=== PATIENT | male | born 1965 | race African-American/Black ===

== ENCOUNTER 2016-11-30 10:22 | Emergency (ER) | payer OTHER ==
[~2016-11-30] VITALS: Ht 185.4 cm; Wt 127.0 kg
[~2016-11-30 10:22] MED LIST: ALLO300T PO; BYSTOLIC10 MG PO; GLIM2TAB2 PO; HYDR12.53 PO; METF500T4 PO; SPIR100T2 PO; TELM80TA PO
[2016-11-30 10:51] VITALS: BP 181/107
--- NOTE | 2016-11-30 11:01 | PHYS DOC ---
Past Medical History Past Medical History: Diabetes-Type II, Hypertension Past Surgical History: Cholecystectomy Alcohol Use: None Drug Use: None Adult General Chief Complaint Chief Complaint: SORE THROAT HPI HPI Patient is a 51 year old male resents to the emergency department stating 3 day history of congestion. He states that he has had pressure feeling over the right eye into the nasal area. He states that he's been having a low-grade fever. He states he took ibuprofen although it causes him to have an upset stomach. He denies any productive cough. He does state that he has a sore throat. He denies any further symptoms at this time. Patient is afebrile here in the emergency department with a temperature of 100.6. Review of Systems Review of Systems Constitutional: fever Eyes: Denies change in visual acuity, redness, or eye pain [] HENT: nasal congestion and sore throat [] Respiratory: Denies cough or shortness of breath [] Cardiovascular: No additional information not addressed in HPI [] GI: Denies abdominal pain, nausea, vomiting, bloody stools or diarrhea [] : Denies dysuria or hematuria [] Musculoskeletal: Denies back pain or joint pain [] Integument: Denies rash or skin lesions [] Neurologic: Denies headache, focal weakness or sensory changes [] Endocrine: Denies polyuria or polydipsia [] Current Medications Current Medications Current Medications Medications (Trade) Dose Ordered [facility] Start Time Stop Time Status Last Admin Dose Admin Acetaminophen (Tylenol) 650 mg 1X ONCE 11/30/16 11:15 11/30/16 11:16 DC 11/30/16 11:22 650 MG Allergies Allergies Allergies Coded Allergies Type Severity Reaction Last Updated Verified No Known Drug Allergies 07/03/13 No Physical Exam Physical Exam Constitutional: Well developed, well nourished, no acute distress, non-toxic appearance. [] HENT: Normocephalic, atraumatic, bilateral external ears normal, oropharynx moist, no oral exudates, nose normal. Bilateral tympanic membranes appear to be normal. Throat with redness no erythematous no exudate noted. Patient with frontal sinus tenderness over the right eye. No maxillary tenderness noted bilaterally. Eyes: PERRLA, EOMI, conjunctiva normal, no discharge. [] Neck: Normal range of motion, no tenderness, supple, no stridor. [] Cardiovascular:Heart rate regular rhythm, no murmur [] Lungs & Thorax: Bilateral breath sounds clear to auscultation [] Abdomen: Bowel sounds normal, soft, no tenderness, no masses, no pulsatile masses. [] Skin: Warm, dry, no erythema, no rash. [] Back: No tenderness, no CVA tenderness. [] Extremities: No tenderness, no cyanosis, no clubbing, ROM intact, no edema. [] Neurologic: Alert and oriented X 3, normal motor function, normal sensory function, no focal deficits noted. [] Psychologic: Affect normal, judgement normal, mood normal. [] Current Patient Data Vital Signs Vital Signs Date Time Temp Pulse Resp B/P (MAP) Pulse Ox O2 Delivery O2 Flow Rate FiO2 11/30/16 10:51 100.6 100 20 98 Room Air 100.6 EKG EKG [] Radiology/Procedures Radiology/Procedures [] Course & Med Decision Making Course & Med Decision Making Pertinent Labs and Imaging studies reviewed. (See chart for details) Rapid strep was negative. Patient will be placed on doxycycline 1 tablet twice a day for the next 10 days. Commended Tylenol for his fever chills or generalized body aches and discomfort. Also recommended Coricidin HBP so recommended Mucinex DM [id number]. Patient will be discharged home with recommendations for plenty of fluids. He'll be provided with a work note for the next 1-2 days. Signs symptoms to return back to the department has been provided. Patient agrees with discharge instructions treatment regimens and follow-up recommendations. His blood pressure was elevated here in the emergency department. Patient states he has not taken his medication as of yet this morning. Spoke with patient in regards to taking his medication once he gets home. Patient agrees with treatment plan. [] Dragon Disclaimer Dragon Disclaimer This electronic medical record was generated, in whole or in part, using a voice recognition dictation system. Departure Departure Impression: Primary Impression: URI (upper respiratory infection) Disposition: 01 HOME, SELF-CARE Condition: STABLE Referrals: NON,STAFF (PCP) Patient Instructions: Upper Respiratory Infection, Adult, [id number] Additional Instructions: Activity as tolerated Medication as prescribed Tylenol for fever, chills or generalized body aches and discomfort Coricidin HBP as directed by nurseryperson [id number]. Mucinex DM instructed by nurseryperson [id number]. Drink plenty of fluids such as water Gatorade or propel. Follow-up to primary care physician in the next week. Return back to emergency department sign symptoms of become worse. Scripts Doxycycline Hyclate (DOXYCYCLINE HYCLATE) 100 Mg Capsule 1 CAP PO BID, #20 CAP Prov: ROSALINA SULLIVAN APRN 11/30/16 ROSALINA SULLIVAN APRN Nov 30, 2016 11:01
[2016-11-30] MEDS ORDERED: ACETAMINOPHEN 325 MG TABLET. PO ONE (11:15)
[2016-11-30] MEDS ORDERED: DOXY100C2 PO (11:22)
[2016-11-30 11:34] LABS: NEGATIVE OBC STREP NEG; POSITIVE OBC STREP POS
== END 2016-11-30 11:25 | disposition home or self-care (01) ==
LOC: ER 10:22
DX: J06.9 Acute upper respiratory infection, unspecified (principal); E11.9 Type 2 diabetes mellitus without complications; I10 Essential (primary) hypertension; Z90.49 Acquired absence of other specified parts of digestive tract
CPT/HCPCS: 87070; 87880; 99283

== ENCOUNTER 2016-12-04 12:29 | Inpatient (IN) | payer OTHER ==
[~2016-12-04] VITALS: Ht 185.4 cm; Wt 129.7 kg
[~2016-12-04 12:29] MED LIST changes: +DOXY100C2 PO
[2016-12-04] MEDS ORDERED: IV NORMAL SALINE 1000ML BAG 1,000 ML IV SCH (13:51)
[2016-12-04] MEDS ORDERED: cloNIDine HCL 0.1 MG TABLET PO ONE (14:00)
[2016-12-04] MEDS ORDERED: ONDANSETRON PF 4 MG/2 ML VIAL. IV ONE (14:00)
[2016-12-04] MEDS ORDERED: FAMOTIDINE 20 MG/2 ML VIAL IVP ONE (14:00)
[2016-12-04] MEDS ORDERED: fentaNYL PF VIAL 100 MCG/2 ML VIAL IV ONE (14:00)
[2016-12-04] MEDS ORDERED: CONTRAST GIVEN MC PRN (14:15)
[2016-12-04] MEDS ORDERED: IOHEXOL 300 MG/ML 75 ML VIAL IV ONE (14:15)
[2016-12-04 14:16] LABS: BILIRUBIN,URINE NEGATIVE (NEG); GLUCOSE,URINE 100 mg/dL (NEG); NITRITE,URINE NEGATIVE (NEG); PROTEIN,URINE >=300 mg/dL (NEG-TRACE); UROBILINOGEN,URINE 0.2 mg/dL (0.2 mg/dL)
--- NOTE | 2016-12-04 14:17 | RAD ---
Portable chest, 12/04/2016: History: Cough Comparison is made to a study from 02/23/2008. The heart is at the upper limits of normal in size. There is tortuosity of the thoracic aorta. The pulmonary vascularity is normal. No pulmonary infiltrates are seen. There is no evidence of pleural fluid. IMPRESSION: 1. Borderline cardiomegaly. 2. Mild aortic ectasia. 3. No acute abnormality is detected.
[2016-12-04 14:22] LABS: BARBITURATES NEG (NEG); BENZODIAZEPINES NEG (NEG); CANNABINOIDS NEG (NEG); COCAINE NEG (NEG); METHADONE NEG (NEG); OPIATES NEG (NEG); PHENCYCLIDINE NEG (NEG)
[2016-12-04 14:25] LABS: BASO # 0.1 x10^3/uL (0.0-0.2); BASO % 1 % (0-3); EOS % 3 % (0-3); HEMATOCRIT 27.6 % (39.0-53.0); HEMOGLOBIN 9.1 g/dL (13.0-17.5); LYMPH # 1.5 x10^3/uL (1.0-4.8); LYMPH % 19 % (24-48); MEAN CORPUSCULAR HEMOGLOBIN 31 pg (25-35); MEAN CORPUSCULAR HGB CONC 33 g/dL (31-37); MEAN CORPUSCULAR VOLUME 93 fL (79-100); MONO % 7 % (0-9); NEUT % 70 % (31-73); PLATELET COUNT 226 x10^3/uL (140-400); RED BLOOD COUNT 2.95 x10^6/uL (4.30-5.70); RED CELL DISTRIBUTION WIDTH 12.9 % (11.5-14.5)
[2016-12-04 14:35] LABS: BACTERIA,URINE 0 /HPF (0-FEW); SQUAMOUS EPITHELIAL CELL,UR OCC /LPF; WBC,URINE OCC /HPF (0-4)
[2016-12-04 14:35] LABS: INR 1.1 (0.8-1.1); PROTHROMBIN TIME PATIENT 13.3 SEC (11.7-14.0)
[2016-12-04 14:38] LABS: CALCIUM 9.1 mg/dL (8.5-10.1); CREATININE 9.8 mg/dL (0.7-1.3); GFR 6.8; POTASSIUM 4.7 mmol/L (3.5-5.1)
[2016-12-04 14:44] LABS: ALBUMIN/GLOBULIN RATIO 0.7 (1.0-1.7); MAGNESIUM 1.6 mg/dL (1.8-2.4); TOTAL BILIRUBIN 0.7 mg/dL (0.2-1.0); TOTAL PROTEIN 7.2 g/dL (6.4-8.2)
[2016-12-04] MEDS ORDERED: IV NORMAL SALINE 1000ML BAG 1,000 ML IV ONE ×2 (14:45→17:15)
--- NOTE | 2016-12-04 14:45 | EKG ---
[facility] [address] [place] [address] Test Date: 2016-12-04 Test Time: 14:16:13 Pat Name: MARYJANE GUZMAN Department: Room: Gender: M [employer]: : 1965 Requested By: CHRISTIAN SANTOS Order Number: [id number] Reading MD: Otis England Measurements Intervals Napoleon Rate: 68 P: 33 ID: [id number] QRS: -26 QRSD: 100 T: 62 QT: 422 QTc: 449 Interpretive Statements SINUS RHYTHM LEFTWARD AXIS R-S TRANSITION ZONE IN V LEADS DISPLACED TO THE LEFT LEFT VENTRICULAR HYPERTROPHY T ABNORMALITY IN HIGH LATERAL LEADS RI6.01 Unconfirmed report No previous ECG available for comparison Electronically Signed On 12-08-2016 10:36:13 CDT by Otis England
[2016-12-04 14:52] LABS: CKMB MASS 2.5 ng/mL (0.0-3.6)
--- NOTE | 2016-12-04 15:00 | PHYS DOC ---
Past Medical History Past Medical History: Diabetes-Type II, Hypertension, Other Additional Past Medical Histor: RENAL INSUFFIENCY Past Surgical History: Cholecystectomy Alcohol Use: None Drug Use: None Adult General Chief Complaint Chief Complaint: ABDOMINAL PAIN HPI HPI Patient is a 51 year old male with history of renal insufficiency, hypertension and diabetes type 2 who presents today with midepigastric abdominal pain nausea that began 3 days ago. Patient states he was seen in the ED 3 days ago for an upper respiratory infection and was started on doxycycline. Patient denies any fever. Denies any diarrhea. Patient states for the last couple days it is just not been feeling "right". PCP Dr. Fernandez Review of Systems Review of Systems Constitutional: Denies fever or chills [] Eyes: Denies change in visual acuity, redness, or eye pain [] HENT: Denies nasal congestion or sore throat [] Respiratory: Denies cough or shortness of breath [] Cardiovascular: No additional information not addressed in HPI [] GI: midepigastric abdominal pain nausea : Denies dysuria or hematuria [] Musculoskeletal: Denies back pain or joint pain [] Integument: Denies rash or skin lesions [] Neurologic: Denies headache, focal weakness or sensory changes [] Endocrine: Denies polyuria or polydipsia [] Current Medications Current Medications Current Medications Medications (Trade) Dose Ordered Sig/Evie Start Time Stop Time Status Last Admin Dose Admin Clonidine HCl (Catapres) 0.2 mg 1X ONCE 12/04/16 14:00 12/04/16 14:01 DC 12/04/16 14:26 0.2 MG Famotidine (Pepcid) 20 mg 1X ONCE 12/04/16 14:00 12/04/16 14:01 DC 12/04/16 14:27 20 MG Fentanyl Citrate (Fentanyl 2ml Vial) 50 mcg 1X ONCE 12/04/16 14:00 12/04/16 14:01 DC 12/04/16 14:28 50 MCG Info (Do NOT chart on this entry -- for MONITORING) 1 each PRN DAILY PRN 12/04/16 14:15 12/06/16 14:14 Iohexol (Omnipaque 300 Mg/ml) 75 ml 1X ONCE 12/04/16 14:15 12/04/16 14:16 DC 12/04/16 14:15 75 ML Labetalol HCl (Normodyne) 10 mg 1X ONCE 12/04/16 15:15 12/04/16 15:16 DC Ondansetron HCl (Zofran) 4 mg 1X ONCE 12/04/16 14:00 12/04/16 14:01 DC 12/04/16 14:27 4 MG Sodium Chloride 1,000 ml @ 125 mls/hr 1X ONCE 12/04/16 14:45 12/04/16 22:44 DC 12/04/16 14:45 125 MLS/HR Allergies Allergies Allergies Coded Allergies Type Severity Reaction Last Updated Verified No Known Drug Allergies 07/03/13 No Physical Exam Physical Exam Constitutional: Well developed, well nourished, no acute distress, non-toxic appearance. [] HENT: Normocephalic, atraumatic, bilateral external ears normal, oropharynx moist, no oral exudates, nose normal. [] Eyes: PERRLA, EOMI, conjunctiva normal, no discharge. [] Neck: Normal range of motion, no tenderness, supple, no stridor. [] Cardiovascular:Heart rate regular rhythm, no murmur [] Lungs & Thorax: Bilateral breath sounds clear to auscultation [] Abdomen: Bowel sounds normal, soft, no tenderness, no masses, no pulsatile masses. [] Skin: Warm, dry, no erythema, no rash. [] Back: No tenderness, no CVA tenderness. [] Extremities: No tenderness, no cyanosis, no clubbing, ROM intact, no edema. [] Neurologic: Alert and oriented X 3, normal motor function, normal sensory function, no focal deficits noted. [] Psychologic: Affect normal, judgement normal, mood normal. [] Current Patient Data Vital Signs Vital Signs Date Time Temp Pulse Resp B/P (MAP) Pulse Ox O2 Delivery O2 Flow Rate FiO2 12/04/16 16:28 70 15 182/106 (131) 98 Room Air 12/04/16 13:41 97.9 97.9 Lab Values Laboratory Tests Test 12/04/16 13:25 12/04/16 14:20 Urine Color Yellow Urine Clarity Clear Urine pH 6.0 Urine Specific [place] 1.020 Urine Protein >=300 mg/dL (NEG-TRACE) Urine Glucose (UA) 100 mg/dL (NEG) Urine Ketones (Stick) Negative mg/dL (NEG) Urine Blood Moderate (NEG) Urine Nitrite Negative (NEG) Urine Bilirubin Negative (NEG) Urine Urobilinogen Dipstick 0.2 mg/dL (0.2 mg/dL) Urine Leukocyte Esterase Negative (NEG) Urine RBC 3-5 /HPF (0-2) Urine WBC Occ /HPF (0-4) Urine Squamous Epithelial Cells Occ /LPF Urine Bacteria 0 /HPF (0-FEW) Urine Opiates Screen Neg (NEG) Urine Methadone Screen Neg (NEG) Urine Barbiturates Neg (NEG) Urine Phencyclidine Screen Neg (NEG) Urine Amphetamine/Methamphetamine Neg (NEG) Urine Benzodiazepines Screen Neg (NEG) Urine Cocaine Screen Neg (NEG) Urine Cannabinoids Screen Neg (NEG) Urine Ethyl Alcohol Neg (NEG) White Blood Count 8.0 x10^3/uL (4.0-11.0) Red Blood Count 2.95 x10^6/uL (4.30-5.70) L Hemoglobin 9.1 g/dL (13.0-17.5) L Hematocrit 27.6 % (39.0-53.0) L Mean Corpuscular Volume 93 fL (79-100) Mean Corpuscular Hemoglobin 31 pg (25-35) Mean Corpuscular Hemoglobin Concent 33 g/dL (31-37) Red Cell Distribution Width 12.9 % (11.5-14.5) Platelet Count 226 x10^3/uL (140-400) Neutrophils (%) (Auto) 70 % (31-73) Lymphocytes (%) (Auto) 19 % (24-48) L Monocytes (%) (Auto) 7 % (0-9) Eosinophils (%) (Auto) 3 % (0-3) Basophils (%) (Auto) 1 % (0-3) Neutrophils # (Auto) 5.6 x10^3uL (1.8-7.7) Lymphocytes # (Auto) 1.5 x10^3/uL (1.0-4.8) Monocytes # (Auto) 0.5 x10^3/uL (0.0-1.1) Eosinophils # (Auto) 0.3 x10^3/uL (0.0-0.7) Basophils # (Auto) 0.1 x10^3/uL (0.0-0.2) Prothrombin Time 13.3 SEC (11.7-14.0) Prothrombin Time INR 1.1 (0.8-1.1) Sodium Level 140 mmol/L (136-145) Potassium Level 4.7 mmol/L (3.5-5.1) Chloride Level 106 mmol/L (98-107) Carbon Dioxide Level 23 mmol/L (21-32) Anion Gap 11 (6-14) Blood Urea Nitrogen 82 mg/dL (8-26) H Creatinine 9.8 mg/dL (0.7-1.3) H Estimated GFR (Cockcroft-Gault) 6.8 BUN/Creatinine Ratio 8 (6-20) Glucose Level 120 mg/dL (70-99) H Calcium Level 9.1 mg/dL (8.5-10.1) Magnesium Level 1.6 mg/dL (1.8-2.4) L Total Bilirubin 0.7 mg/dL (0.2-1.0) Aspartate Amino Transferase (AST) 16 U/L (15-37) Alanine Aminotransferase (ALT) 23 U/L (16-63) Alkaline Phosphatase 61 U/L (46-116) Creatine Kinase 415 U/L (39-308) H Creatine Kinase MB (Mass) 2.5 ng/mL (0.0-3.6) Creatine Kinase MB Relative Index 0.6 % (0-4) Troponin I Quantitative 0.053 ng/mL (0.000-0.055) UA-Xpr-M-Type Natriuretic Peptide 4388 pg/mL (0-124) H Total Protein 7.2 g/dL (6.4-8.2) Albumin 3.0 g/dL (3.4-5.0) L Albumin/Globulin Ratio 0.7 (1.0-1.7) L Lipase 309 U/L (73-393) Laboratory Tests 12/04/16 14:20 Laboratory Tests 12/04/16 14:20 EKG EKG [] Radiology/Procedures Radiology/Procedures [] Course & Med Decision Making Course & Med Decision Making Pertinent Labs and Imaging studies reviewed. (See chart for details) Patient is in the ED with nausea and midepigastric abdominal pain that began 3 days ago. Patient denies any vomiting. Patient states he was started on doxycycline and he thought that is the source of his symptoms. He states he has not been feeling "right" for the last 3 days. CBC with hemoglobin of 9.1 with hematocrit of 27.6, CMP with creatinine of 9.8 and BUN of 82, BNP 4388. Urine protein>= 300. Patient states he has been told before he has renal insufficiency. He states acouple months ago he had his lab work done and his creatinine was around 2.8. Patient's blood pressure on arrival to the ED was 245/128. He states he took his blood pressure medicines 3 hours ago. Patient denies any headache or chest pain. His heart rate of 77. He was given clonidine. Blood pressure is 167/100 with a heart rate of 69. Patient was given 1 L of IV fluid and started of normal saline at 125. Consulted with Dr. Grande. He requested a renal ultrasound as well as a bladder scan. Bladder scan shows patient has [address] Grande requested NS at 100cc/hr Consulted with Dr. Garcia who accepted patient for admission. Dragon Disclaimer Dragon Disclaimer This electronic medical record was generated, in whole or in part, using a voice recognition dictation system. Departure Departure Impression: Primary Impression: Acute renal failure Additional Impressions: Accelerated hypertension Nausea Disposition: 09 ADMITTED INPATIENT Admitting Physician: Janessa Garcia Condition: STABLE Referrals: RAJ SLATER MD (PCP) Problem Qualifiers Primary Impression: Acute renal failure Acute renal failure type: unspecified Qualified Codes: N17.9 - Acute kidney failure, unspecified [employer]AMELAERACHRISTIAN [employer] Dec 04, 2016 15:00
[2016-12-04] MEDS ORDERED: LABETALOL 20 MG/4 ML DISP.SYRIN. IVP ONE (15:15)
--- NOTE | 2016-12-04 16:49 | RAD ---
Renal ultrasound 12/04/2016 Clinical history: Acute renal failure. Technique: A real-time ultrasound examination of both kidneys and the urinary bladder was performed. Multiple images were obtained. Findings: Both kidneys are within normal limits in size and echogenicity. The right kidney measures 10.7 cm in length. The left kidney measures 10.7 cm in length. No focal abnormality of either kidney is seen. No renal calculus is noted. There is no evidence of hydronephrosis. The urinary bladder is distended with urine. No abnormality is seen. Impression: Negative study.
[2016-12-04] MEDS ORDERED: cloNIDine HCL 0.1 MG TABLET PO PRN (17:15)
[2016-12-04] MEDS ORDERED: ONDANSETRON PF 4 MG/2 ML VIAL. IV PRN (17:15)
[2016-12-04] MEDS ORDERED: MORPHINE SULFATE 4 MG/ML DISP.SYRIN. IV PRN (17:15)
--- NOTE | 2016-12-04 18:40 | ACF ---
Admission Forms Criteria RENAL FAILURE, ACUTE Clinical Indications for Admission to Inpatient Care ( Place 'X' for any and all applicable criteria): Admission is indicated for ALL (if I & II) or III of the following [A](2)(3)(4)( 5)(6)(7): [X ]I. Acute renal failure as indicated by ANY ONE of the following: [ ]a) A 3-fold rise in serum creatinine from baseline [X ]b) Serum creatinine greater than 4 mg/dL (354 micromoles/L) with an acute rise greater than 0.5 mg/dL (44.2 micromoles/L) [ ]c) Reduction of more than 75% in estimated glomerular filtration rate from baseline [ ]d) Estimated glomerular filtration rate less than 35 mL/min/1.73m2 (0.59mL/sec/1.73m2)in a child up to 18 years of age [ ]e) Anuria indicated by ALL of the following: [ ]i) Adequate volume status [ ]ii) Cessation of urine output indicated by ANY ONE of the following: [ ]1) Urine output less than 0.3 mL/kg/hr for 24 hours [ ]2) Anuria (urine output less than 0.1 mL/kg/ hr) for 12 hours [X ] II. Renal failure cannot be managed in an outpatient setting or observational care setting as indicating by ANY ONE of the following: [ ]a) Altered mental status that is severe or persistent [ ]b) Volume overload or Respiratory distress (eg, clinically significant pulmonary edema) that is severe or persistent [ ]c) Cardiac arrhythmias of immediate concern [ ]d) Hemodynamic instability [ ]e) Clinically significant electrolyte abnormality that requires inpatient care (eg, hyperkalemia with severe ECG findings)[B] [ ]f) Clinically significant metabolic abnormality (eg, acidosis) that is severe or persistent [ ]g) Acute treatment of renal failure (eg, renal replacement therapy) not feasible or appropriate in observational care setting [ ]h) Clinical situation too unstable or uncertain (eg, inadequate urine output, ongoing decline in renal function, etiology unclear) [ ]i) Necessary support and caregiver ability to comply with outpatient treatment cannot be arranged in observation care timeframe (eg, within 24 hours) [X ]j) Other significant finding or clinical condition judged not to be within scope of observation care [ ]III.General contraindications and/or Inappropriate clinical situations for Observational Care in patients with Acute Renal Failure, when ANY ONE of the following is required: [ ]a) Prediction of prolongation of LOS based on ANY ONE of the following may be considered as a contraindication for observational care 2, 3, 4, 5, 6, 7, 8 , 9, 10, 11 [ ]i) Age > 65 yrs. [ ]ii) Patient arriving by ambulance [ ]iii) Patient with high acuity [ ]iv) Patient requiring vital sign monitoring [ ]v) Patient on IV medication [ ]b) Systolic blood pressures 180mmHg 3,12 [ ]c) Patient with altered mental status including delirium and other alteration of consciousness, (3) [ ]d) Patient whose discharge disposition will be to a care home home or rehabilitation home should not be managed in Emergency Department Observation Unit. CMS rule requires 3 days hospital stay before such placement.3,13 [ ]e) Patient with failure to thrive due to broad array of etiologies 3, 16,17 [ ]f) Inability to ambulate 3,14 Extended stay beyond goal length of stay may be needed for(13) [ ]a) Continuing uremic complications [ ]b) Care for comorbidities [ ]c) acute renal failure [ ]d) Need for dialysis The original [email or web address] content created by [email or web address] has been revised. The portions of the content which have been revised are identified through the use of italic text or in bold, and [facility] [employer] has neither reviewed nor approved the modified material. All other unmodified content is copyright [employer] [facility]. Please see references footnoted in the original [employer] [facility] edition 2016 Admission Criteria Met?: Yes SIMA JOHNSON Dec 04, 2016 18:40
[2016-12-04 19:00] VITALS: BP 174/103
[2016-12-04 20:00] VITALS: BP 174/103
[2016-12-04] MEDS: IV NORMAL SALINE 1000ML BAG 1,000 ML IV SCH (21:30)
[2016-12-04] MEDS ORDERED: DEXTROSE 50% 25 GM / 50ML DISP.SYRIN. IV PRN (21:45)
[2016-12-04] MEDS ORDERED: amLODIPine BESYLATE 5 MG TABLET PO ONE (21:45)
--- NOTE | 2016-12-04 21:46 | PDOC1 ---
History and Physical Date of Admission Date of Admission DATE: 12/04/16 TIME: 21:39 Identification/Chief Complaint Chief Complaint nausea, weakness, abd pain Problems: Source Source: Chart review, Patient History of Present Illness History of Present Illness MR. Valenzuela, ([employer] here on nights) is a 51 year old male admit for acute renal failure 3 days ago given Doxy for URI symptoms of sinusitis and cough. then nausea, abd pain - pain to mid epigastrum, did not vomit. Labs drawn in ER were alarming for renal failure, IV fluid and BP meds given pt feels better now, nausea is improved, no pain. Past Medical History Past Medical History history of renal insufficiency, hypertension and diabetes type 2 Cardiovascular: HTN Heme/Onc: Anemia NOS Musculoskeletal: Other Renal/: Chronic renal insuff Past Surgical History Past Surgical History: Pacemaker Family History Family History: Hypertension Social History Smoke: No ALCOHOL: none Drugs: None Current Problem List Problem List Problems Medical Problems: (1) Accelerated hypertension Status: Acute (2) Nausea Status: Acute Problems: Current Medications Current Medications Current Medications Sodium Chloride 1,000 ml @ 1,000 mls/hr Q1H IV Last administered on 12/04/16 14:27; Start 12/04/16 at 13:51; Stop 12/04/16 at 14:50; Status DC Ondansetron HCl (Zofran) 4 mg 1X ONCE IV Last administered on 12/04/16 14:27 ; Start 12/04/16 at 14:00; Stop 12/04/16 at 14:01; Status DC Famotidine (Pepcid) 20 mg 1X ONCE IVP Last administered on 12/04/16 14:27; Start 12/04/16 at 14:00; Stop 12/04/16 at 14:01; Status DC Fentanyl Citrate (Fentanyl 2ml Vial) 50 mcg 1X ONCE IV Last administered on 14:28; Start 12/04/16 at 14:00; Stop 12/04/16 at 14:01; Status DC Clonidine HCl (Catapres) 0.2 mg 1X ONCE PO Last administered on 12/04/16 14: 26; Start 12/04/16 at 14:00; Stop 12/04/16 at 14:01; Status DC Iohexol (Omnipaque 300 Mg/ml) 75 ml 1X ONCE IV ; Start 12/04/16 at 14:15; Stop 12/04/16 at 14:16; Status DC Info (Do NOT chart on this entry -- for MONITORING) 1 each PRN DAILY PRN MC SEE COMMENTS; Start 12/04/16 at 14:15; Stop 12/06/16 at 14:14 Sodium Chloride 1,000 ml @ 125 mls/hr 1X ONCE IV Last administered on t 14:45; Start 12/04/16 at 14:45; Stop 12/04/16 at 22:44 Labetalol HCl (Normodyne) 10 mg 1X ONCE IVP ; Start 12/04/16 at 15:15; Stop at 15:16; Status DC Ondansetron HCl (Zofran) 4 mg PRN Q8HRS PRN IV NAUSEA/VOMITING; Start 12/04/16 at 17:15; Stop 12/05/16 at 17:14 Morphine Sulfate 4 mg PRN Q2HR PRN IV PAIN; Start 12/04/16 at 17:15; Stop 12/05 at 17:14 Sodium Chloride 1,000 ml @ 100 mls/hr 1X ONCE IV ; Start 12/04/16 at 17:15; Stop 12/05/16 at 03:14 Clonidine HCl (Catapres) 0.1 mg Q6HRS PRN PO HYPERTENSION, SEE COMMENTS; Start 12/04/16 at 17:15 Sodium Chloride 1,000 ml @ 100 mls/hr Q10H IV ; Start 12/04/16 at 21:45; Status UNV Active Scripts Active Doxycycline Hyclate 100 Mg Capsule 1 Cap PO BID Reported Micardis (Telmisartan) 80 Mg Tablet 80 Mg PO DAILY Bystolic (Nebivolol) 10 Mg Tablet 10 Mg PO DAILY Spironolactone 100 Mg Tablet 100 Mg PO DAILY Hydrochlorothiazide Capsule (Hydrochlorothiazide) 12.5 Mg Capsule 12.5 Mg PO DAILY Glimepiride 2 Mg Tablet 2 Mg PO BIDBFRMEAL Metformin Hcl 500 Mg Tablet 500 Mg PO BIDBFRMEAL Allopurinol 300 Mg Tablet 300 Mg PO PRN DAILY Allergies Allergies: Coded Allergies: No Known Drug Allergies (Unverified , 07/03/13) ROS General: YES: Fatigue, Malaise, Appetite, No: Chills, Night Sweats, Other PSYCHOLOGICAL ROS: YES: Sleep disturbances, No: Anxiety, Behavioral Disorder, Concentration difficultie, Decreased libido , Depression, Disorientation, Hallucinations, Hostility, Irritablity, Memory difficulties, Mood Swings, Obsessive thoughts Eyes: No Blurry vision, No Decreased vision, No Double vision, No Dry eyes, No Excessive tearing, No Eye Pain, No Itchy Eyes, No Loss of vision, No Photophobia , No Scotomata, No Uses contacts, No Uses glasses, No Other HEENT: YES: Sinus pain (better from 3 days ago), No: Heacaches, Visual Changes, Hearing change, Nasal congestion, Nasal discharge, Oral lesions, Sore Throat, Epistaxis, Sneezing, Snoring, Tinnitus, Vertigo, Vocal changes, Other Respiratory: YES: Cough, Other, No: Hemoptysis, Orthopnea, Pleuritic Pain, Shortness of breath, SOB with excertion, Sputum Changes, Stridor, Tachypnea, Wheezing Cardiovascular: No Chest Pain, No Palpitations, No Orthopnea, No Paroxysmal Noc. Dyspnea, No Edema, No Lt Headedness, No Other Gastrointestinal: Yes Nausea, Yes Abdominal Pain, No Diarrhea, No Constipation, No Melena, No Hematochezia, No Other Genitourinary: No Dysuria, No Frequency, No Incontinence, No Hematuria, No Retention, No Discharge, No Urgency, No Pain, No Flank Pain, No Other, No , No , No , No , No , No , No Musculoskeletal: No Gait Disturbance, No Joint Pain, No Joint Stiffness, No Joint Swelling, No Muscle Pain, No Muscular Weakness, No Pain In:, No Swelling In:, No Other Neurological: No Behavorial Changes, No Bowel/Bladder ControlChng, No Confusion , No Dizziness, No Gait Disturbance, No Headaches, No Impaired Coord/balance, No Memory Loss, No Numbness/Tingling, No Seizures, No Speech Problems, No Tremors, No Visual Changes, No Weakness, No Other Skin: No Dry Skin, No Eczema, No Hair Changes, No Lumps, No Mole Changes, No Mottling, No Nail Changes, No Pruritus, No Rash, No Skin Lesion Changes, No Other, No Acne Physical Exam General: Alert, Oriented X3, Cooperative, No acute distress HEENT: Atraumatic, PERRLA, EOMI, Mucous membr. moist/pink Lungs: Normal air movement Heart: no gallops, no murmurs Rectal Exam: deferred Extremities: No clubbing, No cyanosis, No edema, Normal pulses Skin: No rashes, No breakdown, No significant lesion Neuro: Normal speech, Normal tone, Sensation intact, Cranial nerves 3-12 NL Psych/Mental Status: Mood NL Vitals Vitals Vital Signs Date Time Temp Pulse Resp B/P (MAP) Pulse Ox O2 Delivery O2 Flow Rate FiO2 12/04/16 19:00 98.3 114 20 174/103 (126) 100 Room Air 98.3 Labs Labs Laboratory Tests Test 12/04/16 13:25 12/04/16 14:20 12/04/16 17:25 12/04/16 21:04 Urine Color Yellow Urine Clarity Clear Urine pH 6.0 Urine Specific [place] 1.020 Urine Protein >=300 mg/dL (NEG-TRACE) Urine Glucose (UA) 100 mg/dL (NEG) Urine Ketones (Stick) Negative mg/dL (NEG) Urine Blood Moderate (NEG) Urine Nitrite Negative (NEG) Urine Bilirubin Negative (NEG) Urine Urobilinogen Dipstick 0.2 mg/dL (0.2 mg/dL) Urine Leukocyte Esterase Negative (NEG) Urine RBC 3-5 /HPF (0-2) Urine WBC Occ /HPF (0-4) Urine Squamous Epithelial Cells Occ /LPF Urine Bacteria 0 /HPF (0-FEW) Urine Opiates Screen Neg (NEG) Urine Methadone Screen Neg (NEG) Urine Barbiturates Neg (NEG) Urine Phencyclidine Screen Neg (NEG) Urine Amphetamine/Methamphetamine Neg (NEG) Urine Benzodiazepines Screen Neg (NEG) Urine Cocaine Screen Neg (NEG) Urine Cannabinoids Screen Neg (NEG) Urine Ethyl Alcohol Neg (NEG) White Blood Count 8.0 x10^3/uL (4.0-11.0) Red Blood Count 2.95 x10^6/uL (4.30-5.70) Hemoglobin 9.1 g/dL (13.0-17.5) Hematocrit 27.6 % (39.0-53.0) Mean Corpuscular Volume 93 fL (79-100) Mean Corpuscular Hemoglobin 31 pg (25-35) Mean Corpuscular Hemoglobin Concent 33 g/dL (31-37) Red Cell Distribution Width 12.9 % (11.5-14.5) Platelet Count 226 x10^3/uL (140-400) Neutrophils (%) (Auto) 70 % (31-73) Lymphocytes (%) (Auto) 19 % (24-48) Monocytes (%) (Auto) 7 % (0-9) Eosinophils (%) (Auto) 3 % (0-3) Basophils (%) (Auto) 1 % (0-3) Neutrophils # (Auto) 5.6 x10^3uL (1.8-7.7) Lymphocytes # (Auto) 1.5 x10^3/uL (1.0-4.8) Monocytes # (Auto) 0.5 x10^3/uL (0.0-1.1) Eosinophils # (Auto) 0.3 x10^3/uL (0.0-0.7) Basophils # (Auto) 0.1 x10^3/uL (0.0-0.2) Prothrombin Time 13.3 SEC (11.7-14.0) Prothromb Time International Ratio 1.1 (0.8-1.1) Sodium Level 140 mmol/L (136-145) Potassium Level 4.7 mmol/L (3.5-5.1) Chloride Level 106 mmol/L (98-107) Carbon Dioxide Level 23 mmol/L (21-32) Anion Gap 11 (6-14) Blood Urea Nitrogen 82 mg/dL (8-26) Creatinine 9.8 mg/dL (0.7-1.3) Estimated GFR (Cockcroft-Gault) 6.8 BUN/Creatinine Ratio 8 (6-20) Glucose Level 120 mg/dL (70-99) Calcium Level 9.1 mg/dL (8.5-10.1) Magnesium Level 1.6 mg/dL (1.8-2.4) Total Bilirubin 0.7 mg/dL (0.2-1.0) Aspartate Amino Transf (AST/SGOT) 16 U/L (15-37) Alanine Aminotransferase (ALT/SGPT) 23 U/L (16-63) Alkaline Phosphatase 61 U/L (46-116) Creatine Kinase 415 U/L (39-308) Creatine Kinase MB (Mass) 2.5 ng/mL (0.0-3.6) Creatine Kinase MB Relative Index 0.6 % (0-4) Troponin I Quantitative 0.053 ng/mL (0.000-0.055) SM-Vhm-I-Type Natriuretic Peptide 4388 pg/mL (0-124) Total Protein 7.2 g/dL (6.4-8.2) Albumin 3.0 g/dL (3.4-5.0) Albumin/Globulin Ratio 0.7 (1.0-1.7) Lipase 309 U/L (73-393) Glucose (Fingerstick) 116 mg/dL (70-99) 112 mg/dL (70-99) Laboratory Tests Test 12/04/16 13:25 12/04/16 14:20 12/04/16 17:25 12/04/16 21:04 Urine Color Yellow Urine Clarity Clear Urine pH 6.0 Urine Specific [place] 1.020 Urine Protein >=300 mg/dL (NEG-TRACE) Urine Glucose (UA) 100 mg/dL (NEG) Urine Ketones (Stick) Negative mg/dL (NEG) Urine Blood Moderate (NEG) Urine Nitrite Negative (NEG) Urine Bilirubin Negative (NEG) Urine Urobilinogen Dipstick 0.2 mg/dL (0.2 mg/dL) Urine Leukocyte Esterase Negative (NEG) Urine RBC 3-5 /HPF (0-2) Urine WBC Occ /HPF (0-4) Urine Squamous Epithelial Cells Occ /LPF Urine Bacteria 0 /HPF (0-FEW) Urine Opiates Screen Neg (NEG) Urine Methadone Screen Neg (NEG) Urine Barbiturates Neg (NEG) Urine Phencyclidine Screen Neg (NEG) Urine Amphetamine/Methamphetamine Neg (NEG) Urine Benzodiazepines Screen Neg (NEG) Urine Cocaine Screen Neg (NEG) Urine Cannabinoids Screen Neg (NEG) Urine Ethyl Alcohol Neg (NEG) White Blood Count 8.0 x10^3/uL (4.0-11.0) Red Blood Count 2.95 x10^6/uL (4.30-5.70) Hemoglobin 9.1 g/dL (13.0-17.5) Hematocrit 27.6 % (39.0-53.0) Mean Corpuscular Volume 93 fL (79-100) Mean Corpuscular Hemoglobin 31 pg (25-35) Mean Corpuscular Hemoglobin Concent 33 g/dL (31-37) Red Cell Distribution Width 12.9 % (11.5-14.5) Platelet Count 226 x10^3/uL (140-400) Neutrophils (%) (Auto) 70 % (31-73) Lymphocytes (%) (Auto) 19 % (24-48) Monocytes (%) (Auto) 7 % (0-9) Eosinophils (%) (Auto) 3 % (0-3) Basophils (%) (Auto) 1 % (0-3) Neutrophils # (Auto) 5.6 x10^3uL (1.8-7.7) Lymphocytes # (Auto) 1.5 x10^3/uL (1.0-4.8) Monocytes # (Auto) 0.5 x10^3/uL (0.0-1.1) Eosinophils # (Auto) 0.3 x10^3/uL (0.0-0.7) Basophils # (Auto) 0.1 x10^3/uL (0.0-0.2) Prothrombin Time 13.3 SEC (11.7-14.0) Prothromb Time International Ratio 1.1 (0.8-1.1) Sodium Level 140 mmol/L (136-145) Potassium Level 4.7 mmol/L (3.5-5.1) Chloride Level 106 mmol/L (98-107) Carbon Dioxide Level 23 mmol/L (21-32) Anion Gap 11 (6-14) Blood Urea Nitrogen 82 mg/dL (8-26) Creatinine 9.8 mg/dL (0.7-1.3) Estimated GFR (Cockcroft-Gault) 6.8 BUN/Creatinine Ratio 8 (6-20) Glucose Level 120 mg/dL (70-99) Calcium Level 9.1 mg/dL (8.5-10.1) Magnesium Level 1.6 mg/dL (1.8-2.4) Total Bilirubin 0.7 mg/dL (0.2-1.0) Aspartate Amino Transf (AST/SGOT) 16 U/L (15-37) Alanine Aminotransferase (ALT/SGPT) 23 U/L (16-63) Alkaline Phosphatase 61 U/L (46-116) Creatine Kinase 415 U/L (39-308) Creatine Kinase MB (Mass) 2.5 ng/mL (0.0-3.6) Creatine Kinase MB Relative Index 0.6 % (0-4) Troponin I Quantitative 0.053 ng/mL (0.000-0.055) DU-Hlf-V-Type Natriuretic Peptide 4388 pg/mL (0-124) Total Protein 7.2 g/dL (6.4-8.2) Albumin 3.0 g/dL (3.4-5.0) Albumin/Globulin Ratio 0.7 (1.0-1.7) Lipase 309 U/L (73-393) Glucose (Fingerstick) 116 mg/dL (70-99) 112 mg/dL (70-99) VTE Prophylaxis Ordered VTE Prophylaxis Devices: Yes VTE Pharmacological Prophylaxi: No Assessment/Plan Assessment/Plan ACute on chronic renal failure, vasomotor on CKD 3, w/ doxy, possible ATN acute metabolic acidosis, hold metformin, Dm2, do sliding scale, DM diet obesity, BMI 37' htn, with renal disease, mild malnutrition due to acute disease, check urine protein DELMIS CARVALHO MD Dec 04, 2016 21:46
[2016-12-04 23:00] VITALS: BP 157/103
[2016-12-05] VITALS (7 sets, daily range): BP systolic 117–175; BP diastolic 83–107
[2016-12-05 05:19] LABS: BASO % 1 % (0-3); EOS % 3 % (0-3); HEMATOCRIT 23.9 % (39.0-53.0); HEMOGLOBIN 7.8 g/dL (13.0-17.5); LYMPH # 1.6 x10^3/uL (1.0-4.8); LYMPH % 25 % (24-48); MEAN CORPUSCULAR HEMOGLOBIN 31 pg (25-35); MEAN CORPUSCULAR HGB CONC 33 g/dL (31-37); MEAN CORPUSCULAR VOLUME 94 fL (79-100); MONO % 7 % (0-9); NEUT % 64 % (31-73); PLATELET COUNT 190 x10^3/uL (140-400); RED BLOOD COUNT 2.53 x10^6/uL (4.30-5.70); RED CELL DISTRIBUTION WIDTH 13.1 % (11.5-14.5); WHITE BLOOD COUNT 6.4 x10^3/uL (4.0-11.0)
[2016-12-05 06:19] LABS: ALBUMIN 2.6 g/dL (3.4-5.0); ALBUMIN/GLOBULIN RATIO 0.9 (1.0-1.7); CALCIUM 7.7 mg/dL (8.5-10.1); CREATININE 9.6 mg/dL (0.7-1.3); POTASSIUM 5.3 mmol/L (3.5-5.1); TOTAL BILIRUBIN 0.4 mg/dL (0.2-1.0); TOTAL PROTEIN 5.5 g/dL (6.4-8.2)
[2016-12-05] MEDS: IV NORMAL SALINE 1000ML BAG 1,000 ML IV SCH ×2 (07:45→17:45)
[2016-12-05] MEDS: INSULIN ASPART 300 UNITS/3 ML INSULN.PEN SQ SCH ×3 (08:00→17:00)
[2016-12-05] MEDS ORDERED: METOPROLOL TART IMMED RELEASE 50 MG TABLET. PO SCH (09:00)
--- NOTE | 2016-12-05 09:08 | ACF ---
Admission Forms Criteria RENAL FAILURE, ACUTE Clinical Indications for Admission to Inpatient Care ( Place 'X' for any and all applicable criteria): Admission is indicated for ALL (if I & II) or III of the following [A](2)(3)(4)( 5)(6)(7): [X]I. Acute renal failure as indicated by ANY ONE of the following: [X]a) A 3-fold rise in serum creatinine from baseline [ ]b) Serum creatinine greater than 4 mg/dL (354 micromoles/L) with an acute rise greater than 0.5 mg/dL (44.2 micromoles/L) [ ]c) Reduction of more than 75% in estimated glomerular filtration rate from baseline [ ]d) Estimated glomerular filtration rate less than 35 mL/min/1.73m2 (0.59mL/sec/1.73m2)in a child up to 18 years of age [ ]e) Anuria indicated by ALL of the following: [ ]i) Adequate volume status [ ]ii) Cessation of urine output indicated by ANY ONE of the following: [ ]1) Urine output less than 0.3 mL/kg/hr for 24 hours [ ]2) Anuria (urine output less than 0.1 mL/kg/ hr) for 12 hours [X] II. Renal failure cannot be managed in an outpatient setting or observational care setting as indicating by ANY ONE of the following: [ ]a) Altered mental status that is severe or persistent [ ]b) Volume overload or Respiratory distress (eg, clinically significant pulmonary edema) that is severe or persistent [ ]c) Cardiac arrhythmias of immediate concern [ ]d) Hemodynamic instability [ ]e) Clinically significant electrolyte abnormality that requires inpatient care (eg, hyperkalemia with severe ECG findings)[B] [ ]f) Clinically significant metabolic abnormality (eg, acidosis) that is severe or persistent [ ]g) Acute treatment of renal failure (eg, renal replacement therapy) not feasible or appropriate in observational care setting [ ]h) Clinical situation too unstable or uncertain (eg, inadequate urine output, ongoing decline in renal function, etiology unclear) [X]i) Necessary support and caregiver ability to comply with outpatient treatment cannot be arranged in observation care timeframe (eg, within 24 hours) [ ]j) Other significant finding or clinical condition judged not to be within scope of observation care [ ]III.General contraindications and/or Inappropriate clinical situations for Observational Care in patients with Acute Renal Failure, when ANY ONE of the following is required: [ ]a) Prediction of prolongation of LOS based on ANY ONE of the following may be considered as a contraindication for observational care 2, 3, 4, 5, 6, 7, 8 , 9, 10, 11 [ ]i) Age > 65 yrs. [ ]ii) Patient arriving by ambulance [ ]iii) Patient with high acuity [ ]iv) Patient requiring vital sign monitoring [ ]v) Patient on IV medication [ ]b) Systolic blood pressures 180mmHg 3,12 [ ]c) Patient with altered mental status including delirium and other alteration of consciousness, (3) [ ]d) Patient whose discharge disposition will be to a residential home or rehabilitation home should not be managed in Emergency Department Observation Unit. CMS rule requires 3 days hospital stay before such placement.3,13 [ ]e) Patient with failure to thrive due to broad array of etiologies 3, 16,17 [ ]f) Inability to ambulate 3,14 Extended stay beyond goal length of stay may be needed for(13) [ ]a) Continuing uremic complications [ ]b) Care for comorbidities [ ]c) acute renal failure [ ]d) Need for dialysis The original [facility] content created by [facility] has been revised. The portions of the content which have been revised are identified through the use of italic text or in bold, and [facility] has neither reviewed nor approved the modified material. All other unmodified content is copyright [facility] [employer] [facility]. Please see references footnoted in the original [facility] edition 2016 Admission Criteria Met?: Yes TREMAYNE FISHER Dec 05, 2016 09:08 SIMA JOHNSON Dec 06, 2016 11:18
[2016-12-05] MEDS: amLODIPine BESYLATE 5 MG TABLET PO SCH (09:26)
[2016-12-05] MEDS ORDERED: ONDANSETRON PF 4 MG/2 ML VIAL. IV PRN (10:00)
[2016-12-05] MEDS ORDERED: DOCUSATE SODIUM 100 MG CAPSULE. PO PRN (10:00)
--- NOTE | 2016-12-05 12:17 | PDOC2 ---
CONSULT Date of Consult Date of Consult DATE: 12/05/16 TIME: 12:10 Reason for Consult Reason for Consult: RENAL FAILURE Referring Physician Referring Physician: MAIA Identification/Chief Complaint Chief Complaint NAUSEA Source Source: Chart review, Patient History of Present Illness Reason for Visit: THIS IS A 51 YR OLD ADMITTED WITH NAUSEA AND THEN NOTED TO HAVE PROFOUND RENAL FAILURE. HIS CR IS OVER 9.0 AND HE IS ANEMIA. HE HAS NOT SEEN A BURIAL VAULT SETTER IN OVER 2 YEARS WHEN HE HAD STAGE 4 CKD. SYMPTOMS BEGAN SLOWLY OVER THE LAST MONTH OR SO. HE HAS AN UREMIC BREATH. HX POS FOR DM II AND HTN Past Medical History Cardiovascular: HTN Heme/Onc: Anemia NOS Musculoskeletal: Other Renal/: Chronic renal insuff Past Surgical History Past Surgical History: Pacemaker Family History Family History: Hypertension Social History No ALCOHOL: none Drugs: None Lives: Alone Current Problem List Problem List Problems Medical Problems: (1) Accelerated hypertension Status: Acute (2) Nausea Status: Acute Current Medications Current Medications Current Medications Sodium Chloride 1,000 ml @ 1,000 mls/hr Q1H IV Last administered on 12/04/16 14:27; Start 12/04/16 at 13:51; Stop 12/04/16 at 14:50; Status DC Ondansetron HCl (Zofran) 4 mg 1X ONCE IV Last administered on 12/04/16 14:27 ; Start 12/04/16 at 14:00; Stop 12/04/16 at 14:01; Status DC Famotidine (Pepcid) 20 mg 1X ONCE IVP Last administered on 12/04/16 14:27; Start 12/04/16 at 14:00; Stop 12/04/16 at 14:01; Status DC Fentanyl Citrate (Fentanyl 2ml Vial) 50 mcg 1X ONCE IV Last administered on 14:28; Start 12/04/16 at 14:00; Stop 12/04/16 at 14:01; Status DC Clonidine HCl (Catapres) 0.2 mg 1X ONCE PO Last administered on 12/04/16 14: 26; Start 12/04/16 at 14:00; Stop 12/04/16 at 14:01; Status DC Iohexol (Omnipaque 300 Mg/ml) 75 ml 1X ONCE IV Last administered on 12/04/16 14:15; Start 12/04/16 at 14:15; Stop 12/04/16 at 14:16; Status DC Info (Do NOT chart on this entry -- for MONITORING) 1 each PRN DAILY PRN MC SEE COMMENTS; Start 12/04/16 at 14:15; Stop 12/06/16 at 14:14 Sodium Chloride 1,000 ml @ 125 mls/hr 1X ONCE IV Last administered on 14:45; Start 12/04/16 at 14:45; Stop 12/04/16 at 22:44; Status DC Labetalol HCl (Normodyne) 10 mg 1X ONCE IVP ; Start 12/04/16 at 15:15; Stop at 15:16; Status DC Ondansetron HCl (Zofran) 4 mg PRN Q8HRS PRN IV NAUSEA/VOMITING; Start 12/04/16 at 17:15; Stop 12/05/16 at 17:14 Morphine Sulfate 4 mg PRN Q2HR PRN IV PAIN Last administered on 12/04/16 21:54 ; Start 12/04/16 at 17:15; Stop 12/05/16 at 17:14 Sodium Chloride 1,000 ml @ 100 mls/hr 1X ONCE IV ; Start 12/04/16 at 17:15; Stop 12/05/16 at 03:14; Status DC Clonidine HCl (Catapres) 0.1 mg Q6HRS PRN PO HYPERTENSION, SEE COMMENTS; Start 12/04/16 at 17:15; Stop 12/05/16 at 09:48; Status DC Sodium Chloride 1,000 ml @ 100 mls/hr Q10H IV Last administered on 12/05/16 07:45; Start 12/04/16 at 21:45 Metoprolol Tartrate (Lopressor) 50 mg DAILY PO Last administered on 12/05/16 09:25; Start 12/05/16 at 09:00 Amlodipine Besylate (Norvasc) 5 mg DAILY PO Last administered on 12/05/16 09: 26; Start 12/05/16 at 09:00 Amlodipine Besylate (Norvasc) 5 mg 1X ONCE PO Last administered on 12/04/16 21:49; Start 12/04/16 at 21:45; Stop 12/04/16 at 21:46; Status DC Insulin Aspart (NovoLOG) 0-9 UNITS TIDWMEALS SQ ; Start 12/05/16 at 08:00 Dextrose (Dextrose 50%-Water Syringe) 12.5 gm PRN Q15MIN PRN IV SEE COMMENTS; Start 12/04/16 at 21:45 Acetaminophen (Tylenol) 650 mg PRN Q6HRS PRN PO FEVER; Start 12/05/16 at 10:00 Ondansetron HCl (Zofran) 4 mg PRN Q6HRS PRN IV NAUSEA/VOMITING; Start 12/05/16 at 10:00 Morphine Sulfate 2 mg PRN Q2HR PRN IV PAIN; Start 12/05/16 at 10:00 Tramadol HCl (Ultram) 50 mg PRN Q6HRS PRN PO PAIN; Start 12/05/16 at 10:00 Hydralazine HCl (Apresoline) 10 mg PRN Q4HRS PRN IVP ELEVATED BP, SEE COMMENTS ; Start 12/05/16 at 10:00 Docusate Sodium (Colace) 100 mg PRN DAILY PRN PO CONSTIPATION; Start 12/05/16 at 10:00 Active Scripts Active Doxycycline Hyclate 100 Mg Capsule 1 Cap PO BID Reported Micardis (Telmisartan) 80 Mg Tablet 80 Mg PO DAILY Bystolic (Nebivolol) 10 Mg Tablet 10 Mg PO DAILY Spironolactone 100 Mg Tablet 100 Mg PO DAILY Hydrochlorothiazide Capsule (Hydrochlorothiazide) 12.5 Mg Capsule 12.5 Mg PO DAILY Glimepiride 2 Mg Tablet 2 Mg PO BIDBFRMEAL Metformin Hcl 500 Mg Tablet 500 Mg PO BIDBFRMEAL Allopurinol 300 Mg Tablet 300 Mg PO PRN DAILY Allergies Allergies: Coded Allergies: No Known Drug Allergies (Unverified , 07/03/13) ROS General: YES: Fatigue, Appetite PSYCHOLOGICAL ROS: YES: Anxiety, Depression Eyes: Yes Decreased vision HEENT: YES: Heacaches Respiratory: YES: Cough Cardiovascular: yes Edema Gastrointestinal: Yes Nausea, Yes Abdominal Pain Genitourinary: YES Other (NOCTURIA) Musculoskeletal: Yes Muscular Weakness Neurological: Yes Weakness Skin: Yes Dry Skin Physical Exam General: Alert, Oriented X3, Cooperative, No acute distress HEENT: Atraumatic, PERRLA, EOMI, Mucous membr. moist/pink Lungs: Clear to auscultation, Normal air movement Heart: Regular rate, Normal S1, Normal S2 Abdomen: Normal bowel sounds, Soft, No tenderness Extremities: No clubbing Skin: No breakdown Neuro: Normal speech, Cranial nerves 3-12 NL Psych/Mental Status: Mental status NL, Mood NL MUSCULOSKELETAL: No joint tenderness, No deformity Vitals VITALS Vital Signs Date Time Temp Pulse Resp B/P (MAP) Pulse Ox O2 Delivery O2 Flow Rate FiO2 12/05/16 11:00 72 22 167/107 (127) 95 Room Air 12/05/16 07:00 98.3 98.3 Labs Labs Laboratory Tests Test 12/04/16 13:25 12/04/16 14:20 12/04/16 17:25 12/04/16 21:04 Urine Color Yellow Urine Clarity Clear Urine pH 6.0 Urine Specific [place] 1.020 Urine Protein >=300 mg/dL (NEG-TRACE) Urine Glucose (UA) 100 mg/dL (NEG) Urine Ketones (Stick) Negative mg/dL (NEG) Urine Blood Moderate (NEG) Urine Nitrite Negative (NEG) Urine Bilirubin Negative (NEG) Urine Urobilinogen Dipstick 0.2 mg/dL (0.2 mg/dL) Urine Leukocyte Esterase Negative (NEG) Urine RBC 3-5 /HPF (0-2) Urine WBC Occ /HPF (0-4) Urine Squamous Epithelial Cells Occ /LPF Urine Bacteria 0 /HPF (0-FEW) Urine Opiates Screen Neg (NEG) Urine Methadone Screen Neg (NEG) Urine Barbiturates Neg (NEG) Urine Phencyclidine Screen Neg (NEG) Urine Amphetamine/Methamphetamine Neg (NEG) Urine Benzodiazepines Screen Neg (NEG) Urine Cocaine Screen Neg (NEG) Urine Cannabinoids Screen Neg (NEG) Urine Ethyl Alcohol Neg (NEG) White Blood Count 8.0 x10^3/uL (4.0-11.0) Red Blood Count 2.95 x10^6/uL (4.30-5.70) Hemoglobin 9.1 g/dL (13.0-17.5) Hematocrit 27.6 % (39.0-53.0) Mean Corpuscular Volume 93 fL (79-100) Mean Corpuscular Hemoglobin 31 pg (25-35) Mean Corpuscular Hemoglobin Concent 33 g/dL (31-37) Red Cell Distribution Width 12.9 % (11.5-14.5) Platelet Count 226 x10^3/uL (140-400) Neutrophils (%) (Auto) 70 % (31-73) Lymphocytes (%) (Auto) 19 % (24-48) Monocytes (%) (Auto) 7 % (0-9) Eosinophils (%) (Auto) 3 % (0-3) Basophils (%) (Auto) 1 % (0-3) Neutrophils # (Auto) 5.6 x10^3uL (1.8-7.7) Lymphocytes # (Auto) 1.5 x10^3/uL (1.0-4.8) Monocytes # (Auto) 0.5 x10^3/uL (0.0-1.1) Eosinophils # (Auto) 0.3 x10^3/uL (0.0-0.7) Basophils # (Auto) 0.1 x10^3/uL (0.0-0.2) Prothrombin Time 13.3 SEC (11.7-14.0) Prothromb Time International Ratio 1.1 (0.8-1.1) Sodium Level 140 mmol/L (136-145) Potassium Level 4.7 mmol/L (3.5-5.1) Chloride Level 106 mmol/L (98-107) Carbon Dioxide Level 23 mmol/L (21-32) Anion Gap 11 (6-14) Blood Urea Nitrogen 82 mg/dL (8-26) Creatinine 9.8 mg/dL (0.7-1.3) Estimated GFR (Cockcroft-Gault) 6.8 BUN/Creatinine Ratio 8 (6-20) Glucose Level 120 mg/dL (70-99) Calcium Level 9.1 mg/dL (8.5-10.1) Magnesium Level 1.6 mg/dL (1.8-2.4) Total Bilirubin 0.7 mg/dL (0.2-1.0) Aspartate Amino Transf (AST/SGOT) 16 U/L (15-37) Alanine Aminotransferase (ALT/SGPT) 23 U/L (16-63) Alkaline Phosphatase 61 U/L (46-116) Creatine Kinase 415 U/L (39-308) Creatine Kinase MB (Mass) 2.5 ng/mL (0.0-3.6) Creatine Kinase MB Relative Index 0.6 % (0-4) Troponin I Quantitative 0.053 ng/mL (0.000-0.055) KD-Dow-C-Type Natriuretic Peptide 4388 pg/mL (0-124) Total Protein 7.2 g/dL (6.4-8.2) Albumin 3.0 g/dL (3.4-5.0) Albumin/Globulin Ratio 0.7 (1.0-1.7) Lipase 309 U/L (73-393) Glucose (Fingerstick) 116 mg/dL (70-99) 112 mg/dL (70-99) Test 12/05/16 04:45 12/05/16 07:45 12/05/16 11:05 White Blood Count 6.4 x10^3/uL (4.0-11.0) Red Blood Count 2.53 x10^6/uL (4.30-5.70) Hemoglobin 7.8 g/dL (13.0-17.5) Hematocrit 23.9 % (39.0-53.0) Mean Corpuscular Volume 94 fL (79-100) Mean Corpuscular Hemoglobin 31 pg (25-35) Mean Corpuscular Hemoglobin Concent 33 g/dL (31-37) Red Cell Distribution Width 13.1 % (11.5-14.5) Platelet Count 190 x10^3/uL (140-400) Neutrophils (%) (Auto) 64 % (31-73) Lymphocytes (%) (Auto) 25 % (24-48) Monocytes (%) (Auto) 7 % (0-9) Eosinophils (%) (Auto) 3 % (0-3) Basophils (%) (Auto) 1 % (0-3) Neutrophils # (Auto) 4.1 x10^3uL (1.8-7.7) Lymphocytes # (Auto) 1.6 x10^3/uL (1.0-4.8) Monocytes # (Auto) 0.5 x10^3/uL (0.0-1.1) Eosinophils # (Auto) 0.2 x10^3/uL (0.0-0.7) Basophils # (Auto) 0.0 x10^3/uL (0.0-0.2) Sodium Level 141 mmol/L (136-145) Potassium Level 5.3 mmol/L (3.5-5.1) Chloride Level 108 mmol/L (98-107) Carbon Dioxide Level 23 mmol/L (21-32) Anion Gap 10 (6-14) Blood Urea Nitrogen 75 mg/dL (8-26) Creatinine 9.6 mg/dL (0.7-1.3) Estimated GFR (Cockcroft-Gault) 7.0 BUN/Creatinine Ratio 8 (6-20) Glucose Level 113 mg/dL (70-99) Calcium Level 7.7 mg/dL (8.5-10.1) Total Bilirubin 0.4 mg/dL (0.2-1.0) Aspartate Amino Transf (AST/SGOT) 13 U/L (15-37) Alanine Aminotransferase (ALT/SGPT) 18 U/L (16-63) Alkaline Phosphatase 50 U/L (46-116) Total Protein 5.5 g/dL (6.4-8.2) Albumin 2.6 g/dL (3.4-5.0) Albumin/Globulin Ratio 0.9 (1.0-1.7) Glucose (Fingerstick) 87 mg/dL (70-99) 131 mg/dL (70-99) Laboratory Tests Test 12/04/16 13:25 12/04/16 14:20 12/04/16 17:25 12/04/16 21:04 Urine Color Yellow Urine Clarity Clear Urine pH 6.0 Urine Specific [place] 1.020 Urine Protein >=300 mg/dL (NEG-TRACE) Urine Glucose (UA) 100 mg/dL (NEG) Urine Ketones (Stick) Negative mg/dL (NEG) Urine Blood Moderate (NEG) Urine Nitrite Negative (NEG) Urine Bilirubin Negative (NEG) Urine Urobilinogen Dipstick 0.2 mg/dL (0.2 mg/dL) Urine Leukocyte Esterase Negative (NEG) Urine RBC 3-5 /HPF (0-2) Urine WBC Occ /HPF (0-4) Urine Squamous Epithelial Cells Occ /LPF Urine Bacteria 0 /HPF (0-FEW) Urine Opiates Screen Neg (NEG) Urine Methadone Screen Neg (NEG) Urine Barbiturates Neg (NEG) Urine Phencyclidine Screen Neg (NEG) Urine Amphetamine/Methamphetamine Neg (NEG) Urine Benzodiazepines Screen Neg (NEG) Urine Cocaine Screen Neg (NEG) Urine Cannabinoids Screen Neg (NEG) Urine Ethyl Alcohol Neg (NEG) White Blood Count 8.0 x10^3/uL (4.0-11.0) Red Blood Count 2.95 x10^6/uL (4.30-5.70) Hemoglobin 9.1 g/dL (13.0-17.5) Hematocrit 27.6 % (39.0-53.0) Mean Corpuscular Volume 93 fL (79-100) Mean Corpuscular Hemoglobin 31 pg (25-35) Mean Corpuscular Hemoglobin Concent 33 g/dL (31-37) Red Cell Distribution Width 12.9 % (11.5-14.5) Platelet Count 226 x10^3/uL (140-400) Neutrophils (%) (Auto) 70 % (31-73) Lymphocytes (%) (Auto) 19 % (24-48) Monocytes (%) (Auto) 7 % (0-9) Eosinophils (%) (Auto) 3 % (0-3) Basophils (%) (Auto) 1 % (0-3) Neutrophils # (Auto) 5.6 x10^3uL (1.8-7.7) Lymphocytes # (Auto) 1.5 x10^3/uL (1.0-4.8) Monocytes # (Auto) 0.5 x10^3/uL (0.0-1.1) Eosinophils # (Auto) 0.3 x10^3/uL (0.0-0.7) Basophils # (Auto) 0.1 x10^3/uL (0.0-0.2) Prothrombin Time 13.3 SEC (11.7-14.0) Prothromb Time International Ratio 1.1 (0.8-1.1) Sodium Level 140 mmol/L (136-145) Potassium Level 4.7 mmol/L (3.5-5.1) Chloride Level 106 mmol/L (98-107) Carbon Dioxide Level 23 mmol/L (21-32) Anion Gap 11 (6-14) Blood Urea Nitrogen 82 mg/dL (8-26) Creatinine 9.8 mg/dL (0.7-1.3) Estimated GFR (Cockcroft-Gault) 6.8 BUN/Creatinine Ratio 8 (6-20) Glucose Level 120 mg/dL (70-99) Calcium Level 9.1 mg/dL (8.5-10.1) Magnesium Level 1.6 mg/dL (1.8-2.4) Total Bilirubin 0.7 mg/dL (0.2-1.0) Aspartate Amino Transf (AST/SGOT) 16 U/L (15-37) Alanine Aminotransferase (ALT/SGPT) 23 U/L (16-63) Alkaline Phosphatase 61 U/L (46-116) Creatine Kinase 415 U/L (39-308) Creatine Kinase MB (Mass) 2.5 ng/mL (0.0-3.6) Creatine Kinase MB Relative Index 0.6 % (0-4) Troponin I Quantitative 0.053 ng/mL (0.000-0.055) HM-Qzj-T-Type Natriuretic Peptide 4388 pg/mL (0-124) Total Protein 7.2 g/dL (6.4-8.2) Albumin 3.0 g/dL (3.4-5.0) Albumin/Globulin Ratio 0.7 (1.0-1.7) Lipase 309 U/L (73-393) Glucose (Fingerstick) 116 mg/dL (70-99) 112 mg/dL (70-99) Test 12/05/16 04:45 12/05/16 07:45 12/05/16 11:05 White Blood Count 6.4 x10^3/uL (4.0-11.0) Red Blood Count 2.53 x10^6/uL (4.30-5.70) Hemoglobin 7.8 g/dL (13.0-17.5) Hematocrit 23.9 % (39.0-53.0) Mean Corpuscular Volume 94 fL (79-100) Mean Corpuscular Hemoglobin 31 pg (25-35) Mean Corpuscular Hemoglobin Concent 33 g/dL (31-37) Red Cell Distribution Width 13.1 % (11.5-14.5) Platelet Count 190 x10^3/uL (140-400) Neutrophils (%) (Auto) 64 % (31-73) Lymphocytes (%) (Auto) 25 % (24-48) Monocytes (%) (Auto) 7 % (0-9) Eosinophils (%) (Auto) 3 % (0-3) Basophils (%) (Auto) 1 % (0-3) Neutrophils # (Auto) 4.1 x10^3uL (1.8-7.7) Lymphocytes # (Auto) 1.6 x10^3/uL (1.0-4.8) Monocytes # (Auto) 0.5 x10^3/uL (0.0-1.1) Eosinophils # (Auto) 0.2 x10^3/uL (0.0-0.7) Basophils # (Auto) 0.0 x10^3/uL (0.0-0.2) Sodium Level 141 mmol/L (136-145) Potassium Level 5.3 mmol/L (3.5-5.1) Chloride Level 108 mmol/L (98-107) Carbon Dioxide Level 23 mmol/L (21-32) Anion Gap 10 (6-14) Blood Urea Nitrogen 75 mg/dL (8-26) Creatinine 9.6 mg/dL (0.7-1.3) Estimated GFR (Cockcroft-Gault) 7.0 BUN/Creatinine Ratio 8 (6-20) Glucose Level 113 mg/dL (70-99) Calcium Level 7.7 mg/dL (8.5-10.1) Total Bilirubin 0.4 mg/dL (0.2-1.0) Aspartate Amino Transf (AST/SGOT) 13 U/L (15-37) Alanine Aminotransferase (ALT/SGPT) 18 U/L (16-63) Alkaline Phosphatase 50 U/L (46-116) Total Protein 5.5 g/dL (6.4-8.2) Albumin 2.6 g/dL (3.4-5.0) Albumin/Globulin Ratio 0.9 (1.0-1.7) Glucose (Fingerstick) 87 mg/dL (70-99) 131 mg/dL (70-99) Assessment/Plan Assessment/Plan IMP NEW ESRD UREMIA HTN DM II ANEMIA PLAN IVF'S WILL NEED TO INITIATE HD WILL HAVE CM SET UP OP HD AT [facility] WILL CHECK PO4-MAY NEED BINDERS CHECK PTH START [facility] WILL HAVE IR PLACE A TUNNELED HD CATHETER INITIATE HD CHECK HEP PANEL LI LAWS MD Dec 05, 2016 12:17
--- NOTE | 2016-12-05 13:09 | PDOC ---
PROGRESS NOTES Chief Complaint Chief Complaint ACute on chronic renal failure, likely ATN from CKD 3, 2/2 doxy? acute metabolic acidosis Dm2, obesity, BMI 37' htn, with renal disease, mild malnutrition due to acute disease normacytic anemia, 2/2 CKD likely plan: fu with renal temp HD SW for HD outpt set up hold most home meds ssi ivf on amlodipine and metoprolol for HTN for now dvt ppx History of Present Illness History of Present Illness pt feels ok, however, CR 9.8 renal US neg Vitals Vitals Vital Signs Date Time Temp Pulse Resp B/P (MAP) Pulse Ox O2 Delivery O2 Flow Rate FiO2 12/05/16 11:00 72 22 167/107 (127) 95 Room Air 12/05/16 07:00 98.3 98.3 Physical Exam General: Alert, Oriented X3, Cooperative, No acute distress Heart: Regular rate, Normal S1, Normal S2 Lungs: Clear Abdomen: Normal bowel sounds, Soft, No tenderness Extremities: No clubbing Skin: No breakdown Labs LABS Laboratory Tests Test 12/04/16 13:25 12/04/16 14:20 12/04/16 17:25 12/04/16 21:04 Urine Color Yellow Urine Clarity Clear Urine pH 6.0 Urine Specific [place] 1.020 Urine Protein >=300 mg/dL (NEG-TRACE) Urine Glucose (UA) 100 mg/dL (NEG) Urine Ketones (Stick) Negative mg/dL (NEG) Urine Blood Moderate (NEG) Urine Nitrite Negative (NEG) Urine Bilirubin Negative (NEG) Urine Urobilinogen Dipstick 0.2 mg/dL (0.2 mg/dL) Urine Leukocyte Esterase Negative (NEG) Urine RBC 3-5 /HPF (0-2) Urine WBC Occ /HPF (0-4) Urine Squamous Epithelial Cells Occ /LPF Urine Bacteria 0 /HPF (0-FEW) Urine Opiates Screen Neg (NEG) Urine Methadone Screen Neg (NEG) Urine Barbiturates Neg (NEG) Urine Phencyclidine Screen Neg (NEG) Urine Amphetamine/Methamphetamine Neg (NEG) Urine Benzodiazepines Screen Neg (NEG) Urine Cocaine Screen Neg (NEG) Urine Cannabinoids Screen Neg (NEG) Urine Ethyl Alcohol Neg (NEG) White Blood Count 8.0 x10^3/uL (4.0-11.0) Red Blood Count 2.95 x10^6/uL (4.30-5.70) Hemoglobin 9.1 g/dL (13.0-17.5) Hematocrit 27.6 % (39.0-53.0) Mean Corpuscular Volume 93 fL (79-100) Mean Corpuscular Hemoglobin 31 pg (25-35) Mean Corpuscular Hemoglobin Concent 33 g/dL (31-37) Red Cell Distribution Width 12.9 % (11.5-14.5) Platelet Count 226 x10^3/uL (140-400) Neutrophils (%) (Auto) 70 % (31-73) Lymphocytes (%) (Auto) 19 % (24-48) Monocytes (%) (Auto) 7 % (0-9) Eosinophils (%) (Auto) 3 % (0-3) Basophils (%) (Auto) 1 % (0-3) Neutrophils # (Auto) 5.6 x10^3uL (1.8-7.7) Lymphocytes # (Auto) 1.5 x10^3/uL (1.0-4.8) Monocytes # (Auto) 0.5 x10^3/uL (0.0-1.1) Eosinophils # (Auto) 0.3 x10^3/uL (0.0-0.7) Basophils # (Auto) 0.1 x10^3/uL (0.0-0.2) Prothrombin Time 13.3 SEC (11.7-14.0) Prothromb Time International Ratio 1.1 (0.8-1.1) Sodium Level 140 mmol/L (136-145) Potassium Level 4.7 mmol/L (3.5-5.1) Chloride Level 106 mmol/L (98-107) Carbon Dioxide Level 23 mmol/L (21-32) Anion Gap 11 (6-14) Blood Urea Nitrogen 82 mg/dL (8-26) Creatinine 9.8 mg/dL (0.7-1.3) Estimated GFR (Cockcroft-Gault) 6.8 BUN/Creatinine Ratio 8 (6-20) Glucose Level 120 mg/dL (70-99) Calcium Level 9.1 mg/dL (8.5-10.1) Magnesium Level 1.6 mg/dL (1.8-2.4) Total Bilirubin 0.7 mg/dL (0.2-1.0) Aspartate Amino Transf (AST/SGOT) 16 U/L (15-37) Alanine Aminotransferase (ALT/SGPT) 23 U/L (16-63) Alkaline Phosphatase 61 U/L (46-116) Creatine Kinase 415 U/L (39-308) Creatine Kinase MB (Mass) 2.5 ng/mL (0.0-3.6) Creatine Kinase MB Relative Index 0.6 % (0-4) Troponin I Quantitative 0.053 ng/mL (0.000-0.055) ZM-Cjt-V-Type Natriuretic Peptide 4388 pg/mL (0-124) Total Protein 7.2 g/dL (6.4-8.2) Albumin 3.0 g/dL (3.4-5.0) Albumin/Globulin Ratio 0.7 (1.0-1.7) Lipase 309 U/L (73-393) Glucose (Fingerstick) 116 mg/dL (70-99) 112 mg/dL (70-99) Test 12/05/16 04:45 12/05/16 07:45 12/05/16 11:05 White Blood Count 6.4 x10^3/uL (4.0-11.0) Red Blood Count 2.53 x10^6/uL (4.30-5.70) Hemoglobin 7.8 g/dL (13.0-17.5) Hematocrit 23.9 % (39.0-53.0) Mean Corpuscular Volume 94 fL (79-100) Mean Corpuscular Hemoglobin 31 pg (25-35) Mean Corpuscular Hemoglobin Concent 33 g/dL (31-37) Red Cell Distribution Width 13.1 % (11.5-14.5) Platelet Count 190 x10^3/uL (140-400) Neutrophils (%) (Auto) 64 % (31-73) Lymphocytes (%) (Auto) 25 % (24-48) Monocytes (%) (Auto) 7 % (0-9) Eosinophils (%) (Auto) 3 % (0-3) Basophils (%) (Auto) 1 % (0-3) Neutrophils # (Auto) 4.1 x10^3uL (1.8-7.7) Lymphocytes # (Auto) 1.6 x10^3/uL (1.0-4.8) Monocytes # (Auto) 0.5 x10^3/uL (0.0-1.1) Eosinophils # (Auto) 0.2 x10^3/uL (0.0-0.7) Basophils # (Auto) 0.0 x10^3/uL (0.0-0.2) Sodium Level 141 mmol/L (136-145) Potassium Level 5.3 mmol/L (3.5-5.1) Chloride Level 108 mmol/L (98-107) Carbon Dioxide Level 23 mmol/L (21-32) Anion Gap 10 (6-14) Blood Urea Nitrogen 75 mg/dL (8-26) Creatinine 9.6 mg/dL (0.7-1.3) Estimated GFR (Cockcroft-Gault) 7.0 BUN/Creatinine Ratio 8 (6-20) Glucose Level 113 mg/dL (70-99) Calcium Level 7.7 mg/dL (8.5-10.1) Total Bilirubin 0.4 mg/dL (0.2-1.0) Aspartate Amino Transf (AST/SGOT) 13 U/L (15-37) Alanine Aminotransferase (ALT/SGPT) 18 U/L (16-63) Alkaline Phosphatase 50 U/L (46-116) Total Protein 5.5 g/dL (6.4-8.2) Albumin 2.6 g/dL (3.4-5.0) Albumin/Globulin Ratio 0.9 (1.0-1.7) Glucose (Fingerstick) 87 mg/dL (70-99) 131 mg/dL (70-99) Review of Systems Review of Systems no fever, chills, sob or chest pain Assessment and Plan Assessmemt and Plan Problems Medical Problems: (1) Accelerated hypertension Status: Acute (2) Nausea Status: Acute Problems: Comment Review of Relevant I have reviewed the following items maame (where applicable) has been applied. Labs Laboratory Tests Test 12/04/16 13:25 12/04/16 14:20 12/04/16 17:25 12/04/16 21:04 Urine Color Yellow Urine Clarity Clear Urine pH 6.0 Urine Specific [place] 1.020 Urine Protein >=300 mg/dL (NEG-TRACE) Urine Glucose (UA) 100 mg/dL (NEG) Urine Ketones (Stick) Negative mg/dL (NEG) Urine Blood Moderate (NEG) Urine Nitrite Negative (NEG) Urine Bilirubin Negative (NEG) Urine Urobilinogen Dipstick 0.2 mg/dL (0.2 mg/dL) Urine Leukocyte Esterase Negative (NEG) Urine RBC 3-5 /HPF (0-2) Urine WBC Occ /HPF (0-4) Urine Squamous Epithelial Cells Occ /LPF Urine Bacteria 0 /HPF (0-FEW) Urine Opiates Screen Neg (NEG) Urine Methadone Screen Neg (NEG) Urine Barbiturates Neg (NEG) Urine Phencyclidine Screen Neg (NEG) Urine Amphetamine/Methamphetamine Neg (NEG) Urine Benzodiazepines Screen Neg (NEG) Urine Cocaine Screen Neg (NEG) Urine Cannabinoids Screen Neg (NEG) Urine Ethyl Alcohol Neg (NEG) White Blood Count 8.0 x10^3/uL (4.0-11.0) Red Blood Count 2.95 x10^6/uL (4.30-5.70) Hemoglobin 9.1 g/dL (13.0-17.5) Hematocrit 27.6 % (39.0-53.0) Mean Corpuscular Volume 93 fL (79-100) Mean Corpuscular Hemoglobin 31 pg (25-35) Mean Corpuscular Hemoglobin Concent 33 g/dL (31-37) Red Cell Distribution Width 12.9 % (11.5-14.5) Platelet Count 226 x10^3/uL (140-400) Neutrophils (%) (Auto) 70 % (31-73) Lymphocytes (%) (Auto) 19 % (24-48) Monocytes (%) (Auto) 7 % (0-9) Eosinophils (%) (Auto) 3 % (0-3) Basophils (%) (Auto) 1 % (0-3) Neutrophils # (Auto) 5.6 x10^3uL (1.8-7.7) Lymphocytes # (Auto) 1.5 x10^3/uL (1.0-4.8) Monocytes # (Auto) 0.5 x10^3/uL (0.0-1.1) Eosinophils # (Auto) 0.3 x10^3/uL (0.0-0.7) Basophils # (Auto) 0.1 x10^3/uL (0.0-0.2) Prothrombin Time 13.3 SEC (11.7-14.0) Prothromb Time International Ratio 1.1 (0.8-1.1) Sodium Level 140 mmol/L (136-145) Potassium Level 4.7 mmol/L (3.5-5.1) Chloride Level 106 mmol/L (98-107) Carbon Dioxide Level 23 mmol/L (21-32) Anion Gap 11 (6-14) Blood Urea Nitrogen 82 mg/dL (8-26) Creatinine 9.8 mg/dL (0.7-1.3) Estimated GFR (Cockcroft-Gault) 6.8 BUN/Creatinine Ratio 8 (6-20) Glucose Level 120 mg/dL (70-99) Calcium Level 9.1 mg/dL (8.5-10.1) Magnesium Level 1.6 mg/dL (1.8-2.4) Total Bilirubin 0.7 mg/dL (0.2-1.0) Aspartate Amino Transf (AST/SGOT) 16 U/L (15-37) Alanine Aminotransferase (ALT/SGPT) 23 U/L (16-63) Alkaline Phosphatase 61 U/L (46-116) Creatine Kinase 415 U/L (39-308) Creatine Kinase MB (Mass) 2.5 ng/mL (0.0-3.6) Creatine Kinase MB Relative Index 0.6 % (0-4) Troponin I Quantitative 0.053 ng/mL (0.000-0.055) AP-Haz-L-Type Natriuretic Peptide 4388 pg/mL (0-124) Total Protein 7.2 g/dL (6.4-8.2) Albumin 3.0 g/dL (3.4-5.0) Albumin/Globulin Ratio 0.7 (1.0-1.7) Lipase 309 U/L (73-393) Glucose (Fingerstick) 116 mg/dL (70-99) 112 mg/dL (70-99) Test 12/05/16 04:45 12/05/16 07:45 12/05/16 11:05 White Blood Count 6.4 x10^3/uL (4.0-11.0) Red Blood Count 2.53 x10^6/uL (4.30-5.70) Hemoglobin 7.8 g/dL (13.0-17.5) Hematocrit 23.9 % (39.0-53.0) Mean Corpuscular Volume 94 fL (79-100) Mean Corpuscular Hemoglobin 31 pg (25-35) Mean Corpuscular Hemoglobin Concent 33 g/dL (31-37) Red Cell Distribution Width 13.1 % (11.5-14.5) Platelet Count 190 x10^3/uL (140-400) Neutrophils (%) (Auto) 64 % (31-73) Lymphocytes (%) (Auto) 25 % (24-48) Monocytes (%) (Auto) 7 % (0-9) Eosinophils (%) (Auto) 3 % (0-3) Basophils (%) (Auto) 1 % (0-3) Neutrophils # (Auto) 4.1 x10^3uL (1.8-7.7) Lymphocytes # (Auto) 1.6 x10^3/uL (1.0-4.8) Monocytes # (Auto) 0.5 x10^3/uL (0.0-1.1) Eosinophils # (Auto) 0.2 x10^3/uL (0.0-0.7) Basophils # (Auto) 0.0 x10^3/uL (0.0-0.2) Sodium Level 141 mmol/L (136-145) Potassium Level 5.3 mmol/L (3.5-5.1) Chloride Level 108 mmol/L (98-107) Carbon Dioxide Level 23 mmol/L (21-32) Anion Gap 10 (6-14) Blood Urea Nitrogen 75 mg/dL (8-26) Creatinine 9.6 mg/dL (0.7-1.3) Estimated GFR (Cockcroft-Gault) 7.0 BUN/Creatinine Ratio 8 (6-20) Glucose Level 113 mg/dL (70-99) Calcium Level 7.7 mg/dL (8.5-10.1) Total Bilirubin 0.4 mg/dL (0.2-1.0) Aspartate Amino Transf (AST/SGOT) 13 U/L (15-37) Alanine Aminotransferase (ALT/SGPT) 18 U/L (16-63) Alkaline Phosphatase 50 U/L (46-116) Total Protein 5.5 g/dL (6.4-8.2) Albumin 2.6 g/dL (3.4-5.0) Albumin/Globulin Ratio 0.9 (1.0-1.7) Glucose (Fingerstick) 87 mg/dL (70-99) 131 mg/dL (70-99) Laboratory Tests Test 12/04/16 13:25 12/04/16 14:20 12/04/16 17:25 12/04/16 21:04 Urine Color Yellow Urine Clarity Clear Urine pH 6.0 Urine Specific [place] 1.020 Urine Protein >=300 mg/dL (NEG-TRACE) Urine Glucose (UA) 100 mg/dL (NEG) Urine Ketones (Stick) Negative mg/dL (NEG) Urine Blood Moderate (NEG) Urine Nitrite Negative (NEG) Urine Bilirubin Negative (NEG) Urine Urobilinogen Dipstick 0.2 mg/dL (0.2 mg/dL) Urine Leukocyte Esterase Negative (NEG) Urine RBC 3-5 /HPF (0-2) Urine WBC Occ /HPF (0-4) Urine Squamous Epithelial Cells Occ /LPF Urine Bacteria 0 /HPF (0-FEW) Urine Opiates Screen Neg (NEG) Urine Methadone Screen Neg (NEG) Urine Barbiturates Neg (NEG) Urine Phencyclidine Screen Neg (NEG) Urine Amphetamine/Methamphetamine Neg (NEG) Urine Benzodiazepines Screen Neg (NEG) Urine Cocaine Screen Neg (NEG) Urine Cannabinoids Screen Neg (NEG) Urine Ethyl Alcohol Neg (NEG) White Blood Count 8.0 x10^3/uL (4.0-11.0) Red Blood Count 2.95 x10^6/uL (4.30-5.70) Hemoglobin 9.1 g/dL (13.0-17.5) Hematocrit 27.6 % (39.0-53.0) Mean Corpuscular Volume 93 fL (79-100) Mean Corpuscular Hemoglobin 31 pg (25-35) Mean Corpuscular Hemoglobin Concent 33 g/dL (31-37) Red Cell Distribution Width 12.9 % (11.5-14.5) Platelet Count 226 x10^3/uL (140-400) Neutrophils (%) (Auto) 70 % (31-73) Lymphocytes (%) (Auto) 19 % (24-48) Monocytes (%) (Auto) 7 % (0-9) Eosinophils (%) (Auto) 3 % (0-3) Basophils (%) (Auto) 1 % (0-3) Neutrophils # (Auto) 5.6 x10^3uL (1.8-7.7) Lymphocytes # (Auto) 1.5 x10^3/uL (1.0-4.8) Monocytes # (Auto) 0.5 x10^3/uL (0.0-1.1) Eosinophils # (Auto) 0.3 x10^3/uL (0.0-0.7) Basophils # (Auto) 0.1 x10^3/uL (0.0-0.2) Prothrombin Time 13.3 SEC (11.7-14.0) Prothromb Time International Ratio 1.1 (0.8-1.1) Sodium Level 140 mmol/L (136-145) Potassium Level 4.7 mmol/L (3.5-5.1) Chloride Level 106 mmol/L (98-107) Carbon Dioxide Level 23 mmol/L (21-32) Anion Gap 11 (6-14) Blood Urea Nitrogen 82 mg/dL (8-26) Creatinine 9.8 mg/dL (0.7-1.3) Estimated GFR (Cockcroft-Gault) 6.8 BUN/Creatinine Ratio 8 (6-20) Glucose Level 120 mg/dL (70-99) Calcium Level 9.1 mg/dL (8.5-10.1) Magnesium Level 1.6 mg/dL (1.8-2.4) Total Bilirubin 0.7 mg/dL (0.2-1.0) Aspartate Amino Transf (AST/SGOT) 16 U/L (15-37) Alanine Aminotransferase (ALT/SGPT) 23 U/L (16-63) Alkaline Phosphatase 61 U/L (46-116) Creatine Kinase 415 U/L (39-308) Creatine Kinase MB (Mass) 2.5 ng/mL (0.0-3.6) Creatine Kinase MB Relative Index 0.6 % (0-4) Troponin I Quantitative 0.053 ng/mL (0.000-0.055) DO-Dkb-X-Type Natriuretic Peptide 4388 pg/mL (0-124) Total Protein 7.2 g/dL (6.4-8.2) Albumin 3.0 g/dL (3.4-5.0) Albumin/Globulin Ratio 0.7 (1.0-1.7) Lipase 309 U/L (73-393) Glucose (Fingerstick) 116 mg/dL (70-99) 112 mg/dL (70-99) Test 12/05/16 04:45 12/05/16 07:45 12/05/16 11:05 White Blood Count 6.4 x10^3/uL (4.0-11.0) Red Blood Count 2.53 x10^6/uL (4.30-5.70) Hemoglobin 7.8 g/dL (13.0-17.5) Hematocrit 23.9 % (39.0-53.0) Mean Corpuscular Volume 94 fL (79-100) Mean Corpuscular Hemoglobin 31 pg (25-35) Mean Corpuscular Hemoglobin Concent 33 g/dL (31-37) Red Cell Distribution Width 13.1 % (11.5-14.5) Platelet Count 190 x10^3/uL (140-400) Neutrophils (%) (Auto) 64 % (31-73) Lymphocytes (%) (Auto) 25 % (24-48) Monocytes (%) (Auto) 7 % (0-9) Eosinophils (%) (Auto) 3 % (0-3) Basophils (%) (Auto) 1 % (0-3) Neutrophils # (Auto) 4.1 x10^3uL (1.8-7.7) Lymphocytes # (Auto) 1.6 x10^3/uL (1.0-4.8) Monocytes # (Auto) 0.5 x10^3/uL (0.0-1.1) Eosinophils # (Auto) 0.2 x10^3/uL (0.0-0.7) Basophils # (Auto) 0.0 x10^3/uL (0.0-0.2) Sodium Level 141 mmol/L (136-145) Potassium Level 5.3 mmol/L (3.5-5.1) Chloride Level 108 mmol/L (98-107) Carbon Dioxide Level 23 mmol/L (21-32) Anion Gap 10 (6-14) Blood Urea Nitrogen 75 mg/dL (8-26) Creatinine 9.6 mg/dL (0.7-1.3) Estimated GFR (Cockcroft-Gault) 7.0 BUN/Creatinine Ratio 8 (6-20) Glucose Level 113 mg/dL (70-99) Calcium Level 7.7 mg/dL (8.5-10.1) Total Bilirubin 0.4 mg/dL (0.2-1.0) Aspartate Amino Transf (AST/SGOT) 13 U/L (15-37) Alanine Aminotransferase (ALT/SGPT) 18 U/L (16-63) Alkaline Phosphatase 50 U/L (46-116) Total Protein 5.5 g/dL (6.4-8.2) Albumin 2.6 g/dL (3.4-5.0) Albumin/Globulin Ratio 0.9 (1.0-1.7) Glucose (Fingerstick) 87 mg/dL (70-99) 131 mg/dL (70-99) Medications Current Medications Sodium Chloride 1,000 ml @ 1,000 mls/hr Q1H IV Last administered on 12/04/16 14:27; Start 12/04/16 at 13:51; Stop 12/04/16 at 14:50; Status DC Ondansetron HCl (Zofran) 4 mg 1X ONCE IV Last administered on 12/04/16 14:27 ; Start 12/04/16 at 14:00; Stop 12/04/16 at 14:01; Status DC Famotidine (Pepcid) 20 mg 1X ONCE IVP Last administered on 12/04/16 14:27; Start 12/04/16 at 14:00; Stop 12/04/16 at 14:01; Status DC Fentanyl Citrate (Fentanyl 2ml Vial) 50 mcg 1X ONCE IV Last administered on 14:28; Start 12/04/16 at 14:00; Stop 12/04/16 at 14:01; Status DC Clonidine HCl (Catapres) 0.2 mg 1X ONCE PO Last administered on 12/04/16 14: 26; Start 12/04/16 at 14:00; Stop 12/04/16 at 14:01; Status DC Iohexol (Omnipaque 300 Mg/ml) 75 ml 1X ONCE IV Last administered on 12/04/16 14:15; Start 12/04/16 at 14:15; Stop 12/04/16 at 14:16; Status DC Info (Do NOT chart on this entry -- for MONITORING) 1 each PRN DAILY PRN MC SEE COMMENTS; Start 12/04/16 at 14:15; Stop 12/06/16 at 14:14 Sodium Chloride 1,000 ml @ 125 mls/hr 1X ONCE IV Last administered on 14:45; Start 12/04/16 at 14:45; Stop 12/04/16 at 22:44; Status DC Labetalol HCl (Normodyne) 10 mg 1X ONCE IVP ; Start 12/04/16 at 15:15; Stop at 15:16; Status DC Ondansetron HCl (Zofran) 4 mg PRN Q8HRS PRN IV NAUSEA/VOMITING; Start 12/04/16 at 17:15; Stop 12/05/16 at 17:14 Morphine Sulfate 4 mg PRN Q2HR PRN IV PAIN Last administered on 12/04/16 21:54 ; Start 12/04/16 at 17:15; Stop 12/05/16 at 17:14 Sodium Chloride 1,000 ml @ 100 mls/hr 1X ONCE IV ; Start 12/04/16 at 17:15; Stop 12/05/16 at 03:14; Status DC Clonidine HCl (Catapres) 0.1 mg Q6HRS PRN PO HYPERTENSION, SEE COMMENTS; Start 12/04/16 at 17:15; Stop 12/05/16 at 09:48; Status DC Sodium Chloride 1,000 ml @ 100 mls/hr Q10H IV Last administered on 12/05/16 07:45; Start 12/04/16 at 21:45 Metoprolol Tartrate (Lopressor) 50 mg DAILY PO Last administered on 12/05/16 09:25; Start 12/05/16 at 09:00 Amlodipine Besylate (Norvasc) 5 mg DAILY PO Last administered on 12/05/16 09: 26; Start 12/05/16 at 09:00 Amlodipine Besylate (Norvasc) 5 mg 1X ONCE PO Last administered on 12/04/16 21:49; Start 12/04/16 at 21:45; Stop 12/04/16 at 21:46; Status DC Insulin Aspart (NovoLOG) 0-9 UNITS TIDWMEALS SQ ; Start 12/05/16 at 08:00 Dextrose (Dextrose 50%-Water Syringe) 12.5 gm PRN Q15MIN PRN IV SEE COMMENTS; Start 12/04/16 at 21:45 Acetaminophen (Tylenol) 650 mg PRN Q6HRS PRN PO FEVER; Start 12/05/16 at 10:00 Ondansetron HCl (Zofran) 4 mg PRN Q6HRS PRN IV NAUSEA/VOMITING; Start 12/05/16 at 10:00 Morphine Sulfate 2 mg PRN Q2HR PRN IV PAIN; Start 12/05/16 at 10:00 Tramadol HCl (Ultram) 50 mg PRN Q6HRS PRN PO PAIN; Start 12/05/16 at 10:00 Hydralazine HCl (Apresoline) 10 mg PRN Q4HRS PRN IVP ELEVATED BP, SEE COMMENTS ; Start 12/05/16 at 10:00 Docusate Sodium (Colace) 100 mg PRN DAILY PRN PO CONSTIPATION; Start 12/05/16 at 10:00 Darbepoetin Jb (Aranesp) 60 mcg WEEKLYHS SQ ; Start 12/05/16 at 21:00 Active Scripts Active Doxycycline Hyclate 100 Mg Capsule 1 Cap PO BID Reported Micardis (Telmisartan) 80 Mg Tablet 80 Mg PO DAILY Bystolic (Nebivolol) 10 Mg Tablet 10 Mg PO DAILY Spironolactone 100 Mg Tablet 100 Mg PO DAILY Hydrochlorothiazide Capsule (Hydrochlorothiazide) 12.5 Mg Capsule 12.5 Mg PO DAILY Glimepiride 2 Mg Tablet 2 Mg PO BIDBFRMEAL Metformin Hcl 500 Mg Tablet 500 Mg PO BIDBFRMEAL Allopurinol 300 Mg Tablet 300 Mg PO PRN DAILY Vitals/I & O Vital Sign - Last 24 Hours 12/04/16 12/04/16 12/04/16 12/04/16 13:28 13:41 13:58 14:26 Temp 97.9 97.9 Pulse 77 78 70 Resp 18 18 B/P (MAP) 245/128 (167) 248/128 (168) 200/121 (147) 209/112 Pulse Ox 87 98 O2 Delivery Room Air Room Air 12/04/16 12/04/16 12/04/16 12/04/16 14:28 14:58 15:15 15:28 Pulse 69 71 75 72 Resp 19 20 17 B/P (MAP) 221/120 (153) 197/103 (134) 168/100 184/95 (124) Pulse Ox 97 95 97 O2 Delivery Room Air Room Air Room Air 12/04/16 12/04/16 12/04/16 12/04/16 15:58 16:28 16:58 19:00 Temp 98.3 98.3 Pulse 77 70 70 114 Resp 16 15 16 20 B/P (MAP) 168/96 (120) 182/106 (131) 183/107 (132) 174/103 (126) Pulse Ox 97 98 96 100 O2 Delivery Room Air Room Air Room Air Room Air 12/04/16 12/04/16 12/04/16 12/04/16 20:00 21:49 21:54 22:30 Temp 98.3 98.3 Pulse 114 114 Resp 20 18 B/P (MAP) 174/103 (126) 174/103 Pulse Ox 100 100 97 O2 Delivery Room Air 12/04/16 12/05/16 12/05/16 12/05/16 23:00 03:00 07:00 09:25 Temp 98.3 98.4 98.3 98.3 98.4 98.3 Pulse 73 72 78 78 Resp 20 20 22 B/P (MAP) 157/103 (121) 149/96 (113) 144/83 (103) 144/83 Pulse Ox 98 97 97 O2 Delivery Room Air Room Air Room Air 12/05/16 12/05/16 09:26 11:00 Pulse 78 72 Resp 22 B/P (MAP) 144/83 167/107 (127) Pulse Ox 95 O2 Delivery Room Air Intake and Output 12/04/16 12/04/16 12/05/16 15:00 23:00 07:00 Intake Total 1000 ml Balance 1000 ml HERMANN VILLALOBOS MD Dec 05, 2016 13:09
[2016-12-05] MEDS: HEPARIN PF for SUB-Q USE 5,000 UNIT/0.5 ML VIAL. SQ SCH ×2 (14:00→21:55)
[2016-12-05] MEDS ORDERED: LIDOCAINE 1%/EPI 1:100,000 20 ML VIAL. ONE (17:05)
[2016-12-05] MEDS ORDERED: HEPARIN for IV BOLUS 10,000 UNIT/10 ML VIAL. ONE (17:05)
[2016-12-05] MEDS ORDERED: fentaNYL PF VIAL 100 MCG/2 ML VIAL ONE (17:10)
[2016-12-05] MEDS ORDERED: MIDAZOLAM HCL/PF 2 MG/2 ML VIAL. ONE (17:11)
[2016-12-05] MEDS ORDERED: MIDAZOLAM HCL/PF 2 MG/2 ML VIAL. IV ONE (17:45)
[2016-12-05] MEDS ORDERED: LIDOCAINE 1%/EPI 1:100,000 20 ML VIAL. INJ ONE (17:45)
[2016-12-05] MEDS ORDERED: fentaNYL PF VIAL 100 MCG/2 ML VIAL IV ONE (17:45)
--- NOTE | 2016-12-05 17:58 | PDOC ---
MODERATE SEDATION ASSESSMENT RISKS/ALTERNATIVES Risks/Alternatives Risks and alternatives of this type of sedation and procedure discussed with: RISK/ALTERNATIVES: Patient H & P ON CHART H & P H & P on chart and reviewed for co-morbid conditions and appropriate labs. H&P ON CHART: Yes STATUS PREG STATUS ASSESSED: N/A MEDS/ALLERGIES REVIEWED Meds/Allergies Reviewed Medications and Allergies including time and route of recently administered narcotics and sedatives. MEDS/ALLERGIES REVIEWED: Yes ASA RATING ASA RATING: II AIRWAY ASSESSMENT Airway Assessment Airway patency, oral function limitations, presence of caps, crowns, dentures, partials, and ability to extend neck assessed. AIRWAY ASSESSMENT: Yes MALLAMPATI SCORE MALLAMPATI SCORE: I PRE-SEDATION ASSESSMENT PRE-SEDATION ASSESSMENT: Yes LU CADET MD Dec 05, 2016 17:58
--- NOTE | 2016-12-05 18:01 | PDOC ---
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 Now with new ESRD. Needs HD. Tunneled HDC insertion requested by Renal. Post-Procedure Diagnosis Post-Procedure Diagnosis Same Procedure Performed Procedure Performed Sono/fluoro guided tunneled HDC insertion Type of Anesthesia Type of Anesthesia Local + Mod sedation Estimated Blood Loss EBL: Minimal Drain/Tubes Drains/Tubes Right IJ 15.5F 28cm DurMax tunneled HDC Condition of Patient Condition of Patient Stable. No apparent complication. Disposition Disposition From IR directly to HD. OK to use tunneled HDC. Full report to follow. LU CADET MD Dec 05, 2016 18:01
[2016-12-05] MEDS ORDERED: IV NORMAL SALINE 1000ML BAG 1,000 ML IV PRN (20:12)
[2016-12-05] MEDS ORDERED: LABETALOL 20 MG/4 ML DISP.SYRIN. IVP PRN (20:15)
[2016-12-05] MEDS ORDERED: 0.9 % SODIUM CHLORIDE 10 ML DISP.SYRIN. IV PRN ×2 (20:15)
[2016-12-05] MEDS ORDERED: DIALYSIS PATIENT. MC PRN (20:15)
[2016-12-05] MEDS ORDERED: DARBEPOETIN ALFA 60 MCG/0.3 ML DISP.SYRIN. SQ SCH (21:00)
[2016-12-05] MEDS: METOPROLOL TART IMMED RELEASE 50 MG TABLET. PO SCH (21:39)
[2016-12-05] MEDS: ACETAMINOPHEN 325 MG TABLET. PO PRN (21:39)
[2016-12-06] MEDS: MORPHINE SULFATE 2 MG/ML DISP.SYRIN. IV PRN (01:06)
[2016-12-06 03:38] VITALS: BP 173/111
[2016-12-06 05:41] LABS: BASO % 1 % (0-3); EOS % 4 % (0-3); HEMATOCRIT 26.4 % (39.0-53.0); HEMOGLOBIN 9.2 g/dL (13.0-17.5); LYMPH # 1.7 x10^3/uL (1.0-4.8); LYMPH % 23 % (24-48); MEAN CORPUSCULAR HEMOGLOBIN 32 pg (25-35); MEAN CORPUSCULAR HGB CONC 35 g/dL (31-37); MEAN CORPUSCULAR VOLUME 91 fL (79-100); MONO % 8 % (0-9); NEUT % 65 % (31-73); PLATELET COUNT 216 x10^3/uL (140-400); RED CELL DISTRIBUTION WIDTH 12.6 % (11.5-14.5); WHITE BLOOD COUNT 7.5 x10^3/uL (4.0-11.0)
[2016-12-06 06:00] LABS: CREATININE 6.4 mg/dL (0.7-1.3); GFR 11.1; POTASSIUM 4.2 mmol/L (3.5-5.1)
[2016-12-06 06:04] LABS: % SAT IRON 28 % (15-34); IRON,SERUM 44 ug/dL (65-175)
[2016-12-06 06:12] LABS: ALBUMIN 2.8 g/dL (3.4-5.0); DIRECT BILIRUBIN 0.1 mg/dL (0.0-0.2); PHOSPHORUS 4.5 mg/dL (2.6-4.7); TOTAL BILIRUBIN 0.4 mg/dL (0.2-1.0); TOTAL PROTEIN 6.1 g/dL (6.4-8.2)
[2016-12-06 07:00] VITALS: BP 184/110
[2016-12-06] MEDS: IV NORMAL SALINE 1000ML BAG 1,000 ML IV SCH ×3 (07:46→19:24)
[2016-12-06] MEDS: amLODIPine BESYLATE 5 MG TABLET PO SCH (07:47)
[2016-12-06] MEDS: METOPROLOL TART IMMED RELEASE 50 MG TABLET. PO SCH ×2 (07:47→21:24)
[2016-12-06] MEDS: HEPARIN PF for SUB-Q USE 5,000 UNIT/0.5 ML VIAL. SQ SCH ×3 (07:54→21:27)
[2016-12-06] MEDS: INSULIN ASPART 300 UNITS/3 ML INSULN.PEN SQ SCH ×3 (08:00→17:43)
--- NOTE | 2016-12-06 10:13 | PDOC ---
PROGRESS NOTES Chief Complaint Chief Complaint ACute on chronic renal failure, or ESRD likely, HD started metabolic acidosis Dm2, obesity, BMI 37' htn, with renal disease, mild malnutrition normocytic anemia, of CKD History of Present Illness History of Present Illness HTN still up, double norvasc to 10 cont current ambulate HD again today labs are better renal US neg Vitals Vitals Vital Signs Date Time Temp Pulse Resp B/P (MAP) Pulse Ox O2 Delivery O2 Flow Rate FiO2 12/06/16 07:47 65 173/111 12/06/16 07:00 98.4 18 98 Room Air 98.4 Physical Exam General: Alert, Oriented X3, Cooperative, No acute distress Heart: Regular rate, Normal S1, Normal S2 Lungs: Clear Abdomen: Normal bowel sounds, Soft, No tenderness Extremities: No clubbing Skin: No breakdown Labs LABS Laboratory Tests Test 12/05/16 11:05 12/05/16 16:19 12/05/16 20:59 12/06/16 04:50 Glucose (Fingerstick) 131 mg/dL (70-99) 92 mg/dL (70-99) 84 mg/dL (70-99) White Blood Count 7.5 x10^3/uL (4.0-11.0) Red Blood Count 2.90 x10^6/uL (4.30-5.70) Hemoglobin 9.2 g/dL (13.0-17.5) Hematocrit 26.4 % (39.0-53.0) Mean Corpuscular Volume 91 fL (79-100) Mean Corpuscular Hemoglobin 32 pg (25-35) Mean Corpuscular Hemoglobin Concent 35 g/dL (31-37) Red Cell Distribution Width 12.6 % (11.5-14.5) Platelet Count 216 x10^3/uL (140-400) Neutrophils (%) (Auto) 65 % (31-73) Lymphocytes (%) (Auto) 23 % (24-48) Monocytes (%) (Auto) 8 % (0-9) Eosinophils (%) (Auto) 4 % (0-3) Basophils (%) (Auto) 1 % (0-3) Neutrophils # (Auto) 4.9 x10^3uL (1.8-7.7) Lymphocytes # (Auto) 1.7 x10^3/uL (1.0-4.8) Monocytes # (Auto) 0.6 x10^3/uL (0.0-1.1) Eosinophils # (Auto) 0.3 x10^3/uL (0.0-0.7) Basophils # (Auto) 0.0 x10^3/uL (0.0-0.2) Sodium Level 143 mmol/L (136-145) Potassium Level 4.2 mmol/L (3.5-5.1) Chloride Level 106 mmol/L (98-107) Carbon Dioxide Level 28 mmol/L (21-32) Anion Gap 9 (6-14) Blood Urea Nitrogen 44 mg/dL (8-26) Creatinine 6.4 mg/dL (0.7-1.3) Estimated GFR (Cockcroft-Gault) 11.1 Glucose Level 102 mg/dL (70-99) Calcium Level 8.0 mg/dL (8.5-10.1) Phosphorus Level 4.5 mg/dL (2.6-4.7) Iron Level 44 ug/dL (65-175) Total Iron Binding Capacity 160 ug/dL (250-450) Iron Saturation 28 % (15-34) Ferritin 813 ng/mL (26-388) Total Bilirubin 0.4 mg/dL (0.2-1.0) Direct Bilirubin 0.1 mg/dL (0.0-0.2) Aspartate Amino Transf (AST/SGOT) 18 U/L (15-37) Alanine Aminotransferase (ALT/SGPT) 20 U/L (16-63) Alkaline Phosphatase 64 U/L (46-116) Total Protein 6.1 g/dL (6.4-8.2) Albumin 2.8 g/dL (3.4-5.0) Test 12/06/16 08:00 Glucose (Fingerstick) 106 mg/dL (70-99) Review of Systems Review of Systems no n.v/d feels improved after dialysis Assessment and Plan Assessmemt and Plan Problems Medical Problems: (1) Accelerated hypertension Status: Acute (2) Nausea Status: Acute Problems: Comment Review of Relevant I have reviewed the following items maame (where applicable) has been applied. Labs Laboratory Tests Test 12/04/16 13:25 12/04/16 14:20 12/04/16 17:25 6/15/17 21:04 Urine Color Yellow Urine Clarity Clear Urine pH 6.0 Urine Specific [place] 1.020 Urine Protein >=300 mg/dL (NEG-TRACE) Urine Glucose (UA) 100 mg/dL (NEG) Urine Ketones (Stick) Negative mg/dL (NEG) Urine Blood Moderate (NEG) Urine Nitrite Negative (NEG) Urine Bilirubin Negative (NEG) Urine Urobilinogen Dipstick 0.2 mg/dL (0.2 mg/dL) Urine Leukocyte Esterase Negative (NEG) Urine RBC 3-5 /HPF (0-2) Urine WBC Occ /HPF (0-4) Urine Squamous Epithelial Cells Occ /LPF Urine Bacteria 0 /HPF (0-FEW) Urine Opiates Screen Neg (NEG) Urine Methadone Screen Neg (NEG) Urine Barbiturates Neg (NEG) Urine Phencyclidine Screen Neg (NEG) Urine Amphetamine/Methamphetamine Neg (NEG) Urine Benzodiazepines Screen Neg (NEG) Urine Cocaine Screen Neg (NEG) Urine Cannabinoids Screen Neg (NEG) Urine Ethyl Alcohol Neg (NEG) White Blood Count 8.0 x10^3/uL (4.0-11.0) Red Blood Count 2.95 x10^6/uL (4.30-5.70) Hemoglobin 9.1 g/dL (13.0-17.5) Hematocrit 27.6 % (39.0-53.0) Mean Corpuscular Volume 93 fL (79-100) Mean Corpuscular Hemoglobin 31 pg (25-35) Mean Corpuscular Hemoglobin Concent 33 g/dL (31-37) Red Cell Distribution Width 12.9 % (11.5-14.5) Platelet Count 226 x10^3/uL (140-400) Neutrophils (%) (Auto) 70 % (31-73) Lymphocytes (%) (Auto) 19 % (24-48) Monocytes (%) (Auto) 7 % (0-9) Eosinophils (%) (Auto) 3 % (0-3) Basophils (%) (Auto) 1 % (0-3) Neutrophils # (Auto) 5.6 x10^3uL (1.8-7.7) Lymphocytes # (Auto) 1.5 x10^3/uL (1.0-4.8) Monocytes # (Auto) 0.5 x10^3/uL (0.0-1.1) Eosinophils # (Auto) 0.3 x10^3/uL (0.0-0.7) Basophils # (Auto) 0.1 x10^3/uL (0.0-0.2) Prothrombin Time 13.3 SEC (11.7-14.0) Prothromb Time International Ratio 1.1 (0.8-1.1) Sodium Level 140 mmol/L (136-145) Potassium Level 4.7 mmol/L (3.5-5.1) Chloride Level 106 mmol/L (98-107) Carbon Dioxide Level 23 mmol/L (21-32) Anion Gap 11 (6-14) Blood Urea Nitrogen 82 mg/dL (8-26) Creatinine 9.8 mg/dL (0.7-1.3) Estimated GFR (Cockcroft-Gault) 6.8 BUN/Creatinine Ratio 8 (6-20) Glucose Level 120 mg/dL (70-99) Calcium Level 9.1 mg/dL (8.5-10.1) Magnesium Level 1.6 mg/dL (1.8-2.4) Total Bilirubin 0.7 mg/dL (0.2-1.0) Aspartate Amino Transf (AST/SGOT) 16 U/L (15-37) Alanine Aminotransferase (ALT/SGPT) 23 U/L (16-63) Alkaline Phosphatase 61 U/L (46-116) Creatine Kinase 415 U/L (39-308) Creatine Kinase MB (Mass) 2.5 ng/mL (0.0-3.6) Creatine Kinase MB Relative Index 0.6 % (0-4) Troponin I Quantitative 0.053 ng/mL (0.000-0.055) BH-Mii-P-Type Natriuretic Peptide 4388 pg/mL (0-124) Total Protein 7.2 g/dL (6.4-8.2) Albumin 3.0 g/dL (3.4-5.0) Albumin/Globulin Ratio 0.7 (1.0-1.7) Lipase 309 U/L (73-393) Glucose (Fingerstick) 116 mg/dL (70-99) 112 mg/dL (70-99) Test 12/05/16 04:45 12/05/16 07:45 12/05/16 11:05 12/05/16 16:19 White Blood Count 6.4 x10^3/uL (4.0-11.0) Red Blood Count 2.53 x10^6/uL (4.30-5.70) Hemoglobin 7.8 g/dL (13.0-17.5) Hematocrit 23.9 % (39.0-53.0) Mean Corpuscular Volume 94 fL (79-100) Mean Corpuscular Hemoglobin 31 pg (25-35) Mean Corpuscular Hemoglobin Concent 33 g/dL (31-37) Red Cell Distribution Width 13.1 % (11.5-14.5) Platelet Count 190 x10^3/uL (140-400) Neutrophils (%) (Auto) 64 % (31-73) Lymphocytes (%) (Auto) 25 % (24-48) Monocytes (%) (Auto) 7 % (0-9) Eosinophils (%) (Auto) 3 % (0-3) Basophils (%) (Auto) 1 % (0-3) Neutrophils # (Auto) 4.1 x10^3uL (1.8-7.7) Lymphocytes # (Auto) 1.6 x10^3/uL (1.0-4.8) Monocytes # (Auto) 0.5 x10^3/uL (0.0-1.1) Eosinophils # (Auto) 0.2 x10^3/uL (0.0-0.7) Basophils # (Auto) 0.0 x10^3/uL (0.0-0.2) Sodium Level 141 mmol/L (136-145) Potassium Level 5.3 mmol/L (3.5-5.1) Chloride Level 108 mmol/L (98-107) Carbon Dioxide Level 23 mmol/L (21-32) Anion Gap 10 (6-14) Blood Urea Nitrogen 75 mg/dL (8-26) Creatinine 9.6 mg/dL (0.7-1.3) Estimated GFR (Cockcroft-Gault) 7.0 BUN/Creatinine Ratio 8 (6-20) Glucose Level 113 mg/dL (70-99) Calcium Level 7.7 mg/dL (8.5-10.1) Total Bilirubin 0.4 mg/dL (0.2-1.0) Aspartate Amino Transf (AST/SGOT) 13 U/L (15-37) Alanine Aminotransferase (ALT/SGPT) 18 U/L (16-63) Alkaline Phosphatase 50 U/L (46-116) Total Protein 5.5 g/dL (6.4-8.2) Albumin 2.6 g/dL (3.4-5.0) Albumin/Globulin Ratio 0.9 (1.0-1.7) Glucose (Fingerstick) 87 mg/dL (70-99) 131 mg/dL (70-99) 92 mg/dL (70-99) Test 12/05/16 20:59 12/06/16 04:50 12/06/16 08:00 Glucose (Fingerstick) 84 mg/dL (70-99) 106 mg/dL (70-99) White Blood Count 7.5 x10^3/uL (4.0-11.0) Red Blood Count 2.90 x10^6/uL (4.30-5.70) Hemoglobin 9.2 g/dL (13.0-17.5) Hematocrit 26.4 % (39.0-53.0) Mean Corpuscular Volume 91 fL (79-100) Mean Corpuscular Hemoglobin 32 pg (25-35) Mean Corpuscular Hemoglobin Concent 35 g/dL (31-37) Red Cell Distribution Width 12.6 % (11.5-14.5) Platelet Count 216 x10^3/uL (140-400) Neutrophils (%) (Auto) 65 % (31-73) Lymphocytes (%) (Auto) 23 % (24-48) Monocytes (%) (Auto) 8 % (0-9) Eosinophils (%) (Auto) 4 % (0-3) Basophils (%) (Auto) 1 % (0-3) Neutrophils # (Auto) 4.9 x10^3uL (1.8-7.7) Lymphocytes # (Auto) 1.7 x10^3/uL (1.0-4.8) Monocytes # (Auto) 0.6 x10^3/uL (0.0-1.1) Eosinophils # (Auto) 0.3 x10^3/uL (0.0-0.7) Basophils # (Auto) 0.0 x10^3/uL (0.0-0.2) Sodium Level 143 mmol/L (136-145) Potassium Level 4.2 mmol/L (3.5-5.1) Chloride Level 106 mmol/L (98-107) Carbon Dioxide Level 28 mmol/L (21-32) Anion Gap 9 (6-14) Blood Urea Nitrogen 44 mg/dL (8-26) Creatinine 6.4 mg/dL (0.7-1.3) Estimated GFR (Cockcroft-Gault) 11.1 Glucose Level 102 mg/dL (70-99) Calcium Level 8.0 mg/dL (8.5-10.1) Phosphorus Level 4.5 mg/dL (2.6-4.7) Iron Level 44 ug/dL (65-175) Total Iron Binding Capacity 160 ug/dL (250-450) Iron Saturation 28 % (15-34) Ferritin 813 ng/mL (26-388) Total Bilirubin 0.4 mg/dL (0.2-1.0) Direct Bilirubin 0.1 mg/dL (0.0-0.2) Aspartate Amino Transf (AST/SGOT) 18 U/L (15-37) Alanine Aminotransferase (ALT/SGPT) 20 U/L (16-63) Alkaline Phosphatase 64 U/L (46-116) Total Protein 6.1 g/dL (6.4-8.2) Albumin 2.8 g/dL (3.4-5.0) Laboratory Tests Test 12/05/16 11:05 12/05/16 16:19 12/05/16 20:59 12/06/16 04:50 Glucose (Fingerstick) 131 mg/dL (70-99) 92 mg/dL (70-99) 84 mg/dL (70-99) White Blood Count 7.5 x10^3/uL (4.0-11.0) Red Blood Count 2.90 x10^6/uL (4.30-5.70) Hemoglobin 9.2 g/dL (13.0-17.5) Hematocrit 26.4 % (39.0-53.0) Mean Corpuscular Volume 91 fL (79-100) Mean Corpuscular Hemoglobin 32 pg (25-35) Mean Corpuscular Hemoglobin Concent 35 g/dL (31-37) Red Cell Distribution Width 12.6 % (11.5-14.5) Platelet Count 216 x10^3/uL (140-400) Neutrophils (%) (Auto) 65 % (31-73) Lymphocytes (%) (Auto) 23 % (24-48) Monocytes (%) (Auto) 8 % (0-9) Eosinophils (%) (Auto) 4 % (0-3) Basophils (%) (Auto) 1 % (0-3) Neutrophils # (Auto) 4.9 x10^3uL (1.8-7.7) Lymphocytes # (Auto) 1.7 x10^3/uL (1.0-4.8) Monocytes # (Auto) 0.6 x10^3/uL (0.0-1.1) Eosinophils # (Auto) 0.3 x10^3/uL (0.0-0.7) Basophils # (Auto) 0.0 x10^3/uL (0.0-0.2) Sodium Level 143 mmol/L (136-145) Potassium Level 4.2 mmol/L (3.5-5.1) Chloride Level 106 mmol/L (98-107) Carbon Dioxide Level 28 mmol/L (21-32) Anion Gap 9 (6-14) Blood Urea Nitrogen 44 mg/dL (8-26) Creatinine 6.4 mg/dL (0.7-1.3) Estimated GFR (Cockcroft-Gault) 11.1 Glucose Level 102 mg/dL (70-99) Calcium Level 8.0 mg/dL (8.5-10.1) Phosphorus Level 4.5 mg/dL (2.6-4.7) Iron Level 44 ug/dL (65-175) Total Iron Binding Capacity 160 ug/dL (250-450) Iron Saturation 28 % (15-34) Ferritin 813 ng/mL (26-388) Total Bilirubin 0.4 mg/dL (0.2-1.0) Direct Bilirubin 0.1 mg/dL (0.0-0.2) Aspartate Amino Transf (AST/SGOT) 18 U/L (15-37) Alanine Aminotransferase (ALT/SGPT) 20 U/L (16-63) Alkaline Phosphatase 64 U/L (46-116) Total Protein 6.1 g/dL (6.4-8.2) Albumin 2.8 g/dL (3.4-5.0) Test 12/06/16 08:00 Glucose (Fingerstick) 106 mg/dL (70-99) Medications Current Medications Sodium Chloride 1,000 ml @ 1,000 mls/hr Q1H IV Last administered on 12/04/16 14:27; Start 12/04/16 at 13:51; Stop 12/04/16 at 14:50; Status DC Ondansetron HCl (Zofran) 4 mg 1X ONCE IV Last administered on 12/04/16 14:27 ; Start 12/04/16 at 14:00; Stop 12/04/16 at 14:01; Status DC Famotidine (Pepcid) 20 mg 1X ONCE IVP Last administered on 12/04/16 14:27; Start 12/04/16 at 14:00; Stop 12/04/16 at 14:01; Status DC Fentanyl Citrate (Fentanyl 2ml Vial) 50 mcg 1X ONCE IV Last administered on 14:28; Start 12/04/16 at 14:00; Stop 12/04/16 at 14:01; Status DC Clonidine HCl (Catapres) 0.2 mg 1X ONCE PO Last administered on 12/04/16 14: 26; Start 12/04/16 at 14:00; Stop 12/04/16 at 14:01; Status DC Iohexol (Omnipaque 300 Mg/ml) 75 ml 1X ONCE IV Last administered on 12/04/16 14:15; Start 12/04/16 at 14:15; Stop 12/04/16 at 14:16; Status DC Info (Do NOT chart on this entry -- for MONITORING) 1 each PRN DAILY PRN MC SEE COMMENTS; Start 12/04/16 at 14:15; Stop 12/06/16 at 14:14 Sodium Chloride 1,000 ml @ 125 mls/hr 1X ONCE IV Last administered on 14:45; Start 12/04/16 at 14:45; Stop 12/04/16 at 22:44; Status DC Labetalol HCl (Normodyne) 10 mg 1X ONCE IVP ; Start 12/04/16 at 15:15; Stop at 15:16; Status DC Ondansetron HCl (Zofran) 4 mg PRN Q8HRS PRN IV NAUSEA/VOMITING; Start 12/04/16 at 17:15; Stop 12/05/16 at 13:52; Status DC Morphine Sulfate 4 mg PRN Q2HR PRN IV PAIN Last administered on 12/04/16 21:54 ; Start 12/04/16 at 17:15; Stop 12/05/16 at 17:14; Status DC Sodium Chloride 1,000 ml @ 100 mls/hr 1X ONCE IV Last administered on 21:48; Start 12/04/16 at 17:15; Stop 12/05/16 at 03:14; Status DC Clonidine HCl (Catapres) 0.1 mg Q6HRS PRN PO HYPERTENSION, SEE COMMENTS; Start 12/04/16 at 17:15; Stop 12/05/16 at 09:48; Status DC Sodium Chloride 1,000 ml @ 100 mls/hr Q10H IV Last administered on 12/06/16 07:46; Start 12/04/16 at 21:45 Metoprolol Tartrate (Lopressor) 50 mg DAILY PO Last administered on 12/05/16 09:25; Start 12/05/16 at 09:00; Stop 12/05/16 at 13:08; Status DC Amlodipine Besylate (Norvasc) 5 mg DAILY PO Last administered on 12/06/16 07: 47; Start 12/05/16 at 09:00 Amlodipine Besylate (Norvasc) 5 mg 1X ONCE PO Last administered on 12/04/16 21:49; Start 12/04/16 at 21:45; Stop 12/04/16 at 21:46; Status DC Insulin Aspart (NovoLOG) 0-9 UNITS TIDWMEALS SQ ; Start 12/05/16 at 08:00 Dextrose (Dextrose 50%-Water Syringe) 12.5 gm PRN Q15MIN PRN IV SEE COMMENTS; Start 12/04/16 at 21:45 Acetaminophen (Tylenol) 650 mg PRN Q6HRS PRN PO FEVER Last administered on 12/05 21:39; Start 12/05/16 at 10:00 Ondansetron HCl (Zofran) 4 mg PRN Q6HRS PRN IV NAUSEA/VOMITING; Start 12/05/16 at 10:00 Morphine Sulfate 2 mg PRN Q2HR PRN IV PAIN Last administered on 12/06/16 01:06 ; Start 12/05/16 at 10:00 Tramadol HCl (Ultram) 50 mg PRN Q6HRS PRN PO PAIN; Start 12/05/16 at 10:00 Hydralazine HCl (Apresoline) 10 mg PRN Q4HRS PRN IVP ELEVATED BP, SEE COMMENTS ; Start 12/05/16 at 10:00 Docusate Sodium (Colace) 100 mg PRN DAILY PRN PO CONSTIPATION; Start 12/05/16 at 10:00 Darbepoetin Jb (Aranesp) 60 mcg WEEKLYHS SQ Last administered on 12/05/16 21 :42; Start 12/05/16 at 21:00 Metoprolol Tartrate (Lopressor) 50 mg BID PO Last administered on 12/06/16 07: 47; Start 12/05/16 at 21:00 Heparin Sodium (Porcine) (Heparin Sq) 5,000 unit Q8HRS SQ Last administered on 12/06/16 07:54; Start 12/05/16 at 14:00 Heparin Sodium (Porcine) (Heparin Sodium) 10,000 unit STK-MED ONCE .ROUTE ; Start 12/05/16 at 17:05; Stop 12/05/16 at 17:06; Status DC Lidocaine/ Epinephrine (Xylocaine 1%-Epi 1:100,000) 20 ml STK-MED ONCE .ROUTE ; Start 12/05/16 at 17:05; Stop 12/05/16 at 17:06; Status DC Heparin Sodium/ Sodium Chloride 500 ml @ As Directed STK-MED ONCE .ROUTE ; Start 12/05/16 at 17:05; Stop 12/05/16 at 17:06; Status DC Fentanyl Citrate (Fentanyl 2ml Vial) 100 mcg STK-MED ONCE .ROUTE ; Start at 17:10; Stop 12/05/16 at 17:11; Status DC Midazolam HCl (Versed) 2 mg STK-MED ONCE .ROUTE ; Start 12/05/16 at 17:11; Stop 12/05/16 at 17:12; Status DC Cefazolin Sodium 50 ml @ As Directed STK-MED ONCE IV ; Start 12/05/16 at 17:11; Stop 12/05/16 at 17:12; Status DC Heparin Sodium/ Sodium Chloride 1,000 unit 1X ONCE IART Last administered on 17:45; Start 12/05/16 at 17:45; Stop 12/05/16 at 17:46; Status DC Midazolam HCl (Versed) 2 mg 1X ONCE IV Last administered on 12/05/16 17:45; Start 12/05/16 at 17:45; Stop 12/05/16 at 17:46; Status DC Fentanyl Citrate (Fentanyl 2ml Vial) 100 mcg 1X ONCE IV Last administered on 17:46; Start 12/05/16 at 17:45; Stop 12/05/16 at 17:46; Status DC Lidocaine/ Epinephrine (Xylocaine 1%-Epi 1:100,000) 20 ml 1X ONCE INJ Last administered on 12/05/16 17:45; Start 12/05/16 at 17:45; Stop 12/05/16 at 17:46 ; Status DC Heparin Sodium (Porcine) (Heparin Sodium) 4,300 unit 1X ONCE INT CAT Last administered on 12/05/16 17:46; Start 12/05/16 at 17:45; Stop 12/05/16 at 17:46 ; Status DC Cefazolin Sodium 50 ml @ 100 mls/hr 1X ONCE IV Last administered on 17:25; Start 12/05/16 at 17:25; Stop 12/05/16 at 17:54; Status DC Sodium Chloride 1,000 ml @ 1,000 mls/hr Q1H PRN IV hypotension; Start 12/05/16 at 20:12; Stop 12/06/16 at 02:11; Status DC Sodium Chloride (Normal Saline Flush) 10 ml 1X PRN PRN IV AP catheter pack; Start 12/05/16 at 20:15; Stop 12/06/16 at 20:14 Sodium Chloride (Normal Saline Flush) 10 ml 1X PRN PRN IV ORDER WORKER catheter pack; Start 12/05/16 at 20:15; Stop 12/06/16 at 20:14 Labetalol HCl (Normodyne) 10 mg PRN Q1HR PRN IVP SBP > 180; Start 12/05/16 at 20:15; Stop 12/06/16 at 20:14 Info (PHARMACY MONITORING -- do not chart) 1 each PRN DAILY PRN MC SEE COMMENTS ; Start 12/05/16 at 20:15 Active Scripts Active Doxycycline Hyclate 100 Mg Capsule 1 Cap PO BID Reported Micardis (Telmisartan) 80 Mg Tablet 80 Mg PO DAILY Bystolic (Nebivolol) 10 Mg Tablet 10 Mg PO DAILY Spironolactone 100 Mg Tablet 100 Mg PO DAILY Hydrochlorothiazide Capsule (Hydrochlorothiazide) 12.5 Mg Capsule 12.5 Mg PO DAILY Glimepiride 2 Mg Tablet 2 Mg PO BIDBFRMEAL Metformin Hcl 500 Mg Tablet 500 Mg PO BIDBFRMEAL Allopurinol 300 Mg Tablet 300 Mg PO PRN DAILY Vitals/I & O Vital Sign - Last 24 Hours 12/05/16 12/05/16 12/05/16 12/05/16 11:00 15:00 17:41 17:46 Temp 98.0 98.0 Pulse 72 72 73 Resp 22 24 16 16 B/P (MAP) 167/107 (127) 117/103 (108) Pulse Ox 95 98 99 99 O2 Delivery Room Air Room Air Room Air Room Air 12/05/16 12/05/16 12/05/16 12/06/16 21:38 21:39 23:34 01:06 Temp 98.4 98.4 98.4 98.4 Pulse 71 71 80 Resp 20 18 20 B/P (MAP) 174/107 (129) 174/107 130/92 (105) Pulse Ox 99 100 O2 Delivery Room Air Room Air Room Air 12/06/16 12/06/16 12/06/16 12/06/16 03:38 07:00 07:47 07:47 Temp 98.2 98.4 98.2 98.4 Pulse 65 74 65 65 Resp 18 18 B/P (MAP) 173/111 (131) 184/110 (134) 173/111 173/111 Pulse Ox 99 98 O2 Delivery Room Air Room Air Intake and Output 12/05/16 12/05/16 12/06/16 15:00 23:00 07:00 Intake Total 240 ml 0 ml 100 ml Output Total 650 ml Balance 240 ml 0 ml -550 ml DELMIS CARVALHO MD Dec 06, 2016 10:13
[2016-12-06] MEDS ORDERED: amLODIPine BESYLATE 5 MG TABLET PO ONE (10:15)
--- NOTE | 2016-12-06 10:41 | RAD ---
Ultrasound and fluoro guided placement of right IJ tunneled hemodialysis catheter Indication: 51-year-old male with diabetes, hypertension, and anemia. History of chronic kidney disease. Now end-stage renal disease. Hemodialysis required. Tunneled dialysis catheter insertion has been requested by renal. Fluoro time: 0.5 minutes Kerma-Area Product: 3 Gycm2 Moderate sedation: 19 minutes moderate sedation was provided utilizing a total of 2 mg Versed and 100 mcg fentanyl, IV. The patient was appropriately monitored by a qualified independent observer throughout the time of moderate sedation. Antibiotic: A single dose of Ancef was administered within 1 hour of the procedure start time. Sterility: All elements of maximal sterile barrier technique, hand hygiene, skin preparation, and, if ultrasound was used, sterile ultrasound technique were followed. Consent: The procedure was explained in its entirety to the patient and/or the patient's designated data entry representative by a member of the treatment team. This included a discussion of risks and benefits and commonly accepted alternatives to the procedure, as well as expected consequences of no treatment at all. Discussion of risks included, but was not limited to, those that are most frequent and those that are rare, but possibly severe or life-threatening, as well as the possibility of unforeseen complications. Procedure: Informed consent was obtained from the patient. She was placed supine on the angiography table. Preliminary ultrasound examination of right neck revealed wide patency of right internal jugular vein, which was documented with a hard copy ultrasound image. Right neck and upper chest were then prepped and draped in the usual sterile fashion, utilizing all elements of maximal sterile barrier technique, as described above. Moderate sedation was provided with IV Versed and Fentanyl. 1 gram Ancef was given IV, prophylactically. Using aseptic technique and local anesthesia, a small skin incision was made lateral to right internal jugular vein, just above clavicle. Using aseptic technique, local anesthesia, and direct sterile ultrasound guidance, a micropuncture needle was successfully introduced into right internal jugular vein. The micropuncture needle was then exchanged over a microguidewire for a micropuncture sheath, through which an Amplatz wire was advanced into IVC, under fluoroscopic control. A second small skin incision was then made along upper anterior aspect of right chest. A subcutaneous tunnel was then fashioned between the right chest and supraclavicular incisions. A 15.5 F 28 cm Dura Max dialysis catheter was pulled through the subcutaneous tunnel from inferior to superior, utilizing the tunneling device provided. The right IJ venostomy tract was then sequentially dilated and the 15.5 Mongolian dialysis catheter was easily advanced centrally through a 16 Mongolian peel-away sheath, and was positioned with its tip at the level of upper right atrium utilizing fluoroscopic guidance. This catheter was demonstrated to flush and aspirate normally, was packed, and was secured at the right chest exit site utilizing 2-0 Prolene and sterile dressing. The small supraclavicular incision was closed with 4-0 Vicryl, Steri-Strips, and sterile dressing. Patient tolerated the procedure well without apparent complication. Satisfactory position of the dialysis catheter was confirmed with a single fluoroscopic spot image. Impression: Successful, uneventful ultrasound and fluoro guided placement of right IJ 15.5 F 28 cm Dura Max tunneled hemodialysis catheter, as described.
--- NOTE | 2016-12-06 10:45 | PDOC ---
Renal-Progress Notes Subjective Notes Notes NONE History of Present Illness Hx of present illness FEELS WELL Vitals Vitals Vital Signs Date Time Temp Pulse Resp B/P (MAP) Pulse Ox O2 Delivery O2 Flow Rate FiO2 12/06/16 10:36 65 173/111 12/06/16 07:40 Room Air 12/06/16 07:00 98.4 18 98 98.4 Weight Weight [ ] I.O. Intake and Output Intake and Output 12/06/16 07:00 Intake Total 340 ml Output Total 650 ml Balance -310 ml Intake Oral 340 ml Output Urine Total 650 ml # Voids 1 Labs Labs Laboratory Tests Test 12/05/16 11:05 12/05/16 16:19 12/05/16 20:59 12/06/16 04:50 Glucose (Fingerstick) 131 mg/dL (70-99) 92 mg/dL (70-99) 84 mg/dL (70-99) White Blood Count 7.5 x10^3/uL (4.0-11.0) Red Blood Count 2.90 x10^6/uL (4.30-5.70) Hemoglobin 9.2 g/dL (13.0-17.5) Hematocrit 26.4 % (39.0-53.0) Mean Corpuscular Volume 91 fL (79-100) Mean Corpuscular Hemoglobin 32 pg (25-35) Mean Corpuscular Hemoglobin Concent 35 g/dL (31-37) Red Cell Distribution Width 12.6 % (11.5-14.5) Platelet Count 216 x10^3/uL (140-400) Neutrophils (%) (Auto) 65 % (31-73) Lymphocytes (%) (Auto) 23 % (24-48) Monocytes (%) (Auto) 8 % (0-9) Eosinophils (%) (Auto) 4 % (0-3) Basophils (%) (Auto) 1 % (0-3) Neutrophils # (Auto) 4.9 x10^3uL (1.8-7.7) Lymphocytes # (Auto) 1.7 x10^3/uL (1.0-4.8) Monocytes # (Auto) 0.6 x10^3/uL (0.0-1.1) Eosinophils # (Auto) 0.3 x10^3/uL (0.0-0.7) Basophils # (Auto) 0.0 x10^3/uL (0.0-0.2) Sodium Level 143 mmol/L (136-145) Potassium Level 4.2 mmol/L (3.5-5.1) Chloride Level 106 mmol/L (98-107) Carbon Dioxide Level 28 mmol/L (21-32) Anion Gap 9 (6-14) Blood Urea Nitrogen 44 mg/dL (8-26) Creatinine 6.4 mg/dL (0.7-1.3) Estimated GFR (Cockcroft-Gault) 11.1 Glucose Level 102 mg/dL (70-99) Calcium Level 8.0 mg/dL (8.5-10.1) Phosphorus Level 4.5 mg/dL (2.6-4.7) Iron Level 44 ug/dL (65-175) Total Iron Binding Capacity 160 ug/dL (250-450) Iron Saturation 28 % (15-34) Ferritin 813 ng/mL (26-388) Total Bilirubin 0.4 mg/dL (0.2-1.0) Direct Bilirubin 0.1 mg/dL (0.0-0.2) Aspartate Amino Transf (AST/SGOT) 18 U/L (15-37) Alanine Aminotransferase (ALT/SGPT) 20 U/L (16-63) Alkaline Phosphatase 64 U/L (46-116) Total Protein 6.1 g/dL (6.4-8.2) Albumin 2.8 g/dL (3.4-5.0) Test 12/06/16 08:00 Glucose (Fingerstick) 106 mg/dL (70-99) Review of Systems Constitutional: yes: malaise, weakness, alert, oriented Ears/Nose/Throat: Yes: no symptom reported Eyes: Yes: no symptom reported Pulmonary: Yes no symptom reported Cardiovascular: Yes no symptom reported Gastrointestional: Yes: nausea Genitourinary: Yes: no symptom reported Skin: Yes no symptom reported Psychiatric/Neurological: Yes: no symptom reported Physical Exam General Appearance: no apparent distress Skin: warm Respiratory: bilateral CTA Heart: S1S2, RRR Extremities: pulses present Neurology: alert Musculoskeletal: Other Assessment Assessment IMP UREMIA ANEMIA DM II HTN NEW ESRD PLAN SECOND HD TX TODAY UF MINIMAL OF ABOUT .5 KG QT STILL AT 3 HRS WILL NEED INCREASE DIALYSIS TIME NEXT WEEK OP HD TO BE SET UP - HAVE ALREADY D/W CM CONT LI PLAZA MD Dec 06, 2016 10:45
[2016-12-06 11:00] VITALS: BP 165/102
[2016-12-06] MEDS ORDERED: IV NORMAL SALINE 1000ML BAG 1,000 ML IV PRN (15:51)
[2016-12-06] MEDS ORDERED: 0.9 % SODIUM CHLORIDE 10 ML DISP.SYRIN. IV PRN ×2 (16:00)
[2016-12-06] MEDS ORDERED: DIALYSIS PATIENT. MC PRN (16:00)
[2016-12-06 16:11] LABS: PTH INTACT 460 pg/mL (15-65)
[2016-12-06 19:59] VITALS: BP 142/79
[2016-12-06] MEDS: ACETAMINOPHEN 325 MG TABLET. PO PRN (21:23)
[2016-12-06 23:36] VITALS: BP 174/99
[2016-12-07] VITALS (7 sets, daily range): BP systolic 121–206; BP diastolic 85–126
[2016-12-07] MEDS: traMADol 50 MG TABLET PO PRN ×2 (00:06→05:58)
[2016-12-07] MEDS: IV NORMAL SALINE 1000ML BAG 1,000 ML IV SCH ×2 (04:00→16:21)
[2016-12-07] MEDS: MORPHINE SULFATE 2 MG/ML DISP.SYRIN. IV PRN ×3 (04:02→08:46)
[2016-12-07 05:46] LABS: CALCIUM 7.8 mg/dL (8.5-10.1); CREATININE 5.1 mg/dL (0.7-1.3); GFR 14.5; MAGNESIUM 1.5 mg/dL (1.8-2.4); POTASSIUM 4.2 mmol/L (3.5-5.1)
[2016-12-07] MEDS: ACETAMINOPHEN 325 MG TABLET. PO PRN ×2 (05:58→20:53)
[2016-12-07] MEDS: HEPARIN PF for SUB-Q USE 5,000 UNIT/0.5 ML VIAL. SQ SCH ×3 (06:00→20:58)
[2016-12-07 06:47] LABS: BASO # 0.1 x10^3/uL (0.0-0.2); BASO % 1 % (0-3); EOS % 4 % (0-3); HEMATOCRIT 23.1 % (39.0-53.0); HEMOGLOBIN 7.9 g/dL (13.0-17.5); LYMPH # 1.5 x10^3/uL (1.0-4.8); LYMPH % 22 % (24-48); MEAN CORPUSCULAR HEMOGLOBIN 31 pg (25-35); MEAN CORPUSCULAR HGB CONC 34 g/dL (31-37); MEAN CORPUSCULAR VOLUME 91 fL (79-100); MONO % 10 % (0-9); NEUT % 64 % (31-73); PLATELET COUNT 210 x10^3/uL (140-400); RED BLOOD COUNT 2.54 x10^6/uL (4.30-5.70); RED CELL DISTRIBUTION WIDTH 12.6 % (11.5-14.5); WHITE BLOOD COUNT 7.1 x10^3/uL (4.0-11.0)
[2016-12-07] MEDS: INSULIN ASPART 300 UNITS/3 ML INSULN.PEN SQ SCH ×3 (07:47→16:28)
[2016-12-07] MEDS: METOPROLOL TART IMMED RELEASE 50 MG TABLET. PO SCH ×2 (08:12→20:53)
[2016-12-07] MEDS: amLODIPine BESYLATE 10 MG TABLET PO SCH (08:12)
[2016-12-07] MEDS ORDERED: MAGNESIUM SULFATE 2GM 50 ML IV ONE ×2 (09:00→12:00)
[2016-12-07] MEDS: COLCHICINE 0.6 MG TABLET PO SCH ×2 (09:32→20:53)
[2016-12-07] MEDS: oxyCODONE/APAP 10/325 1 TAB TABLET PO PRN ×3 (11:22→20:53)
--- NOTE | 2016-12-07 11:26 | PDOC ---
ORTHO PROGRESS NOTES Vitals Vital Signs Date Time Temp Pulse Resp B/P (MAP) Pulse Ox O2 Delivery O2 Flow Rate FiO2 12/07/16 09:16 18 96 Room Air 12/07/16 08:12 76 167/102 12/07/16 07:00 98.1 98.1 Labs Laboratory Tests Test 12/05/16 16:19 12/05/16 20:59 12/06/16 04:50 12/06/16 08:00 Glucose (Fingerstick) 92 mg/dL (70-99) 84 mg/dL (70-99) 106 mg/dL (70-99) White Blood Count 7.5 x10^3/uL (4.0-11.0) Red Blood Count 2.90 x10^6/uL (4.30-5.70) Hemoglobin 9.2 g/dL (13.0-17.5) Hematocrit 26.4 % (39.0-53.0) Mean Corpuscular Volume 91 fL (79-100) Mean Corpuscular Hemoglobin 32 pg (25-35) Mean Corpuscular Hemoglobin Concent 35 g/dL (31-37) Red Cell Distribution Width 12.6 % (11.5-14.5) Platelet Count 216 x10^3/uL (140-400) Neutrophils (%) (Auto) 65 % (31-73) Lymphocytes (%) (Auto) 23 % (24-48) Monocytes (%) (Auto) 8 % (0-9) Eosinophils (%) (Auto) 4 % (0-3) Basophils (%) (Auto) 1 % (0-3) Neutrophils # (Auto) 4.9 x10^3uL (1.8-7.7) Lymphocytes # (Auto) 1.7 x10^3/uL (1.0-4.8) Monocytes # (Auto) 0.6 x10^3/uL (0.0-1.1) Eosinophils # (Auto) 0.3 x10^3/uL (0.0-0.7) Basophils # (Auto) 0.0 x10^3/uL (0.0-0.2) Sodium Level 143 mmol/L (136-145) Potassium Level 4.2 mmol/L (3.5-5.1) Chloride Level 106 mmol/L (98-107) Carbon Dioxide Level 28 mmol/L (21-32) Anion Gap 9 (6-14) Blood Urea Nitrogen 44 mg/dL (8-26) Creatinine 6.4 mg/dL (0.7-1.3) Estimated GFR (Non- 10 (>59) Estimated GFR (Cockcroft-Gault) 11.1 Glucose Level 102 mg/dL (70-99) Calcium Level 8.0 mg/dL (8.5-10.1) Phosphorus Level 4.5 mg/dL (2.6-4.7) Iron Level 44 ug/dL (65-175) Total Iron Binding Capacity 160 ug/dL (250-450) Iron Saturation 28 % (15-34) Ferritin 813 ng/mL (26-388) Total Bilirubin 0.4 mg/dL (0.2-1.0) Direct Bilirubin 0.1 mg/dL (0.0-0.2) Aspartate Amino Transf (AST/SGOT) 18 U/L (15-37) Alanine Aminotransferase (ALT/SGPT) 20 U/L (16-63) Alkaline Phosphatase 64 U/L (46-116) Total Protein 6.1 g/dL (6.4-8.2) Albumin 2.8 g/dL (3.4-5.0) EGFR 11 (>59) PTH (Intact) Specimen Description Comment (.) Parathyroid Hormone (Intact) 460 pg/mL (15-65) Calcium (PTH Intact) 8.1 mg/dL (8.7-10.2) Creatinine (PTH Intact) 6.12 mg/dL (0.76-1.27) Phosphorus (PTH Intact) 4.3 mg/dL (2.5-4.5) Test 12/06/16 11:35 12/06/16 17:39 12/06/16 20:49 12/07/16 05:00 Glucose (Fingerstick) 134 mg/dL (70-99) 88 mg/dL (70-99) 121 mg/dL (70-99) Sodium Level 142 mmol/L (136-145) Potassium Level 4.2 mmol/L (3.5-5.1) Chloride Level 106 mmol/L (98-107) Carbon Dioxide Level 31 mmol/L (21-32) Anion Gap 5 (6-14) Blood Urea Nitrogen 31 mg/dL (8-26) Creatinine 5.1 mg/dL (0.7-1.3) Estimated GFR (Cockcroft-Gault) 14.5 Glucose Level 113 mg/dL (70-99) Calcium Level 7.8 mg/dL (8.5-10.1) Magnesium Level 1.5 mg/dL (1.8-2.4) Test 12/07/16 05:11 12/07/16 07:33 12/07/16 10:56 White Blood Count 7.1 x10^3/uL (4.0-11.0) Red Blood Count 2.54 x10^6/uL (4.30-5.70) Hemoglobin 7.9 g/dL (13.0-17.5) Hematocrit 23.1 % (39.0-53.0) Mean Corpuscular Volume 91 fL (79-100) Mean Corpuscular Hemoglobin 31 pg (25-35) Mean Corpuscular Hemoglobin Concent 34 g/dL (31-37) Red Cell Distribution Width 12.6 % (11.5-14.5) Platelet Count 210 x10^3/uL (140-400) Neutrophils (%) (Auto) 64 % (31-73) Lymphocytes (%) (Auto) 22 % (24-48) Monocytes (%) (Auto) 10 % (0-9) Eosinophils (%) (Auto) 4 % (0-3) Basophils (%) (Auto) 1 % (0-3) Neutrophils # (Auto) 4.5 x10^3uL (1.8-7.7) Lymphocytes # (Auto) 1.5 x10^3/uL (1.0-4.8) Monocytes # (Auto) 0.7 x10^3/uL (0.0-1.1) Eosinophils # (Auto) 0.3 x10^3/uL (0.0-0.7) Basophils # (Auto) 0.1 x10^3/uL (0.0-0.2) Glucose (Fingerstick) 102 mg/dL (70-99) 153 mg/dL (70-99) Laboratory Tests Test 12/06/16 11:35 12/06/16 17:39 12/06/16 20:49 12/07/16 05:00 Glucose (Fingerstick) 134 mg/dL (70-99) 88 mg/dL (70-99) 121 mg/dL (70-99) Sodium Level 142 mmol/L (136-145) Potassium Level 4.2 mmol/L (3.5-5.1) Chloride Level 106 mmol/L (98-107) Carbon Dioxide Level 31 mmol/L (21-32) Anion Gap 5 (6-14) Blood Urea Nitrogen 31 mg/dL (8-26) Creatinine 5.1 mg/dL (0.7-1.3) Estimated GFR (Cockcroft-Gault) 14.5 Glucose Level 113 mg/dL (70-99) Calcium Level 7.8 mg/dL (8.5-10.1) Magnesium Level 1.5 mg/dL (1.8-2.4) Test 12/07/16 05:11 12/07/16 07:33 12/07/16 10:56 White Blood Count 7.1 x10^3/uL (4.0-11.0) Red Blood Count 2.54 x10^6/uL (4.30-5.70) Hemoglobin 7.9 g/dL (13.0-17.5) Hematocrit 23.1 % (39.0-53.0) Mean Corpuscular Volume 91 fL (79-100) Mean Corpuscular Hemoglobin 31 pg (25-35) Mean Corpuscular Hemoglobin Concent 34 g/dL (31-37) Red Cell Distribution Width 12.6 % (11.5-14.5) Platelet Count 210 x10^3/uL (140-400) Neutrophils (%) (Auto) 64 % (31-73) Lymphocytes (%) (Auto) 22 % (24-48) Monocytes (%) (Auto) 10 % (0-9) Eosinophils (%) (Auto) 4 % (0-3) Basophils (%) (Auto) 1 % (0-3) Neutrophils # (Auto) 4.5 x10^3uL (1.8-7.7) Lymphocytes # (Auto) 1.5 x10^3/uL (1.0-4.8) Monocytes # (Auto) 0.7 x10^3/uL (0.0-1.1) Eosinophils # (Auto) 0.3 x10^3/uL (0.0-0.7) Basophils # (Auto) 0.1 x10^3/uL (0.0-0.2) Glucose (Fingerstick) 102 mg/dL (70-99) 153 mg/dL (70-99) Assessment and Plan see full note likely L wrist gout will order meds and proceed with aspiration and injection when available NABILA VELOZ II, MD Dec 07, 2016 11:26
[2016-12-07] MEDS ORDERED: LIDOCAINE 2% 20 ML VIAL. IJ ONE (11:45)
[2016-12-07] MEDS ORDERED: methylPREDNISolone ACETATE 40 MG/ML VIAL. INT ART ONE (11:45)
--- NOTE | 2016-12-07 11:49 | PDOC ---
Renal-Progress Notes Subjective Notes Notes SOME KNEE AND WRIST PAIN History of Present Illness Hx of present illness STABLE Vitals Vitals Vital Signs Date Time Temp Pulse Resp B/P (MAP) Pulse Ox O2 Delivery O2 Flow Rate FiO2 12/07/16 11:22 18 96 Room Air 12/07/16 08:12 76 167/102 12/07/16 07:00 98.1 98.1 Weight Weight [ ] I.O. Intake and Output Intake and Output 12/07/16 07:00 Intake Total 2000 ml Balance 2000 ml Intake Oral 800 ml Other 1200 ml # Voids 3 Labs Labs Laboratory Tests Test 12/06/16 17:39 12/06/16 20:49 12/07/16 05:00 12/07/16 05:11 Glucose (Fingerstick) 88 mg/dL (70-99) 121 mg/dL (70-99) Sodium Level 142 mmol/L (136-145) Potassium Level 4.2 mmol/L (3.5-5.1) Chloride Level 106 mmol/L (98-107) Carbon Dioxide Level 31 mmol/L (21-32) Anion Gap 5 (6-14) Blood Urea Nitrogen 31 mg/dL (8-26) Creatinine 5.1 mg/dL (0.7-1.3) Estimated GFR (Cockcroft-Gault) 14.5 Glucose Level 113 mg/dL (70-99) Calcium Level 7.8 mg/dL (8.5-10.1) Magnesium Level 1.5 mg/dL (1.8-2.4) White Blood Count 7.1 x10^3/uL (4.0-11.0) Red Blood Count 2.54 x10^6/uL (4.30-5.70) Hemoglobin 7.9 g/dL (13.0-17.5) Hematocrit 23.1 % (39.0-53.0) Mean Corpuscular Volume 91 fL (79-100) Mean Corpuscular Hemoglobin 31 pg (25-35) Mean Corpuscular Hemoglobin Concent 34 g/dL (31-37) Red Cell Distribution Width 12.6 % (11.5-14.5) Platelet Count 210 x10^3/uL (140-400) Neutrophils (%) (Auto) 64 % (31-73) Lymphocytes (%) (Auto) 22 % (24-48) Monocytes (%) (Auto) 10 % (0-9) Eosinophils (%) (Auto) 4 % (0-3) Basophils (%) (Auto) 1 % (0-3) Neutrophils # (Auto) 4.5 x10^3uL (1.8-7.7) Lymphocytes # (Auto) 1.5 x10^3/uL (1.0-4.8) Monocytes # (Auto) 0.7 x10^3/uL (0.0-1.1) Eosinophils # (Auto) 0.3 x10^3/uL (0.0-0.7) Basophils # (Auto) 0.1 x10^3/uL (0.0-0.2) Test 12/07/16 07:33 12/07/16 10:56 Glucose (Fingerstick) 102 mg/dL (70-99) 153 mg/dL (70-99) Review of Systems Constitutional: yes: malaise, weakness, alert, oriented Ears/Nose/Throat: Yes: no symptom reported Eyes: Yes: no symptom reported Pulmonary: Yes no symptom reported Cardiovascular: Yes no symptom reported Gastrointestional: Yes: nausea Genitourinary: Yes: no symptom reported Skin: Yes no symptom reported Psychiatric/Neurological: Yes: no symptom reported Physical Exam General Appearance: no apparent distress Skin: warm Respiratory: bilateral CTA Heart: S1S2, RRR Extremities: pulses present Neurology: alert Musculoskeletal: Other Assessment Assessment IMP UREMIA ANEMIA DM II HTN NEW ESRD POSSIBLE GOUT LOW MAG PLAN HD TOMORROW WILL NEED INCREASE DIALYSIS TIME NEXT WEEK OP HD TO BE SET UP - HAVE ALREADY D/W CM CONT ARANESP REPLACE MAG CHECK URIC ACID LI LAWS MD Dec 07, 2016 11:49
[2016-12-07] MEDS ORDERED: MORPHINE ER 15 MG TABLET.ER PO ONE (12:15)
--- NOTE | 2016-12-07 14:51 | RAD ---
EXAM: Left wrist 3 views. HISTORY: Left wrist pain, gout. COMPARISON: None. FINDINGS: There is soft tissue swelling dorsally. There is no soft tissue calcification. No erosions are seen. No fractures are identified. Joint spaces and alignment are maintained. IMPRESSION: 1. Soft tissue swelling.
--- NOTE | 2016-12-07 14:52 | PDOC ---
PROGRESS NOTES Chief Complaint Chief Complaint ACute on chronic renal failure, new ESRD likely, HD started, metabolic acidosis Dm2, obesity, BMI 37' htn, with renal disease, mild malnutrition normocytic anemia, of CKD History of Present Illness History of Present Illness HTN still up, doubled norvasc to 10 yesterday HD again tomorrow acute pain in left wrist, he thinks gout attack, and was applying ICE, I ask him to discontinue, Ortho consult done today, plan joint injection ambulate as yohana Vitals Vitals Vital Signs Date Time Temp Pulse Resp B/P (MAP) Pulse Ox O2 Delivery O2 Flow Rate FiO2 12/07/16 12:22 18 96 Room Air 12/07/16 11:00 97.0 77 133/85 (101) 97.0 Physical Exam General: Alert, Oriented X3, Cooperative, No acute distress Heart: Regular rate, Normal S1, Normal S2 Lungs: Clear Abdomen: Normal bowel sounds, Soft, No tenderness Extremities: No clubbing Skin: No breakdown Labs LABS Laboratory Tests Test 12/06/16 17:39 12/06/16 20:49 12/07/16 05:00 12/07/16 05:11 Glucose (Fingerstick) 88 mg/dL (70-99) 121 mg/dL (70-99) Sodium Level 142 mmol/L (136-145) Potassium Level 4.2 mmol/L (3.5-5.1) Chloride Level 106 mmol/L (98-107) Carbon Dioxide Level 31 mmol/L (21-32) Anion Gap 5 (6-14) Blood Urea Nitrogen 31 mg/dL (8-26) Creatinine 5.1 mg/dL (0.7-1.3) Estimated GFR (Cockcroft-Gault) 14.5 Glucose Level 113 mg/dL (70-99) Calcium Level 7.8 mg/dL (8.5-10.1) Magnesium Level 1.5 mg/dL (1.8-2.4) White Blood Count 7.1 x10^3/uL (4.0-11.0) Red Blood Count 2.54 x10^6/uL (4.30-5.70) Hemoglobin 7.9 g/dL (13.0-17.5) Hematocrit 23.1 % (39.0-53.0) Mean Corpuscular Volume 91 fL (79-100) Mean Corpuscular Hemoglobin 31 pg (25-35) Mean Corpuscular Hemoglobin Concent 34 g/dL (31-37) Red Cell Distribution Width 12.6 % (11.5-14.5) Platelet Count 210 x10^3/uL (140-400) Neutrophils (%) (Auto) 64 % (31-73) Lymphocytes (%) (Auto) 22 % (24-48) Monocytes (%) (Auto) 10 % (0-9) Eosinophils (%) (Auto) 4 % (0-3) Basophils (%) (Auto) 1 % (0-3) Neutrophils # (Auto) 4.5 x10^3uL (1.8-7.7) Lymphocytes # (Auto) 1.5 x10^3/uL (1.0-4.8) Monocytes # (Auto) 0.7 x10^3/uL (0.0-1.1) Eosinophils # (Auto) 0.3 x10^3/uL (0.0-0.7) Basophils # (Auto) 0.1 x10^3/uL (0.0-0.2) Test 12/07/16 07:33 12/07/16 10:56 Glucose (Fingerstick) 102 mg/dL (70-99) 153 mg/dL (70-99) Review of Systems Review of Systems left wrist pain no n.v/d normal stool, slept ok Assessment and Plan Assessmemt and Plan Problems Medical Problems: (1) Accelerated hypertension Status: Acute (2) Nausea Status: Acute Problems: Comment Review of Relevant I have reviewed the following items maame (where applicable) has been applied. Labs Laboratory Tests Test 12/05/16 16:19 12/05/16 20:59 12/06/16 04:50 12/06/16 08:00 Glucose (Fingerstick) 92 mg/dL (70-99) 84 mg/dL (70-99) 106 mg/dL (70-99) White Blood Count 7.5 x10^3/uL (4.0-11.0) Red Blood Count 2.90 x10^6/uL (4.30-5.70) Hemoglobin 9.2 g/dL (13.0-17.5) Hematocrit 26.4 % (39.0-53.0) Mean Corpuscular Volume 91 fL (79-100) Mean Corpuscular Hemoglobin 32 pg (25-35) Mean Corpuscular Hemoglobin Concent 35 g/dL (31-37) Red Cell Distribution Width 12.6 % (11.5-14.5) Platelet Count 216 x10^3/uL (140-400) Neutrophils (%) (Auto) 65 % (31-73) Lymphocytes (%) (Auto) 23 % (24-48) Monocytes (%) (Auto) 8 % (0-9) Eosinophils (%) (Auto) 4 % (0-3) Basophils (%) (Auto) 1 % (0-3) Neutrophils # (Auto) 4.9 x10^3uL (1.8-7.7) Lymphocytes # (Auto) 1.7 x10^3/uL (1.0-4.8) Monocytes # (Auto) 0.6 x10^3/uL (0.0-1.1) Eosinophils # (Auto) 0.3 x10^3/uL (0.0-0.7) Basophils # (Auto) 0.0 x10^3/uL (0.0-0.2) Sodium Level 143 mmol/L (136-145) Potassium Level 4.2 mmol/L (3.5-5.1) Chloride Level 106 mmol/L (98-107) Carbon Dioxide Level 28 mmol/L (21-32) Anion Gap 9 (6-14) Blood Urea Nitrogen 44 mg/dL (8-26) Creatinine 6.4 mg/dL (0.7-1.3) Estimated GFR (Non- 10 (>59) Estimated GFR (Cockcroft-Gault) 11.1 Glucose Level 102 mg/dL (70-99) Calcium Level 8.0 mg/dL (8.5-10.1) Phosphorus Level 4.5 mg/dL (2.6-4.7) Iron Level 44 ug/dL (65-175) Total Iron Binding Capacity 160 ug/dL (250-450) Iron Saturation 28 % (15-34) Ferritin 813 ng/mL (26-388) Total Bilirubin 0.4 mg/dL (0.2-1.0) Direct Bilirubin 0.1 mg/dL (0.0-0.2) Aspartate Amino Transf (AST/SGOT) 18 U/L (15-37) Alanine Aminotransferase (ALT/SGPT) 20 U/L (16-63) Alkaline Phosphatase 64 U/L (46-116) Total Protein 6.1 g/dL (6.4-8.2) Albumin 2.8 g/dL (3.4-5.0) EGFR 11 (>59) PTH (Intact) Specimen Description Comment (.) Parathyroid Hormone (Intact) 460 pg/mL (15-65) Calcium (PTH Intact) 8.1 mg/dL (8.7-10.2) Creatinine (PTH Intact) 6.12 mg/dL (0.76-1.27) Phosphorus (PTH Intact) 4.3 mg/dL (2.5-4.5) Hepatitis B Core Total Antibody Negative (Negative) Test 12/06/16 11:35 12/06/16 17:39 12/06/16 20:49 12/07/16 05:00 Glucose (Fingerstick) 134 mg/dL (70-99) 88 mg/dL (70-99) 121 mg/dL (70-99) Sodium Level 142 mmol/L (136-145) Potassium Level 4.2 mmol/L (3.5-5.1) Chloride Level 106 mmol/L (98-107) Carbon Dioxide Level 31 mmol/L (21-32) Anion Gap 5 (6-14) Blood Urea Nitrogen 31 mg/dL (8-26) Creatinine 5.1 mg/dL (0.7-1.3) Estimated GFR (Cockcroft-Gault) 14.5 Glucose Level 113 mg/dL (70-99) Calcium Level 7.8 mg/dL (8.5-10.1) Magnesium Level 1.5 mg/dL (1.8-2.4) Test 12/07/16 05:11 12/07/16 07:33 12/07/16 10:56 White Blood Count 7.1 x10^3/uL (4.0-11.0) Red Blood Count 2.54 x10^6/uL (4.30-5.70) Hemoglobin 7.9 g/dL (13.0-17.5) Hematocrit 23.1 % (39.0-53.0) Mean Corpuscular Volume 91 fL (79-100) Mean Corpuscular Hemoglobin 31 pg (25-35) Mean Corpuscular Hemoglobin Concent 34 g/dL (31-37) Red Cell Distribution Width 12.6 % (11.5-14.5) Platelet Count 210 x10^3/uL (140-400) Neutrophils (%) (Auto) 64 % (31-73) Lymphocytes (%) (Auto) 22 % (24-48) Monocytes (%) (Auto) 10 % (0-9) Eosinophils (%) (Auto) 4 % (0-3) Basophils (%) (Auto) 1 % (0-3) Neutrophils # (Auto) 4.5 x10^3uL (1.8-7.7) Lymphocytes # (Auto) 1.5 x10^3/uL (1.0-4.8) Monocytes # (Auto) 0.7 x10^3/uL (0.0-1.1) Eosinophils # (Auto) 0.3 x10^3/uL (0.0-0.7) Basophils # (Auto) 0.1 x10^3/uL (0.0-0.2) Glucose (Fingerstick) 102 mg/dL (70-99) 153 mg/dL (70-99) Laboratory Tests Test 12/06/16 17:39 12/06/16 20:49 12/07/16 05:00 12/07/16 05:11 Glucose (Fingerstick) 88 mg/dL (70-99) 121 mg/dL (70-99) Sodium Level 142 mmol/L (136-145) Potassium Level 4.2 mmol/L (3.5-5.1) Chloride Level 106 mmol/L (98-107) Carbon Dioxide Level 31 mmol/L (21-32) Anion Gap 5 (6-14) Blood Urea Nitrogen 31 mg/dL (8-26) Creatinine 5.1 mg/dL (0.7-1.3) Estimated GFR (Cockcroft-Gault) 14.5 Glucose Level 113 mg/dL (70-99) Calcium Level 7.8 mg/dL (8.5-10.1) Magnesium Level 1.5 mg/dL (1.8-2.4) White Blood Count 7.1 x10^3/uL (4.0-11.0) Red Blood Count 2.54 x10^6/uL (4.30-5.70) Hemoglobin 7.9 g/dL (13.0-17.5) Hematocrit 23.1 % (39.0-53.0) Mean Corpuscular Volume 91 fL (79-100) Mean Corpuscular Hemoglobin 31 pg (25-35) Mean Corpuscular Hemoglobin Concent 34 g/dL (31-37) Red Cell Distribution Width 12.6 % (11.5-14.5) Platelet Count 210 x10^3/uL (140-400) Neutrophils (%) (Auto) 64 % (31-73) Lymphocytes (%) (Auto) 22 % (24-48) Monocytes (%) (Auto) 10 % (0-9) Eosinophils (%) (Auto) 4 % (0-3) Basophils (%) (Auto) 1 % (0-3) Neutrophils # (Auto) 4.5 x10^3uL (1.8-7.7) Lymphocytes # (Auto) 1.5 x10^3/uL (1.0-4.8) Monocytes # (Auto) 0.7 x10^3/uL (0.0-1.1) Eosinophils # (Auto) 0.3 x10^3/uL (0.0-0.7) Basophils # (Auto) 0.1 x10^3/uL (0.0-0.2) Test 12/07/16 07:33 12/07/16 10:56 Glucose (Fingerstick) 102 mg/dL (70-99) 153 mg/dL (70-99) Medications Current Medications Sodium Chloride 1,000 ml @ 1,000 mls/hr Q1H IV Last administered on 12/04/16 14:27; Start 12/04/16 at 13:51; Stop 12/04/16 at 14:50; Status DC Ondansetron HCl (Zofran) 4 mg 1X ONCE IV Last administered on 12/04/16 14:27 ; Start 12/04/16 at 14:00; Stop 12/04/16 at 14:01; Status DC Famotidine (Pepcid) 20 mg 1X ONCE IVP Last administered on 12/04/16 14:27; Start 12/04/16 at 14:00; Stop 12/04/16 at 14:01; Status DC Fentanyl Citrate (Fentanyl 2ml Vial) 50 mcg 1X ONCE IV Last administered on 14:28; Start 12/04/16 at 14:00; Stop 12/04/16 at 14:01; Status DC Clonidine HCl (Catapres) 0.2 mg 1X ONCE PO Last administered on 12/04/16 14: 26; Start 12/04/16 at 14:00; Stop 12/04/16 at 14:01; Status DC Iohexol (Omnipaque 300 Mg/ml) 75 ml 1X ONCE IV Last administered on 12/04/16 14:15; Start 12/04/16 at 14:15; Stop 12/04/16 at 14:16; Status DC Info (Do NOT chart on this entry -- for MONITORING) 1 each PRN DAILY PRN MC SEE COMMENTS; Start 12/04/16 at 14:15; Stop 12/06/16 at 14:14; Status DC Sodium Chloride 1,000 ml @ 125 mls/hr 1X ONCE IV Last administered on 14:45; Start 12/04/16 at 14:45; Stop 12/04/16 at 22:44; Status DC Labetalol HCl (Normodyne) 10 mg 1X ONCE IVP ; Start 12/04/16 at 15:15; Stop at 15:16; Status DC Ondansetron HCl (Zofran) 4 mg PRN Q8HRS PRN IV NAUSEA/VOMITING; Start 12/04/16 at 17:15; Stop 12/05/16 at 13:52; Status DC Morphine Sulfate 4 mg PRN Q2HR PRN IV PAIN Last administered on 12/04/16 21:54 ; Start 12/04/16 at 17:15; Stop 12/05/16 at 17:14; Status DC Sodium Chloride 1,000 ml @ 100 mls/hr 1X ONCE IV Last administered on 21:48; Start 12/04/16 at 17:15; Stop 12/05/16 at 03:14; Status DC Clonidine HCl (Catapres) 0.1 mg Q6HRS PRN PO HYPERTENSION, SEE COMMENTS; Start 12/04/16 at 17:15; Stop 12/05/16 at 09:48; Status DC Sodium Chloride 1,000 ml @ 100 mls/hr Q10H IV Last administered on 12/07/16 04:00; Start 12/04/16 at 21:45 Metoprolol Tartrate (Lopressor) 50 mg DAILY PO Last administered on 12/05/16 09:25; Start 12/05/16 at 09:00; Stop 12/05/16 at 13:08; Status DC Amlodipine Besylate (Norvasc) 5 mg DAILY PO Last administered on 12/06/16 07: 47; Start 12/05/16 at 09:00; Stop 12/06/16 at 10:05; Status DC Amlodipine Besylate (Norvasc) 5 mg 1X ONCE PO Last administered on 12/04/16 21:49; Start 12/04/16 at 21:45; Stop 12/04/16 at 21:46; Status DC Insulin Aspart (NovoLOG) 0-9 UNITS TIDWMEALS SQ Last administered on 12/07/16 11:24; Start 12/05/16 at 08:00 Dextrose (Dextrose 50%-Water Syringe) 12.5 gm PRN Q15MIN PRN IV SEE COMMENTS; Start 12/04/16 at 21:45 Acetaminophen (Tylenol) 650 mg PRN Q6HRS PRN PO FEVER Last administered on 12/07 05:58; Start 12/05/16 at 10:00 Ondansetron HCl (Zofran) 4 mg PRN Q6HRS PRN IV NAUSEA/VOMITING Last administered on 12/06/16 17:47; Start 12/05/16 at 10:00 Morphine Sulfate 2 mg PRN Q2HR PRN IV PAIN Last administered on 12/07/16 08:46 ; Start 12/05/16 at 10:00 Tramadol HCl (Ultram) 50 mg PRN Q6HRS PRN PO PAIN Last administered on 05:58; Start 12/05/16 at 10:00; Stop 12/07/16 at 12:07; Status DC Hydralazine HCl (Apresoline) 10 mg PRN Q4HRS PRN IVP ELEVATED BP, SEE COMMENTS ; Start 12/05/16 at 10:00 Docusate Sodium (Colace) 100 mg PRN DAILY PRN PO CONSTIPATION; Start 12/05/16 at 10:00 Darbepoetin Jb (Aranesp) 60 mcg WEEKLYHS SQ Last administered on 12/05/16 21 :42; Start 12/05/16 at 21:00 Metoprolol Tartrate (Lopressor) 50 mg BID PO Last administered on 12/06/16 07: 47; Start 12/05/16 at 21:00; Stop 12/06/16 at 18:11; Status DC Heparin Sodium (Porcine) (Heparin Sq) 5,000 unit Q8HRS SQ Last administered on 12/07/16 13:40; Start 12/05/16 at 14:00 Heparin Sodium (Porcine) (Heparin Sodium) 10,000 unit STK-MED ONCE .ROUTE ; Start 12/05/16 at 17:05; Stop 12/05/16 at 17:06; Status DC Lidocaine/ Epinephrine (Xylocaine 1%-Epi 1:100,000) 20 ml STK-MED ONCE .ROUTE ; Start 12/05/16 at 17:05; Stop 12/05/16 at 17:06; Status DC Heparin Sodium/ Sodium Chloride 500 ml @ As Directed STK-MED ONCE .ROUTE ; Start 12/05/16 at 17:05; Stop 12/05/16 at 17:06; Status DC Fentanyl Citrate (Fentanyl 2ml Vial) 100 mcg STK-MED ONCE .ROUTE ; Start at 17:10; Stop 12/05/16 at 17:11; Status DC Midazolam HCl (Versed) 2 mg STK-MED ONCE .ROUTE ; Start 12/05/16 at 17:11; Stop 12/05/16 at 17:12; Status DC Cefazolin Sodium 50 ml @ As Directed STK-MED ONCE IV ; Start 12/05/16 at 17:11; Stop 12/05/16 at 17:12; Status DC Heparin Sodium/ Sodium Chloride 1,000 unit 1X ONCE IART Last administered on 17:45; Start 12/05/16 at 17:45; Stop 12/05/16 at 17:46; Status DC Midazolam HCl (Versed) 2 mg 1X ONCE IV Last administered on 12/05/16 17:45; Start 12/05/16 at 17:45; Stop 12/05/16 at 17:46; Status DC Fentanyl Citrate (Fentanyl 2ml Vial) 100 mcg 1X ONCE IV Last administered on 17:46; Start 12/05/16 at 17:45; Stop 12/05/16 at 17:46; Status DC Lidocaine/ Epinephrine (Xylocaine 1%-Epi 1:100,000) 20 ml 1X ONCE INJ Last administered on 12/05/16 17:45; Start 12/05/16 at 17:45; Stop 12/05/16 at 17:46 ; Status DC Heparin Sodium (Porcine) (Heparin Sodium) 4,300 unit 1X ONCE INT CAT Last administered on 12/05/16 17:46; Start 12/05/16 at 17:45; Stop 12/05/16 at 17:46 ; Status DC Cefazolin Sodium 50 ml @ 100 mls/hr 1X ONCE IV Last administered on 17:25; Start 12/05/16 at 17:25; Stop 12/05/16 at 17:54; Status DC Sodium Chloride 1,000 ml @ 1,000 mls/hr Q1H PRN IV hypotension; Start 12/05/16 at 20:12; Stop 12/06/16 at 02:11; Status DC Sodium Chloride (Normal Saline Flush) 10 ml 1X PRN PRN IV AP catheter pack; Start 12/05/16 at 20:15; Stop 12/06/16 at 18:16; Status DC Sodium Chloride (Normal Saline Flush) 10 ml 1X PRN PRN IV DEF[employer] catheter pack; Start 12/05/16 at 20:15; Stop 12/06/16 at 18:16; Status DC Labetalol HCl (Normodyne) 10 mg PRN Q1HR PRN IVP SBP > 180; Start 12/05/16 at 20:15; Stop 12/06/16 at 20:14; Status DC Info (PHARMACY MONITORING -- do not chart) 1 each PRN DAILY PRN MC SEE COMMENTS ; Start 12/05/16 at 20:15 Amlodipine Besylate (Norvasc) 5 mg 1X ONCE PO Last administered on 12/06/16 10:36; Start 12/06/16 at 10:15; Stop 12/06/16 at 10:16; Status DC Amlodipine Besylate (Norvasc) 10 mg DAILY PO Last administered on 12/07/16 08: 12; Start 12/07/16 at 09:00 Sodium Chloride (Normal Saline Flush) 10 ml 1X PRN PRN IV AP catheter pack; Start 12/06/16 at 16:00; Stop 12/06/16 at 23:00; Status DC Sodium Chloride (Normal Saline Flush) 10 ml 1X PRN PRN IV DEF[employer] catheter pack; Start 12/06/16 at 16:00; Stop 12/06/16 at 23:00; Status DC Sodium Chloride 1,000 ml @ 400 mls/hr Q2H30M PRN IV PATENCY; Start 12/06/16 at 15:51; Stop 12/06/16 at 23:00; Status DC Info (PHARMACY MONITORING -- do not chart) 1 each PRN DAILY PRN MC SEE COMMENTS ; Start 12/06/16 at 16:00; Status Cancel Metoprolol Tartrate (Lopressor) 100 mg BID PO Last administered on 12/07/16 08 :12; Start 12/06/16 at 21:00 Magnesium Sulfate/ Dextrose 50 ml @ 25 mls/hr 1X ONCE IV Last administered on 12/07/16 09:33; Start 12/07/16 at 09:00; Stop 12/07/16 at 10:59; Status DC Colchicine (Colcrys) 0.6 mg BID PO Last administered on 12/07/16 09:32; Start 12/07/16 at 09:00 Oxycodone/ Acetaminophen (Percocet 10/325) 1 tab PRN Q4HRS PRN PO MODERATE PAIN Last administered on 12/07/16 11:22; Start 12/07/16 at 11:15 Methylprednisolone Acetate (DEPO-Medrol 40MG VIAL) 40 mg 1X ONCE INT ART ; Start 12/07/16 at 11:45; Stop 12/07/16 at 11:46; Status DC Lidocaine HCl 20 ml 1X ONCE IJ ; Start 12/07/16 at 11:45; Stop 12/07/16 at 11: 46; Status DC Magnesium Sulfate/ Dextrose 50 ml @ 25 mls/hr 1X ONCE IV ; Start 12/07/16 at 12 :00; Stop 12/07/16 at 13:59; Status DC Morphine Sulfate (Ms Contin) 15 mg 1X ONCE PO ; Start 12/07/16 at 12:15; Stop 12/07/16 at 12:16; Status DC Active Scripts Active Doxycycline Hyclate 100 Mg Capsule 1 Cap PO BID Reported Micardis (Telmisartan) 80 Mg Tablet 80 Mg PO DAILY Bystolic (Nebivolol) 10 Mg Tablet 10 Mg PO DAILY Spironolactone 100 Mg Tablet 100 Mg PO DAILY Hydrochlorothiazide Capsule (Hydrochlorothiazide) 12.5 Mg Capsule 12.5 Mg PO DAILY Glimepiride 2 Mg Tablet 2 Mg PO BIDBFRMEAL Metformin Hcl 500 Mg Tablet 500 Mg PO BIDBFRMEAL Allopurinol 300 Mg Tablet 300 Mg PO PRN DAILY Vitals/I & O Vital Sign - Last 24 Hours 12/06/16 12/06/16 12/06/16 12/06/16 19:59 20:00 21:24 23:36 Temp 98.8 99.3 98.8 99.3 Pulse 97 97 86 Resp 18 18 B/P (MAP) 142/79 (100) 142/79 174/99 (124) Pulse Ox 98 96 O2 Delivery Room Air Room Air Room Air 12/07/16 12/07/16 12/07/16 12/07/16 00:06 03:59 04:02 05:58 Temp 97.9 97.9 Pulse 76 Resp 18 18 20 B/P (MAP) 167/102 (123) O2 Delivery Room Air Room Air Room Air 12/07/16 12/07/16 12/07/16 12/07/16 05:59 07:00 07:18 07:40 Temp 98.1 98.1 Pulse 69 Resp 20 24 18 B/P (MAP) 181/111 (134) Pulse Ox 97 O2 Delivery Room Air Room Air Room Air Room Air 12/07/16 12/07/16 12/07/16 12/07/16 08:12 08:12 08:46 09:16 Pulse 76 76 Resp 18 18 B/P (MAP) 167/102 167/102 Pulse Ox 96 96 O2 Delivery Room Air Room Air 12/07/16 12/07/16 12/07/16 11:00 11:22 12:22 Temp 97.0 97.0 Pulse 77 Resp 20 18 18 B/P (MAP) 133/85 (101) Pulse Ox 96 96 96 O2 Delivery Room Air Room Air Intake and Output 12/06/16 12/06/16 12/07/16 15:00 23:00 07:00 Intake Total 800 ml 1200 ml Balance 800 ml 1200 ml DELMIS CARVALHO MD 18, 2017 14:52
[2016-12-07] MEDS: hydrALAZINE 20 MG/ML VIAL. IVP PRN ×2 (15:41→23:15)
--- NOTE | 2016-12-07 16:02 | PDOC ---
ORTHO PROGRESS NOTES Subjective No new complaints Vitals Vital Signs Date Time Temp Pulse Resp B/P (MAP) Pulse Ox O2 Delivery O2 Flow Rate FiO2 12/07/16 15:41 77 194/121 12/07/16 15:40 18 96 Room Air 12/07/16 11:00 97.0 97.0 Labs Laboratory Tests Test 12/05/16 16:19 12/05/16 20:59 12/06/16 04:50 12/06/16 08:00 Glucose (Fingerstick) 92 mg/dL (70-99) 84 mg/dL (70-99) 106 mg/dL (70-99) White Blood Count 7.5 x10^3/uL (4.0-11.0) Red Blood Count 2.90 x10^6/uL (4.30-5.70) Hemoglobin 9.2 g/dL (13.0-17.5) Hematocrit 26.4 % (39.0-53.0) Mean Corpuscular Volume 91 fL (79-100) Mean Corpuscular Hemoglobin 32 pg (25-35) Mean Corpuscular Hemoglobin Concent 35 g/dL (31-37) Red Cell Distribution Width 12.6 % (11.5-14.5) Platelet Count 216 x10^3/uL (140-400) Neutrophils (%) (Auto) 65 % (31-73) Lymphocytes (%) (Auto) 23 % (24-48) Monocytes (%) (Auto) 8 % (0-9) Eosinophils (%) (Auto) 4 % (0-3) Basophils (%) (Auto) 1 % (0-3) Neutrophils # (Auto) 4.9 x10^3uL (1.8-7.7) Lymphocytes # (Auto) 1.7 x10^3/uL (1.0-4.8) Monocytes # (Auto) 0.6 x10^3/uL (0.0-1.1) Eosinophils # (Auto) 0.3 x10^3/uL (0.0-0.7) Basophils # (Auto) 0.0 x10^3/uL (0.0-0.2) Sodium Level 143 mmol/L (136-145) Potassium Level 4.2 mmol/L (3.5-5.1) Chloride Level 106 mmol/L (98-107) Carbon Dioxide Level 28 mmol/L (21-32) Anion Gap 9 (6-14) Blood Urea Nitrogen 44 mg/dL (8-26) Creatinine 6.4 mg/dL (0.7-1.3) Estimated GFR (Non- 10 (>59) Estimated GFR (Cockcroft-Gault) 11.1 Glucose Level 102 mg/dL (70-99) Calcium Level 8.0 mg/dL (8.5-10.1) Phosphorus Level 4.5 mg/dL (2.6-4.7) Iron Level 44 ug/dL (65-175) Total Iron Binding Capacity 160 ug/dL (250-450) Iron Saturation 28 % (15-34) Ferritin 813 ng/mL (26-388) Total Bilirubin 0.4 mg/dL (0.2-1.0) Direct Bilirubin 0.1 mg/dL (0.0-0.2) Aspartate Amino Transf (AST/SGOT) 18 U/L (15-37) Alanine Aminotransferase (ALT/SGPT) 20 U/L (16-63) Alkaline Phosphatase 64 U/L (46-116) Total Protein 6.1 g/dL (6.4-8.2) Albumin 2.8 g/dL (3.4-5.0) EGFR 11 (>59) PTH (Intact) Specimen Description Comment (.) Parathyroid Hormone (Intact) 460 pg/mL (15-65) Calcium (PTH Intact) 8.1 mg/dL (8.7-10.2) Creatinine (PTH Intact) 6.12 mg/dL (0.76-1.27) Phosphorus (PTH Intact) 4.3 mg/dL (2.5-4.5) Hepatitis B Core Total Antibody Negative (Negative) Test 12/06/16 11:35 12/06/16 17:39 12/06/16 20:49 12/07/16 05:00 Glucose (Fingerstick) 134 mg/dL (70-99) 88 mg/dL (70-99) 121 mg/dL (70-99) Sodium Level 142 mmol/L (136-145) Potassium Level 4.2 mmol/L (3.5-5.1) Chloride Level 106 mmol/L (98-107) Carbon Dioxide Level 31 mmol/L (21-32) Anion Gap 5 (6-14) Blood Urea Nitrogen 31 mg/dL (8-26) Creatinine 5.1 mg/dL (0.7-1.3) Estimated GFR (Cockcroft-Gault) 14.5 Glucose Level 113 mg/dL (70-99) Calcium Level 7.8 mg/dL (8.5-10.1) Magnesium Level 1.5 mg/dL (1.8-2.4) Test 12/07/16 05:11 12/07/16 07:33 12/07/16 10:56 White Blood Count 7.1 x10^3/uL (4.0-11.0) Red Blood Count 2.54 x10^6/uL (4.30-5.70) Hemoglobin 7.9 g/dL (13.0-17.5) Hematocrit 23.1 % (39.0-53.0) Mean Corpuscular Volume 91 fL (79-100) Mean Corpuscular Hemoglobin 31 pg (25-35) Mean Corpuscular Hemoglobin Concent 34 g/dL (31-37) Red Cell Distribution Width 12.6 % (11.5-14.5) Platelet Count 210 x10^3/uL (140-400) Neutrophils (%) (Auto) 64 % (31-73) Lymphocytes (%) (Auto) 22 % (24-48) Monocytes (%) (Auto) 10 % (0-9) Eosinophils (%) (Auto) 4 % (0-3) Basophils (%) (Auto) 1 % (0-3) Neutrophils # (Auto) 4.5 x10^3uL (1.8-7.7) Lymphocytes # (Auto) 1.5 x10^3/uL (1.0-4.8) Monocytes # (Auto) 0.7 x10^3/uL (0.0-1.1) Eosinophils # (Auto) 0.3 x10^3/uL (0.0-0.7) Basophils # (Auto) 0.1 x10^3/uL (0.0-0.2) Glucose (Fingerstick) 102 mg/dL (70-99) 153 mg/dL (70-99) Laboratory Tests Test 12/06/16 17:39 12/06/16 20:49 12/07/16 05:00 12/07/16 05:11 Glucose (Fingerstick) 88 mg/dL (70-99) 121 mg/dL (70-99) Sodium Level 142 mmol/L (136-145) Potassium Level 4.2 mmol/L (3.5-5.1) Chloride Level 106 mmol/L (98-107) Carbon Dioxide Level 31 mmol/L (21-32) Anion Gap 5 (6-14) Blood Urea Nitrogen 31 mg/dL (8-26) Creatinine 5.1 mg/dL (0.7-1.3) Estimated GFR (Cockcroft-Gault) 14.5 Glucose Level 113 mg/dL (70-99) Calcium Level 7.8 mg/dL (8.5-10.1) Magnesium Level 1.5 mg/dL (1.8-2.4) White Blood Count 7.1 x10^3/uL (4.0-11.0) Red Blood Count 2.54 x10^6/uL (4.30-5.70) Hemoglobin 7.9 g/dL (13.0-17.5) Hematocrit 23.1 % (39.0-53.0) Mean Corpuscular Volume 91 fL (79-100) Mean Corpuscular Hemoglobin 31 pg (25-35) Mean Corpuscular Hemoglobin Concent 34 g/dL (31-37) Red Cell Distribution Width 12.6 % (11.5-14.5) Platelet Count 210 x10^3/uL (140-400) Neutrophils (%) (Auto) 64 % (31-73) Lymphocytes (%) (Auto) 22 % (24-48) Monocytes (%) (Auto) 10 % (0-9) Eosinophils (%) (Auto) 4 % (0-3) Basophils (%) (Auto) 1 % (0-3) Neutrophils # (Auto) 4.5 x10^3uL (1.8-7.7) Lymphocytes # (Auto) 1.5 x10^3/uL (1.0-4.8) Monocytes # (Auto) 0.7 x10^3/uL (0.0-1.1) Eosinophils # (Auto) 0.3 x10^3/uL (0.0-0.7) Basophils # (Auto) 0.1 x10^3/uL (0.0-0.2) Test 12/07/16 07:33 12/07/16 10:56 Glucose (Fingerstick) 102 mg/dL (70-99) 153 mg/dL (70-99) X-Rays reviewed Notes A and A HERMINIA: edema at wrist decreased AROM NVI Assessment and Plan after sterile prep, I injected his wrist joint through a dorsal approach with 40mg Depo-medrol and plain lidocaine. Area was cleansed and dried and sterile dressing was applied. He tolerated the injection fine Activity as yohana from my standpoint NABILA VELOZ II, MD Dec 07, 2016 16:02
--- NOTE | 2016-12-07 22:09 | CONS ---
DATE OF CONSULTATION: 12/07/2016 DATE OF CONSULTATION: 12/07/2016 REFERRING PROVIDER: Janessa Garcia. CONSULTING PROVIDER: Ab Ferreira MD REASON FOR CONSULTATION: Left risk. CHIEF COMPLAINT: Left wrist pain. HISTORY OF PRESENT ILLNESS: The patient is a very pleasant 51-year-old with a history of renal insufficiency, hypertension, type 2 diabetes, who presented with abdominal pain and was found to have acute renal failure. He tells me he is feeling better overall since being admitted and recently he had dialysis. However, he has noted that starting late last night his left wrist became more sore. He tells me this feels like one of his usual gouty attacks that he will get at his wrist, his knees or great toes. He had been taking anti-inflammatories for these in the past, but I discontinued this secondary to gastric complaints. He tells me that the pain is worse with any movement and he feels it around his wrist. The pain does radiate into his fingers a little bit. He thinks his finger is swelling up a little bit lately as well. No other complaints or concerns from a musculoskeletal standpoint. REVIEW OF SYSTEMS: Twelve point review of systems negative except as per HPI. ALLERGIES: None. MEDICATIONS: Reviewed, please see MRAD. PAST MEDICAL HISTORY: Type 2 diabetes, hypertension, and renal insufficiency. PAST SURGICAL HISTORY: Cholecystectomy. 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 No alcohol or tobacco. FAMILY HISTORY: Noncontributory. PHYSICAL EXAMINATION: VITAL SIGNS: Reviewed. HEENT: Normocephalic, atraumatic. Extraocular muscles are intact. CARDIOVASCULAR: Regular rate and rhythm. No edema in his lower extremities. LUNGS: Respirations are unlabored with symmetric chest rise. ABDOMEN: Soft, nondistended. EXTREMITIES: Examination of bilateral upper extremities reveals fullness and swelling around his left wrist. Decreased active range of motion of his wrist secondary to pain, as with his fingers. Motor and sensation intact in median, radial and ulnar nerves, left upper extremity. Radial pulses are palpable. He is tender over his dorsal wrist capsule and ulnar as well. No tenderness elsewhere in his hand, fingers or arm. IMAGING: X-rays are pending at the time of this dictation. IMPRESSION: Gout left wrist. PLAN: I did discuss different treatment options for this gentleman. We will plan on aspiration to confirm diagnosis as well as injection of steroids at that time. I think given his recent dialysis and his past history of gout, I think the gout is much more likely in a septic process at this point. However, just to be safe and through, we will send off the fluid if we are able to obtain any for appropriate studies. AB FERREIRA MD DR: MAGDI/ed JOB#: [id number] / [id number] SHARON
[2016-12-08] MEDS: IV NORMAL SALINE 1000ML BAG 1,000 ML IV SCH ×2 (04:48→19:30)
[2016-12-08 05:04] LABS: HEMATOCRIT 25.4 % (39.0-53.0); HEMOGLOBIN 8.5 g/dL (13.0-17.5); RED BLOOD COUNT 2.71 x10^6/uL (4.30-5.70); RED CELL DISTRIBUTION WIDTH 12.7 % (11.5-14.5); WHITE BLOOD COUNT 9.9 x10^3/uL (4.0-11.0)
[2016-12-08] MEDS: HEPARIN PF for SUB-Q USE 5,000 UNIT/0.5 ML VIAL. SQ SCH ×3 (05:34→21:11)
[2016-12-08 05:39] LABS: CREATININE 6.1 mg/dL (0.7-1.3); GFR 11.8; POTASSIUM 4.4 mmol/L (3.5-5.1); URIC ACID 4.2 mg/dL (3.5-7.2)
[2016-12-08 07:00] VITALS: BP 168/107
[2016-12-08] MEDS ORDERED: DIALYSIS PATIENT. MC PRN ×2 (08:00)
[2016-12-08] MEDS: oxyCODONE/APAP 10/325 1 TAB TABLET PO PRN ×2 (08:24→12:37)
[2016-12-08] MEDS: COLCHICINE 0.6 MG TABLET PO SCH (08:24)
[2016-12-08] MEDS: METOPROLOL TART IMMED RELEASE 50 MG TABLET. PO SCH ×2 (08:25→21:04)
[2016-12-08] MEDS: amLODIPine BESYLATE 10 MG TABLET PO SCH (08:26)
[2016-12-08] MEDS: INSULIN ASPART 300 UNITS/3 ML INSULN.PEN SQ SCH ×3 (08:39→17:08)
[2016-12-08 10:01] LABS: FOLATE 2.88 ng/ml (3.2-20.0)
--- NOTE | 2016-12-08 10:09 | PDOC ---
Dialysis Progress Note Dialysis Note Dialysis Note Seen on Hemodialysis, tolerating treatment Well Vitals on Hemodialysis: 192/103 71 General Appearance: Awake: Alert Oriented x 3 Neck: No JVD or JVP Chest: CTA Devaughn Heart: S1 S2 Abdomen - Soft NTND Extremities - + Edema ESRD: Dialysis as below F 180 NR 3.5 Hrs 3 K 2.5 Ca 140 Na 35 HC03 Qb 350 + Qd 500+ Heparin 0 Units Uf 2 Kgs or to dry weight as tolerated May give 25-50 gms of 25% Albumin if needed to maintain Hemodynamic stability Treatment plan reviewed and discussed with bench jeweler Pt had developed Hypotension on last HD Rx so BP meds have not been given yet Vitals Vital Signs Vital Signs Date Time Temp Pulse Resp B/P (MAP) Pulse Ox O2 Delivery O2 Flow Rate FiO2 12/08/16 08:26 89 168/107 12/08/16 08:24 16 Room Air 12/08/16 07:00 98.7 100 98.7 Labs Last Labs Laboratory Tests Test 12/06/16 11:35 12/06/16 17:39 12/06/16 20:49 12/07/16 05:00 Glucose (Fingerstick) 134 mg/dL (70-99) 88 mg/dL (70-99) 121 mg/dL (70-99) Sodium Level 142 mmol/L (136-145) Potassium Level 4.2 mmol/L (3.5-5.1) Chloride Level 106 mmol/L (98-107) Carbon Dioxide Level 31 mmol/L (21-32) Anion Gap 5 (6-14) Blood Urea Nitrogen 31 mg/dL (8-26) Creatinine 5.1 mg/dL (0.7-1.3) Estimated GFR (Cockcroft-Gault) 14.5 Glucose Level 113 mg/dL (70-99) Calcium Level 7.8 mg/dL (8.5-10.1) Magnesium Level 1.5 mg/dL (1.8-2.4) Test 12/07/16 05:11 12/07/16 07:33 12/07/16 10:56 12/07/16 16:10 White Blood Count 7.1 x10^3/uL (4.0-11.0) Red Blood Count 2.54 x10^6/uL (4.30-5.70) Hemoglobin 7.9 g/dL (13.0-17.5) Hematocrit 23.1 % (39.0-53.0) Mean Corpuscular Volume 91 fL (79-100) Mean Corpuscular Hemoglobin 31 pg (25-35) Mean Corpuscular Hemoglobin Concent 34 g/dL (31-37) Red Cell Distribution Width 12.6 % (11.5-14.5) Platelet Count 210 x10^3/uL (140-400) Neutrophils (%) (Auto) 64 % (31-73) Lymphocytes (%) (Auto) 22 % (24-48) Monocytes (%) (Auto) 10 % (0-9) Eosinophils (%) (Auto) 4 % (0-3) Basophils (%) (Auto) 1 % (0-3) Neutrophils # (Auto) 4.5 x10^3uL (1.8-7.7) Lymphocytes # (Auto) 1.5 x10^3/uL (1.0-4.8) Monocytes # (Auto) 0.7 x10^3/uL (0.0-1.1) Eosinophils # (Auto) 0.3 x10^3/uL (0.0-0.7) Basophils # (Auto) 0.1 x10^3/uL (0.0-0.2) Glucose (Fingerstick) 102 mg/dL (70-99) 153 mg/dL (70-99) 119 mg/dL (70-99) Test 12/07/16 20:13 12/08/16 04:15 12/08/16 07:22 Glucose (Fingerstick) 167 mg/dL (70-99) 153 mg/dL (70-99) White Blood Count 9.9 x10^3/uL (4.0-11.0) Red Blood Count 2.71 x10^6/uL (4.30-5.70) Hemoglobin 8.5 g/dL (13.0-17.5) Hematocrit 25.4 % (39.0-53.0) Mean Corpuscular Volume 94 fL (79-100) Mean Corpuscular Hemoglobin 31 pg (25-35) Mean Corpuscular Hemoglobin Concent 33 g/dL (31-37) Red Cell Distribution Width 12.7 % (11.5-14.5) Platelet Count 221 x10^3/uL (140-400) Sodium Level 141 mmol/L (136-145) Potassium Level 4.4 mmol/L (3.5-5.1) Chloride Level 106 mmol/L (98-107) Carbon Dioxide Level 25 mmol/L (21-32) Anion Gap 10 (6-14) Blood Urea Nitrogen 37 mg/dL (8-26) Creatinine 6.1 mg/dL (0.7-1.3) Estimated GFR (Cockcroft-Gault) 11.8 Glucose Level 134 mg/dL (70-99) Uric Acid 4.2 mg/dL (3.5-7.2) Calcium Level 8.0 mg/dL (8.5-10.1) Magnesium Level 2.0 mg/dL (1.8-2.4) Laboratory Tests Test 12/07/16 10:56 12/07/16 16:10 12/07/16 20:13 12/08/16 04:15 Glucose (Fingerstick) 153 mg/dL (70-99) 119 mg/dL (70-99) 167 mg/dL (70-99) White Blood Count 9.9 x10^3/uL (4.0-11.0) Red Blood Count 2.71 x10^6/uL (4.30-5.70) Hemoglobin 8.5 g/dL (13.0-17.5) Hematocrit 25.4 % (39.0-53.0) Mean Corpuscular Volume 94 fL (79-100) Mean Corpuscular Hemoglobin 31 pg (25-35) Mean Corpuscular Hemoglobin Concent 33 g/dL (31-37) Red Cell Distribution Width 12.7 % (11.5-14.5) Platelet Count 221 x10^3/uL (140-400) Sodium Level 141 mmol/L (136-145) Potassium Level 4.4 mmol/L (3.5-5.1) Chloride Level 106 mmol/L (98-107) Carbon Dioxide Level 25 mmol/L (21-32) Anion Gap 10 (6-14) Blood Urea Nitrogen 37 mg/dL (8-26) Creatinine 6.1 mg/dL (0.7-1.3) Estimated GFR (Cockcroft-Gault) 11.8 Glucose Level 134 mg/dL (70-99) Uric Acid 4.2 mg/dL (3.5-7.2) Calcium Level 8.0 mg/dL (8.5-10.1) Magnesium Level 2.0 mg/dL (1.8-2.4) Test 12/08/16 07:22 Glucose (Fingerstick) 153 mg/dL (70-99) Assessment Assessment Problems Medical Problems: (1) Accelerated hypertension Status: Acute (2) Nausea Status: Acute Problems: Plan Plan of Care Problems Medical Problems: (1) Accelerated hypertension Status: Acute (2) Nausea Status: Acute PAM MADRID MD Dec 08, 2016 10:09
[2016-12-08 12:35] VITALS: BP 183/117
[2016-12-08] MEDS: hydrALAZINE 20 MG/ML VIAL. IVP PRN (12:38)
[2016-12-08 14:37] VITALS: BP 154/95
[2016-12-08 16:18] LABS: HEP B SURFACE ABDY Reactive (.)
[2016-12-08 19:00] VITALS: BP 165/101
[2016-12-08 23:00] VITALS: BP 175/111
--- NOTE | 2016-12-08 23:23 | PDOC ---
PROGRESS NOTES Chief Complaint Chief Complaint Acute on chronic renal failure, new ESRD likely, HD started, metabolic acidosis Dm2, obesity, BMI 37' htn, with renal disease, mild malnutrition normocytic anemia, of CKD History of Present Illness History of Present Illness seen and examined Vitals Vitals Vital Signs Date Time Temp Pulse Resp B/P (MAP) Pulse Ox O2 Delivery O2 Flow Rate FiO2 12/08/16 21:04 85 178/107 12/08/16 20:00 Room Air 12/08/16 19:00 99.1 20 98 99.1 Physical Exam General: Alert, Oriented X3, Cooperative, No acute distress Heart: Regular rate, Normal S1, Normal S2 Lungs: Clear Abdomen: Normal bowel sounds, Soft, No tenderness Extremities: No clubbing Skin: No breakdown Labs LABS Laboratory Tests Test 12/08/16 04:15 12/08/16 07:22 12/08/16 12:28 12/08/16 16:32 White Blood Count 9.9 x10^3/uL (4.0-11.0) Red Blood Count 2.71 x10^6/uL (4.30-5.70) Hemoglobin 8.5 g/dL (13.0-17.5) Hematocrit 25.4 % (39.0-53.0) Mean Corpuscular Volume 94 fL (79-100) Mean Corpuscular Hemoglobin 31 pg (25-35) Mean Corpuscular Hemoglobin Concent 33 g/dL (31-37) Red Cell Distribution Width 12.7 % (11.5-14.5) Platelet Count 221 x10^3/uL (140-400) Sodium Level 141 mmol/L (136-145) Potassium Level 4.4 mmol/L (3.5-5.1) Chloride Level 106 mmol/L (98-107) Carbon Dioxide Level 25 mmol/L (21-32) Anion Gap 10 (6-14) Blood Urea Nitrogen 37 mg/dL (8-26) Creatinine 6.1 mg/dL (0.7-1.3) Estimated GFR (Cockcroft-Gault) 11.8 Glucose Level 134 mg/dL (70-99) Uric Acid 4.2 mg/dL (3.5-7.2) Calcium Level 8.0 mg/dL (8.5-10.1) Magnesium Level 2.0 mg/dL (1.8-2.4) Hepatitis B Surface Antigen Negative (Negative) Hepatitis B Surface Antibody Reactive (.) Glucose (Fingerstick) 153 mg/dL (70-99) 111 mg/dL (70-99) 169 mg/dL (70-99) Review of Systems Review of Systems co weakness co hunger Assessment and Plan Assessmemt and Plan Problems Medical Problems: (1) Accelerated hypertension Status: Acute (2) Nausea Status: Acute Acute on chronic renal failure, new ESRD likely, HD started, metabolic acidosis Dm2, obesity, BMI 37' htn, with renal disease, mild malnutrition normocytic anemia, of CKD Plan QOD HD Recheck labs ptot Home meds Neph following Problems: Comment Review of Relevant I have reviewed the following items maame (where applicable) has been applied. Labs Laboratory Tests Test 12/07/16 05:00 12/07/16 05:11 12/07/16 07:33 12/07/16 10:56 Sodium Level 142 mmol/L (136-145) Potassium Level 4.2 mmol/L (3.5-5.1) Chloride Level 106 mmol/L (98-107) Carbon Dioxide Level 31 mmol/L (21-32) Anion Gap 5 (6-14) Blood Urea Nitrogen 31 mg/dL (8-26) Creatinine 5.1 mg/dL (0.7-1.3) Estimated GFR (Cockcroft-Gault) 14.5 Glucose Level 113 mg/dL (70-99) Calcium Level 7.8 mg/dL (8.5-10.1) Magnesium Level 1.5 mg/dL (1.8-2.4) White Blood Count 7.1 x10^3/uL (4.0-11.0) Red Blood Count 2.54 x10^6/uL (4.30-5.70) Hemoglobin 7.9 g/dL (13.0-17.5) Hematocrit 23.1 % (39.0-53.0) Mean Corpuscular Volume 91 fL (79-100) Mean Corpuscular Hemoglobin 31 pg (25-35) Mean Corpuscular Hemoglobin Concent 34 g/dL (31-37) Red Cell Distribution Width 12.6 % (11.5-14.5) Platelet Count 210 x10^3/uL (140-400) Neutrophils (%) (Auto) 64 % (31-73) Lymphocytes (%) (Auto) 22 % (24-48) Monocytes (%) (Auto) 10 % (0-9) Eosinophils (%) (Auto) 4 % (0-3) Basophils (%) (Auto) 1 % (0-3) Neutrophils # (Auto) 4.5 x10^3uL (1.8-7.7) Lymphocytes # (Auto) 1.5 x10^3/uL (1.0-4.8) Monocytes # (Auto) 0.7 x10^3/uL (0.0-1.1) Eosinophils # (Auto) 0.3 x10^3/uL (0.0-0.7) Basophils # (Auto) 0.1 x10^3/uL (0.0-0.2) Glucose (Fingerstick) 102 mg/dL (70-99) 153 mg/dL (70-99) Test 12/07/16 16:10 12/07/16 20:13 12/08/16 04:15 12/08/16 07:22 Glucose (Fingerstick) 119 mg/dL (70-99) 167 mg/dL (70-99) 153 mg/dL (70-99) White Blood Count 9.9 x10^3/uL (4.0-11.0) Red Blood Count 2.71 x10^6/uL (4.30-5.70) Hemoglobin 8.5 g/dL (13.0-17.5) Hematocrit 25.4 % (39.0-53.0) Mean Corpuscular Volume 94 fL (79-100) Mean Corpuscular Hemoglobin 31 pg (25-35) Mean Corpuscular Hemoglobin Concent 33 g/dL (31-37) Red Cell Distribution Width 12.7 % (11.5-14.5) Platelet Count 221 x10^3/uL (140-400) Sodium Level 141 mmol/L (136-145) Potassium Level 4.4 mmol/L (3.5-5.1) Chloride Level 106 mmol/L (98-107) Carbon Dioxide Level 25 mmol/L (21-32) Anion Gap 10 (6-14) Blood Urea Nitrogen 37 mg/dL (8-26) Creatinine 6.1 mg/dL (0.7-1.3) Estimated GFR (Cockcroft-Gault) 11.8 Glucose Level 134 mg/dL (70-99) Uric Acid 4.2 mg/dL (3.5-7.2) Calcium Level 8.0 mg/dL (8.5-10.1) Magnesium Level 2.0 mg/dL (1.8-2.4) Hepatitis B Surface Antigen Negative (Negative) Hepatitis B Surface Antibody Reactive (.) Test 12/08/16 12:28 12/08/16 16:32 Glucose (Fingerstick) 111 mg/dL (70-99) 169 mg/dL (70-99) Laboratory Tests Test 12/08/16 04:15 12/08/16 07:22 12/08/16 12:28 12/08/16 16:32 White Blood Count 9.9 x10^3/uL (4.0-11.0) Red Blood Count 2.71 x10^6/uL (4.30-5.70) Hemoglobin 8.5 g/dL (13.0-17.5) Hematocrit 25.4 % (39.0-53.0) Mean Corpuscular Volume 94 fL (79-100) Mean Corpuscular Hemoglobin 31 pg (25-35) Mean Corpuscular Hemoglobin Concent 33 g/dL (31-37) Red Cell Distribution Width 12.7 % (11.5-14.5) Platelet Count 221 x10^3/uL (140-400) Sodium Level 141 mmol/L (136-145) Potassium Level 4.4 mmol/L (3.5-5.1) Chloride Level 106 mmol/L (98-107) Carbon Dioxide Level 25 mmol/L (21-32) Anion Gap 10 (6-14) Blood Urea Nitrogen 37 mg/dL (8-26) Creatinine 6.1 mg/dL (0.7-1.3) Estimated GFR (Cockcroft-Gault) 11.8 Glucose Level 134 mg/dL (70-99) Uric Acid 4.2 mg/dL (3.5-7.2) Calcium Level 8.0 mg/dL (8.5-10.1) Magnesium Level 2.0 mg/dL (1.8-2.4) Hepatitis B Surface Antigen Negative (Negative) Hepatitis B Surface Antibody Reactive (.) Glucose (Fingerstick) 153 mg/dL (70-99) 111 mg/dL (70-99) 169 mg/dL (70-99) Medications Current Medications Sodium Chloride 1,000 ml @ 1,000 mls/hr Q1H IV Last administered on 12/04/16 14:27; Start 12/04/16 at 13:51; Stop 12/04/16 at 14:50; Status DC Ondansetron HCl (Zofran) 4 mg 1X ONCE IV Last administered on 12/04/16 14:27 ; Start 12/04/16 at 14:00; Stop 12/04/16 at 14:01; Status DC Famotidine (Pepcid) 20 mg 1X ONCE IVP Last administered on 12/04/16 14:27; Start 12/04/16 at 14:00; Stop 12/04/16 at 14:01; Status DC Fentanyl Citrate (Fentanyl 2ml Vial) 50 mcg 1X ONCE IV Last administered on 14:28; Start 12/04/16 at 14:00; Stop 12/04/16 at 14:01; Status DC Clonidine HCl (Catapres) 0.2 mg 1X ONCE PO Last administered on 12/04/16 14: 26; Start 12/04/16 at 14:00; Stop 12/04/16 at 14:01; Status DC Iohexol (Omnipaque 300 Mg/ml) 75 ml 1X ONCE IV Last administered on 12/04/16 14:15; Start 12/04/16 at 14:15; Stop 12/04/16 at 14:16; Status DC Info (Do NOT chart on this entry -- for MONITORING) 1 each PRN DAILY PRN MC SEE COMMENTS; Start 12/04/16 at 14:15; Stop 12/06/16 at 14:14; Status DC Sodium Chloride 1,000 ml @ 125 mls/hr 1X ONCE IV Last administered on 14:45; Start 12/04/16 at 14:45; Stop 12/04/16 at 22:44; Status DC Labetalol HCl (Normodyne) 10 mg 1X ONCE IVP ; Start 12/04/16 at 15:15; Stop at 15:16; Status DC Ondansetron HCl (Zofran) 4 mg PRN Q8HRS PRN IV NAUSEA/VOMITING; Start 12/04/16 at 17:15; Stop 12/05/16 at 13:52; Status DC Morphine Sulfate 4 mg PRN Q2HR PRN IV PAIN Last administered on 12/04/16 21:54 ; Start 12/04/16 at 17:15; Stop 12/05/16 at 17:14; Status DC Sodium Chloride 1,000 ml @ 100 mls/hr 1X ONCE IV Last administered on 21:48; Start 12/04/16 at 17:15; Stop 12/05/16 at 03:14; Status DC Clonidine HCl (Catapres) 0.1 mg Q6HRS PRN PO HYPERTENSION, SEE COMMENTS; Start 12/04/16 at 17:15; Stop 12/05/16 at 09:48; Status DC Sodium Chloride 1,000 ml @ 100 mls/hr Q10H IV Last administered on 12/08/16 19:30; Start 12/04/16 at 21:45 Metoprolol Tartrate (Lopressor) 50 mg DAILY PO Last administered on 12/05/16 09:25; Start 12/05/16 at 09:00; Stop 12/05/16 at 13:08; Status DC Amlodipine Besylate (Norvasc) 5 mg DAILY PO Last administered on 12/06/16 07: 47; Start 12/05/16 at 09:00; Stop 12/06/16 at 10:05; Status DC Amlodipine Besylate (Norvasc) 5 mg 1X ONCE PO Last administered on 12/04/16 21:49; Start 12/04/16 at 21:45; Stop 12/04/16 at 21:46; Status DC Insulin Aspart (NovoLOG) 0-9 UNITS TIDWMEALS SQ Last administered on 12/08/16 17:08; Start 12/05/16 at 08:00 Dextrose (Dextrose 50%-Water Syringe) 12.5 gm PRN Q15MIN PRN IV SEE COMMENTS; Start 12/04/16 at 21:45 Acetaminophen (Tylenol) 650 mg PRN Q6HRS PRN PO FEVER Last administered on 12/07 20:53; Start 12/05/16 at 10:00 Ondansetron HCl (Zofran) 4 mg PRN Q6HRS PRN IV NAUSEA/VOMITING Last administered on 12/06/16 17:47; Start 12/05/16 at 10:00 Morphine Sulfate 2 mg PRN Q2HR PRN IV PAIN Last administered on 12/07/16 08:46 ; Start 12/05/16 at 10:00 Tramadol HCl (Ultram) 50 mg PRN Q6HRS PRN PO PAIN Last administered on 05:58; Start 12/05/16 at 10:00; Stop 12/07/16 at 12:07; Status DC Hydralazine HCl (Apresoline) 10 mg PRN Q4HRS PRN IVP ELEVATED BP, SEE COMMENTS Last administered on 12/08/16 12:38; Start 12/05/16 at 10:00 Docusate Sodium (Colace) 100 mg PRN DAILY PRN PO CONSTIPATION; Start 12/05/16 at 10:00 Darbepoetin Jb (Aranesp) 60 mcg WEEKLYHS SQ Last administered on 12/05/16 21 :42; Start 12/05/16 at 21:00 Metoprolol Tartrate (Lopressor) 50 mg BID PO Last administered on 12/06/16 07: 47; Start 12/05/16 at 21:00; Stop 12/06/16 at 18:11; Status DC Heparin Sodium (Porcine) (Heparin Sq) 5,000 unit Q8HRS SQ Last administered on 12/08/16 21:11; Start 12/05/16 at 14:00 Heparin Sodium (Porcine) (Heparin Sodium) 10,000 unit STK-MED ONCE .ROUTE ; Start 12/05/16 at 17:05; Stop 12/05/16 at 17:06; Status DC Lidocaine/ Epinephrine (Xylocaine 1%-Epi 1:100,000) 20 ml STK-MED ONCE .ROUTE ; Start 12/05/16 at 17:05; Stop 12/05/16 at 17:06; Status DC Heparin Sodium/ Sodium Chloride 500 ml @ As Directed STK-MED ONCE .ROUTE ; Start 12/05/16 at 17:05; Stop 12/05/16 at 17:06; Status DC Fentanyl Citrate (Fentanyl 2ml Vial) 100 mcg STK-MED ONCE .ROUTE ; Start at 17:10; Stop 12/05/16 at 17:11; Status DC Midazolam HCl (Versed) 2 mg STK-MED ONCE .ROUTE ; Start 12/05/16 at 17:11; Stop 12/05/16 at 17:12; Status DC Cefazolin Sodium 50 ml @ As Directed STK-MED ONCE IV ; Start 12/05/16 at 17:11; Stop 12/05/16 at 17:12; Status DC Heparin Sodium/ Sodium Chloride 1,000 unit 1X ONCE IART Last administered on 17:45; Start 12/05/16 at 17:45; Stop 12/05/16 at 17:46; Status DC Midazolam HCl (Versed) 2 mg 1X ONCE IV Last administered on 12/05/16 17:45; Start 12/05/16 at 17:45; Stop 12/05/16 at 17:46; Status DC Fentanyl Citrate (Fentanyl 2ml Vial) 100 mcg 1X ONCE IV Last administered on 17:46; Start 12/05/16 at 17:45; Stop 12/05/16 at 17:46; Status DC Lidocaine/ Epinephrine (Xylocaine 1%-Epi 1:100,000) 20 ml 1X ONCE INJ Last administered on 12/05/16 17:45; Start 12/05/16 at 17:45; Stop 12/05/16 at 17:46 ; Status DC Heparin Sodium (Porcine) (Heparin Sodium) 4,300 unit 1X ONCE INT CAT Last administered on 12/05/16 17:46; Start 12/05/16 at 17:45; Stop 12/05/16 at 17:46 ; Status DC Cefazolin Sodium 50 ml @ 100 mls/hr 1X ONCE IV Last administered on 17:25; Start 12/05/16 at 17:25; Stop 12/05/16 at 17:54; Status DC Sodium Chloride 1,000 ml @ 1,000 mls/hr Q1H PRN IV hypotension; Start 12/05/16 at 20:12; Stop 12/06/16 at 02:11; Status DC Sodium Chloride (Normal Saline Flush) 10 ml 1X PRN PRN IV AP catheter pack; Start 12/05/16 at 20:15; Stop 12/06/16 at 18:16; Status DC Sodium Chloride (Normal Saline Flush) 10 ml 1X PRN PRN IV GLOVE CLEANER catheter pack; Start 12/05/16 at 20:15; Stop 12/06/16 at 18:16; Status DC Labetalol HCl (Normodyne) 10 mg PRN Q1HR PRN IVP SBP > 180; Start 12/05/16 at 20:15; Stop 12/06/16 at 20:14; Status DC Info (PHARMACY MONITORING -- do not chart) 1 each PRN DAILY PRN MC SEE COMMENTS ; Start 12/05/16 at 20:15 Amlodipine Besylate (Norvasc) 5 mg 1X ONCE PO Last administered on 12/06/16 10:36; Start 12/06/16 at 10:15; Stop 12/06/16 at 10:16; Status DC Amlodipine Besylate (Norvasc) 10 mg DAILY PO Last administered on 12/08/16 08: 26; Start 12/07/16 at 09:00 Sodium Chloride (Normal Saline Flush) 10 ml 1X PRN PRN IV AP catheter pack; Start 12/06/16 at 16:00; Stop 12/06/16 at 23:00; Status DC Sodium Chloride (Normal Saline Flush) 10 ml 1X PRN PRN IV GLOVE CLEANER catheter pack; Start 12/06/16 at 16:00; Stop 12/06/16 at 23:00; Status DC Sodium Chloride 1,000 ml @ 400 mls/hr Q2H30M PRN IV PATENCY; Start 12/06/16 at 15:51; Stop 12/06/16 at 23:00; Status DC Info (PHARMACY MONITORING -- do not chart) 1 each PRN DAILY PRN MC SEE COMMENTS ; Start 12/06/16 at 16:00; Status Cancel Metoprolol Tartrate (Lopressor) 100 mg BID PO Last administered on 12/08/16 21 :04; Start 12/06/16 at 21:00 Magnesium Sulfate/ Dextrose 50 ml @ 25 mls/hr 1X ONCE IV Last administered on 12/07/16 09:33; Start 12/07/16 at 09:00; Stop 12/07/16 at 10:59; Status DC Colchicine (Colcrys) 0.6 mg BID PO Last administered on 12/08/16 08:24; Start 12/07/16 at 09:00; Stop 12/08/16 at 16:35; Status DC Oxycodone/ Acetaminophen (Percocet 10/325) 1 tab PRN Q4HRS PRN PO MODERATE PAIN Last administered on 12/08/16 12:37; Start 12/07/16 at 11:15 Methylprednisolone Acetate (DEPO-Medrol 40MG VIAL) 40 mg 1X ONCE INT ART Last administered on 12/07/16 15:30; Start 12/07/16 at 11:45; Stop 12/07/16 at 11:46 ; Status DC Lidocaine HCl 20 ml 1X ONCE IJ Last administered on 12/07/16 15:30; Start at 11:45; Stop 12/07/16 at 11:46; Status DC Magnesium Sulfate/ Dextrose 50 ml @ 25 mls/hr 1X ONCE IV ; Start 12/07/16 at 12 :00; Stop 12/07/16 at 13:59; Status DC Morphine Sulfate (Ms Contin) 15 mg 1X ONCE PO ; Start 12/07/16 at 12:15; Stop 12/07/16 at 12:16; Status DC Info (PHARMACY MONITORING -- do not chart) 1 each PRN DAILY PRN MC SEE COMMENTS ; Start 12/08/16 at 08:00; Status UNV Info (PHARMACY MONITORING -- do not chart) 1 each PRN DAILY PRN MC SEE COMMENTS ; Start 12/08/16 at 08:00; Status UNV Active Scripts Active Doxycycline Hyclate 100 Mg Capsule 1 Cap PO BID Reported Micardis (Telmisartan) 80 Mg Tablet 80 Mg PO DAILY Bystolic (Nebivolol) 10 Mg Tablet 10 Mg PO DAILY Spironolactone 100 Mg Tablet 100 Mg PO DAILY Hydrochlorothiazide Capsule (Hydrochlorothiazide) 12.5 Mg Capsule 12.5 Mg PO DAILY Glimepiride 2 Mg Tablet 2 Mg PO BIDBFRMEAL Metformin Hcl 500 Mg Tablet 500 Mg PO BIDBFRMEAL Allopurinol 300 Mg Tablet 300 Mg PO PRN DAILY Vitals/I & O Vital Sign - Last 24 Hours 12/08/16 12/08/16 12/08/16 12/08/16 07:00 07:50 08:24 08:25 Temp 98.7 98.7 Pulse 89 89 Resp 18 16 B/P (MAP) 168/107 (127) 168/107 Pulse Ox 100 O2 Delivery Room Air Room Air Room Air 12/08/16 12/08/16 12/08/16 12/08/16 08:26 12:35 12:37 12:38 Temp 98.6 98.6 Pulse 89 75 75 Resp 18 16 B/P (MAP) 168/107 183/117 (139) 183/117 Pulse Ox 98 O2 Delivery Room Air Room Air 12/08/16 12/08/16 12/08/16 12/08/16 14:21 14:37 19:00 20:00 Temp 98.6 99.1 98.6 99.1 Pulse 87 88 Resp 18 19 20 B/P (MAP) 154/95 (114) 165/101 (122) Pulse Ox 97 98 O2 Delivery Room Air Room Air Room Air Room Air 12/08/16 21:04 Pulse 85 B/P (MAP) 178/107 Intake and Output 12/07/16 12/07/16 12/08/16 15:00 23:00 07:00 Intake Total 720 ml 720 ml Output Total 600 ml 1080 ml Balance 720 ml 120 ml -1080 ml MIKEY LUCAS III DO Dec 08, 2016 23:23
[2016-12-09] MEDS: IV NORMAL SALINE 1000ML BAG 1,000 ML IV SCH ×2 (01:45→21:45)
[2016-12-09 03:00] VITALS: BP 170/108
[2016-12-09] MEDS: HEPARIN PF for SUB-Q USE 5,000 UNIT/0.5 ML VIAL. SQ SCH ×3 (06:06→21:51)
[2016-12-09 07:00] VITALS: BP 186/114
[2016-12-09] MEDS: INSULIN ASPART 300 UNITS/3 ML INSULN.PEN SQ SCH ×2 (08:00→12:00)
[2016-12-09] MEDS: amLODIPine BESYLATE 10 MG TABLET PO SCH (08:09)
[2016-12-09] MEDS: METOPROLOL TART IMMED RELEASE 50 MG TABLET. PO SCH ×2 (08:09→21:42)
[2016-12-09] MEDS: hydrALAZINE 20 MG/ML VIAL. IVP PRN ×2 (08:11→12:29)
--- NOTE | 2016-12-09 10:52 | PDOC ---
PROGRESS NOTES Chief Complaint Chief Complaint Acute on chronic renal failure, new ESRD likely, HD started, metabolic acidosis Dm2, obesity, BMI 37' htn, with renal disease, mild malnutrition normocytic anemia, of CKD History of Present Illness History of Present Illness seen and examined DW Added Clonidine Vitals Vitals Vital Signs Date Time Temp Pulse Resp B/P (MAP) Pulse Ox O2 Delivery O2 Flow Rate FiO2 12/09/16 08:11 89 186/114 12/09/16 08:00 Room Air 12/09/16 07:00 98.4 18 97 98.4 Physical Exam General: Alert, Oriented X3, Cooperative, No acute distress Heart: Regular rate, Normal S1, Normal S2 Lungs: Clear Abdomen: Normal bowel sounds, Soft, No tenderness Extremities: No clubbing Skin: No breakdown Labs LABS Laboratory Tests Test 12/08/16 12:28 12/08/16 16:32 12/08/16 23:35 Glucose (Fingerstick) 111 mg/dL (70-99) 169 mg/dL (70-99) 118 mg/dL (70-99) Review of Systems Review of Systems co high bp co hunger Assessment and Plan Assessmemt and Plan Problems Medical Problems: (1) Accelerated hypertension Status: Acute (2) Nausea Status: Acute Acute on chronic renal failure, new ESRD likely, HD started, metabolic acidosis Dm2, obesity, BMI 37' htn, with renal disease, mild malnutrition normocytic anemia, of CKD Plan QOD HD PTOT Renal diet Added Clonodine Home meds Cont Metoprolol and Norvasc Recheck labs Problems: Comment Review of Relevant I have reviewed the following items maame (where applicable) has been applied. Labs Laboratory Tests Test 12/07/16 10:56 12/07/16 16:10 12/07/16 20:13 12/08/16 04:15 Glucose (Fingerstick) 153 mg/dL (70-99) 119 mg/dL (70-99) 167 mg/dL (70-99) White Blood Count 9.9 x10^3/uL (4.0-11.0) Red Blood Count 2.71 x10^6/uL (4.30-5.70) Hemoglobin 8.5 g/dL (13.0-17.5) Hematocrit 25.4 % (39.0-53.0) Mean Corpuscular Volume 94 fL (79-100) Mean Corpuscular Hemoglobin 31 pg (25-35) Mean Corpuscular Hemoglobin Concent 33 g/dL (31-37) Red Cell Distribution Width 12.7 % (11.5-14.5) Platelet Count 221 x10^3/uL (140-400) Sodium Level 141 mmol/L (136-145) Potassium Level 4.4 mmol/L (3.5-5.1) Chloride Level 106 mmol/L (98-107) Carbon Dioxide Level 25 mmol/L (21-32) Anion Gap 10 (6-14) Blood Urea Nitrogen 37 mg/dL (8-26) Creatinine 6.1 mg/dL (0.7-1.3) Estimated GFR (Cockcroft-Gault) 11.8 Glucose Level 134 mg/dL (70-99) Uric Acid 4.2 mg/dL (3.5-7.2) Calcium Level 8.0 mg/dL (8.5-10.1) Magnesium Level 2.0 mg/dL (1.8-2.4) Hepatitis B Surface Antigen Negative (Negative) Hepatitis B Surface Antibody Reactive (.) Test 12/08/16 07:22 12/08/16 12:28 12/08/16 16:32 12/08/16 23:35 Glucose (Fingerstick) 153 mg/dL (70-99) 111 mg/dL (70-99) 169 mg/dL (70-99) 118 mg/dL (70-99) Laboratory Tests Test 12/08/16 12:28 12/08/16 16:32 12/08/16 23:35 Glucose (Fingerstick) 111 mg/dL (70-99) 169 mg/dL (70-99) 118 mg/dL (70-99) Medications Current Medications Sodium Chloride 1,000 ml @ 1,000 mls/hr Q1H IV Last administered on 12/04/16 14:27; Start 12/04/16 at 13:51; Stop 12/04/16 at 14:50; Status DC Ondansetron HCl (Zofran) 4 mg 1X ONCE IV Last administered on 12/04/16 14:27 ; Start 12/04/16 at 14:00; Stop 12/04/16 at 14:01; Status DC Famotidine (Pepcid) 20 mg 1X ONCE IVP Last administered on 12/04/16 14:27; Start 12/04/16 at 14:00; Stop 12/04/16 at 14:01; Status DC Fentanyl Citrate (Fentanyl 2ml Vial) 50 mcg 1X ONCE IV Last administered on 14:28; Start 12/04/16 at 14:00; Stop 12/04/16 at 14:01; Status DC Clonidine HCl (Catapres) 0.2 mg 1X ONCE PO Last administered on 12/04/16 14: 26; Start 12/04/16 at 14:00; Stop 12/04/16 at 14:01; Status DC Iohexol (Omnipaque 300 Mg/ml) 75 ml 1X ONCE IV Last administered on 12/04/16 14:15; Start 12/04/16 at 14:15; Stop 12/04/16 at 14:16; Status DC Info (Do NOT chart on this entry -- for MONITORING) 1 each PRN DAILY PRN MC SEE COMMENTS; Start 12/04/16 at 14:15; Stop 12/06/16 at 14:14; Status DC Sodium Chloride 1,000 ml @ 125 mls/hr 1X ONCE IV Last administered on 14:45; Start 12/04/16 at 14:45; Stop 12/04/16 at 22:44; Status DC Labetalol HCl (Normodyne) 10 mg 1X ONCE IVP ; Start 12/04/16 at 15:15; Stop at 15:16; Status DC Ondansetron HCl (Zofran) 4 mg PRN Q8HRS PRN IV NAUSEA/VOMITING; Start 12/04/16 at 17:15; Stop 12/05/16 at 13:52; Status DC Morphine Sulfate 4 mg PRN Q2HR PRN IV PAIN Last administered on 12/04/16 21:54 ; Start 12/04/16 at 17:15; Stop 12/05/16 at 17:14; Status DC Sodium Chloride 1,000 ml @ 100 mls/hr 1X ONCE IV Last administered on 21:48; Start 12/04/16 at 17:15; Stop 12/05/16 at 03:14; Status DC Clonidine HCl (Catapres) 0.1 mg Q6HRS PRN PO HYPERTENSION, SEE COMMENTS; Start 12/04/16 at 17:15; Stop 12/05/16 at 09:48; Status DC Sodium Chloride 1,000 ml @ 100 mls/hr Q10H IV Last administered on 12/08/16 19:30; Start 12/04/16 at 21:45 Metoprolol Tartrate (Lopressor) 50 mg DAILY PO Last administered on 12/05/16 09:25; Start 12/05/16 at 09:00; Stop 12/05/16 at 13:08; Status DC Amlodipine Besylate (Norvasc) 5 mg DAILY PO Last administered on 12/06/16 07: 47; Start 12/05/16 at 09:00; Stop 12/06/16 at 10:05; Status DC Amlodipine Besylate (Norvasc) 5 mg 1X ONCE PO Last administered on 12/04/16 21:49; Start 12/04/16 at 21:45; Stop 12/04/16 at 21:46; Status DC Insulin Aspart (NovoLOG) 0-9 UNITS TIDWMEALS SQ Last administered on 12/08/16 17:08; Start 12/05/16 at 08:00 Dextrose (Dextrose 50%-Water Syringe) 12.5 gm PRN Q15MIN PRN IV SEE COMMENTS; Start 12/04/16 at 21:45 Acetaminophen (Tylenol) 650 mg PRN Q6HRS PRN PO FEVER Last administered on 12/07 20:53; Start 12/05/16 at 10:00 Ondansetron HCl (Zofran) 4 mg PRN Q6HRS PRN IV NAUSEA/VOMITING Last administered on 12/06/16 17:47; Start 12/05/16 at 10:00 Morphine Sulfate 2 mg PRN Q2HR PRN IV PAIN Last administered on 12/07/16 08:46 ; Start 12/05/16 at 10:00 Tramadol HCl (Ultram) 50 mg PRN Q6HRS PRN PO PAIN Last administered on 05:58; Start 12/05/16 at 10:00; Stop 12/07/16 at 12:07; Status DC Hydralazine HCl (Apresoline) 10 mg PRN Q4HRS PRN IVP ELEVATED BP, SEE COMMENTS Last administered on 12/09/16 08:11; Start 12/05/16 at 10:00 Docusate Sodium (Colace) 100 mg PRN DAILY PRN PO CONSTIPATION; Start 12/05/16 at 10:00 Darbepoetin Jb (Aranesp) 60 mcg WEEKLYHS SQ Last administered on 12/05/16 21 :42; Start 12/05/16 at 21:00 Metoprolol Tartrate (Lopressor) 50 mg BID PO Last administered on 12/06/16 07: 47; Start 12/05/16 at 21:00; Stop 12/06/16 at 18:11; Status DC Heparin Sodium (Porcine) (Heparin Sq) 5,000 unit Q8HRS SQ Last administered on 12/09/16 06:06; Start 12/05/16 at 14:00 Heparin Sodium (Porcine) (Heparin Sodium) 10,000 unit STK-MED ONCE .ROUTE ; Start 12/05/16 at 17:05; Stop 12/05/16 at 17:06; Status DC Lidocaine/ Epinephrine (Xylocaine 1%-Epi 1:100,000) 20 ml STK-MED ONCE .ROUTE ; Start 12/05/16 at 17:05; Stop 12/05/16 at 17:06; Status DC Heparin Sodium/ Sodium Chloride 500 ml @ As Directed STK-MED ONCE .ROUTE ; Start 12/05/16 at 17:05; Stop 12/05/16 at 17:06; Status DC Fentanyl Citrate (Fentanyl 2ml Vial) 100 mcg STK-MED ONCE .ROUTE ; Start at 17:10; Stop 12/05/16 at 17:11; Status DC Midazolam HCl (Versed) 2 mg STK-MED ONCE .ROUTE ; Start 12/05/16 at 17:11; Stop 12/05/16 at 17:12; Status DC Cefazolin Sodium 50 ml @ As Directed STK-MED ONCE IV ; Start 12/05/16 at 17:11; Stop 12/05/16 at 17:12; Status DC Heparin Sodium/ Sodium Chloride 1,000 unit 1X ONCE IART Last administered on 17:45; Start 12/05/16 at 17:45; Stop 12/05/16 at 17:46; Status DC Midazolam HCl (Versed) 2 mg 1X ONCE IV Last administered on 12/05/16 17:45; Start 12/05/16 at 17:45; Stop 12/05/16 at 17:46; Status DC Fentanyl Citrate (Fentanyl 2ml Vial) 100 mcg 1X ONCE IV Last administered on 17:46; Start 12/05/16 at 17:45; Stop 12/05/16 at 17:46; Status DC Lidocaine/ Epinephrine (Xylocaine 1%-Epi 1:100,000) 20 ml 1X ONCE INJ Last administered on 12/05/16 17:45; Start 12/05/16 at 17:45; Stop 12/05/16 at 17:46 ; Status DC Heparin Sodium (Porcine) (Heparin Sodium) 4,300 unit 1X ONCE INT CAT Last administered on 12/05/16 17:46; Start 12/05/16 at 17:45; Stop 12/05/16 at 17:46 ; Status DC Cefazolin Sodium 50 ml @ 100 mls/hr 1X ONCE IV Last administered on 17:25; Start 12/05/16 at 17:25; Stop 12/05/16 at 17:54; Status DC Sodium Chloride 1,000 ml @ 1,000 mls/hr Q1H PRN IV hypotension; Start 12/05/16 at 20:12; Stop 12/06/16 at 02:11; Status DC Sodium Chloride (Normal Saline Flush) 10 ml 1X PRN PRN IV AP catheter pack; Start 12/05/16 at 20:15; Stop 12/06/16 at 18:16; Status DC Sodium Chloride (Normal Saline Flush) 10 ml 1X PRN PRN IV MANAGER INTERNAL catheter pack; Start 12/05/16 at 20:15; Stop 12/06/16 at 18:16; Status DC Labetalol HCl (Normodyne) 10 mg PRN Q1HR PRN IVP SBP > 180; Start 12/05/16 at 20:15; Stop 12/06/16 at 20:14; Status DC Info (PHARMACY MONITORING -- do not chart) 1 each PRN DAILY PRN MC SEE COMMENTS ; Start 12/05/16 at 20:15 Amlodipine Besylate (Norvasc) 5 mg 1X ONCE PO Last administered on 12/06/16 10:36; Start 12/06/16 at 10:15; Stop 12/06/16 at 10:16; Status DC Amlodipine Besylate (Norvasc) 10 mg DAILY PO Last administered on 12/09/16 08: 09; Start 12/07/16 at 09:00 Sodium Chloride (Normal Saline Flush) 10 ml 1X PRN PRN IV AP catheter pack; Start 12/06/16 at 16:00; Stop 12/06/16 at 23:00; Status DC Sodium Chloride (Normal Saline Flush) 10 ml 1X PRN PRN IV MANAGER INTERNAL catheter pack; Start 12/06/16 at 16:00; Stop 12/06/16 at 23:00; Status DC Sodium Chloride 1,000 ml @ 400 mls/hr Q2H30M PRN IV PATENCY; Start 12/06/16 at 15:51; Stop 12/06/16 at 23:00; Status DC Info (PHARMACY MONITORING -- do not chart) 1 each PRN DAILY PRN MC SEE COMMENTS ; Start 12/06/16 at 16:00; Status Cancel Metoprolol Tartrate (Lopressor) 100 mg BID PO Last administered on 12/09/16 08 :09; Start 12/06/16 at 21:00 Magnesium Sulfate/ Dextrose 50 ml @ 25 mls/hr 1X ONCE IV Last administered on 12/07/16 09:33; Start 12/07/16 at 09:00; Stop 12/07/16 at 10:59; Status DC Colchicine (Colcrys) 0.6 mg BID PO Last administered on 12/08/16 08:24; Start 12/07/16 at 09:00; Stop 12/08/16 at 16:35; Status DC Oxycodone/ Acetaminophen (Percocet 10/325) 1 tab PRN Q4HRS PRN PO MODERATE PAIN Last administered on 12/08/16 12:37; Start 12/07/16 at 11:15 Methylprednisolone Acetate (DEPO-Medrol 40MG VIAL) 40 mg 1X ONCE INT ART Last administered on 12/07/16 15:30; Start 12/07/16 at 11:45; Stop 12/07/16 at 11:46 ; Status DC Lidocaine HCl 20 ml 1X ONCE IJ Last administered on 12/07/16 15:30; Start at 11:45; Stop 12/07/16 at 11:46; Status DC Magnesium Sulfate/ Dextrose 50 ml @ 25 mls/hr 1X ONCE IV ; Start 12/07/16 at 12 :00; Stop 12/07/16 at 13:59; Status DC Morphine Sulfate (Ms Contin) 15 mg 1X ONCE PO ; Start 12/07/16 at 12:15; Stop 12/07/16 at 12:16; Status DC Info (PHARMACY MONITORING -- do not chart) 1 each PRN DAILY PRN MC SEE COMMENTS ; Start 12/08/16 at 08:00; Status UNV Info (PHARMACY MONITORING -- do not chart) 1 each PRN DAILY PRN MC SEE COMMENTS ; Start 12/08/16 at 08:00; Status UNV Active Scripts Active Doxycycline Hyclate 100 Mg Capsule 1 Cap PO BID Reported Micardis (Telmisartan) 80 Mg Tablet 80 Mg PO DAILY Bystolic (Nebivolol) 10 Mg Tablet 10 Mg PO DAILY Spironolactone 100 Mg Tablet 100 Mg PO DAILY Hydrochlorothiazide Capsule (Hydrochlorothiazide) 12.5 Mg Capsule 12.5 Mg PO DAILY Glimepiride 2 Mg Tablet 2 Mg PO BIDBFRMEAL Metformin Hcl 500 Mg Tablet 500 Mg PO BIDBFRMEAL Allopurinol 300 Mg Tablet 300 Mg PO PRN DAILY Vitals/I & O Vital Sign - Last 24 Hours 12/08/16 12/08/16 12/08/16 12/08/16 12:35 12:37 12:38 14:21 Temp 98.6 98.6 Pulse 75 75 Resp 18 16 18 B/P (MAP) 183/117 (139) 183/117 Pulse Ox 98 O2 Delivery Room Air Room Air Room Air 12/08/16 12/08/16 12/08/16 12/08/16 14:37 19:00 20:00 21:04 Temp 98.6 99.1 98.6 99.1 Pulse 87 88 85 Resp 19 20 B/P (MAP) 154/95 (114) 165/101 (122) 178/107 Pulse Ox 97 98 O2 Delivery Room Air Room Air Room Air 12/08/16 12/09/16 12/09/16 12/09/16 23:00 03:00 07:00 08:00 Temp 99.6 98.4 98.4 99.6 98.4 98.4 Pulse 75 83 89 Resp 20 20 18 B/P (MAP) 175/111 (132) 170/108 (128) 186/114 (138) Pulse Ox 93 97 97 O2 Delivery Room Air Room Air Room Air Room Air 12/09/16 12/09/16 12/09/16 08:09 08:09 08:11 Pulse 89 89 89 B/P (MAP) 186/114 186/114 186/114 Intake and Output 12/08/16 12/08/16 12/09/16 15:00 23:00 07:00 Intake Total 360 ml 800 ml 600 ml Output Total 400 ml Balance 360 ml 800 ml 200 ml MIKEY LUCAS III DO Dec 09, 2016 10:52
[2016-12-09 11:00] VITALS: BP_SYST 198; BP_SYST 206; BP_DIAS 108; BP_DIAS 122
--- NOTE | 2016-12-09 11:12 | PDOC ---
ORTHO PROGRESS NOTES Subjective Pawel tells me that the cortisone injection helped out immensely. He is quite happy with how much pain relief he has got. He feels like his wrist is doing much much better Vitals Vital Signs Date Time Temp Pulse Resp B/P (MAP) Pulse Ox O2 Delivery O2 Flow Rate FiO2 12/09/16 08:11 89 186/114 12/09/16 08:00 Room Air 12/09/16 07:00 98.4 18 97 98.4 Labs Laboratory Tests Test 12/07/16 16:10 12/07/16 20:13 12/08/16 04:15 12/08/16 07:22 Glucose (Fingerstick) 119 mg/dL (70-99) 167 mg/dL (70-99) 153 mg/dL (70-99) White Blood Count 9.9 x10^3/uL (4.0-11.0) Red Blood Count 2.71 x10^6/uL (4.30-5.70) Hemoglobin 8.5 g/dL (13.0-17.5) Hematocrit 25.4 % (39.0-53.0) Mean Corpuscular Volume 94 fL (79-100) Mean Corpuscular Hemoglobin 31 pg (25-35) Mean Corpuscular Hemoglobin Concent 33 g/dL (31-37) Red Cell Distribution Width 12.7 % (11.5-14.5) Platelet Count 221 x10^3/uL (140-400) Sodium Level 141 mmol/L (136-145) Potassium Level 4.4 mmol/L (3.5-5.1) Chloride Level 106 mmol/L (98-107) Carbon Dioxide Level 25 mmol/L (21-32) Anion Gap 10 (6-14) Blood Urea Nitrogen 37 mg/dL (8-26) Creatinine 6.1 mg/dL (0.7-1.3) Estimated GFR (Cockcroft-Gault) 11.8 Glucose Level 134 mg/dL (70-99) Uric Acid 4.2 mg/dL (3.5-7.2) Calcium Level 8.0 mg/dL (8.5-10.1) Magnesium Level 2.0 mg/dL (1.8-2.4) Hepatitis B Surface Antigen Negative (Negative) Hepatitis B Surface Antibody Reactive (.) Test 12/08/16 12:28 12/08/16 16:32 12/08/16 23:35 Glucose (Fingerstick) 111 mg/dL (70-99) 169 mg/dL (70-99) 118 mg/dL (70-99) Laboratory Tests Test 12/08/16 12:28 12/08/16 16:32 12/08/16 23:35 Glucose (Fingerstick) 111 mg/dL (70-99) 169 mg/dL (70-99) 118 mg/dL (70-99) Notes Less edema around his wrist. Improved range of motion from my prior encounter. Motor and sensation remain intact median, radial, and ulnar nerves. Assessment and Plan Acute gout flare of left wrist. He had an injection with myself is doing well. He should follow up with me in clinic should be any further concerns. NABILA VELOZ II, MD Dec 09, 2016 11:12
[2016-12-09 12:05] LABS: ALBUMIN 2.7 g/dL (3.4-5.0); ALBUMIN/GLOBULIN RATIO 0.6 (1.0-1.7); CALCIUM 8.7 mg/dL (8.5-10.1); CREATININE 5.8 mg/dL (0.7-1.3); GFR 12.5; POTASSIUM 3.9 mmol/L (3.5-5.1); TOTAL BILIRUBIN 0.5 mg/dL (0.2-1.0); TOTAL PROTEIN 7.1 g/dL (6.4-8.2)
[2016-12-09] MEDS: cloNIDine HCL 0.2 MG TABLET PO SCH ×2 (14:18→21:43)
[2016-12-09 14:46] VITALS: BP 161/102
[2016-12-09 19:15] VITALS: BP 177/102
[2016-12-09] MEDS: oxyCODONE/APAP 10/325 1 TAB TABLET PO PRN (21:41)
[2016-12-09 23:15] VITALS: BP 159/98
[2016-12-10 04:54] LABS: BASO % 1 % (0-3); EOS % 3 % (0-3); HEMATOCRIT 23.3 % (39.0-53.0); HEMOGLOBIN 7.7 g/dL (13.0-17.5); LYMPH # 1.5 x10^3/uL (1.0-4.8); LYMPH % 23 % (24-48); MEAN CORPUSCULAR HEMOGLOBIN 31 pg (25-35); MEAN CORPUSCULAR HGB CONC 33 g/dL (31-37); MEAN CORPUSCULAR VOLUME 94 fL (79-100); MONO % 9 % (0-9); NEUT % 65 % (31-73); PLATELET COUNT 221 x10^3/uL (140-400); RED BLOOD COUNT 2.49 x10^6/uL (4.30-5.70); RED CELL DISTRIBUTION WIDTH 12.8 % (11.5-14.5); WHITE BLOOD COUNT 6.5 x10^3/uL (4.0-11.0)
[2016-12-10] MEDS: cloNIDine HCL 0.2 MG TABLET PO SCH ×2 (06:47→14:38)
[2016-12-10] MEDS: HEPARIN PF for SUB-Q USE 5,000 UNIT/0.5 ML VIAL. SQ SCH ×2 (06:51→14:00)
[2016-12-10 07:00] VITALS: BP 140/92
[2016-12-10] MEDS: INSULIN ASPART 300 UNITS/3 ML INSULN.PEN SQ SCH ×3 (07:01→12:00)
[2016-12-10] MEDS ORDERED: IV NORMAL SALINE 1000ML BAG 1,000 ML IV PRN ×2 (08:18)
[2016-12-10] MEDS ORDERED: diphenhydrAMINE 50 MG/ML VIAL IV PRN ×2 (08:30)
[2016-12-10] MEDS ORDERED: DIALYSIS PATIENT. MC PRN (08:30)
--- NOTE | 2016-12-10 10:15 | PDOC ---
Dialysis Progress Note Dialysis Note Dialysis Note Seen on Hemodialysis, tolerating treatment Well Vitals on Hemodialysis: 148/90 66 afeb General Appearance: Awake: Alert Oriented x 3 Neck: No JVD or JVP Chest: CTA Devaughn Heart: S1 S2 Abdomen - Soft NTND Extremities - + Edema ESRD: Dialysis as below F 180 NR 3.5 Hrs 3 K 2.5 Ca 140 Na 30 HC03 Qb 350 + Qd 500+ Heparin 0 Units Uf 2 Kgs or to dry weight as tolerated May give 25-50 gms of 25% Albumin if needed to maintain Hemodynamic stability Treatment plan reviewed and discussed with editor map Pt had developed Hypotension on last HD Rx so BP meds have not been given yet Vitals Vital Signs Vital Signs Date Time Temp Pulse Resp B/P (MAP) Pulse Ox O2 Delivery O2 Flow Rate FiO2 12/10/16 07:50 Room Air 12/10/16 07:00 97.8 71 20 140/92 (108) 93 97.8 12/09/16 23:15 1.0 Labs Last Labs Laboratory Tests Test 12/08/16 12:28 12/08/16 16:32 12/08/16 23:35 12/09/16 11:35 Glucose (Fingerstick) 111 mg/dL (70-99) 169 mg/dL (70-99) 118 mg/dL (70-99) 141 mg/dL (70-99) Sodium Level 141 mmol/L (136-145) Potassium Level 3.9 mmol/L (3.5-5.1) Chloride Level 104 mmol/L (98-107) Carbon Dioxide Level 29 mmol/L (21-32) Anion Gap 8 (6-14) Blood Urea Nitrogen 31 mg/dL (8-26) Creatinine 5.8 mg/dL (0.7-1.3) Estimated GFR (Cockcroft-Gault) 12.5 BUN/Creatinine Ratio 5 (6-20) Glucose Level 141 mg/dL (70-99) Calcium Level 8.7 mg/dL (8.5-10.1) Total Bilirubin 0.5 mg/dL (0.2-1.0) Aspartate Amino Transf (AST/SGOT) 30 U/L (15-37) Alanine Aminotransferase (ALT/SGPT) 31 U/L (16-63) Alkaline Phosphatase 65 U/L (46-116) Total Protein 7.1 g/dL (6.4-8.2) Albumin 2.7 g/dL (3.4-5.0) Albumin/Globulin Ratio 0.6 (1.0-1.7) Test 12/09/16 16:16 12/09/16 21:07 12/10/16 03:00 12/10/16 07:43 Glucose (Fingerstick) 138 mg/dL (70-99) 202 mg/dL (70-99) 132 mg/dL (70-99) White Blood Count 6.5 x10^3/uL (4.0-11.0) Red Blood Count 2.49 x10^6/uL (4.30-5.70) Hemoglobin 7.7 g/dL (13.0-17.5) Hematocrit 23.3 % (39.0-53.0) Mean Corpuscular Volume 94 fL (79-100) Mean Corpuscular Hemoglobin 31 pg (25-35) Mean Corpuscular Hemoglobin Concent 33 g/dL (31-37) Red Cell Distribution Width 12.8 % (11.5-14.5) Platelet Count 221 x10^3/uL (140-400) Neutrophils (%) (Auto) 65 % (31-73) Lymphocytes (%) (Auto) 23 % (24-48) Monocytes (%) (Auto) 9 % (0-9) Eosinophils (%) (Auto) 3 % (0-3) Basophils (%) (Auto) 1 % (0-3) Neutrophils # (Auto) 4.2 x10^3uL (1.8-7.7) Lymphocytes # (Auto) 1.5 x10^3/uL (1.0-4.8) Monocytes # (Auto) 0.6 x10^3/uL (0.0-1.1) Eosinophils # (Auto) 0.2 x10^3/uL (0.0-0.7) Basophils # (Auto) 0.0 x10^3/uL (0.0-0.2) Laboratory Tests Test 12/09/16 11:35 12/09/16 16:16 12/09/16 21:07 12/10/16 03:00 Sodium Level 141 mmol/L (136-145) Potassium Level 3.9 mmol/L (3.5-5.1) Chloride Level 104 mmol/L (98-107) Carbon Dioxide Level 29 mmol/L (21-32) Anion Gap 8 (6-14) Blood Urea Nitrogen 31 mg/dL (8-26) Creatinine 5.8 mg/dL (0.7-1.3) Estimated GFR (Cockcroft-Gault) 12.5 BUN/Creatinine Ratio 5 (6-20) Glucose Level 141 mg/dL (70-99) Glucose (Fingerstick) 141 mg/dL (70-99) 138 mg/dL (70-99) 202 mg/dL (70-99) Calcium Level 8.7 mg/dL (8.5-10.1) Total Bilirubin 0.5 mg/dL (0.2-1.0) Aspartate Amino Transf (AST/SGOT) 30 U/L (15-37) Alanine Aminotransferase (ALT/SGPT) 31 U/L (16-63) Alkaline Phosphatase 65 U/L (46-116) Total Protein 7.1 g/dL (6.4-8.2) Albumin 2.7 g/dL (3.4-5.0) Albumin/Globulin Ratio 0.6 (1.0-1.7) White Blood Count 6.5 x10^3/uL (4.0-11.0) Red Blood Count 2.49 x10^6/uL (4.30-5.70) Hemoglobin 7.7 g/dL (13.0-17.5) Hematocrit 23.3 % (39.0-53.0) Mean Corpuscular Volume 94 fL (79-100) Mean Corpuscular Hemoglobin 31 pg (25-35) Mean Corpuscular Hemoglobin Concent 33 g/dL (31-37) Red Cell Distribution Width 12.8 % (11.5-14.5) Platelet Count 221 x10^3/uL (140-400) Neutrophils (%) (Auto) 65 % (31-73) Lymphocytes (%) (Auto) 23 % (24-48) Monocytes (%) (Auto) 9 % (0-9) Eosinophils (%) (Auto) 3 % (0-3) Basophils (%) (Auto) 1 % (0-3) Neutrophils # (Auto) 4.2 x10^3uL (1.8-7.7) Lymphocytes # (Auto) 1.5 x10^3/uL (1.0-4.8) Monocytes # (Auto) 0.6 x10^3/uL (0.0-1.1) Eosinophils # (Auto) 0.2 x10^3/uL (0.0-0.7) Basophils # (Auto) 0.0 x10^3/uL (0.0-0.2) Test 12/10/16 07:43 Glucose (Fingerstick) 132 mg/dL (70-99) Assessment Assessment Problems Medical Problems: (1) Accelerated hypertension Status: Acute (2) Nausea Status: Acute Problems: Plan Plan of Care Problems Medical Problems: (1) Accelerated hypertension Status: Acute (2) Nausea Status: Acute PAM MADRID MD Dec 10, 2016 10:15
[2016-12-10 11:00] VITALS: BP 145/90
[2016-12-10] MEDS: amLODIPine BESYLATE 10 MG TABLET PO SCH (12:25)
[2016-12-10] MEDS: IV NORMAL SALINE 1000ML BAG 1,000 ML IV SCH (12:26)
[2016-12-10] MEDS: METOPROLOL TART IMMED RELEASE 50 MG TABLET. PO SCH (12:26)
[2016-12-10 15:00] VITALS: BP 143/90
--- NOTE | 2016-12-10 23:21 | DS ---
DATE OF DISCHARGE: 12/10/2016 ADMISSION DIAGNOSIS: Acute on chronic renal failure. DISCHARGE DIAGNOSES: Chronic end-stage renal disease, now on dialysis and gout as well. CONSULTS: Dr. Grande. PROCEDURES: Dialysis x 5 and hemodialysis catheter placement. Injection of the left wrist by Dr. Ferreira. 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 Basically, he has had chronic renal failure for some time, probably from hypertension. He presented for progressive disease of his chronic kidney failure. We had to go ahead and start dialysis. He underwent a permanent tunneled catheter placement. , he also had some gouty pain, we did consult Dr. Ferreira. Basically, over the past few days, he has done better. I examined him this morning. His heart sounds were normal. His lungs were clear. His abdomen was soft. Extremities, no edema. He was generally doing well. We plan to discharge home. DISPOSITION: Home. ACTIVITY: As tolerated. DIET: Low sodium. MEDICATIONS: Please see the MRAD. TOTAL TIME: 31 minutes. MIKEY LUCAS DO DR: PHILOMENA/ed JOB#: [id number] / [id number]
== END 2016-12-10 16:37 | disposition home or self-care (01) | DRG 673 ==
LOC: ER 12:29 → 5 SOUTH 16:30
PROVIDERS: ADMIT Internal Medicine; ATTEND Internal Medicine
PROC: 5A1D60Z (ICD-10-PCS; principal; 2016-12-04)
PROC: 0JH63XZ Insertion of Tunneled Vascular Access Device into Chest Subcutaneous Tissue and Fascia, Percutaneous Approach (ICD-10-PCS; 2016-12-06)
PROC: 02H633Z Insertion of Infusion Device into Right Atrium, Percutaneous Approach (ICD-10-PCS; 2016-12-06)
DX: I12.0 Hypertensive chronic kidney disease with stage 5 chronic kidney disease or end stage renal disease (principal); N17.0 Acute kidney failure with tubular necrosis; N18.6 End stage renal disease; E44.1 Mild protein-calorie malnutrition; E87.2 Acidosis; D63.1 Anemia in chronic kidney disease; E11.22 Type 2 diabetes mellitus with diabetic chronic kidney disease; E66.9 Obesity, unspecified; M10.9 Gout, unspecified; Z68.37 Body mass index [BMI] 37.0-37.9, adult; Z82.49 Family history of ischemic heart disease and other diseases of the circulatory system; Z99.2 Dependence on renal dialysis
CPT/HCPCS: 36415; 36558; 71010; 73110; 76770; 76937; 77001; 80048; 80053; 80076; 81001; 82553; 82607; 82728; 82746; 82962; 83540; 83550; 83690; 83735; 83880; 83970; 84100; 84484; 84550; 85027; 85610; 86704; 86706; 87340; 87341; 93005; 96361; 96374; 96375; C1750; C1769; C1892; G0481; J0360; J0690; J0881; J1030; J1815; J2250; J2270; J2405; J3010; J3490; J7030; J7060; Q9967; S0028; 99285-25

== ENCOUNTER 2017-03-26 11:06 | Day surgery (SDC) | payer OTHER ==
[~2017-03-26] VITALS: Ht 185.4 cm; Wt 115.7 kg
[~2017-03-26 11:06] MED LIST changes: +AMLO10TA2 PO; +CLON0.3T PO; +HEPARIN SODIUM 5,000 UNIT in IV NORMAL SALINE 500ML BAG 500 ML IRR ONE; +HYDR-2869 PO; +HYDROmorphone 2 MG/ML VIAL IV PRN; +IV RINGERS,LACTATED 1000ML 1,000 ML IV SCH; +LIDOCAINE 1% PF 2 ML VIAL. ID PRN; +METO100T2 PO; +ONDANSETRON PF 4 MG/2 ML VIAL. IV PRN; +PROCHLORPERAZINE 10 MG/2 ML VIAL. IV PRN; +fentaNYL PF VIAL 100 MCG/2 ML VIAL IV PRN
[2017-03-26 11:48] LABS: BASO # 0.1 x10^3/uL (0.0-0.2); BASO % 2 % (0-3); EOS % 4 % (0-3); HEMATOCRIT 30.4 % (39.0-53.0); HEMOGLOBIN 9.9 g/dL (13.0-17.5); LYMPH # 1.2 x10^3/uL (1.0-4.8); LYMPH % 22 % (24-48); MEAN CORPUSCULAR HEMOGLOBIN 29 pg (25-35); MEAN CORPUSCULAR HGB CONC 33 g/dL (31-37); MEAN CORPUSCULAR VOLUME 90 fL (79-100); MONO % 8 % (0-9); NEUT % 65 % (31-73); PLATELET COUNT 268 x10^3/uL (140-400); RED BLOOD COUNT 3.37 x10^6/uL (4.30-5.70); RED CELL DISTRIBUTION WIDTH 15.1 % (11.5-14.5); WHITE BLOOD COUNT 5.3 x10^3/uL (4.0-11.0)
[2017-03-26 11:57] LABS: PROTHROMBIN TIME PATIENT 12.7 SEC (11.7-14.0)
[2017-03-26 12:00] LABS: CALCIUM 9.3 mg/dL (8.5-10.1); CREATININE 6.2 mg/dL (0.7-1.3); GFR 11.5; POTASSIUM 4.3 mmol/L (3.5-5.1)
[2017-03-26] MEDS ORDERED: DEXAMETHASONE SOD PHOS 20 MG/5 ML VIAL. ONE (12:33)
[2017-03-26] MEDS ORDERED: PHENYLEPHRINE in 0.9% NACL PF 1 MG/10 ML DISP.SYRIN. IV ONE (12:34)
[2017-03-26] MEDS ORDERED: ONDANSETRON PF 4 MG/2 ML VIAL. ONE (12:34)
[2017-03-26] MEDS ORDERED: fentaNYL PF VIAL 100 MCG/2 ML VIAL ONE (12:34)
[2017-03-26] MEDS ORDERED: BUPIVACAINE MPF 0.5% 30 ML VIAL. ONE (13:16)
[2017-03-26] MEDS ORDERED: LIDOCAINE 1% 20 ML VIAL. INJ ONE (13:26)
[2017-03-26] MEDS ORDERED: HEPARIN for IV BOLUS 10,000 UNIT/10 ML VIAL. ONE (13:38)
[2017-03-26] MEDS ORDERED: SEVOFLURANE 61 TO 120 MINUTES. IH ONE (14:22)
--- NOTE | 2017-03-26 14:34 | PDOC4 ---
OPERATIVE NOTE: Op note dictated Dx: ESRD Op: left brachiocephalic AV fistula local MAC Surg: Charleen franz in sat cond. MIKIE DYER II, MD Mar 26, 2017 14:34
[2017-03-26] MEDS: MORPHINE SULFATE 4 MG/ML DISP.SYRIN. IV PRN ×2 (14:42→15:01)
--- NOTE | 2017-03-26 14:54 | OP ---
DATE OF SURGERY: 03/26/2017 PREOPERATIVE DIAGNOSIS: End-stage renal disease. POSTOPERATIVE DIAGNOSIS: End-stage renal disease. OPERATION PERFORMED: Placement of left arm brachiocephalic AV fistula. SURGEON: Demetrius Villaseñor MD. ANESTHESIA: Local MAC. OPERATIVE FINDINGS: The patient had an excellent cephalic vein and brachial artery. The patient had a nice thrill at the end of the procedure with a 2+ palpable radial pulse. DESCRIPTION OF PROCEDURE: The left arm was prepped and draped circumferentially. Infiltration was then done with 1% plain lidocaine just below the antecubital crease. A horizontal incision was made. The cephalic vein was identified and its branches dissected. The aponeurosis overlying the brachial artery was incised and the brachial artery brought proximally and the branches distally were exposed and encircled with vessel loops. The patient was given 3000 units of heparin. The vessel loops were then tied and then an arteriotomy was made in the brachial artery, just proximal to the bifurcation. The cephalic vein was sutured end-to-side using 7-0 Prolene. Loupe magnification was used. The basilic vein branch and the deep vein branches were ligated with 4-0 silk ligatures and reinforced with 7-0 Prolene. Prior to completing the anastomosis, the vessels were flushed appropriately. Flow was then restored into the fistula first and then distally to the arm. The patient had a nice palpable nonpulsatile thrill over the cephalic vein. Wound was then irrigated and closed with absorbable suture, the skin with 4-0 nylon. No protamine was given. 0.5% Marcaine was then infiltrated for longer lasting pain relief. The patient tolerated the procedure well. DEMETRIUS VILLASEÑOR MD DR: MAURILIO/de JOB#: [id number] / [id number]
[2017-03-26] MEDS ORDERED: OXYC-323 PO (15:29)
[2017-03-26] MEDS ORDERED: oxyCODONE/APAP 5/325 1 TAB TABLET PO PRN (15:30)
[2017-03-26 15:42] VITALS: BP 143/91
== END 2017-03-26 16:18 | disposition home or self-care (01) ==
LOC: SURG 11:06
PROVIDERS: ATTEND Surgery
DX: I12.0 Hypertensive chronic kidney disease with stage 5 chronic kidney disease or end stage renal disease (principal); E11.22 Type 2 diabetes mellitus with diabetic chronic kidney disease; N18.6 End stage renal disease; M10.00 Idiopathic gout, unspecified site; Z99.2 Dependence on renal dialysis; D64.9 Anemia, unspecified; M19.91 Primary osteoarthritis, unspecified site; Z90.49 Acquired absence of other specified parts of digestive tract; Z83.3 Family history of diabetes mellitus; Z87.39 Personal history of other diseases of the musculoskeletal system and connective tissue; Z86.39 Personal history of other endocrine, nutritional and metabolic disease
CPT/HCPCS: 36415; 36821; 80048; 82962; 85025; 85610; 85730; J0690; J1170; J1644; J2270; J2405; J3010; J3490; J7040; J1100; J2370

== ENCOUNTER 2017-10-06 08:57 | Outpatient (CLI) | payer OTHER ==
[2017-10-06 09:21] LABS: ADD MAN DIFF? NO
[2017-10-06 09:29] LABS: BASO # 0.1 x10^3/uL (0.0-0.2); BASO % 1 % (0-3); EOS # 0.3 x10^3/uL (0.0-0.7); EOS % 6 % (0-3); HEMATOCRIT 31.4 % (39.0-53.0); HEMOGLOBIN 10.1 g/dL (13.0-17.5); LYMPH # 1.2 x10^3/uL (1.0-4.8); LYMPH % 28 % (24-48); MEAN CORPUSCULAR HEMOGLOBIN 31 pg (25-35); MEAN CORPUSCULAR HGB CONC 32 g/dL (31-37); MEAN CORPUSCULAR VOLUME 96 fL (79-100); MONO # 0.4 x10^3/uL (0.0-1.1); MONO % 10 % (0-9); NEUT # 2.5 x10^3uL (1.8-7.7); NEUT % 55 % (31-73); PLATELET COUNT 214 x10^3/uL (140-400); RED BLOOD COUNT 3.26 x10^6/uL (4.30-5.70); RED CELL DISTRIBUTION WIDTH 13.7 % (11.5-14.5); WHITE BLOOD COUNT 4.5 x10^3/uL (4.0-11.0)
[2017-10-06 09:37] LABS: ANION GAP 6 (6-14); BLOOD UREA NITROGEN 40 mg/dL (8-26); BUN/CREATININE RATIO 6 (6-20); CALCIUM 9.3 mg/dL (8.5-10.1); CARBON DIOXIDE 31 mmol/L (21-32); CHLORIDE 104 mmol/L (98-107); GLUCOSE 192 mg/dL (70-99); POTASSIUM 4.3 mmol/L (3.5-5.1); SODIUM 141 mmol/L (136-145)
[2017-10-06 09:43] LABS: ALBUMIN 3.2 g/dL (3.4-5.0); ALK PHOS 77 U/L (46-116); ALT (SGPT) 24 U/L (16-63); AST (SGOT) 10 U/L (15-37); TOTAL BILIRUBIN 0.7 mg/dL (0.2-1.0); TOTAL PROTEIN 6.4 g/dL (6.4-8.2)
[2017-10-06] MEDS ORDERED: IODIXANOL 320 MG/ML 100 ML VIAL. ×2 (10:16→10:52)
[2017-10-06] MEDS ORDERED: LIDOCAINE WITH 8.4% SOD BICARB 3 ML DISP.SYRIN. (10:16)
[2017-10-06] MEDS ORDERED: HEPARIN for IV BOLUS 10,000 UNIT/10 ML VIAL. (10:36)
[2017-10-06] MEDS ORDERED: fentaNYL PF VIAL 250 MCG/5 ML VIAL (10:36)
[2017-10-06] MEDS ORDERED: MIDAZOLAM HCL/PF 5 MG/5 ML VIAL. (10:36)
[2017-10-06] MEDS ORDERED: CONTRAST GIVEN MC (11:15)
[2017-10-06] MEDS: LIDOCAINE WITH 8.4% SOD BICARB 3 ML DISP.SYRIN. IJ (11:41)
[2017-10-06] MEDS: IODIXANOL 320 MG/ML 100 ML VIAL. IART (11:41)
[2017-10-06] MEDS: MIDAZOLAM HCL/PF 5 MG/5 ML VIAL. IV (11:41)
[2017-10-06] MEDS: fentaNYL PF VIAL 250 MCG/5 ML VIAL IV (11:41)
[2017-10-06] MEDS: HEPARIN for IV BOLUS 10,000 UNIT/10 ML VIAL. IV (11:42)
== END 2017-10-06 13:26 | disposition home or self-care (01) ==
LOC: INTRAD 08:57
DX: T82.590A Other mechanical complication of surgically created arteriovenous fistula, initial encounter (principal); N28.9 Disorder of kidney and ureter, unspecified; D64.9 Anemia, unspecified; M19.90 Unspecified osteoarthritis, unspecified site; I10 Essential (primary) hypertension; Z79.01 Long term (current) use of anticoagulants; Z99.2 Dependence on renal dialysis; Z98.890 Other specified postprocedural states; Y83.2 Surgical operation with anastomosis, bypass or graft as the cause of abnormal reaction of the patient, or of later complication, without mention of misadventure at the time of the procedure; Y92.9 Unspecified place or not applicable
CPT/HCPCS: 36415; 36903; 76937; 80053; 85025; 85610; 99152; 99153; A4215; C1713; C1725; C1769; C1892; C1894; J1644; J2250; J3010

== ENCOUNTER 2018-01-27 08:29 | Outpatient (CLI) | payer OTHER ==
[2018-01-27] MEDS ORDERED: IODIXANOL 320 MG/ML 100 ML VIAL. (08:44)
[2018-01-27] MEDS ORDERED: IODIXANOL 320MG/ML 50ML VIAL. (08:45)
[2018-01-27] MEDS ORDERED: LIDOCAINE WITH 8.4% SOD BICARB 3 ML DISP.SYRIN. (08:45)
[2018-01-27 09:01] LABS: ADD MAN DIFF? NO
[2018-01-27 09:09] LABS: BASO # 0.1 x10^3/uL (0.0-0.2); BASO % 1 % (0-3); EOS # 0.2 x10^3/uL (0.0-0.7); EOS % 4 % (0-3); HEMATOCRIT 31.4 % (39.0-53.0); HEMOGLOBIN 10.7 g/dL (13.0-17.5); LYMPH # 1.2 x10^3/uL (1.0-4.8); LYMPH % 20 % (24-48); MEAN CORPUSCULAR HEMOGLOBIN 32 pg (25-35); MEAN CORPUSCULAR HGB CONC 34 g/dL (31-37); MEAN CORPUSCULAR VOLUME 95 fL (79-100); MONO # 0.5 x10^3/uL (0.0-1.1); MONO % 9 % (0-9); NEUT # 3.8 x10^3uL (1.8-7.7); NEUT % 66 % (31-73); PLATELET COUNT 211 x10^3/uL (140-400); RED CELL DISTRIBUTION WIDTH 13.1 % (11.5-14.5); WHITE BLOOD COUNT 5.8 x10^3/uL (4.0-11.0)
[2018-01-27 09:10] LABS: ANION GAP 10 (6-14); BLOOD UREA NITROGEN 43 mg/dL (8-26); CALCIUM 9.5 mg/dL (8.5-10.1); CARBON DIOXIDE 28 mmol/L (21-32); CHLORIDE 102 mmol/L (98-107); CREATININE 9.5 mg/dL (0.7-1.3); GLUCOSE 169 mg/dL (70-99); POTASSIUM 4.3 mmol/L (3.5-5.1); SODIUM 140 mmol/L (136-145)
[2018-01-27 09:17] LABS: PROTHROMBIN TIME PATIENT 12.7 SEC (11.7-14.0)
[2018-01-27 09:18] LABS: PARTIAL THROMBOPLASTIN TIME 28 SEC (24-38)
[2018-01-27] MEDS ORDERED: fentaNYL PF VIAL 100 MCG/2 ML VIAL (09:37)
[2018-01-27] MEDS ORDERED: MIDAZOLAM HCL/PF 2 MG/2 ML VIAL. (09:37)
[2018-01-27] MEDS ORDERED: HEPARIN for IV BOLUS 10,000 UNIT/10 ML VIAL. (09:37)
[2018-01-27] MEDS: IODIXANOL 320 MG/ML 100 ML VIAL. IART (10:30)
[2018-01-27] MEDS ORDERED: CONTRAST GIVEN. MC (10:30)
[2018-01-27] MEDS: IODIXANOL 320MG/ML 50ML VIAL. IV (10:30)
[2018-01-27] MEDS: LIDOCAINE WITH 8.4% SOD BICARB 3 ML DISP.SYRIN. IJ (10:31)
[2018-01-27] MEDS: MIDAZOLAM HCL/PF 2 MG/2 ML VIAL. IV (10:31)
[2018-01-27] MEDS: fentaNYL PF VIAL 100 MCG/2 ML VIAL IV (10:32)
[2018-01-27] MEDS: HEPARIN for IV BOLUS 10,000 UNIT/10 ML VIAL. IV (10:32)
== END 2018-01-27 13:00 | disposition home or self-care (01) ==
LOC: INTRAD 08:29
DX: T82.858A Stenosis of other vascular prosthetic devices, implants and grafts, initial encounter (principal); I12.0 Hypertensive chronic kidney disease with stage 5 chronic kidney disease or end stage renal disease; E11.22 Type 2 diabetes mellitus with diabetic chronic kidney disease; N18.6 End stage renal disease; Z90.49 Acquired absence of other specified parts of digestive tract; Z86.010 Personal history of colon polyps; Z79.01 Long term (current) use of anticoagulants; Z87.11 Personal history of peptic ulcer disease; Z99.2 Dependence on renal dialysis; M19.90 Unspecified osteoarthritis, unspecified site; M10.9 Gout, unspecified; D64.9 Anemia, unspecified; Z82.49 Family history of ischemic heart disease and other diseases of the circulatory system; Z83.3 Family history of diabetes mellitus; Z79.899 Other long term (current) drug therapy; Z79.84 Long term (current) use of oral hypoglycemic drugs; Y83.2 Surgical operation with anastomosis, bypass or graft as the cause of abnormal reaction of the patient, or of later complication, without mention of misadventure at the time of the procedure; Y92.89 Other specified places as the place of occurrence of the external cause
CPT/HCPCS: 36415; 36901; 36902; 76937; 80048; 85025; 85610; 85730; 99152; 99153; A4215; C1769; C1892; C1894; C2623; J1644; J2250; J3010

== ENCOUNTER 2018-02-13 15:28 | Inpatient (IN) | payer OTHER ==
[~2018-02-13] VITALS: Ht 185.4 cm; Wt 115.3 kg
[~2018-02-13 15:28] MED LIST changes: -HEPARIN SODIUM 5,000 UNIT in IV NORMAL SALINE 500ML BAG 500 ML IRR ONE; -HYDROmorphone 2 MG/ML VIAL IV PRN; -IV RINGERS,LACTATED 1000ML 1,000 ML IV SCH; -LIDOCAINE 1% PF 2 ML VIAL. ID PRN; -METF500T4 PO; +METF500T5 PO; -METO100T2 PO; +METO100T7 PO; -ONDANSETRON PF 4 MG/2 ML VIAL. IV PRN; +OXYC-323 PO; -PROCHLORPERAZINE 10 MG/2 ML VIAL. IV PRN; -SPIR100T2 PO; +SPIR100T4 PO; -fentaNYL PF VIAL 100 MCG/2 ML VIAL IV PRN
[2018-02-13 16:13] LABS: BASO # 0.1 x10^3/uL (0.0-0.2); BASO % 1 % (0-3); EOS # 0.2 x10^3/uL (0.0-0.7); EOS % 3 % (0-3); HEMATOCRIT 29.5 % (39.0-53.0); HEMOGLOBIN 10.1 g/dL (13.0-17.5); LYMPH # 0.9 x10^3/uL (1.0-4.8); LYMPH % 15 % (24-48); MEAN CORPUSCULAR HEMOGLOBIN 32 pg (25-35); MEAN CORPUSCULAR HGB CONC 34 g/dL (31-37); MEAN CORPUSCULAR VOLUME 94 fL (79-100); MONO # 0.5 x10^3/uL (0.0-1.1); MONO % 7 % (0-9); NEUT # 4.8 x10^3uL (1.8-7.7); NEUT % 75 % (31-73); PLATELET COUNT 199 x10^3/uL (140-400); RED BLOOD COUNT 3.14 x10^6/uL (4.30-5.70); RED CELL DISTRIBUTION WIDTH 13.1 % (11.5-14.5); WHITE BLOOD COUNT 6.5 x10^3/uL (4.0-11.0)
[2018-02-13 16:23] LABS: CALCIUM 9.3 mg/dL (8.5-10.1); CREATININE 4.9 mg/dL (0.7-1.3); GFR 15.1; POTASSIUM 4.2 mmol/L (3.5-5.1); PROTHROMBIN TIME PATIENT 12.8 SEC (11.7-14.0)
[2018-02-13 16:26] LABS: ALBUMIN 3.6 g/dL (3.4-5.0); ALBUMIN/GLOBULIN RATIO 1.1 (1.0-1.7); TOTAL BILIRUBIN 1.1 mg/dL (0.2-1.0); TOTAL PROTEIN 6.9 g/dL (6.4-8.2)
--- NOTE | 2018-02-13 16:31 | RAD ---
Exam: AP portable chest History: Shortness of breath and dizziness for 2 hours. Comparison: December 04, 2016. Findings: The heart and mediastinal structures are within normal limits for size. Lungs are without infiltrate. No pleural effusion or pneumothorax is identified. Impression: 1. No acute cardiopulmonary process. Electronically signed by: uJan Del Cid MD (02/13/2018 4:28 PM) [facility] [place]
--- NOTE | 2018-02-13 16:55 | PHYS DOC ---
Past Medical History Past Medical History: Diabetes-Type II, Hypertension, Renal Failure, Other Additional Past Medical Histor: RENAL INSUFFIENCY Past Surgical History: Cholecystectomy Alcohol Use: None Drug Use: None Adult General Chief Complaint Chief Complaint: Palpitations HPI HPI Patient is a 52 year old M brought in by ambulance with a chief complaint of near syncope APPARENTLY was at dialysis and had witnessed near syncope he felt sob and very lightehaded heart rate was palpated in the 30's he responded fairly quickly exact timing unclear by history but doesnt sound like he lost consciousness all the way nochest pain now, no weakness. no recent fever did feel somewhat weak and sob this morning but did miss dialysis yestertday. he was two hours into dialsyis. metoprolol 100bid hydralazine 50 tid sevelamer 800 3 tabs total a day furosemide 80 qdaily amlodiine 10 mg one daily clonidine 0.3 one tid. Review of Systems Review of Systems Constitutional: Denies fever or chills [] Eyes: Denies change in visual acuity, redness, or eye pain [] HENT: Denies nasal congestion or sore throat [] Respiratory: Denies cough or shortness of breath [] Cardiovascular: No additional information not addressed in HPI [] Integument: Denies rash or skin lesions [] Neurologic: Denies headache, focal weakness or sensory changes [] All other systems were reviewed and found to be within normal limits, except as documented in this note. Allergies Allergies Allergies Coded Allergies Type Severity Reaction Last Updated Verified No Known Drug Allergies 03/26/17 No Physical Exam Physical Exam Constitutional: Well developed, well nourished, no acute distress, non-toxic appearance. [] HENT: Normocephalic, atraumatic, bilateral external ears normal, oropharynx moist, no oral exudates, nose normal. [] Eyes: PERRLA, EOMI, conjunctiva normal, no discharge. [] Neck: Normal range of motion, no tenderness, supple, no stridor. [] Cardiovascular:Heart rate regular rhythm, no murmur [] Lungs & Thorax: faint crackles at lung bases Abdomen: Bowel sounds normal, soft, no tenderness, no masses, no pulsatile masses. [] Skin: Warm, dry, no erythema, no rash. [] Back: No tenderness, no CVA tenderness. [] Extremities: No tenderness, no cyanosis, no clubbing, ROM intact, one to two plus edema noted. Neurologic: Alert and oriented X 3, normal motor function, normal sensory function, no focal deficits noted. [] Psychologic: Affect normal, judgement normal, mood normal. [] Current Patient Data Vital Signs Vital Signs Date Time Temp Pulse Resp B/P (MAP) Pulse Ox O2 Delivery O2 Flow Rate FiO2 02/13/18 15:45 98.6 76 18 180/93 (122) 96 Room Air 98.6 Lab Values Laboratory Tests Test 02/13/18 15:45 White Blood Count 6.5 x10^3/uL (4.0-11.0) Red Blood Count 3.14 x10^6/uL (4.30-5.70) L Hemoglobin 10.1 g/dL (13.0-17.5) L Hematocrit 29.5 % (39.0-53.0) L Mean Corpuscular Volume 94 fL (79-100) Mean Corpuscular Hemoglobin 32 pg (25-35) Mean Corpuscular Hemoglobin Concent 34 g/dL (31-37) Red Cell Distribution Width 13.1 % (11.5-14.5) Platelet Count 199 x10^3/uL (140-400) Neutrophils (%) (Auto) 75 % (31-73) H Lymphocytes (%) (Auto) 15 % (24-48) L Monocytes (%) (Auto) 7 % (0-9) Eosinophils (%) (Auto) 3 % (0-3) Basophils (%) (Auto) 1 % (0-3) Neutrophils # (Auto) 4.8 x10^3uL (1.8-7.7) Lymphocytes # (Auto) 0.9 x10^3/uL (1.0-4.8) L Monocytes # (Auto) 0.5 x10^3/uL (0.0-1.1) Eosinophils # (Auto) 0.2 x10^3/uL (0.0-0.7) Basophils # (Auto) 0.1 x10^3/uL (0.0-0.2) Prothrombin Time 12.8 SEC (11.7-14.0) Prothrombin Time INR 1.0 (0.8-1.1) Sodium Level 136 mmol/L (136-145) Potassium Level 4.2 mmol/L (3.5-5.1) Chloride Level 100 mmol/L (98-107) Carbon Dioxide Level 29 mmol/L (21-32) Anion Gap 7 (6-14) Blood Urea Nitrogen 23 mg/dL (8-26) Creatinine 4.9 mg/dL (0.7-1.3) H Estimated GFR (Cockcroft-Gault) 15.1 BUN/Creatinine Ratio 5 (6-20) L Glucose Level 114 mg/dL (70-99) H Calcium Level 9.3 mg/dL (8.5-10.1) Total Bilirubin 1.1 mg/dL (0.2-1.0) H Aspartate Amino Transferase (AST) 22 U/L (15-37) Alanine Aminotransferase (ALT) 48 U/L (16-63) Alkaline Phosphatase 66 U/L (46-116) Troponin I Quantitative 0.026 ng/mL (0.000-0.055) Total Protein 6.9 g/dL (6.4-8.2) Albumin 3.6 g/dL (3.4-5.0) Albumin/Globulin Ratio 1.1 (1.0-1.7) Laboratory Tests 02/13/18 15:45 Laboratory Tests 02/13/18 15:45 EKG EKG [] Interpretation Time: eks shows nsr rate 77 no ischemic cahgnes noted no stemi. qtc 459. Radiology/Procedures Radiology/Procedures [] Impressions: Findings: The heart and mediastinal structures are within normal limits for size. Lungs are without infiltrate. No pleural effusion or pneumothorax is identified. Impression: 1. No acute cardiopulmonary process. Electronically signed by: Juan Del Cid MD (02/13/2018 4:28 PM) [facility] [place] Course & Med Decision Making Course & Med Decision Making Pertinent Labs and Imaging studies reviewed. (See chart for details) 52 yo m hx htn esrd on hd, biba with near syncope at dialysis with heart rate on monitor reportedly in the 30s at dialysis. currently reoslved patient feels well. probably vasovagal but given his history opted to admit for serial troponins and carediac monitoring to rule out bradyarrhythmia. pt fluid status appears fairly euvolemic in the er is comfortable with the plan. admit to dr soriano[] Frieda Disclarichard Malave Disclaimer This electronic medical record was generated, in whole or in part, using a voice recognition dictation system. Departure Departure Impression: Primary Impression: Near syncope Disposition: ADMITTED INPATIENT Admitting Physician: Xie. Nix Condition: STABLE Referrals: YOANNA FAUST MD (PCP) ANNABEL PENA MD Feb 13, 2018 16:55
[2018-02-13] MEDS ORDERED: ACETAMINOPHEN 325 MG TABLET. PO PRN (17:15)
[2018-02-13] MEDS ORDERED: ONDANSETRON PF 4 MG/2 ML VIAL. IV PRN (17:15)
[2018-02-13] MEDS ORDERED: traMADol 50 MG TABLET PO PRN (17:15)
[2018-02-13] MEDS ORDERED: MORPHINE SULFATE 2 MG/ML VIAL. IV PRN (17:15)
[2018-02-13] MEDS ORDERED: DOCUSATE SODIUM 100 MG CAPSULE. PO PRN (17:15)
--- NOTE | 2018-02-13 17:24 | PDOC1 ---
History and Physical Date of Admission Date of Admission 02/13/18 Identification/Chief Complaint Chief Complaint bradycardia Source Source: Chart review, Patient History of Present Illness History of Present Illness HPI Patient is a 52 year old M brought in by ambulance with a chief complaint of near syncope. Pt had half HD done on Thu, missed HD yesterday, today 2h after HD started started to feel dizzy, lightheaded, palpitation with HR 30s and BP was 90/60s as per pt. He had some sob and abd pain today before HD, now gone. pt denies chest pain, fever, chills, cough. HD still is finished today. pt said his HR back to normal 70s when HD was done. in ER, HR 70s, frequent PACs, BP 190s. pt got left arm AVF angioplasty with vascular 2 weeks ago, now WORks fine. Past Medical History Cardiovascular: HTN Heme/Onc: Anemia NOS Renal/: Chronic renal insuff Past Surgical History Past Surgical History: Cholecystectomy Family History Family History: Hypertension Social History Smoke: No ALCOHOL: none Drugs: None Current Problem List Problem List Problems Medical Problems: (1) Near syncope Status: Acute Allergies Allergies Allergies Coded Allergies Type Severity Reaction Last Updated Verified No Known Drug Allergies 03/26/17 No ROS Review of System CONSTITUTIONAL: No fever or chills EYES: No recent changes SKIN: No rash or itching CARDIOVASCULAR: No chest pain, syncope, palpitations, or edema RESPIRATORY: No SOB or cough GASTROINTESTINAL: No nausea, vomiting or abdominal pain NEUROLOGICAL: No headaches or weakness ENDOCRINE: No cold or heat intolerance GENITOURINARY: No urgency or frequency of urination MUSCULOSKELETAL: No back pain or joint pain LYMPHATICS: No enlarged lymph nodes PSYCHIATRIC: No anxiety or depression Physical Exam Physical Exam GEN.: No apparent distress. Alert and oriented. HEENT: Head is normocephalic, atraumatic NECK: Supple. LUNGS: Clear to auscultation. HEART: RRR, S1, S2 present. Peripheral pulses intact ABDOMEN: Soft, nontender. Positive bowel sounds. EXTREMITIES: Without any cyanosis. NEUROLOGIC: Normal speech, normal tone PSYCHIATRIC: Normal affect, normal mood. SKIN: No ulcerations Vitals Vitals Vital Signs Date Time Temp Pulse Resp B/P (MAP) Pulse Ox O2 Delivery O2 Flow Rate FiO2 02/13/18 15:45 98.6 76 18 180/93 (122) 96 Room Air 98.6 Labs Labs Laboratory Tests Test 02/13/18 15:45 White Blood Count 6.5 x10^3/uL (4.0-11.0) Red Blood Count 3.14 x10^6/uL (4.30-5.70) Hemoglobin 10.1 g/dL (13.0-17.5) Hematocrit 29.5 % (39.0-53.0) Mean Corpuscular Volume 94 fL (79-100) Mean Corpuscular Hemoglobin 32 pg (25-35) Mean Corpuscular Hemoglobin Concent 34 g/dL (31-37) Red Cell Distribution Width 13.1 % (11.5-14.5) Platelet Count 199 x10^3/uL (140-400) Neutrophils (%) (Auto) 75 % (31-73) Lymphocytes (%) (Auto) 15 % (24-48) Monocytes (%) (Auto) 7 % (0-9) Eosinophils (%) (Auto) 3 % (0-3) Basophils (%) (Auto) 1 % (0-3) Neutrophils # (Auto) 4.8 x10^3uL (1.8-7.7) Lymphocytes # (Auto) 0.9 x10^3/uL (1.0-4.8) Monocytes # (Auto) 0.5 x10^3/uL (0.0-1.1) Eosinophils # (Auto) 0.2 x10^3/uL (0.0-0.7) Basophils # (Auto) 0.1 x10^3/uL (0.0-0.2) Prothrombin Time 12.8 SEC (11.7-14.0) Prothromb Time International Ratio 1.0 (0.8-1.1) Sodium Level 136 mmol/L (136-145) Potassium Level 4.2 mmol/L (3.5-5.1) Chloride Level 100 mmol/L (98-107) Carbon Dioxide Level 29 mmol/L (21-32) Anion Gap 7 (6-14) Blood Urea Nitrogen 23 mg/dL (8-26) Creatinine 4.9 mg/dL (0.7-1.3) Estimated GFR (Cockcroft-Gault) 15.1 BUN/Creatinine Ratio 5 (6-20) Glucose Level 114 mg/dL (70-99) Calcium Level 9.3 mg/dL (8.5-10.1) Total Bilirubin 1.1 mg/dL (0.2-1.0) Aspartate Amino Transf (AST/SGOT) 22 U/L (15-37) Alanine Aminotransferase (ALT/SGPT) 48 U/L (16-63) Alkaline Phosphatase 66 U/L (46-116) Troponin I Quantitative 0.026 ng/mL (0.000-0.055) Total Protein 6.9 g/dL (6.4-8.2) Albumin 3.6 g/dL (3.4-5.0) Albumin/Globulin Ratio 1.1 (1.0-1.7) Laboratory Tests Test 02/13/18 15:45 White Blood Count 6.5 x10^3/uL (4.0-11.0) Red Blood Count 3.14 x10^6/uL (4.30-5.70) Hemoglobin 10.1 g/dL (13.0-17.5) Hematocrit 29.5 % (39.0-53.0) Mean Corpuscular Volume 94 fL (79-100) Mean Corpuscular Hemoglobin 32 pg (25-35) Mean Corpuscular Hemoglobin Concent 34 g/dL (31-37) Red Cell Distribution Width 13.1 % (11.5-14.5) Platelet Count 199 x10^3/uL (140-400) Neutrophils (%) (Auto) 75 % (31-73) Lymphocytes (%) (Auto) 15 % (24-48) Monocytes (%) (Auto) 7 % (0-9) Eosinophils (%) (Auto) 3 % (0-3) Basophils (%) (Auto) 1 % (0-3) Neutrophils # (Auto) 4.8 x10^3uL (1.8-7.7) Lymphocytes # (Auto) 0.9 x10^3/uL (1.0-4.8) Monocytes # (Auto) 0.5 x10^3/uL (0.0-1.1) Eosinophils # (Auto) 0.2 x10^3/uL (0.0-0.7) Basophils # (Auto) 0.1 x10^3/uL (0.0-0.2) Prothrombin Time 12.8 SEC (11.7-14.0) Prothromb Time International Ratio 1.0 (0.8-1.1) Sodium Level 136 mmol/L (136-145) Potassium Level 4.2 mmol/L (3.5-5.1) Chloride Level 100 mmol/L (98-107) Carbon Dioxide Level 29 mmol/L (21-32) Anion Gap 7 (6-14) Blood Urea Nitrogen 23 mg/dL (8-26) Creatinine 4.9 mg/dL (0.7-1.3) Estimated GFR (Cockcroft-Gault) 15.1 BUN/Creatinine Ratio 5 (6-20) Glucose Level 114 mg/dL (70-99) Calcium Level 9.3 mg/dL (8.5-10.1) Total Bilirubin 1.1 mg/dL (0.2-1.0) Aspartate Amino Transf (AST/SGOT) 22 U/L (15-37) Alanine Aminotransferase (ALT/SGPT) 48 U/L (16-63) Alkaline Phosphatase 66 U/L (46-116) Troponin I Quantitative 0.026 ng/mL (0.000-0.055) Total Protein 6.9 g/dL (6.4-8.2) Albumin 3.6 g/dL (3.4-5.0) Albumin/Globulin Ratio 1.1 (1.0-1.7) VTE Prophylaxis Ordered VTE Prophylaxis Devices: Yes VTE Pharmacological Prophylaxi: Yes Assessment/Plan Assessment/Plan presyncope during HD with bradycardia, low BP sinus bradycardia , on metoprolol accelerated HTN NO DM ESRD ON HD MWF plan: need verify home meds hold metoprolol, cont other htn meds tele echo card consult renal consult, cont HD check Mag dvt ppx HERMANN VILLALOBOS MD Feb 13, 2018 17:24
[2018-02-13 17:30] VITALS: BP 176/97
[2018-02-13] MEDS: ENALAPRILAT 2.5 MG/2 ML VIAL. IVP SCH (17:53)
[2018-02-13] MEDS ORDERED: SEVE800T9 PO (17:57)
[2018-02-13] MEDS: cloNIDine HCL 0.3 MG TABLET PO SCH ×2 (18:00→21:09)
[2018-02-13] MEDS: HEPARIN PF for SUB-Q USE 5,000 UNIT/0.5 ML VIAL. SQ SCH (18:00)
[2018-02-13] MEDS: SEVELAMER CARBONATE 800 MG TABLET. PO SCH (18:11)
[2018-02-13] MEDS: amLODIPine BESYLATE 10 MG TABLET PO SCH (18:13)
[2018-02-13 19:33] VITALS: BP 154/86
[2018-02-13 22:17] VITALS: BP 148/84
[2018-02-14 03:31] VITALS: BP 155/86
[2018-02-14 05:42] LABS: BASO % 1 % (0-3); EOS # 0.2 x10^3/uL (0.0-0.7); EOS % 5 % (0-3); HEMATOCRIT 27.3 % (39.0-53.0); HEMOGLOBIN 9.4 g/dL (13.0-17.5); LYMPH # 1.3 x10^3/uL (1.0-4.8); LYMPH % 27 % (24-48); MEAN CORPUSCULAR HEMOGLOBIN 33 pg (25-35); MEAN CORPUSCULAR HGB CONC 34 g/dL (31-37); MEAN CORPUSCULAR VOLUME 95 fL (79-100); MONO # 0.5 x10^3/uL (0.0-1.1); MONO % 10 % (0-9); NEUT # 2.8 x10^3uL (1.8-7.7); NEUT % 58 % (31-73); PLATELET COUNT 181 x10^3/uL (140-400); RED BLOOD COUNT 2.89 x10^6/uL (4.30-5.70); RED CELL DISTRIBUTION WIDTH 12.9 % (11.5-14.5); WHITE BLOOD COUNT 4.8 x10^3/uL (4.0-11.0)
[2018-02-14] MEDS: ENALAPRILAT 2.5 MG/2 ML VIAL. IVP SCH ×3 (06:00→11:26)
[2018-02-14 06:12] LABS: ALBUMIN 2.9 g/dL (3.4-5.0); ALBUMIN/GLOBULIN RATIO 0.9 (1.0-1.7); CALCIUM 8.9 mg/dL (8.5-10.1); CREATININE 7.4 mg/dL (0.7-1.3); GFR 9.4; POTASSIUM 4.1 mmol/L (3.5-5.1); TOTAL BILIRUBIN 0.9 mg/dL (0.2-1.0); TOTAL PROTEIN 6.3 g/dL (6.4-8.2)
[2018-02-14] MEDS: HEPARIN PF for SUB-Q USE 5,000 UNIT/0.5 ML VIAL. SQ SCH ×2 (06:38→14:00)
[2018-02-14 07:00] VITALS: BP 162/89
[2018-02-14] MEDS ORDERED: SEVELAMER CARBONATE 800 MG TABLET. PO SCH (08:00)
[2018-02-14] MEDS: SEVELAMER CARBONATE 800 MG TABLET. PO SCH (08:23)
[2018-02-14] MEDS: cloNIDine HCL 0.3 MG TABLET PO SCH ×2 (08:24→14:00)
[2018-02-14] MEDS: amLODIPine BESYLATE 10 MG TABLET PO SCH (08:24)
[2018-02-14] MEDS ORDERED: amLODIPine BESYLATE 10 MG TABLET PO SCH (09:00)
[2018-02-14] MEDS ORDERED: ACETAMINOPHEN 500 MG TABLET PO PRN (09:15)
--- NOTE | 2018-02-14 10:12 | PDOC2 ---
CONSULT Date of Consult Date of Consult DATE: 02/14/18 TIME: 10:07 Reason for Consult Reason for Consult: ESRD status Referring Physician Referring Physician: Sy Identification/Chief Complaint Chief Complaint Syncope at HD Source Source: Chart review, Patient History of Present Illness Reason for Visit: Mr. Valenzuela is a pleasant 52-year-old -[place] male who has been on hemodialysis for approximately one year. He is under the care of Dr. Grande, and dialyzes at [facility] [place] at the [facility] dialysis unit. He usually goes to dialysis on a Thursday basis. He however missed Thursday dialysis and was making it up on Thursday. He does not think he was excessively fluid overloaded ordered that they were challenging his dry weight per se. He usually takes his blood pressure medications prior to dialysis. He does not think that he has gained weight. He was 2 hours into dialysis and was noted to have a witnessed syncopal episode. His palpable pulse was only 30 at that time. He is noted to be on metoprolol and clonidine both. He however came around pretty well once EMS was called and currently feels great. He has had no current palpitations but he did have some of those prior to his episode. Past Medical History Cardiovascular: HTN Heme/Onc: Anemia NOS Musculoskeletal: Other Renal/: Chronic renal insuff Past Surgical History Past Surgical History: Cholecystectomy Family History Family History: Hypertension Social History No ALCOHOL: none Drugs: None Lives: Alone Current Problem List Problem List Problems Medical Problems: (1) Near syncope Status: Acute Current Medications Current Medications Current Medications Amlodipine Besylate (Norvasc) 10 mg DAILY PO ; Start 02/14/18 at 09:00; Stop at 09:00; Status DC Clonidine HCl (Catapres) 0.3 mg TID PO Last administered on 02/14/18at 08:24; Start 02/13/18 at 17:30 Hydralazine HCl (Apresoline) 50 mg TID PO Last administered on 02/14/18at 08:24 ; Start 02/13/18 at 17:30 Acetaminophen (Tylenol) 650 mg PRN Q6HRS PRN PO FEVER; Start 02/13/18 at 17:15 Ondansetron HCl (Zofran) 4 mg PRN Q6HRS PRN IV NAUSEA/VOMITING; Start 02/13/18 at 17:15 Morphine Sulfate (Morphine Sulfate) 2 mg PRN Q2HR PRN IV MODERATE TO SEVERE PAIN; Start 02/13/18 at 17:15 Tramadol HCl (Ultram) 50 mg PRN Q6HRS PRN PO MILD TO MODERATE PAIN; Start 02/13 at 17:15 Docusate Sodium (Colace) 100 mg PRN DAILY PRN PO CONSTIPATION; Start 02/13/18 at 17:15 Enalaprilat (Vasotec Inj) 2.5 mg Q6HRS IVP ; Start 02/13/18 at 18:00 Heparin Sodium (Porcine) (Heparin Sq) 5,000 unit Q8HRS SQ Last administered on 02/14/18at 06:38; Start 02/13/18 at 22:00 Amlodipine Besylate (Norvasc) 10 mg DAILY PO Last administered on 02/14/18at 08: 24; Start 02/13/18 at 18:00 Sevelamer Carbonate (Renvela) 1,600 mg DAILYWBKFT PO ; Start 02/14/18 at 08:00; Stop 02/14/18 at 08:00; Status DC Sevelamer Carbonate (Renvela) 1,600 mg DAILYWBKFT PO Last administered on at 08:23; Start 02/13/18 at 18:00 Acetaminophen (Tylenol) 500 mg PRN Q6HRS PRN PO MILD PAIN / TEMP; Start at 09:15 Active Scripts Active Reported Renvela (Sevelamer Carbonate) 800 Mg Tablet 2 Tab PO DAILY Amlodipine Besylate 10 Mg Tablet 10 Mg PO DAILY Metoprolol Tartrate 100 Mg Tablet 100 Mg PO BID Hydralazine Hcl 50 Mg Tablet 50 Mg PO TID Clonidine Hcl 0.3 Mg Tablet 0.3 Mg PO TID Allergies Allergies: Coded Allergies: No Known Drug Allergies (Unverified , 03/26/17) ROS Review of System 14-Point review of systems conducted with the patient is grossly negative at this time. Surprisingly he did not have significant cramping in his extremities but had some possible cramping in his abdomen prior to his episode. He did experience palpitations prior to his episode Physical Exam Physical Exam General Appearance: Awake Alert Oriented x 3 In no Distress Eyes: VIsion Unchanged Conjunctiva Normal EN: No EN Drainage Mucous Memb. mosit Neck: no JVD no JVP Supple no Thyromegaly CVS: S1 S2 no Murmur No Gallop No Rub no Edema Resp: no Rales no Rhonchi no Acc. Muscle use GI: BAS +ve NO Bruit Non Tender Non Distended; Obese : no CVA tenderness; no Suprapubic Tenderness SKIN: no Rashes Breast Exam deferred Mu.Sk: Adequate ROM no Muscle Atrophy Heme: Unable to palpate Obvious LAD no Splenomegaly NEURO: Good Strength and Tone Cranial Nerves II - XII grossly intact Psych: no Depressed no Active hallucination Vital Signs Vital Signs Date Time Temp Pulse Resp B/P (MAP) Pulse Ox O2 Delivery O2 Flow Rate FiO2 02/14/18 08:24 65 162/89 02/14/18 08:00 Room Air 02/14/18 07:00 98.2 20 96 98.2 Assessment & Plan ESRD: Current FLuid and E-lyte status does not necessitate emergent need for Dialysis. Will re-evaluate for Dialysis in am and continue on MWF schedule. Anemia: start Epogen Transfuse with next HD as needed. HTN: Current BP meds reviewed. See orders for changes. Bone & Mineral: We'll follow phosphorus levels and reevaluate binder regimen based on by mouth intake Syncopal episode: Unclear to me if patient had a vasovagal episode. May need to decrease metoprolol if this was felt to be due to bradycardia. We'll await cardiology evaluation Discussed Plan of Care and prognosis etc. at length with family. Labs Labs Laboratory Tests Test 02/13/18 00:05 02/13/18 15:45 02/13/18 19:40 02/14/18 04:05 Troponin I Quantitative 0.029 ng/mL (0.000-0.055) 0.026 ng/mL (0.000-0.055) 0.028 ng/mL (0.000-0.055) White Blood Count 6.5 x10^3/uL (4.0-11.0) 4.8 x10^3/uL (4.0-11.0) Red Blood Count 3.14 x10^6/uL (4.30-5.70) 2.89 x10^6/uL (4.30-5.70) Hemoglobin 10.1 g/dL (13.0-17.5) 9.4 g/dL (13.0-17.5) Hematocrit 29.5 % (39.0-53.0) 27.3 % (39.0-53.0) Mean Corpuscular Volume 94 fL (79-100) 95 fL (79-100) Mean Corpuscular Hemoglobin 32 pg (25-35) 33 pg (25-35) Mean Corpuscular Hemoglobin Concent 34 g/dL (31-37) 34 g/dL (31-37) Red Cell Distribution Width 13.1 % (11.5-14.5) 12.9 % (11.5-14.5) Platelet Count 199 x10^3/uL (140-400) 181 x10^3/uL (140-400) Neutrophils (%) (Auto) 75 % (31-73) 58 % (31-73) Lymphocytes (%) (Auto) 15 % (24-48) 27 % (24-48) Monocytes (%) (Auto) 7 % (0-9) 10 % (0-9) Eosinophils (%) (Auto) 3 % (0-3) 5 % (0-3) Basophils (%) (Auto) 1 % (0-3) 1 % (0-3) Neutrophils # (Auto) 4.8 x10^3uL (1.8-7.7) 2.8 x10^3uL (1.8-7.7) Lymphocytes # (Auto) 0.9 x10^3/uL (1.0-4.8) 1.3 x10^3/uL (1.0-4.8) Monocytes # (Auto) 0.5 x10^3/uL (0.0-1.1) 0.5 x10^3/uL (0.0-1.1) Eosinophils # (Auto) 0.2 x10^3/uL (0.0-0.7) 0.2 x10^3/uL (0.0-0.7) Basophils # (Auto) 0.1 x10^3/uL (0.0-0.2) 0.0 x10^3/uL (0.0-0.2) Prothrombin Time 12.8 SEC (11.7-14.0) Prothromb Time International Ratio 1.0 (0.8-1.1) Sodium Level 136 mmol/L (136-145) 138 mmol/L (136-145) Potassium Level 4.2 mmol/L (3.5-5.1) 4.1 mmol/L (3.5-5.1) Chloride Level 100 mmol/L (98-107) 102 mmol/L (98-107) Carbon Dioxide Level 29 mmol/L (21-32) 28 mmol/L (21-32) Anion Gap 7 (6-14) 8 (6-14) Blood Urea Nitrogen 23 mg/dL (8-26) 31 mg/dL (8-26) Creatinine 4.9 mg/dL (0.7-1.3) 7.4 mg/dL (0.7-1.3) Estimated GFR (Cockcroft-Gault) 15.1 9.4 BUN/Creatinine Ratio 5 (6-20) 4 (6-20) Glucose Level 114 mg/dL (70-99) 128 mg/dL (70-99) Calcium Level 9.3 mg/dL (8.5-10.1) 8.9 mg/dL (8.5-10.1) Magnesium Level 1.9 mg/dL (1.8-2.4) Total Bilirubin 1.1 mg/dL (0.2-1.0) 0.9 mg/dL (0.2-1.0) Aspartate Amino Transf (AST/SGOT) 22 U/L (15-37) 14 U/L (15-37) Alanine Aminotransferase (ALT/SGPT) 48 U/L (16-63) 35 U/L (16-63) Alkaline Phosphatase 66 U/L (46-116) 59 U/L (46-116) Total Protein 6.9 g/dL (6.4-8.2) 6.3 g/dL (6.4-8.2) Albumin 3.6 g/dL (3.4-5.0) 2.9 g/dL (3.4-5.0) Albumin/Globulin Ratio 1.1 (1.0-1.7) 0.9 (1.0-1.7) Laboratory Tests Test 02/13/18 15:45 02/13/18 19:40 02/14/18 04:05 White Blood Count 6.5 x10^3/uL (4.0-11.0) 4.8 x10^3/uL (4.0-11.0) Red Blood Count 3.14 x10^6/uL (4.30-5.70) 2.89 x10^6/uL (4.30-5.70) Hemoglobin 10.1 g/dL (13.0-17.5) 9.4 g/dL (13.0-17.5) Hematocrit 29.5 % (39.0-53.0) 27.3 % (39.0-53.0) Mean Corpuscular Volume 94 fL (79-100) 95 fL (79-100) Mean Corpuscular Hemoglobin 32 pg (25-35) 33 pg (25-35) Mean Corpuscular Hemoglobin Concent 34 g/dL (31-37) 34 g/dL (31-37) Red Cell Distribution Width 13.1 % (11.5-14.5) 12.9 % (11.5-14.5) Platelet Count 199 x10^3/uL (140-400) 181 x10^3/uL (140-400) Neutrophils (%) (Auto) 75 % (31-73) 58 % (31-73) Lymphocytes (%) (Auto) 15 % (24-48) 27 % (24-48) Monocytes (%) (Auto) 7 % (0-9) 10 % (0-9) Eosinophils (%) (Auto) 3 % (0-3) 5 % (0-3) Basophils (%) (Auto) 1 % (0-3) 1 % (0-3) Neutrophils # (Auto) 4.8 x10^3uL (1.8-7.7) 2.8 x10^3uL (1.8-7.7) Lymphocytes # (Auto) 0.9 x10^3/uL (1.0-4.8) 1.3 x10^3/uL (1.0-4.8) Monocytes # (Auto) 0.5 x10^3/uL (0.0-1.1) 0.5 x10^3/uL (0.0-1.1) Eosinophils # (Auto) 0.2 x10^3/uL (0.0-0.7) 0.2 x10^3/uL (0.0-0.7) Basophils # (Auto) 0.1 x10^3/uL (0.0-0.2) 0.0 x10^3/uL (0.0-0.2) Prothrombin Time 12.8 SEC (11.7-14.0) Prothromb Time International Ratio 1.0 (0.8-1.1) Sodium Level 136 mmol/L (136-145) 138 mmol/L (136-145) Potassium Level 4.2 mmol/L (3.5-5.1) 4.1 mmol/L (3.5-5.1) Chloride Level 100 mmol/L (98-107) 102 mmol/L (98-107) Carbon Dioxide Level 29 mmol/L (21-32) 28 mmol/L (21-32) Anion Gap 7 (6-14) 8 (6-14) Blood Urea Nitrogen 23 mg/dL (8-26) 31 mg/dL (8-26) Creatinine 4.9 mg/dL (0.7-1.3) 7.4 mg/dL (0.7-1.3) Estimated GFR (Cockcroft-Gault) 15.1 9.4 BUN/Creatinine Ratio 5 (6-20) 4 (6-20) Glucose Level 114 mg/dL (70-99) 128 mg/dL (70-99) Calcium Level 9.3 mg/dL (8.5-10.1) 8.9 mg/dL (8.5-10.1) Magnesium Level 1.9 mg/dL (1.8-2.4) Total Bilirubin 1.1 mg/dL (0.2-1.0) 0.9 mg/dL (0.2-1.0) Aspartate Amino Transf (AST/SGOT) 22 U/L (15-37) 14 U/L (15-37) Alanine Aminotransferase (ALT/SGPT) 48 U/L (16-63) 35 U/L (16-63) Alkaline Phosphatase 66 U/L (46-116) 59 U/L (46-116) Troponin I Quantitative 0.026 ng/mL (0.000-0.055) 0.028 ng/mL (0.000-0.055) Total Protein 6.9 g/dL (6.4-8.2) 6.3 g/dL (6.4-8.2) Albumin 3.6 g/dL (3.4-5.0) 2.9 g/dL (3.4-5.0) Albumin/Globulin Ratio 1.1 (1.0-1.7) 0.9 (1.0-1.7) Review All relevant outside records, renal labs, imaging studies, telemetry/EKG's were reviewed. Images Images Findings: The heart and mediastinal structures are within normal limits for size. Lungs are without infiltrate. No pleural effusion or pneumothorax is identified. Impression: 1. No acute cardiopulmonary process. PAM MADRID MD Feb 14, 2018 10:12
[2018-02-14 10:54] VITALS: BP 170/87
--- NOTE | 2018-02-14 11:07 | EKG ---
[facility] [address] [place] [address] Test Date: 2018-02-13 Test Time: 15:34:37 Pat Name: MARYJANE GUZMAN Department: Room: [facility] Gender: M Bar Welder: : 1965 Requested By: ANNABEL PENA Order Number: [id number] Reading MD: Trenton Ochoa MD Measurements Intervals [place] Rate: 76 P: 37 NV: 170 QRS: -29 QRSD: 104 T: 12 QT: 404 QTc: 459 Interpretive Statements SINUS RHYTHM Electronically Signed On 02-16-2018 10:39:03 CDT by Trenton Ochoa MD
--- NOTE | 2018-02-14 12:37 | PDOC3 ---
Discharge Summary Visit Information Date of Admission: Feb 13, 2018 Date of Discharge: Feb 14, 2018 Admitting Diagnosis Comment: presyncope during HD with bradycardia, low BP - resolved sinus bradycardia , on metoprolol accelerated HTN- resolved NO DM ESRD ON HD MWF Final Diagnosis Problems Medical Problems: (1) Near syncope Status: Acute Brief Hospital Course Allergies Allergies Coded Allergies Type Severity Reaction Last Updated Verified No Known Drug Allergies 03/26/17 No Vital Signs Vital Signs Date Time Temp Pulse Resp B/P (MAP) Pulse Ox O2 Delivery O2 Flow Rate FiO2 02/14/18 10:54 97.9 69 16 170/87 (114) 97 Room Air 97.9 Lab Results Laboratory Tests Test 02/13/18 00:05 02/13/18 15:45 02/13/18 19:40 02/14/18 04:05 Troponin I Quantitative 0.029 ng/mL (0.000-0.055) 0.026 ng/mL (0.000-0.055) 0.028 ng/mL (0.000-0.055) White Blood Count 6.5 x10^3/uL (4.0-11.0) 4.8 x10^3/uL (4.0-11.0) Red Blood Count 3.14 x10^6/uL (4.30-5.70) 2.89 x10^6/uL (4.30-5.70) Hemoglobin 10.1 g/dL (13.0-17.5) 9.4 g/dL (13.0-17.5) Hematocrit 29.5 % (39.0-53.0) 27.3 % (39.0-53.0) Mean Corpuscular Volume 94 fL (79-100) 95 fL (79-100) Mean Corpuscular Hemoglobin 32 pg (25-35) 33 pg (25-35) Mean Corpuscular Hemoglobin Concent 34 g/dL (31-37) 34 g/dL (31-37) Red Cell Distribution Width 13.1 % (11.5-14.5) 12.9 % (11.5-14.5) Platelet Count 199 x10^3/uL (140-400) 181 x10^3/uL (140-400) Neutrophils (%) (Auto) 75 % (31-73) 58 % (31-73) Lymphocytes (%) (Auto) 15 % (24-48) 27 % (24-48) Monocytes (%) (Auto) 7 % (0-9) 10 % (0-9) Eosinophils (%) (Auto) 3 % (0-3) 5 % (0-3) Basophils (%) (Auto) 1 % (0-3) 1 % (0-3) Neutrophils # (Auto) 4.8 x10^3uL (1.8-7.7) 2.8 x10^3uL (1.8-7.7) Lymphocytes # (Auto) 0.9 x10^3/uL (1.0-4.8) 1.3 x10^3/uL (1.0-4.8) Monocytes # (Auto) 0.5 x10^3/uL (0.0-1.1) 0.5 x10^3/uL (0.0-1.1) Eosinophils # (Auto) 0.2 x10^3/uL (0.0-0.7) 0.2 x10^3/uL (0.0-0.7) Basophils # (Auto) 0.1 x10^3/uL (0.0-0.2) 0.0 x10^3/uL (0.0-0.2) Prothrombin Time 12.8 SEC (11.7-14.0) Prothromb Time International Ratio 1.0 (0.8-1.1) Sodium Level 136 mmol/L (136-145) 138 mmol/L (136-145) Potassium Level 4.2 mmol/L (3.5-5.1) 4.1 mmol/L (3.5-5.1) Chloride Level 100 mmol/L (98-107) 102 mmol/L (98-107) Carbon Dioxide Level 29 mmol/L (21-32) 28 mmol/L (21-32) Anion Gap 7 (6-14) 8 (6-14) Blood Urea Nitrogen 23 mg/dL (8-26) 31 mg/dL (8-26) Creatinine 4.9 mg/dL (0.7-1.3) 7.4 mg/dL (0.7-1.3) Estimated GFR (Cockcroft-Gault) 15.1 9.4 BUN/Creatinine Ratio 5 (6-20) 4 (6-20) Glucose Level 114 mg/dL (70-99) 128 mg/dL (70-99) Calcium Level 9.3 mg/dL (8.5-10.1) 8.9 mg/dL (8.5-10.1) Magnesium Level 1.9 mg/dL (1.8-2.4) Total Bilirubin 1.1 mg/dL (0.2-1.0) 0.9 mg/dL (0.2-1.0) Aspartate Amino Transf (AST/SGOT) 22 U/L (15-37) 14 U/L (15-37) Alanine Aminotransferase (ALT/SGPT) 48 U/L (16-63) 35 U/L (16-63) Alkaline Phosphatase 66 U/L (46-116) 59 U/L (46-116) Total Protein 6.9 g/dL (6.4-8.2) 6.3 g/dL (6.4-8.2) Albumin 3.6 g/dL (3.4-5.0) 2.9 g/dL (3.4-5.0) Albumin/Globulin Ratio 1.1 (1.0-1.7) 0.9 (1.0-1.7) Laboratory Tests Test 02/13/18 15:45 02/13/18 19:40 02/14/18 04:05 White Blood Count 6.5 x10^3/uL (4.0-11.0) 4.8 x10^3/uL (4.0-11.0) Red Blood Count 3.14 x10^6/uL (4.30-5.70) 2.89 x10^6/uL (4.30-5.70) Hemoglobin 10.1 g/dL (13.0-17.5) 9.4 g/dL (13.0-17.5) Hematocrit 29.5 % (39.0-53.0) 27.3 % (39.0-53.0) Mean Corpuscular Volume 94 fL (79-100) 95 fL (79-100) Mean Corpuscular Hemoglobin 32 pg (25-35) 33 pg (25-35) Mean Corpuscular Hemoglobin Concent 34 g/dL (31-37) 34 g/dL (31-37) Red Cell Distribution Width 13.1 % (11.5-14.5) 12.9 % (11.5-14.5) Platelet Count 199 x10^3/uL (140-400) 181 x10^3/uL (140-400) Neutrophils (%) (Auto) 75 % (31-73) 58 % (31-73) Lymphocytes (%) (Auto) 15 % (24-48) 27 % (24-48) Monocytes (%) (Auto) 7 % (0-9) 10 % (0-9) Eosinophils (%) (Auto) 3 % (0-3) 5 % (0-3) Basophils (%) (Auto) 1 % (0-3) 1 % (0-3) Neutrophils # (Auto) 4.8 x10^3uL (1.8-7.7) 2.8 x10^3uL (1.8-7.7) Lymphocytes # (Auto) 0.9 x10^3/uL (1.0-4.8) 1.3 x10^3/uL (1.0-4.8) Monocytes # (Auto) 0.5 x10^3/uL (0.0-1.1) 0.5 x10^3/uL (0.0-1.1) Eosinophils # (Auto) 0.2 x10^3/uL (0.0-0.7) 0.2 x10^3/uL (0.0-0.7) Basophils # (Auto) 0.1 x10^3/uL (0.0-0.2) 0.0 x10^3/uL (0.0-0.2) Prothrombin Time 12.8 SEC (11.7-14.0) Prothromb Time International Ratio 1.0 (0.8-1.1) Sodium Level 136 mmol/L (136-145) 138 mmol/L (136-145) Potassium Level 4.2 mmol/L (3.5-5.1) 4.1 mmol/L (3.5-5.1) Chloride Level 100 mmol/L (98-107) 102 mmol/L (98-107) Carbon Dioxide Level 29 mmol/L (21-32) 28 mmol/L (21-32) Anion Gap 7 (6-14) 8 (6-14) Blood Urea Nitrogen 23 mg/dL (8-26) 31 mg/dL (8-26) Creatinine 4.9 mg/dL (0.7-1.3) 7.4 mg/dL (0.7-1.3) Estimated GFR (Cockcroft-Gault) 15.1 9.4 BUN/Creatinine Ratio 5 (6-20) 4 (6-20) Glucose Level 114 mg/dL (70-99) 128 mg/dL (70-99) Calcium Level 9.3 mg/dL (8.5-10.1) 8.9 mg/dL (8.5-10.1) Magnesium Level 1.9 mg/dL (1.8-2.4) Total Bilirubin 1.1 mg/dL (0.2-1.0) 0.9 mg/dL (0.2-1.0) Aspartate Amino Transf (AST/SGOT) 22 U/L (15-37) 14 U/L (15-37) Alanine Aminotransferase (ALT/SGPT) 48 U/L (16-63) 35 U/L (16-63) Alkaline Phosphatase 66 U/L (46-116) 59 U/L (46-116) Troponin I Quantitative 0.026 ng/mL (0.000-0.055) 0.028 ng/mL (0.000-0.055) Total Protein 6.9 g/dL (6.4-8.2) 6.3 g/dL (6.4-8.2) Albumin 3.6 g/dL (3.4-5.0) 2.9 g/dL (3.4-5.0) Albumin/Globulin Ratio 1.1 (1.0-1.7) 0.9 (1.0-1.7) Brief Hospital Course Mr. Padilla is a 52 old -[place] male who missed dialysis and only finished half a session of dialysis and then had the above symptoms. Had dialysis yesterday and feels better all the symptoms have resolved. No PT needs. No need to start or change any home meds. I medically cleared to [place] home. Looks clinically better, patient seen and examined Consults performed renal Procedures performed dialysis Present discharge less than 30 minutes if co ok, then Home today Discharge Information Condition at Discharge: Improved, Stable Disposition/Orders: D/C to Home Scheduled Amlodipine Besylate (Amlodipine Besylate) 10 Mg Tablet, 10 MG PO DAILY, ( Reported) Entered as Reported by: PATRIC SAAVEDRA on 03/25/171305 Last Action: Continued on 02/13/181716 by HERMANN VILLALOBOS MD Clonidine Hcl (Clonidine Hcl) 0.3 Mg Tablet, 0.3 MG PO TID, (Reported) Entered as Reported by: PATRIC SAAVEDRA on 03/25/171305 Last Action: Continued on 02/13/181716 by HERMANN VILLALOBOS MD Hydralazine Hcl (Hydralazine Hcl) 50 Mg Tablet, 50 MG PO TID, (Reported) Entered as Reported by: PATRIC SAAVEDRA on 03/25/171305 Last Action: Converted on 02/13/181716 by HERMANN VILLALOBOS MD Metoprolol Tartrate (Metoprolol Tartrate) 100 Mg Tablet, 100 MG PO BID for FOR HYPERTENSION, #60 Ref 0 (Reported) Entered as Reported by: PATRIC SAAVEDRA on 03/25/171305 Last Action: HELD on 02/13/181756 by ALEJANDRO URIAS Sevelamer Carbonate (Renvela) 800 Mg Tablet, 2 TAB PO DAILY, (Reported) Entered as Reported by: ALEJANDRO URIAS on 02/13/181756 Last Action: Continued on 02/13/181756 by PROSPER LONG MD Feb 14, 2018 12:37
[2018-02-14 14:24] VITALS: BP 136/82
--- NOTE | 2018-02-14 16:00 | PDOC2 ---
CONSULT Date of Consult Date of Consult DATE: 02/14/18 TIME: 15:56 Reason for Consult Reason for Consult: Lightheadedness Referring Physician Referring Physician: Dr Dan Identification/Chief Complaint Chief Complaint Lightheadedness History of Present Illness Reason for Visit: This patient is a 52-year-old gentleman with a known history of hypertension and end-stage renal disease that is on dialysis. He was having one of his routine dialysis treatments when he started feeling lightheaded and when they checked his pulse he was bradycardic with a pulse rate in the 30s. The patient was then sent to the emergency room. By the time he arrived in the ER he was feeling fine and heart rate was in the 70s. Since arrival he has been in sinus rhythm with a normal rate. The patient did not have loss of consciousness. Patient denies any chest pains or dyspnea. Past Medical History Cardiovascular: HTN Heme/Onc: Anemia NOS Musculoskeletal: Other Renal/: Chronic renal insuff Past Surgical History Past Surgical History: Cholecystectomy Family History Family History: Hypertension Social History No ALCOHOL: none Drugs: None Lives: Alone Current Problem List Problem List Problems Medical Problems: (1) Near syncope Status: Acute Current Medications Current Medications Current Medications Amlodipine Besylate (Norvasc) 10 mg DAILY PO ; Start 02/14/18 at 09:00; Stop at 09:00; Status DC Clonidine HCl (Catapres) 0.3 mg TID PO Last administered on 02/14/18at 08:24; Start 02/13/18 at 17:30 Hydralazine HCl (Apresoline) 50 mg TID PO Last administered on 02/14/18at 08:24 ; Start 02/13/18 at 17:30 Acetaminophen (Tylenol) 650 mg PRN Q6HRS PRN PO FEVER; Start 02/13/18 at 17:15 ; Stop 02/14/18 at 13:44; Status DC Ondansetron HCl (Zofran) 4 mg PRN Q6HRS PRN IV NAUSEA/VOMITING; Start 02/13/18 at 17:15 Morphine Sulfate (Morphine Sulfate) 2 mg PRN Q2HR PRN IV MODERATE TO SEVERE PAIN; Start 02/13/18 at 17:15 Tramadol HCl (Ultram) 50 mg PRN Q6HRS PRN PO MODERATE - SEVERE PAIN; Start at 17:15 Docusate Sodium (Colace) 100 mg PRN DAILY PRN PO CONSTIPATION; Start 02/13/18 at 17:15 Enalaprilat (Vasotec Inj) 2.5 mg Q6HRS IVP ; Start 02/13/18 at 18:00 Heparin Sodium (Porcine) (Heparin Sq) 5,000 unit Q8HRS SQ Last administered on 02/14/18at 06:38; Start 02/13/18 at 22:00 Amlodipine Besylate (Norvasc) 10 mg DAILY PO Last administered on 02/14/18at 08: 24; Start 02/13/18 at 18:00 Sevelamer Carbonate (Renvela) 1,600 mg DAILYWBKFT PO ; Start 02/14/18 at 08:00; Stop 02/14/18 at 08:00; Status DC Sevelamer Carbonate (Renvela) 1,600 mg DAILYWBKFT PO Last administered on at 08:23; Start 02/13/18 at 18:00 Acetaminophen (Tylenol) 500 mg PRN Q6HRS PRN PO MILD PAIN / TEMP; Start at 09:15 Active Scripts Active Reported Renvela (Sevelamer Carbonate) 800 Mg Tablet 2 Tab PO DAILY Amlodipine Besylate 10 Mg Tablet 10 Mg PO DAILY Hydralazine Hcl 50 Mg Tablet 50 Mg PO TID Clonidine Hcl 0.3 Mg Tablet 0.3 Mg PO TID Allergies Allergies: Coded Allergies: No Known Drug Allergies (Unverified , 03/26/17) Physical Exam General: Alert, Oriented X3, Cooperative HEENT: Atraumatic, PERRLA Lungs: Clear to auscultation Heart: Regular rate, Normal S1, Normal S2, No murmurs Abdomen: Normal bowel sounds, Soft Extremities: No edema Psych/Mental Status: Mental status NL Vitals VITALS Vital Signs Date Time Temp Pulse Resp B/P (MAP) Pulse Ox O2 Delivery O2 Flow Rate FiO2 02/14/18 14:24 98.7 63 18 136/82 (100) 100 Room Air 98.7 Labs Labs Laboratory Tests Test 02/13/18 00:05 02/13/18 15:45 02/13/18 19:40 02/14/18 04:05 Troponin I Quantitative 0.029 ng/mL (0.000-0.055) 0.026 ng/mL (0.000-0.055) 0.028 ng/mL (0.000-0.055) White Blood Count 6.5 x10^3/uL (4.0-11.0) 4.8 x10^3/uL (4.0-11.0) Red Blood Count 3.14 x10^6/uL (4.30-5.70) 2.89 x10^6/uL (4.30-5.70) Hemoglobin 10.1 g/dL (13.0-17.5) 9.4 g/dL (13.0-17.5) Hematocrit 29.5 % (39.0-53.0) 27.3 % (39.0-53.0) Mean Corpuscular Volume 94 fL (79-100) 95 fL (79-100) Mean Corpuscular Hemoglobin 32 pg (25-35) 33 pg (25-35) Mean Corpuscular Hemoglobin Concent 34 g/dL (31-37) 34 g/dL (31-37) Red Cell Distribution Width 13.1 % (11.5-14.5) 12.9 % (11.5-14.5) Platelet Count 199 x10^3/uL (140-400) 181 x10^3/uL (140-400) Neutrophils (%) (Auto) 75 % (31-73) 58 % (31-73) Lymphocytes (%) (Auto) 15 % (24-48) 27 % (24-48) Monocytes (%) (Auto) 7 % (0-9) 10 % (0-9) Eosinophils (%) (Auto) 3 % (0-3) 5 % (0-3) Basophils (%) (Auto) 1 % (0-3) 1 % (0-3) Neutrophils # (Auto) 4.8 x10^3uL (1.8-7.7) 2.8 x10^3uL (1.8-7.7) Lymphocytes # (Auto) 0.9 x10^3/uL (1.0-4.8) 1.3 x10^3/uL (1.0-4.8) Monocytes # (Auto) 0.5 x10^3/uL (0.0-1.1) 0.5 x10^3/uL (0.0-1.1) Eosinophils # (Auto) 0.2 x10^3/uL (0.0-0.7) 0.2 x10^3/uL (0.0-0.7) Basophils # (Auto) 0.1 x10^3/uL (0.0-0.2) 0.0 x10^3/uL (0.0-0.2) Prothrombin Time 12.8 SEC (11.7-14.0) Prothromb Time International Ratio 1.0 (0.8-1.1) Sodium Level 136 mmol/L (136-145) 138 mmol/L (136-145) Potassium Level 4.2 mmol/L (3.5-5.1) 4.1 mmol/L (3.5-5.1) Chloride Level 100 mmol/L (98-107) 102 mmol/L (98-107) Carbon Dioxide Level 29 mmol/L (21-32) 28 mmol/L (21-32) Anion Gap 7 (6-14) 8 (6-14) Blood Urea Nitrogen 23 mg/dL (8-26) 31 mg/dL (8-26) Creatinine 4.9 mg/dL (0.7-1.3) 7.4 mg/dL (0.7-1.3) Estimated GFR (Cockcroft-Gault) 15.1 9.4 BUN/Creatinine Ratio 5 (6-20) 4 (6-20) Glucose Level 114 mg/dL (70-99) 128 mg/dL (70-99) Calcium Level 9.3 mg/dL (8.5-10.1) 8.9 mg/dL (8.5-10.1) Magnesium Level 1.9 mg/dL (1.8-2.4) Total Bilirubin 1.1 mg/dL (0.2-1.0) 0.9 mg/dL (0.2-1.0) Aspartate Amino Transf (AST/SGOT) 22 U/L (15-37) 14 U/L (15-37) Alanine Aminotransferase (ALT/SGPT) 48 U/L (16-63) 35 U/L (16-63) Alkaline Phosphatase 66 U/L (46-116) 59 U/L (46-116) Total Protein 6.9 g/dL (6.4-8.2) 6.3 g/dL (6.4-8.2) Albumin 3.6 g/dL (3.4-5.0) 2.9 g/dL (3.4-5.0) Albumin/Globulin Ratio 1.1 (1.0-1.7) 0.9 (1.0-1.7) Laboratory Tests Test 02/13/18 19:40 02/14/18 04:05 Troponin I Quantitative 0.028 ng/mL (0.000-0.055) White Blood Count 4.8 x10^3/uL (4.0-11.0) Red Blood Count 2.89 x10^6/uL (4.30-5.70) Hemoglobin 9.4 g/dL (13.0-17.5) Hematocrit 27.3 % (39.0-53.0) Mean Corpuscular Volume 95 fL (79-100) Mean Corpuscular Hemoglobin 33 pg (25-35) Mean Corpuscular Hemoglobin Concent 34 g/dL (31-37) Red Cell Distribution Width 12.9 % (11.5-14.5) Platelet Count 181 x10^3/uL (140-400) Neutrophils (%) (Auto) 58 % (31-73) Lymphocytes (%) (Auto) 27 % (24-48) Monocytes (%) (Auto) 10 % (0-9) Eosinophils (%) (Auto) 5 % (0-3) Basophils (%) (Auto) 1 % (0-3) Neutrophils # (Auto) 2.8 x10^3uL (1.8-7.7) Lymphocytes # (Auto) 1.3 x10^3/uL (1.0-4.8) Monocytes # (Auto) 0.5 x10^3/uL (0.0-1.1) Eosinophils # (Auto) 0.2 x10^3/uL (0.0-0.7) Basophils # (Auto) 0.0 x10^3/uL (0.0-0.2) Sodium Level 138 mmol/L (136-145) Potassium Level 4.1 mmol/L (3.5-5.1) Chloride Level 102 mmol/L (98-107) Carbon Dioxide Level 28 mmol/L (21-32) Anion Gap 8 (6-14) Blood Urea Nitrogen 31 mg/dL (8-26) Creatinine 7.4 mg/dL (0.7-1.3) Estimated GFR (Cockcroft-Gault) 9.4 BUN/Creatinine Ratio 4 (6-20) Glucose Level 128 mg/dL (70-99) Calcium Level 8.9 mg/dL (8.5-10.1) Total Bilirubin 0.9 mg/dL (0.2-1.0) Aspartate Amino Transf (AST/SGOT) 14 U/L (15-37) Alanine Aminotransferase (ALT/SGPT) 35 U/L (16-63) Alkaline Phosphatase 59 U/L (46-116) Total Protein 6.3 g/dL (6.4-8.2) Albumin 2.9 g/dL (3.4-5.0) Albumin/Globulin Ratio 0.9 (1.0-1.7) Assessment/Plan Assessment/Plan Patient had near syncope. He appears to be asymptomatic at this time. I agree with possible discharge and then to see the patient as an outpatient and get a 24-hour Holter monitor. Thank you very much for asking me to participate in the care of this patient PRITI FLOWERS MD Feb 14, 2018 16:00
== END 2018-02-14 16:00 | disposition home or self-care (01) | DRG 308 ==
LOC: ER 15:28 → 6 SOUTH 16:45
PROVIDERS: ADMIT Internal Medicine; ATTEND Internal Medicine
DX: R00.1 Bradycardia, unspecified (principal); N18.6 End stage renal disease; I12.0 Hypertensive chronic kidney disease with stage 5 chronic kidney disease or end stage renal disease; N18.5 Chronic kidney disease, stage 5; D64.9 Anemia, unspecified; R55 Syncope and collapse; I95.9 Hypotension, unspecified; Z99.2 Dependence on renal dialysis; Z91.15 Patient's noncompliance with renal dialysis; Z82.49 Family history of ischemic heart disease and other diseases of the circulatory system
CPT/HCPCS: 36415; 71045; 80053; 83735; 84484; 85025; 85610; 93005; 99285-25

== ENCOUNTER 2018-02-17 08:25 | Emergency (ER) | payer OTHER ==
[~2018-02-17] VITALS: Ht 185.4 cm; Wt 113.4 kg
[~2018-02-17 08:25] MED LIST changes: +AMLO10TA2 PO; -AMLO10TA6 PO; -METF500T16 PO; +METF500T5 PO
--- NOTE | 2018-02-17 08:55 | PHYS DOC ---
Past Medical History Past Medical History: Diabetes-Type II, Hypertension, Renal Failure, Other Additional Past Medical Histor: RENAL INSUFFIENCY Past Surgical History: Cholecystectomy Alcohol Use: None Drug Use: None Adult General Chief Complaint Chief Complaint: Palpitations HPI HPI Patient is a 52 year old [male who is presenting with palpitations. He said that he was lying in bed this morning he felt like his heart was racing it lasted about 2 minutes at a time and then it went away on its own he had no chest pain no shortness of breath. He was worried because he is scheduled for a Holter monitor is supposed to call his patient case coordinator this week. He was seen here this weekend for bradycardia during dialysis and his metoprolol was discontinued. No fever no other complaints currently symptoms are somewhat but they're intermittent in nature. Review of Systems Review of Systems Constitutional: Denies fever or chills [] Eyes: Denies change in visual acuity, redness, or eye pain [] HENT: Denies nasal congestion or sore throat [] Respiratory: Denies cough or shortness of breath [] Cardiovascular: No additional information not addressed in HPI [] Musculoskeletal: Denies back pain or joint pain [] Integument: Denies rash or skin lesions [] Neurologic: Denies headache, focal weakness or sensory changes [] Endocrine: Denies polyuria or polydipsia [] All other systems were reviewed and found to be within normal limits, except as documented in this note. Current Medications Current Medications Current Medications Medications (Trade) Dose Ordered Sig/Evie Start Time Stop Time Status Last Admin Dose Admin Metoprolol Tartrate (Lopressor) 50 mg 1X ONCE 02/17/18 09:00 02/17/18 09:01 DC 02/17/18 09:28 50 MG Allergies Allergies Allergies Coded Allergies Type Severity Reaction Last Updated Verified No Known Drug Allergies 03/26/17 No Physical Exam Physical Exam Constitutional: Well developed, well nourished, no acute distress, non-toxic appearance. [] HENT: Normocephalic, atraumatic, bilateral external ears normal, oropharynx moist, no oral exudates, nose normal. [] Eyes: PERRLA, EOMI, conjunctiva normal, no discharge. [] Neck: Normal range of motion, no tenderness, supple, no stridor. [] Cardiovascular: Irregular no definite murmur. Lungs & Thorax: Bilateral breath sounds clear to auscultation [] Abdomen: Bowel sounds normal, soft, no tenderness, no masses, no pulsatile masses. [] Skin: Warm, dry, no erythema, no rash. [] Back: No tenderness, no CVA tenderness. [] Extremities: No tenderness, no cyanosis, no clubbing, ROM intact, 1+ bilateral edema Neurologic: Alert and oriented X 3, normal motor function, normal sensory function, no focal deficits noted. [] Psychologic: Affect normal, judgement normal, mood normal. [] Current Patient Data Vital Signs Vital Signs Date Time Temp Pulse Resp B/P (MAP) Pulse Ox O2 Delivery O2 Flow Rate FiO2 02/17/18 09:28 74 159/77 02/17/18 08:27 98.1 22 97 Room Air 98.1 Lab Values Laboratory Tests Test 02/17/18 09:10 02/17/18 09:40 White Blood Count 6.8 x10^3/uL (4.0-11.0) Red Blood Count 3.29 x10^6/uL (4.30-5.70) L Hemoglobin 10.6 g/dL (13.0-17.5) L Hematocrit 31.0 % (39.0-53.0) L Mean Corpuscular Volume 94 fL (79-100) Mean Corpuscular Hemoglobin 32 pg (25-35) Mean Corpuscular Hemoglobin Concent 34 g/dL (31-37) Red Cell Distribution Width 13.1 % (11.5-14.5) Platelet Count 202 x10^3/uL (140-400) Neutrophils (%) (Auto) 69 % (31-73) Lymphocytes (%) (Auto) 17 % (24-48) L Monocytes (%) (Auto) 8 % (0-9) Eosinophils (%) (Auto) 5 % (0-3) H Basophils (%) (Auto) 1 % (0-3) Neutrophils # (Auto) 4.7 x10^3uL (1.8-7.7) Lymphocytes # (Auto) 1.2 x10^3/uL (1.0-4.8) Monocytes # (Auto) 0.6 x10^3/uL (0.0-1.1) Eosinophils # (Auto) 0.3 x10^3/uL (0.0-0.7) Basophils # (Auto) 0.1 x10^3/uL (0.0-0.2) Prothrombin Time 12.8 SEC (11.7-14.0) Prothrombin Time INR 1.0 (0.8-1.1) Sodium Level 139 mmol/L (136-145) Potassium Level 4.2 mmol/L (3.5-5.1) Chloride Level 101 mmol/L (98-107) Carbon Dioxide Level 29 mmol/L (21-32) Anion Gap 9 (6-14) Blood Urea Nitrogen 39 mg/dL (8-26) H Creatinine 9.7 mg/dL (0.7-1.3) H Estimated GFR (Cockcroft-Gault) 6.9 BUN/Creatinine Ratio 4 (6-20) L Glucose Level 150 mg/dL (70-99) H Calcium Level 10.2 mg/dL (8.5-10.1) H Magnesium Level 2.1 mg/dL (1.8-2.4) Total Bilirubin 0.6 mg/dL (0.2-1.0) Aspartate Amino Transferase (AST) 15 U/L (15-37) Alanine Aminotransferase (ALT) 26 U/L (16-63) Alkaline Phosphatase 76 U/L (46-116) Troponin I Quantitative 0.043 ng/mL (0.000-0.055) NC-Mcd-U-Type Natriuretic Peptide 7239 pg/mL (0-124) H Total Protein 6.4 g/dL (6.4-8.2) Albumin 3.4 g/dL (3.4-5.0) Albumin/Globulin Ratio 1.1 (1.0-1.7) Laboratory Tests 02/17/18 09:10 Laboratory Tests 02/17/18 09:40 EKG EKG [] Interpretation Time: EKG shows a normal sinus rhythm rate of 87 no STEMI there is some irregularity with PACs but I believe this is sinus LVH Monitor interpretation: There is some heart rate anywhere from 70-110 with some irregularity suspect PACs. Radiology/Procedures Radiology/Procedures [] Course & Med Decision Making Course & Med Decision Making Pertinent Labs and Imaging studies reviewed. (See chart for details) [52-year-old male with a history of end-stage renal disease on hemodialysis hypertension who is presenting with palpitations. He does have some intermittent mild tachycardia with some premature atrial contractions but I do not see A. fib on the EKG. I think that this is from having him stop his metoprolol over the weekend when he was admitted with bradycardia. Final ER assessment and plan: Lab work is essentially unremarkable. Chest x-ray was clear patient had heart rates mainly in the 70s and 80s in the emergency room I think that he mostly just needs to get back on his metoprolol. I encouraged him to take to reinitiate a half of the previous dose he thinks it was 100 twice a day I also instructed him to see Dr. Carrera this week as scheduled for a Holter monitor. He is agreeable to this plan Dragon Disclaimer Dragon Disclaimer This electronic medical record was generated, in whole or in part, using a voice recognition dictation system. Departure Departure Impression: Primary Impression: Palpitations Disposition: 01 HOME, SELF-CARE Condition: STABLE Referrals: NO PCP (PCP) ANNABEL PENA MD Feb 17, 2018 08:55
--- NOTE | 2018-02-17 09:06 | RAD ---
EXAM: Chest, single view appear HISTORY: Shortness of air. COMPARISON: 02/13/2018 FINDINGS: A frontal view of the chest is obtained. There is no infiltrate, pleural effusion or pneumothorax. There is a stable suspected tortuous aortic arch. IMPRESSION: No acute pulmonary finding. Electronically signed by: Felisha Donaldson MD (02/17/2018 9:03 AM) [id number]
[2018-02-17 09:25] LABS: BASO # 0.1 x10^3/uL (0.0-0.2); BASO % 1 % (0-3); EOS # 0.3 x10^3/uL (0.0-0.7); EOS % 5 % (0-3); HEMOGLOBIN 10.6 g/dL (13.0-17.5); LYMPH # 1.2 x10^3/uL (1.0-4.8); LYMPH % 17 % (24-48); MEAN CORPUSCULAR HEMOGLOBIN 32 pg (25-35); MEAN CORPUSCULAR HGB CONC 34 g/dL (31-37); MEAN CORPUSCULAR VOLUME 94 fL (79-100); MONO # 0.6 x10^3/uL (0.0-1.1); MONO % 8 % (0-9); NEUT # 4.7 x10^3uL (1.8-7.7); NEUT % 69 % (31-73); PLATELET COUNT 202 x10^3/uL (140-400); RED BLOOD COUNT 3.29 x10^6/uL (4.30-5.70); RED CELL DISTRIBUTION WIDTH 13.1 % (11.5-14.5); WHITE BLOOD COUNT 6.8 x10^3/uL (4.0-11.0)
[2018-02-17] MEDS: METOPROLOL TART IMMED RELEASE 50 MG TABLET. PO ONE (09:28)
[2018-02-17 10:02] LABS: PROTHROMBIN TIME PATIENT 12.8 SEC (11.7-14.0)
[2018-02-17 10:06] LABS: ALBUMIN 3.4 g/dL (3.4-5.0); ALBUMIN/GLOBULIN RATIO 1.1 (1.0-1.7); CALCIUM 10.2 mg/dL (8.5-10.1); CREATININE 9.7 mg/dL (0.7-1.3); GFR 6.9; MAGNESIUM 2.1 mg/dL (1.8-2.4); POTASSIUM 4.2 mmol/L (3.5-5.1); TOTAL BILIRUBIN 0.6 mg/dL (0.2-1.0); TOTAL PROTEIN 6.4 g/dL (6.4-8.2)
[2018-02-17 11:00] VITALS: BP 165/88
--- NOTE | 2018-02-17 11:09 | EKG ---
[facility] [address] [place] [address] Test Date: 2018-02-17 Test Time: 08:35:03 Pat Name: MARYJANE GUZMAN Department: Room: Gender: M Lcpc: CHARISSA : 1965 Requested By: ANNABEL PENA Order Number: [id number] Reading MD: Trenton Ochoa MD Measurements Intervals [place] Rate: 87 P: -13 ID: 142 QRS: -34 QRSD: 100 T: 13 QT: 378 QTc: 455 Interpretive Statements SINUS RHYTHM LVH PAC'S Electronically Signed On 02-17-2018 12:41:48 CDT by Trenton Ochoa MD
== END 2018-02-17 11:10 | disposition home or self-care (01) ==
LOC: ER 08:25
DX: R00.2 Palpitations (principal); I12.9 Hypertensive chronic kidney disease with stage 1 through stage 4 chronic kidney disease, or unspecified chronic kidney disease; N18.9 Chronic kidney disease, unspecified; E11.22 Type 2 diabetes mellitus with diabetic chronic kidney disease
CPT/HCPCS: 36415; 71045; 80053; 83735; 83880; 84484; 85025; 85610; 93005; 99285-25

== ENCOUNTER → 2018-02-17 | Outpatient (CLI) | payer OTHER ==
[~2018-02-17] MED LIST changes: -AMLO10TA2 PO; +AMLO10TA6 PO; +METF500T16 PO; -METF500T5 PO; +SEVE800T9 PO
[2018-02-17 11:00] VITALS: BP 165/88
--- NOTE | 2018-02-24 11:01 | EKG ---
[facility] [address] [place] [address] Test Date: 2018-02-17 Test Time: 07:06:03 Pat Name: MARYJANE GUZMAN Department: Room: Gender: Teleprinter: : 1965 Requested By: PRITI FLOWERS Order Number: [id number] Reading MD: Salvador Baker Interpretive Statements Patient was in predominantly normal sinus rhythm with heart rate ranging from 52 bpm to 90 bpm with an average of 69 bpm. There were few premature ventricular ectopic beats noted accounting to less than 1% of the total number of beats. Supraventricular ectopic beats accounted to 1.7% of the total number of beats. No significant arrhythmias were seen. CONCLUSIONS Holter monitor did not show any significant arrhythmias. Electronically Signed On 04-15-2018 11:08:41 CDT by Salvador Baker
== END | disposition home or self-care (01) ==
LOC: EKG 11:47
PROVIDERS: ATTEND Internal Medicine Cardiovascular Disease
DX: R00.2 Palpitations (principal); I49.1 Atrial premature depolarization; I12.0 Hypertensive chronic kidney disease with stage 5 chronic kidney disease or end stage renal disease; N18.6 End stage renal disease; E11.22 Type 2 diabetes mellitus with diabetic chronic kidney disease; Z79.01 Long term (current) use of anticoagulants; Z79.84 Long term (current) use of oral hypoglycemic drugs; Z98.890 Other specified postprocedural states
CPT/HCPCS: 93225; 93226

== ENCOUNTER 2018-12-16 08:17 | Outpatient (CLI) | payer OTHER ==
[~2018-12-16] VITALS: Ht 182.9 cm; Wt 112.0 kg
[2018-12-16] VITALS (7 sets, daily range): BP systolic 140–174; BP diastolic 75–93
[~2018-12-16 08:17] MED LIST changes: -AMLO10TA2 PO; +AMLO10TA8 PO; -HYDR12.53 PO; +HYDR12.575 PO; +METF500T16 PO; -METF500T5 PO; -OXYC-323 PO; +OXYC1TAB15 PO
[2018-12-16 08:48] LABS: BASO # 0.1 x10^3/uL (0.0-0.2); BASO % 1 % (0-3); EOS # 0.2 x10^3/uL (0.0-0.7); EOS % 4 % (0-3); HEMATOCRIT 36.2 % (39.0-53.0); LYMPH # 1.2 x10^3/uL (1.0-4.8); LYMPH % 22 % (24-48); MEAN CORPUSCULAR HEMOGLOBIN 32 pg (25-35); MEAN CORPUSCULAR HGB CONC 33 g/dL (31-37); MEAN CORPUSCULAR VOLUME 98 fL (79-100); MONO # 0.5 x10^3/uL (0.0-1.1); MONO % 9 % (0-9); NEUT # 3.4 x10^3uL (1.8-7.7); NEUT % 63 % (31-73); PLATELET COUNT 196 x10^3/uL (140-400); RED BLOOD COUNT 3.69 x10^6/uL (4.30-5.70); RED CELL DISTRIBUTION WIDTH 15.5 % (11.5-14.5); WHITE BLOOD COUNT 5.4 x10^3/uL (4.0-11.0)
[2018-12-16] MEDS ORDERED: METO100T7 PO (08:52)
[2018-12-16 09:04] LABS: PROTHROMBIN TIME PATIENT 12.9 SEC (11.7-14.0)
[2018-12-16] MEDS ORDERED: LIDOCAINE WITH 8.4% SOD BICARB 3 ML DISP.SYRIN. ONE (09:47)
[2018-12-16] MEDS ORDERED: IODIXANOL 320 MG/ML 100 ML VIAL. ONE (09:47)
[2018-12-16] MEDS ORDERED: fentaNYL PF VIAL 100 MCG/2 ML VIAL ONE (09:54)
[2018-12-16] MEDS ORDERED: MIDAZOLAM HCL/PF 2 MG/2 ML VIAL. ONE (09:54)
[2018-12-16] MEDS ORDERED: HEPARIN for IV BOLUS 10,000 UNIT/10 ML VIAL. ONE (09:55)
[2018-12-16] MEDS ORDERED: IOHEXOL 240 MG/ML 100 ML VIAL. ONE (09:57)
[2018-12-16] MEDS ORDERED: LIDOCAINE WITH 8.4% SOD BICARB 3 ML DISP.SYRIN. IJ ONE (10:30)
[2018-12-16] MEDS ORDERED: HEPARIN for IV BOLUS 10,000 UNIT/10 ML VIAL. IV ONE (10:30)
[2018-12-16] MEDS ORDERED: IODIXANOL 320 MG/ML 100 ML VIAL. IART ONE (10:30)
[2018-12-16] MEDS ORDERED: MIDAZOLAM HCL/PF 2 MG/2 ML VIAL. IV ONE (10:30)
[2018-12-16] MEDS ORDERED: CONTRAST GIVEN. MC PRN (10:30)
[2018-12-16] MEDS ORDERED: fentaNYL PF VIAL 100 MCG/2 ML VIAL IV ONE (10:30)
--- NOTE | 2018-12-16 11:53 | RAD ---
12/16/2018 1.Left upper extremity AV fistulogram 2. Balloon angioplasty, outflow vein stenosis including previously stented cephalic arch Indication: Elevated pressures at dialysis Discussion: The risks and benefits of the procedure were discussed with the patient. Informed consent was obtained. A timeout procedure was performed. The left upper extremity was prepped and draped using maximum sterile barrier technique. 1% lidocaine was administered for local anesthesia. The left upper extremity AV fistula was accessed under direct ultrasound guidance. Reference ultrasound images were saved the medical record. A micropuncture sheath was placed. Fistulogram was were obtained demonstrating a moderate stenosis in the cephalic vein in the upper arm, as well as recurrent significant in-stent stenosis within the cephalic arch. More central veins were widely patent. Arterial anastomosis appears to be patent. A guidewire was advanced across the lesions. 6 Nepali sheath was placed. Balloon angioplasty was performed with a 6 mm balloon which resulted in improved morphology and flow through the previously stenosed areas. A pursestring suture was placed as the sheath was removed. Manual pressure was held. Sterile dressings were applied. No immediate complications were identified. The procedure was performed under conscious sedation including continuous cardiopulmonary monitoring via dedicated sedation nurse. [id number] sedation time: 37 minutes Fluoroscopy time: 2.5 MIN Dose area product: 54 Gycm2 Impression: Recurrent outflow vein stenosis, including the previously stented cephalic arch, treated with balloon angioplasty as described.
--- NOTE | 2018-12-16 11:58 | NUR ---
Discharge Note: GARY GUZMAN Discharge instructions and discharge home medications reviewed with Patient and a copy given. All questions have been answered and understanding verbalized. The following instructions and handouts were given: Dialysis Shunt malfunction and Moderate sedation Discontinued lines and drains: Peripheral IV intact. Patient discharged to Home or Self Care withSpousevia Wheelchair
== END 2018-12-16 12:00 | disposition home or self-care (01) ==
LOC: INTRAD 08:17
PROVIDERS: ATTEND Nurse Practitioner Adult Health
DX: T82.858A Stenosis of other vascular prosthetic devices, implants and grafts, initial encounter (principal); N18.6 End stage renal disease; Z79.01 Long term (current) use of anticoagulants; Y83.8 Other surgical procedures as the cause of abnormal reaction of the patient, or of later complication, without mention of misadventure at the time of the procedure; Y92.89 Other specified places as the place of occurrence of the external cause
CPT/HCPCS: 36415; 36902; 76937; 85025; 85610; 85730; 99152; 99153; C1725; C1769; C1892; C1894; J1644; J2250; J3010; Q9967

== ENCOUNTER 2019-06-16 12:53 | Emergency (ER) | payer OTHER ==
[~2019-06-16] VITALS: Ht 185.4 cm; Wt 112.0 kg
[~2019-06-16 12:53] MED LIST changes: -GLIM2TAB2 PO; +GLIM2TAB3 PO
[2019-06-16] MEDS ORDERED: VANCOMYCIN PER PHARMACY MC ONE (14:45)
[2019-06-16] MEDS: PIPERACILLIN/TAZOBACTAM 4.5 GM in IV NORMAL SALINE 100ML 100 ML IV ONE (15:00)
[2019-06-16 15:10] LABS: BASO # 0.1 x10^3/uL (0.0-0.2); BASO % 1 % (0-3); EOS # 0.2 x10^3/uL (0.0-0.7); EOS % 3 % (0-3); HEMOGLOBIN 10.2 g/dL (13.0-17.5); LYMPH % 15 % (24-48); MEAN CORPUSCULAR HEMOGLOBIN 33 pg (25-35); MEAN CORPUSCULAR HGB CONC 34 g/dL (31-37); MEAN CORPUSCULAR VOLUME 98 fL (79-100); MONO # 0.6 x10^3/uL (0.0-1.1); MONO % 9 % (0-9); NEUT # 4.9 x10^3/uL (1.8-7.7); NEUT % 72 % (31-73); PLATELET COUNT 235 x10^3/uL (140-400); RED BLOOD COUNT 3.05 x10^6/uL (4.30-5.70); RED CELL DISTRIBUTION WIDTH 13.4 % (11.5-14.5); WHITE BLOOD COUNT 6.8 x10^3/uL (4.0-11.0)
[2019-06-16 15:22] LABS: CALCIUM 9.8 mg/dL (8.5-10.1); CREATININE 11.3 mg/dL (0.7-1.3); GFR 5.7; POTASSIUM 4.5 mmol/L (3.5-5.1)
[2019-06-16 15:27] LABS: ALBUMIN 3.4 g/dL (3.4-5.0); ALBUMIN/GLOBULIN RATIO 0.8 (1.0-1.7); TOTAL BILIRUBIN 0.4 mg/dL (0.2-1.0); TOTAL PROTEIN 7.7 g/dL (6.4-8.2)
[2019-06-16] MEDS: VANCOMYCIN 2 GM in IV NORMAL SALINE 500ML BAG 500 ML IV ONE (15:30)
[2019-06-16] MEDS ORDERED: CEPH500T PO (16:09)
[2019-06-16] MEDS ORDERED: SULF1TAB23 PO (16:09)
--- NOTE | 2019-06-16 16:09 | PHYS DOC ---
Past Medical History Past Medical History: Diabetes-Type II, Hypertension, Renal Failure, Other Additional Past Medical Histor: RENAL INSUFFIENCY Past Surgical History: Cholecystectomy, Other Additional Past Surgical Histo: SHUNT IN LEFT ARM Alcohol Use: None Drug Use: None Adult General Chief Complaint Chief Complaint: LOWER EXT PAIN HPI HPI Patient is a 54 year old male with history of diabetes type 2, hypertension, renal failure on dialysis Thursday last dialyzed on Thursday who presents to the ED today with a wound on the right lower extremity for 7 days. Patient reports he could've slept wrong on his right lower extremity resulting into a pressure ulcer. Review of Systems Review of Systems Constitutional: Denies fever or chills [] Eyes: Denies change in visual acuity, redness, or eye pain [] HENT: Denies nasal congestion or sore throat [] Respiratory: Denies cough or shortness of breath [] Cardiovascular: No additional information not addressed in HPI [] GI: Denies abdominal pain, nausea, vomiting, bloody stools or diarrhea [] : Denies dysuria or hematuria [] Musculoskeletal: Denies back pain or joint pain [] Integument: Reports wound to the right lower extremity Neurologic: Denies headache, focal weakness or sensory changes [] All other systems were reviewed and found to be within normal limits, except as documented in this note. Current Medications Current Medications Current Medications Medications (Trade) Dose Ordered Sig/Evie Start Time Stop Time Status Last Admin Dose Admin Ceftriaxone Sodium (Rocephin Im) 1 gm 1X ONCE 06/16/19 16:15 06/16/19 16:16 Lidocaine HCl (Xylocaine-Mpf 1% 2ml Vial) 2 ml 1X ONCE 06/16/19 16:15 06/16/19 16:16 Morphine Sulfate (Morphine Sulfate) 4 mg PRN Q15MIN PRN 06/16/19 14:45 06/17/19 14:44 Piperacillin Sod/ Tazobactam Sod 4.5 gm/Sodium Chloride 100 ml @ 200 mls/hr 1X ONCE 06/16/19 15:00 06/16/19 15:29 DC Vancomycin HCl (Vanco Per Pharmacy) 1 each 1X ONCE 06/16/19 14:45 06/16/19 14:46 DC Vancomycin HCl 2 gm/Sodium Chloride 500 ml @ 250 mls/hr 1X ONCE 06/16/19 15:30 06/16/19 17:29 Allergies Allergies Allergies Coded Allergies Type Severity Reaction Last Updated Verified No Known Drug Allergies 03/26/17 No Physical Exam Physical Exam Constitutional: Well developed, well nourished, no acute distress, non-toxic appearance. [] HENT: Normocephalic, atraumatic, bilateral external ears normal, oropharynx moist, no oral exudates, nose normal. [] Eyes: PERRLA, EOMI, conjunctiva normal, no discharge. [] Neck: Normal range of motion, no tenderness, supple, no stridor. [] Cardiovascular:Heart rate regular rhythm, no murmur [] Lungs & Thorax: Bilateral breath sounds clear to auscultation [] Abdomen: Bowel sounds normal, soft, no tenderness, no masses, no pulsatile masses. [] Skin: Left upper extremity with dialysis fistula with positive bruit and thrill. Right lateral lower extremity just below the calf with an open wound approximately 4 x 2 cm. The center appears to have an eschar, there is surrounding approximately 2 cm of cellulitis. There is no obvious drainage. Back: No tenderness, no CVA tenderness. [] Extremities: No tenderness, no cyanosis, no clubbing, ROM intact, no edema. [] Neurologic: Alert and oriented X 3, normal motor function, normal sensory function, no focal deficits noted. [] Psychologic: Affect normal, judgement normal, mood normal. [] Current Patient Data Vital Signs Vital Signs Date Time Temp Pulse Resp B/P (MAP) Pulse Ox O2 Delivery O2 Flow Rate FiO2 06/16/19 14:28 98.2 61 18 188/98 (128) 97 Room Air 98.2 Lab Values Laboratory Tests Test 06/16/19 14:48 White Blood Count 6.8 x10^3/uL (4.0-11.0) Red Blood Count 3.05 x10^6/uL (4.30-5.70) L Hemoglobin 10.2 g/dL (13.0-17.5) L Hematocrit 30.0 % (39.0-53.0) L Mean Corpuscular Volume 98 fL (79-100) Mean Corpuscular Hemoglobin 33 pg (25-35) Mean Corpuscular Hemoglobin Concent 34 g/dL (31-37) Red Cell Distribution Width 13.4 % (11.5-14.5) Platelet Count 235 x10^3/uL (140-400) Neutrophils (%) (Auto) 72 % (31-73) Lymphocytes (%) (Auto) 15 % (24-48) L Monocytes (%) (Auto) 9 % (0-9) Eosinophils (%) (Auto) 3 % (0-3) Basophils (%) (Auto) 1 % (0-3) Neutrophils # (Auto) 4.9 x10^3/uL (1.8-7.7) Lymphocytes # (Auto) 1.0 x10^3/uL (1.0-4.8) Monocytes # (Auto) 0.6 x10^3/uL (0.0-1.1) Eosinophils # (Auto) 0.2 x10^3/uL (0.0-0.7) Basophils # (Auto) 0.1 x10^3/uL (0.0-0.2) Sodium Level 140 mmol/L (136-145) Potassium Level 4.5 mmol/L (3.5-5.1) Chloride Level 101 mmol/L (98-107) Carbon Dioxide Level 27 mmol/L (21-32) Anion Gap 12 (6-14) Blood Urea Nitrogen 66 mg/dL (8-26) H Creatinine 11.3 mg/dL (0.7-1.3) H Estimated GFR (Cockcroft-Gault) 5.7 BUN/Creatinine Ratio 6 (6-20) Glucose Level 138 mg/dL (70-99) H Lactic Acid Level 0.6 mmol/L (0.4-2.0) Calcium Level 9.8 mg/dL (8.5-10.1) Total Bilirubin 0.4 mg/dL (0.2-1.0) Aspartate Amino Transferase (AST) 14 U/L (15-37) L Alanine Aminotransferase (ALT) 21 U/L (16-63) Alkaline Phosphatase 90 U/L (46-116) Total Protein 7.7 g/dL (6.4-8.2) Albumin 3.4 g/dL (3.4-5.0) Albumin/Globulin Ratio 0.8 (1.0-1.7) L Laboratory Tests 06/16/19 14:48 Laboratory Tests 06/16/19 14:48 EKG EKG [] Radiology/Procedures Radiology/Procedures [] Course & Med Decision Making Course & Med Decision Making Pertinent Labs and Imaging studies reviewed. (See chart for details) This is a 54-year-old male patient presented to the ED today with a wound on the right lower extremity. CBC with an number WBC, CMP with creatinine and BUN consistent of renal failure. Patient's temperature is normal, lactic is normal. Was given 1 g of Rocephin in the ED. Will be discharged with cephalexin and Bactrim. Follow-up with PCP in the course of next week and [facility] enter Wound clinic. Dragon Disclaimer Dragon Disclaimer This electronic medical record was generated, in whole or in part, using a voice recognition dictation system. Departure Departure Impression: Primary Impression: ESRD (end stage renal disease) on dialysis Additional Impressions: Lower extremity cellulitis Wound of lower extremity Disposition: HOME, SELF-CARE Condition: STABLE Referrals: YOANNA FAUST MD (PCP) Follow-up with [facility] wound clinic next week. Please call [facility] tomorrow and set up a follow up appointment Patient Instructions: Wound Care, [id number] Additional Instructions: You were evaluated in the medicine for wound on the right lower extremity. Please take the prescribed antibiotics until completed. Follow-up with [facility] wound clinic next week. Their phone number is [phone]. Please call before showing up. Scripts Sulfamethoxazole/Trimethoprim (BACTRIM 400-80 MG TABLET) 1 Each Tablet 1 TAB PO BID for 10 Days, #20 TAB 0 Refills Prov: CHRISTIAN SANTOS APRN 06/16/19 Cephalexin (CEPHALEXIN) 500 Mg Tablet 1 TAB PO TID, #30 TAB Prov: CHRISTIAN SANTOS APRN 06/16/19 Problem Qualifiers Additional Impressions: Lower extremity cellulitis Laterality: right Qualified Codes: L03.115 - Cellulitis of right lower limb Wound of lower extremity Encounter type: initial encounter Laterality: right Qualified Codes: S81.801A - Unspecified open wound, right lower leg, initial encounter CHRISTIAN SANTOS APRN Jun 16, 2019 16:09
[2019-06-16] MEDS ORDERED: HYDR-3164 PO (16:11)
[2019-06-16] MEDS ORDERED: LIDOCAINE 1% PF 2 ML VIAL. INJ ONE (16:15)
[2019-06-16] MEDS: cefTRIAXone IM 1 GM VIAL IM ONE (16:17)
[2019-06-16] MEDS: MORPHINE SULFATE 4 MG/ML VIAL. IV/SQ PRN (16:17)
[2019-06-16 16:56] VITALS: BP 172/74
== END 2019-06-16 17:00 | disposition home or self-care (01) ==
LOC: ER 12:53
DX: S81.801A Unspecified open wound, right lower leg, initial encounter (principal); L03.115 Cellulitis of right lower limb; I12.0 Hypertensive chronic kidney disease with stage 5 chronic kidney disease or end stage renal disease; E11.22 Type 2 diabetes mellitus with diabetic chronic kidney disease; N18.6 End stage renal disease; Z99.2 Dependence on renal dialysis; Z90.49 Acquired absence of other specified parts of digestive tract; X58.XXXA Exposure to other specified factors, initial encounter; Y93.89 Activity, other specified; Y92.89 Other specified places as the place of occurrence of the external cause; Y99.8 Other external cause status
CPT/HCPCS: 36415; 80053; 83605; 84145; 85025; 87040; 96372; 96374; 99284; J0696; J2270

== ENCOUNTER 2019-07-11 19:48 | Emergency (ER) | payer OTHER, MEDICARE ==
[~2019-07-11] VITALS: Ht 185.4 cm; Wt 113.4 kg
[~2019-07-11 19:48] MED LIST changes: +CEPH500T PO; -GLIM2TAB3 PO; +GLIM2TAB7 PO; +HYDR-3164 PO; +SULF1TAB23 PO
[2019-07-11 20:39] LABS: BASO # 0.1 x10^3/uL (0.0-0.2); BASO % 1 % (0-3); EOS # 0.2 x10^3/uL (0.0-0.7); EOS % 3 % (0-3); HEMATOCRIT 24.6 % (39.0-53.0); HEMOGLOBIN 8.6 g/dL (13.0-17.5); LYMPH # 1.4 x10^3/uL (1.0-4.8); LYMPH % 20 % (24-48); MEAN CORPUSCULAR HEMOGLOBIN 34 pg (25-35); MEAN CORPUSCULAR HGB CONC 35 g/dL (31-37); MEAN CORPUSCULAR VOLUME 98 fL (79-100); MONO # 0.6 x10^3/uL (0.0-1.1); MONO % 8 % (0-9); NEUT # 4.6 x10^3/uL (1.8-7.7); NEUT % 67 % (31-73); PLATELET COUNT 228 x10^3/uL (140-400); RED BLOOD COUNT 2.52 x10^6/uL (4.30-5.70); RED CELL DISTRIBUTION WIDTH 13.7 % (11.5-14.5); WHITE BLOOD COUNT 6.8 x10^3/uL (4.0-11.0)
[2019-07-11] MEDS ORDERED: OXYC1TAB19 PO (21:01)
--- NOTE | 2019-07-11 21:01 | PHYS DOC ---
Past Medical History Past Medical History: Diabetes-Type II, Hypertension, Renal Failure, Other Additional Past Medical Histor: RENAL INSUFFIENCY Past Surgical History: Cholecystectomy, Other Additional Past Surgical Histo: SHUNT IN LEFT ARM Alcohol Use: None Drug Use: None Adult General Chief Complaint Chief Complaint: LOWER EXT PAIN [facility] HPI Patient is a 54 year old male who presents with complaint of right lower extremity ulceration/sore that has been present for a little over a month. Patient states that he has been having increase in pain associated with the sore. Patient has been seeing wound care and has had no fever or other signs of infection. He rates pain at an 8 out of 10. Review of Systems Review of Systems Constitutional: Denies fever or chills [] Respiratory: Denies cough or shortness of breath [] Cardiovascular: No additional information not addressed in HPI [] Musculoskeletal: Positive right lower leg ulceration and pain [] Integument: Ulcerative lesion right lower leg[] Neurologic: Denies headache, focal weakness or sensory changes [] Allergies Allergies Allergies Coded Allergies Type Severity Reaction Last Updated Verified No Known Drug Allergies 03/26/17 No Physical Exam Physical Exam Constitutional: Well developed, well nourished, no acute distress, non-toxic appearance. [] HENT: Normocephalic, atraumatic, bilateral external ears normal, oropharynx moist, no oral exudates, nose normal. [] Eyes: PERRLA, EOMI, conjunctiva normal, no discharge. [] Neck: Normal range of motion, no tenderness, supple, no stridor. [] Cardiovascular: Regular rate and rhythm[] Lungs & Thorax: Bilateral breath sounds clear to auscultation [] Abdomen: Bowel sounds normal, soft, no pulsatile masses. [] Skin: Warm, dry, no erythema, no rash. [] Extremities: Right lower leg demonstrates ulceration to the lateral aspect of lower leg with granulation tissue present. No signs of infection noted. [] Neurologic: Alert and oriented X 3, no focal deficits noted. [] Current Patient Data Lab Values Laboratory Tests Test 07/11/19 20:33 White Blood Count 6.8 x10^3/uL (4.0-11.0) Red Blood Count 2.52 x10^6/uL (4.30-5.70) L Hemoglobin 8.6 g/dL (13.0-17.5) L Hematocrit 24.6 % (39.0-53.0) L Mean Corpuscular Volume 98 fL (79-100) Mean Corpuscular Hemoglobin 34 pg (25-35) Mean Corpuscular Hemoglobin Concent 35 g/dL (31-37) Red Cell Distribution Width 13.7 % (11.5-14.5) Platelet Count 228 x10^3/uL (140-400) Neutrophils (%) (Auto) 67 % (31-73) Lymphocytes (%) (Auto) 20 % (24-48) L Monocytes (%) (Auto) 8 % (0-9) Eosinophils (%) (Auto) 3 % (0-3) Basophils (%) (Auto) 1 % (0-3) Neutrophils # (Auto) 4.6 x10^3/uL (1.8-7.7) Lymphocytes # (Auto) 1.4 x10^3/uL (1.0-4.8) Monocytes # (Auto) 0.6 x10^3/uL (0.0-1.1) Eosinophils # (Auto) 0.2 x10^3/uL (0.0-0.7) Basophils # (Auto) 0.1 x10^3/uL (0.0-0.2) C-Reactive Protein, Quantitative 4.4 mg/L (0-3.3) H Laboratory Tests 07/11/19 20:33 EKG EKG [] Radiology/Procedures Radiology/Procedures [] Course & Med Decision Making Course & Med Decision Making Pertinent Labs and Imaging studies reviewed. (See chart for details) [] Dragon Disclaimer Dragon Disclaimer This electronic medical record was generated, in whole or in part, using a voice recognition dictation system. Departure Departure Impression: Primary Impression: Wound of lower extremity Disposition: HOME, SELF-CARE Condition: STABLE Referrals: YOANNA FAUST MD (PCP) Patient Instructions: Wound Check Scripts Oxycodone/Apap 7.5-325 (PERCOCET 7.5-325 MG TABLET ) 1 Each Tablet 1 TAB PO PRN Q6HRS PRN for PAIN, #12 TAB 0 Refills Prov: QUE AYALA Jr. DO 07/11/19 Problem Qualifiers Primary Impression: Wound of lower extremity Encounter type: subsequent encounter Laterality: right Qualified Codes: S81.801D - Unspecified open wound, right lower leg, subsequent encounter QUE AYALA Jr. DO Jul 11, 2019 21:01
[2019-07-11 21:07] VITALS: BP 176/83
--- NOTE | 2019-07-12 06:50 | EKG ---
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
== END 2019-07-11 21:14 | disposition home or self-care (01) ==
LOC: ER 19:48
DX: E11.622 Type 2 diabetes mellitus with other skin ulcer (principal); L97.818 Non-pressure chronic ulcer of other part of right lower leg with other specified severity; L92.9 Granulomatous disorder of the skin and subcutaneous tissue, unspecified; I12.9 Hypertensive chronic kidney disease with stage 1 through stage 4 chronic kidney disease, or unspecified chronic kidney disease; E11.22 Type 2 diabetes mellitus with diabetic chronic kidney disease; N18.9 Chronic kidney disease, unspecified; Z90.49 Acquired absence of other specified parts of digestive tract
CPT/HCPCS: 36415; 85025; 86140; 93005; 99285-25

== ENCOUNTER 2019-07-16 22:40 | Emergency (ER) | payer MEDICARE, OTHER ==
[~2019-07-16] VITALS: Ht 185.4 cm; Wt 114.0 kg
[~2019-07-16 22:40] MED LIST changes: +OXYC1TAB19 PO
[2019-07-16 22:53] VITALS: BP 199/96
--- NOTE | 2019-07-16 23:19 | PHYS DOC ---
Past Medical History Past Medical History: Diabetes-Type II, Hypertension, Renal Failure, Other Additional Past Medical Histor: RENAL INSUFFIENCY Past Surgical History: Cholecystectomy, Other Additional Past Surgical Histo: SHUNT IN LEFT ARM Alcohol Use: None Drug Use: None Adult General Chief Complaint Chief Complaint: WOUND CHECK HPI HPI Patient is a 54 year old male who presents with has a right lower leg wound that he is seen at the wound clinic for. He was seen at the clinic Thursday. He stated to the doctor that is very painful and they wrote him hydrocodone. Patient states that the hydrocodone is not handling the pain and will make him sleep but he'll wake up in pain again. States previously to that it was Percocet and he states that Percocet home the pain some but did not take the pain away. He denies any numbness or tingling or skin color changes. Denies any calf pain. Patient rates his pain a 10 out of 10. Review of Systems Review of Systems Musculoskeletal: Right lower leg. Denies back pain or joint pain [] Integument: Right lower leg wound. Denies rash or skin lesions [] All other systems were reviewed and found to be within normal limits, except as documented in this note. Current Medications Current Medications Current Medications Medications (Trade) Dose Ordered Sig/Evie Start Time Stop Time Status Last Admin Dose Admin Morphine Sulfate (Morphine Sulfate) 5 mg 1X ONCE 07/17/19 00:30 07/17/19 00:31 DC 07/17/19 00:40 5 MG Allergies Allergies Allergies Coded Allergies Type Severity Reaction Last Updated Verified No Known Drug Allergies 03/26/17 No Physical Exam Physical Exam Constitutional: Well developed, well nourished, no acute distress, non-toxic appearance. [] HENT: Normocephalic, atraumatic, bilateral external ears normal, oropharynx moist, no oral exudates, nose normal. [] Eyes: PERRLA, EOMI, conjunctiva normal, no discharge. [] Neck: Normal range of motion, no tenderness, supple, no stridor. [] Cardiovascular:Heart rate regular rhythm, no murmur [] Lungs & Thorax: Bilateral breath sounds clear to auscultation [] Abdomen: Bowel sounds normal, soft, no tenderness, no masses, no pulsatile masses. [] Skin: Dressed wound to right lower leg. Warm, dry, no erythema, no rash. [] Back: No tenderness, no CVA tenderness. [] Extremities: No tenderness, no cyanosis, no clubbing, ROM intact, 2+ edema. [] Neurologic: Alert and oriented X 3, normal motor function, normal sensory function, no focal deficits noted. [] Psychologic: Affect normal, judgement normal, mood normal. [] Current Patient Data Vital Signs Vital Signs Date Time Temp Pulse Resp B/P (MAP) Pulse Ox O2 Delivery O2 Flow Rate FiO2 07/17/19 00:40 16 98 07/16/19 22:53 98.2 61 199/96 (130) 98.2 EKG EKG [] Radiology/Procedures Radiology/Procedures [] Impressions: [facility] [address] [place] [address] IMAGING REPORT Signed PATIENT: MARYJANE GUZMAN ACCOUNT: [id number] : 1965 LOCATION: ER AGE: 54 SEX: M EXAM STATUS: REG ER ORD. PHYSICIAN: ROSALINA BAPTISTE APRN REASON: swelling, wound present PROCEDURE: VENOUS LOWER EXTREMITY RIGHT CLINICAL HISTORY: Right lower extremity swelling COMPARISON: None available. TECHNIQUE: Ultrasound evaluation of the right lower extremity was performed from the groin to the upper calf with adams scale, spectral and color doppler evaluation. FINDINGS: The right common femoral vein, and femoral vein, including the saphenous-femoral junction are normal in appearance. Color and spectral Doppler evaluation demonstrates normal spontaneous flow, augmentation and phasicity. The right popliteal vein and visualized calf veins also demonstrate normal compressibility and flow. IMPRESSION: 1. No evidence for DVT in the right lower extremity. Electronically signed by: Ej Arzola MD (07/17/2019 12:50 AM) [id number] DICTATED and SIGNED BY: EJ ARZOLA MD DATE: 07/17/1949 Course & Med Decision Making Course & Med Decision Making Alert and oriented. Speaks in full clear sentences. Denies chest pain, shortness breath, dizziness, headache, nausea, vomiting, abdominal pain, fever, numbness or tingling. There is 2+ swelling compared to the left leg. Skin pink warm and dry. Popliteal pulse present. Patient states this is the same swelling as before and it has gotten worse. Patient states he has sharp shooting throbbing pain around where the wound is and slightly wraps around. The wound to the right lower leg is addressed by wound care. Xray read by Dr Sun as no obvious acute findings. Ultrasound shows no DVT. I have discussed findings with Dr Sun and I have also told him that he was just given Hydrocodone [address] Sun himself had given him percocet on the . He states to give him more percocet and call his physician in the morning. We did not give the patient Gabapentin due to his kidney function. I did educate the patient again to not take the hydrocodone and oxycodone together. Patient states his understanding. Dragon Disclaimer Dragon Disclaimer This electronic medical record was generated, in whole or in part, using a voice recognition dictation system. Departure Departure Impression: Primary Impression: Wound of lower extremity Disposition: HOME, SELF-CARE Condition: STABLE Referrals: YOANNA FAUST MD (PCP) Patient Instructions: Chronic Pain Management-Brief Additional Instructions: Call Pain clinic on Thursday for follow up concerning pain control. Do NOT take Hydrocodone and Percocet together. Scripts Oxycodone/Apap 5-325 (PERCOCET 5-325 MG TABLET ) 1 Each Tablet 1 TAB PO PRN Q6HRS PRN for PAIN, #10 TAB 0 Refills Prov: ROSALINA BAPTISTE APRN 07/17/19 Problem Qualifiers Primary Impression: Wound of lower extremity Encounter type: initial encounter Laterality: right Qualified Codes: S81.801A - Unspecified open wound, right lower leg, initial encounter ROSALINA BAPTISTE APRN Jul 16, 2019 23:19
[2019-07-17] MEDS ORDERED: MORPHINE SULFATE 10 MG/ML VIAL. IM ONE (00:30)
[2019-07-17] MEDS ORDERED: OXYC1TAB15 PO (00:41)
--- NOTE | 2019-07-17 00:53 | RAD ---
CLINICAL HISTORY: Right lower extremity swelling COMPARISON: None available. TECHNIQUE: Ultrasound evaluation of the right lower extremity was performed from the groin to the upper calf with adams scale, spectral and color doppler evaluation. FINDINGS: The right common femoral vein, and femoral vein, including the saphenous-femoral junction are normal in appearance. Color and spectral Doppler evaluation demonstrates normal spontaneous flow, augmentation and phasicity. The right popliteal vein and visualized calf veins also demonstrate normal compressibility and flow. IMPRESSION: 1. No evidence for DVT in the right lower extremity. Electronically signed by: Ej Galicia MD (07/17/2019 12:50 AM) [place] [id number]
--- NOTE | 2019-07-17 00:56 | RAD ---
EXAM: AP and lateral views right tibia/fibula DATE: 07/16/2019 11:28 PM INDICATION: Wound, right lower extremity pain COMPARISON: No Prior FINDINGS: Atherosclerotic vascular calcifications are seen. No evidence of acute fracture or dislocation. Right knee joint osteoarthritis. Chondrocalcinosis. Soft tissue swelling about the right lower leg. IMPRESSION: Soft tissue swelling about the right lower leg. No evidence of acute fracture or dislocation. Electronically signed by: Ej Galicia MD (07/17/2019 12:52 AM) [facility]
== END 2019-07-17 01:35 | disposition home or self-care (01) ==
LOC: ER 22:40
DX: S81.801D Unspecified open wound, right lower leg, subsequent encounter (principal); E11.9 Type 2 diabetes mellitus without complications; I10 Essential (primary) hypertension; N19 Unspecified kidney failure; Z90.49 Acquired absence of other specified parts of digestive tract; Z98.890 Other specified postprocedural states; X58.XXXD Exposure to other specified factors, subsequent encounter
CPT/HCPCS: 73590; 93971; 96372; 99284; J2270

== ENCOUNTER 2019-07-18 22:46 | Emergency (ER) | payer MEDICARE, OTHER | END 2019-07-19 03:50 | disposition left against medical advice (07) | LOC: ER 22:46 | DX: M79.606 Pain in leg, unspecified (principal); Z53.21 Procedure and treatment not carried out due to patient leaving prior to being seen by health care provider ==

== ENCOUNTER 2019-11-03 19:29 | Emergency (ER) | payer MEDICARE, OTHER ==
[~2019-11-03] VITALS: Ht 182.9 cm; Wt 103.2 kg
[~2019-11-03 19:29] MED LIST changes: +AMOX1TAB10 PO; +ASCO500T4 PO; +ASPI-612 PO; +ATOR40TA59 PO; +ISOS30TA4 PO; +LISI-130 PO; +MULT1TAB90 PO; +[UNRECOGNIZED DRUG - CODE] IV
--- NOTE | 2019-11-03 20:11 | PHYS DOC ---
Past Medical History Past Medical History: Asthma, Diabetes-Type II, Hypertension, Renal Failure, Other Additional Past Medical Histor: RENAL INSUFFIENCY Past Surgical History: Cholecystectomy, Other Additional Past Surgical Histo: SHUNT IN LEFT ARM Smoking Status: Never Smoker Alcohol Use: None Drug Use: None General Adult EDM: Chief Complaint: GROIN PAIN HPI: HPI: 54-year-old male presents with chief complaint of right groin pain. Patient states he has had pain suddenly on Thursday. Patient states pain had resolved on Thursday but returned today. Prior to arrival patient was working on the floor when he started to have intense pain in the groin. Patient states pain then radiated to the right testicle. Patient states pain is exacerbated by heavy lifting, coughing sneezing. Patient admits to heavy lifting while at work. On exam I did not feel any large inguinal or femoral hernia. Review of Systems: Review of Systems: Constitutional: Denies fever or chills. [] Eyes: Denies change in visual acuity. [] HENT: Denies nasal congestion or sore throat. [] Respiratory: Denies cough or shortness of breath. [] Cardiovascular: Denies chest pain or edema. [] GI: Denies abdominal pain, nausea, vomiting, bloody stools or diarrhea. [] : Denies dysuria. [Positive groin pain] Musculoskeletal: Denies back pain or joint pain. [] Integument: Denies rash. [] Neurologic: Denies headache, focal weakness or sensory changes. [] Endocrine: Denies polyuria or polydipsia. [] Lymphatic: Denies swollen glands. [] Psychiatric: Denies depression or anxiety. [] Heart Score: Risk Factors: Risk Factors: DM, Current or recent (<one month) smoker, HTN, HLP, family history of CAD, obesity. Risk Scores: Score 0 - 3: 2.5% MACE over next 6 weeks - Discharge Home Score 4 - 6: 20.3% MACE over next 6 weeks - Admit for Clinical Observation Score 7 - 10: 72.7% MACE over next 6 weeks - Early Invasive Strategies Allergies: Allergies: Allergies Coded Allergies Type Severity Reaction Last Updated Verified No Known Drug Allergies 03/26/17 No Physical Exam: PE: Constitutional: Well developed, well nourished, no acute distress, non-toxic appearance. [] HENT: Normocephalic, atraumatic, bilateral external ears normal, oropharynx moist, no oral exudates, nose normal. [] Eyes: PERRLA, EOMI, conjunctiva normal, no discharge. [] Neck: Normal range of motion, no tenderness, supple, no stridor. [] Cardiovascular:Heart rate regular rhythm, no murmur [] Lungs & Thorax: Bilateral breath sounds clear to auscultation [] Abdomen: Bowel sounds normal, soft, no tenderness, no masses, no pulsatile masses. [] Skin: Warm, dry, no erythema, no rash. [] Back: No tenderness, no CVA tenderness. [] Extremities: No tenderness, no cyanosis, no clubbing, ROM intact, no edema. [] Neurologic: Alert and oriented X 3, normal motor function, normal sensory function, no focal deficits noted. [] Psychologic: Affect normal, judgement normal, mood normal. [] Current Patient Data: Vital Signs: Vital Signs Date Time Temp Pulse Resp B/P (MAP) Pulse Ox O2 Delivery O2 Flow Rate FiO2 11/03/19 19:32 98.5 58 16 159/77 (104) 98 Room Air 98.5 EKG: EKG: [] Radiology/Procedures: Radiology/Procedures: [] Course & Med Decision Making: Course & Med Decision Making Pertinent Labs and Imaging studies reviewed. (See chart for details) []Patient underwent labs and ct. CT results discussed with patient. Patient pain treated with Toradol. Patient Discharged home to follow up with General Surgery. Rx [place]. Frieda Disclaimer: Frieda Disclaimer: This electronic medical record was generated, in whole or in part, using a voice recognition dictation system. Departure Departure Impression: Primary Impression: Hernia Additional Impression: Inguinal hernia Disposition: HOME, SELF-CARE Condition: STABLE Referrals: YOANNA FAUST MD (PCP) CRAIG MONTEZ MD Patient Instructions: Inguinal Hernia, Adult Scripts Hydrocodone/Apap 5-325 (NORCO 5-325 TABLET) 1 Each Tablet 1 TAB PO PRN Q6HRS PRN for PAIN for 10 Days, #20 TAB 0 Refills Prov: HIROVIRGIE Joey WRIGHT 11/03/19 HIROVIRGIE Joey WRIGHT November 03, 2019 20:11
[2019-11-03 20:52] LABS: BASO # 0.1 x10^3/uL (0.0-0.2); BASO % 1 % (0-3); EOS # 0.3 x10^3/uL (0.0-0.7); EOS % 4 % (0-3); HEMATOCRIT 37.2 % (39.0-53.0); LYMPH # 1.3 x10^3/uL (1.0-4.8); LYMPH % 18 % (24-48); MEAN CORPUSCULAR HEMOGLOBIN 31 pg (25-35); MEAN CORPUSCULAR HGB CONC 32 g/dL (31-37); MEAN CORPUSCULAR VOLUME 96 fL (79-100); MONO # 0.7 x10^3/uL (0.0-1.1); MONO % 10 % (0-9); NEUT # 4.8 x10^3/uL (1.8-7.7); NEUT % 68 % (31-73); PLATELET COUNT 243 x10^3/uL (140-400); RED BLOOD COUNT 3.87 x10^6/uL (4.30-5.70); WHITE BLOOD COUNT 7.1 x10^3/uL (4.0-11.0)
[2019-11-03] MEDS: KETOROLAC 30 MG/ML VIAL. IVP ONE (21:01)
[2019-11-03 21:03] LABS: CALCIUM 9.7 mg/dL (8.5-10.1); CREATININE 9.4 mg/dL (0.7-1.3); GFR 7.1; POTASSIUM 4.3 mmol/L (3.5-5.1)
[2019-11-03 21:10] LABS: ALBUMIN 3.5 g/dL (3.4-5.0); ALBUMIN/GLOBULIN RATIO 1.1 (1.0-1.7); TOTAL BILIRUBIN 0.5 mg/dL (0.2-1.0); TOTAL PROTEIN 6.8 g/dL (6.4-8.2)
[2019-11-03] MEDS: IOHEXOL 300 MG/ML 100ML VIAL. IV ONE (21:22)
[2019-11-03] MEDS ORDERED: CONTRAST GIVEN. MC PRN (21:30)
--- NOTE | 2019-11-03 21:53 | RAD ---
INDICATION: Right inguinal pain COMPARISON: June 2013 TECHNIQUE: Axial CT images obtained through the abdomen and pelvis with contrast. One or more of the following individualized dose reduction techniques were utilized for this examination: 1. Automated exposure control; 2. Adjustment of the mA and/or kV according to patient size; 3. Use of iterative reconstruction technique. FINDINGS: Partial visualization of coronary artery calcific atherosclerosis. Calcified plaque is seen throughout the vasculature. Within the right upper thigh anteriorly within the musculature there is a fat-containing masslike area identified measuring approximately 70 x 40 mm. Postcholecystectomy changes. No perihepatic hemorrhage. No peripancreatic fluid collection. Spleen is unremarkable. Left adrenal nodule measuring up to 17 mm. There is some atrophic changes to the kidneys without hydronephrosis. Along the left lateral flank there is a subcutaneous fat containing structure identified which appears to have a thin capsule. This measures approximately 80 x 23 mm. Urinary bladder is largely decompressed with thickened wall. Thickening of the right adrenal gland measuring up to 32 x 16 mm. Colonic diverticulosis. There is air and intraluminal content within the appendix without periappendiceal inflammatory changes. Bilateral fat-containing inguinal hernia with some fluid within the right inguinal hernia. No dilated loops of bowel to suggest obstruction. Degenerative changes throughout the spine with multilevel central canal and neural foraminal stenosis. Severe degenerative changes of the hips. IMPRESSION: * Bilateral fat-containing inguinal hernias with some fluid seen within the right inguinal hernia. * Fat-containing masslike structure in the right upper thigh anteriorly is partially visualized. The most common causes would be a soft tissue mass such as lipoma but would correlate with symptoms and if the patient is symptomatic or if there has been suspected growth clinically a higher grade lesion such as liposarcoma cannot be excluded and if further evaluation is desired MRI could BE obtained. * Urinary bladder is largely decompressed but the wall does appear thickened. Would correlate with symptoms in the region to ensure that this is not from a pathologic cause such as cystitis. * Severe degenerative changes the spine with multilevel central canal neural foraminal stenosis. * Bilateral adrenal nodules are identified which are indeterminate in nature on this exam with some interval increase in prominence when compared to comparison from 2013. * Within the left flank subcutaneous soft tissues there is a suspected thinly encapsulated fat-containing mass which could be secondary to a lipoma. This was likely present on prior as well. * Severe degenerative changes the bilateral hips. Electronically signed by: Vincent iRvas MD (11/03/2019 9:50 PM) [id number]
[2019-11-03] MEDS ORDERED: HYDR-3164 PO (22:06)
[2019-11-03] MEDS: MORPHINE SULFATE 4 MG/ML VIAL. IV ONE (22:07)
[2019-11-03 22:15] VITALS: BP 177/84
[2019-11-03] MEDS: HYDROcodone/APAP 5/325MG 1 TAB TABLET PO ONE (22:22)
[2019-11-04] MEDS ORDERED: IOHEXOL 300 MG/ML 100ML VIAL. ONE (02:06)
== END 2019-11-03 22:25 | disposition home or self-care (01) ==
LOC: ER 19:29
DX: K40.90 Unilateral inguinal hernia, without obstruction or gangrene, not specified as recurrent (principal); E11.22 Type 2 diabetes mellitus with diabetic chronic kidney disease; I12.9 Hypertensive chronic kidney disease with stage 1 through stage 4 chronic kidney disease, or unspecified chronic kidney disease; N18.9 Chronic kidney disease, unspecified; J45.909 Unspecified asthma, uncomplicated; Z90.49 Acquired absence of other specified parts of digestive tract
CPT/HCPCS: 36415; 74177; 80053; 85025; 96374; 99285; J1885; Q9967

== ENCOUNTER 2019-11-18 00:28 | Emergency (ER) | payer MEDICARE, OTHER ==
[~2019-11-18] VITALS: Ht 182.9 cm; Wt 102.5 kg
[2019-11-18 01:13] LABS: BASO # 0.1 x10^3/uL (0.0-0.2); BASO % 1 % (0-3); EOS # 0.2 x10^3/uL (0.0-0.7); EOS % 2 % (0-3); HEMATOCRIT 31.1 % (39.0-53.0); HEMOGLOBIN 10.5 g/dL (13.0-17.5); LYMPH # 1.4 x10^3/uL (1.0-4.8); LYMPH % 14 % (24-48); MEAN CORPUSCULAR HEMOGLOBIN 33 pg (25-35); MEAN CORPUSCULAR HGB CONC 34 g/dL (31-37); MEAN CORPUSCULAR VOLUME 97 fL (79-100); MONO # 0.9 x10^3/uL (0.0-1.1); MONO % 10 % (0-9); NEUT # 7.1 x10^3/uL (1.8-7.7); NEUT % 73 % (31-73); PLATELET COUNT 233 x10^3/uL (140-400); RED BLOOD COUNT 3.22 x10^6/uL (4.30-5.70); WHITE BLOOD COUNT 9.7 x10^3/uL (4.0-11.0)
[2019-11-18 01:30] LABS: ALBUMIN 3.1 g/dL (3.4-5.0); ALBUMIN/GLOBULIN RATIO 0.9 (1.0-1.7); CALCIUM 9.3 mg/dL (8.5-10.1); CREATININE 9.9 mg/dL (0.7-1.3); GFR 6.7; POTASSIUM 4.8 mmol/L (3.5-5.1); TOTAL BILIRUBIN 0.7 mg/dL (0.2-1.0); TOTAL PROTEIN 6.5 g/dL (6.4-8.2)
--- NOTE | 2019-11-18 01:57 | PHYS DOC ---
Past Medical History Past Medical History: Asthma, Diabetes-Type II, Hypertension, Renal Failure, Other Additional Past Medical Histor: RENAL INSUFFIENCY Past Surgical History: Cholecystectomy, Other Additional Past Surgical Histo: SHUNT IN LEFT ARM Smoking Status: Never Smoker Alcohol Use: None Drug Use: None General Adult EDM: Chief Complaint: DIZZY/LIGHT HEADED HPI: HPI: Patient is a 54-year-old male who presents to the emergency department stating that he had a sense that his blood pressure was too low. He had a spontaneous drop he denies any chest pain shortness of breath dyspnea on exertion. He denies any headache or lateralizing neurologic weakness. He states from time to time his blood pressure disc is down. He states he is due for dialysis later today. [] Review of Systems: Review of Systems: Constitutional: Denies fever or chills. [] Eyes: Denies change in visual acuity. [] HENT: Denies nasal congestion or sore throat. [] Respiratory: Denies cough or shortness of breath. [] Cardiovascular: Denies chest pain or edema. [] GI: Denies abdominal pain, nausea, vomiting, bloody stools or diarrhea. [] : Denies dysuria. [] Musculoskeletal: Denies back pain or joint pain. [] Integument: Denies rash. [] Neurologic: Denies headache, focal weakness or sensory changes. [] Endocrine: Denies polyuria or polydipsia. [] Lymphatic: Denies swollen glands. [] Psychiatric: Denies depression or anxiety. [] Heart Score: Risk Factors: Risk Factors: DM, Current or recent (<one month) smoker, HTN, HLP, family history of CAD, obesity. Risk Scores: Score 0 - 3: 2.5% MACE over next 6 weeks - Discharge Home Score 4 - 6: 20.3% MACE over next 6 weeks - Admit for Clinical Observation Score 7 - 10: 72.7% MACE over next 6 weeks - Early Invasive Strategies Allergies: Allergies: Allergies Coded Allergies Type Severity Reaction Last Updated Verified No Known Drug Allergies 03/26/17 No Physical Exam: PE: Constitutional: Well developed, well nourished, no acute distress, non-toxic appearance. [] HENT: Normocephalic, atraumatic, bilateral external ears normal, oropharynx moist, no oral exudates, nose normal. [] Eyes: PERRLA, EOMI, conjunctiva normal, no discharge. [] Neck: Normal range of motion, no tenderness, supple, no stridor. [] Cardiovascular:Heart rate regular rhythm, no murmur [] Lungs & Thorax: Bilateral breath sounds clear to auscultation [] Abdomen: Bowel sounds normal, soft, no tenderness, no masses, no pulsatile masses. [] Skin: Warm, dry, no erythema, no rash. [] Back: No tenderness, no CVA tenderness. [] Extremities: No tenderness, no cyanosis, no clubbing, ROM intact, no edema. [] Neurologic: Alert and oriented X 3, normal motor function, normal sensory function, no focal deficits noted. [] Psychologic: Affect normal, judgement normal, mood normal. [] Current Patient Data: Labs: Laboratory Tests Test 11/18/19 01:05 White Blood Count 9.7 x10^3/uL (4.0-11.0) Red Blood Count 3.22 x10^6/uL (4.30-5.70) L Hemoglobin 10.5 g/dL (13.0-17.5) L Hematocrit 31.1 % (39.0-53.0) L Mean Corpuscular Volume 97 fL (79-100) Mean Corpuscular Hemoglobin 33 pg (25-35) Mean Corpuscular Hemoglobin Concent 34 g/dL (31-37) Red Cell Distribution Width 14.0 % (11.5-14.5) Platelet Count 233 x10^3/uL (140-400) Neutrophils (%) (Auto) 73 % (31-73) Lymphocytes (%) (Auto) 14 % (24-48) L Monocytes (%) (Auto) 10 % (0-9) H Eosinophils (%) (Auto) 2 % (0-3) Basophils (%) (Auto) 1 % (0-3) Neutrophils # (Auto) 7.1 x10^3/uL (1.8-7.7) Lymphocytes # (Auto) 1.4 x10^3/uL (1.0-4.8) Monocytes # (Auto) 0.9 x10^3/uL (0.0-1.1) Eosinophils # (Auto) 0.2 x10^3/uL (0.0-0.7) Basophils # (Auto) 0.1 x10^3/uL (0.0-0.2) Sodium Level 136 mmol/L (136-145) Potassium Level 4.8 mmol/L (3.5-5.1) Chloride Level 98 mmol/L (98-107) Carbon Dioxide Level 29 mmol/L (21-32) Anion Gap 9 (6-14) Blood Urea Nitrogen 49 mg/dL (8-26) H Creatinine 9.9 mg/dL (0.7-1.3) H Estimated GFR (Cockcroft-Gault) 6.7 BUN/Creatinine Ratio 5 (6-20) L Glucose Level 167 mg/dL (70-99) H Calcium Level 9.3 mg/dL (8.5-10.1) Total Bilirubin 0.7 mg/dL (0.2-1.0) Aspartate Amino Transferase (AST) 15 U/L (15-37) Alanine Aminotransferase (ALT) 21 U/L (16-63) Alkaline Phosphatase 60 U/L (46-116) Troponin I Quantitative < 0.017 ng/mL (0.000-0.055) Total Protein 6.5 g/dL (6.4-8.2) Albumin 3.1 g/dL (3.4-5.0) L Albumin/Globulin Ratio 0.9 (1.0-1.7) L Laboratory Tests 11/18/19 01:05 Laboratory Tests 11/18/19 01:05 Vital Signs: Vital Signs Date Time Temp Pulse Resp B/P (MAP) Pulse Ox O2 Delivery O2 Flow Rate FiO2 11/18/19 00:30 98.2 57 19 100 98.2 EKG: EKG: EKG: Normal sinus rhythm rate of [address]-T changes [] Radiology/Procedures: Radiology/Procedures: [] Course & Med Decision Making: Course & Med Decision Making Pertinent Labs and Imaging studies reviewed. (See chart for details) [] Dragon Disclaimer: Frieda Disclaimer: This electronic medical record was generated, in whole or in part, using a voice recognition dictation system. Departure Departure Impression: Primary Impression: Hypotension Qualified Codes: I95.9 - Hypotension, unspecified Disposition: 01 HOME, SELF-CARE Condition: STABLE Referrals: DORIS MAHONEY (PCP) Patient Instructions: Hypotension, Orthostatic Hypotension Additional Instructions: Return to the emergency department with any new or concerning symptoms DUANE TAYLOR DO November 18, 2019 01:57
[2019-11-18 02:15] VITALS: BP 126/67
--- NOTE | 2019-11-18 06:35 | EKG ---
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
== END 2019-11-18 02:25 | disposition home or self-care (01) ==
LOC: ER 00:28
DX: I95.9 Hypotension, unspecified (principal); J45.909 Unspecified asthma, uncomplicated; N18.9 Chronic kidney disease, unspecified; Z98.890 Other specified postprocedural states; I12.9 Hypertensive chronic kidney disease with stage 1 through stage 4 chronic kidney disease, or unspecified chronic kidney disease; E11.22 Type 2 diabetes mellitus with diabetic chronic kidney disease; Z90.49 Acquired absence of other specified parts of digestive tract
CPT/HCPCS: 36415; 80053; 84484; 85025; 93005; 99285

== ENCOUNTER → 2019-11-25 | Outpatient (CLI) | payer OTHER, MEDICARE ==
[2019-11-18 02:15] VITALS: BP 126/67
[~2019-11-25] MED LIST changes: +APIX5TAB PO; +DILT180C29 PO; +OXYC-325 PO
== END ==
LOC: SURGPAT 14:37
PROVIDERS: ATTEND Surgery
DX: Z01.818 Encounter for other preprocedural examination (principal); Z11.59 Encounter for screening for other viral diseases; K40.20 Bilateral inguinal hernia, without obstruction or gangrene, not specified as recurrent
CPT/HCPCS: 36415; U0003

== ENCOUNTER 2019-12-01 11:07 | Day surgery (SDC) | payer MEDICARE, OTHER ==
[~2019-12-01] VITALS: Ht 180.3 cm; Wt 100.5 kg
[~2019-12-01 11:07] MED LIST changes: +ACETAMINOPHEN 500 MG TABLET PO PRN; -APIX5TAB PO; +BUPIVACAINE-EPI 0.25%-1:200000 MPF 30 ML VIAL. ONE; -DILT180C29 PO; +HYDROmorphone 2 MG/ML VIAL IV PRN; +IV RINGERS,LACTATED 1000ML 1,000 ML IV SCH; +LIDOCAINE 2% PF 5 ML VIAL. ONE; +MINERAL OIL for SURGERY 10 ML VIAL. MC ONE; +MORPHINE SULFATE 2 MG/ML VIAL. IV PRN; +ONDANSETRON PF 4 MG/2 ML VIAL. IV PRN; -OXYC-325 PO; +PROCHLORPERAZINE 10 MG/2 ML VIAL. IV PRN; +PROPOFOL 10 MG/ML (20ML) VIAL. IV ONE; +ROCURONIUM 50 MG/5 ML VIAL. ONE; +fentaNYL PF VIAL 100 MCG/2 ML VIAL IV PRN
[2019-12-01] MEDS ORDERED: DILT180C29 PO (12:05)
[2019-12-01] MEDS ORDERED: APIX5TAB PO (12:05)
[2019-12-01 12:11] LABS: CALCIUM 9.8 mg/dL (8.5-10.1); CREATININE 7.4 mg/dL (0.7-1.3); GFR 9.3
[2019-12-01] MEDS ORDERED: IV NORMAL SALINE 1000ML BAG 1,000 ML IV SCH (12:15)
[2019-12-01] MEDS ORDERED: MIDAZOLAM HCL/PF 2 MG/2 ML VIAL. ONE (12:40)
[2019-12-01] MEDS ORDERED: fentaNYL PF VIAL 100 MCG/2 ML VIAL ONE ×2 (12:40→15:24)
[2019-12-01] MEDS ORDERED: ONDANSETRON PF 4 MG/2 ML VIAL. ONE (13:40)
[2019-12-01] MEDS ORDERED: DEXAMETHASONE SOD PHOS 20 MG/5 ML VIAL. ONE (13:40)
[2019-12-01] MEDS ORDERED: NEOSTIGMINE METHYLSULFATE 5 MG/5 ML SYRINGE. ONE (13:44)
[2019-12-01] MEDS ORDERED: GLYCOPYRROLATE 1 MG/5 ML VIAL. ONE (13:44)
[2019-12-01] MEDS ORDERED: ceFAZolin 2GM PREMIX 2 GM/50 ML BAG IV ONE (14:00)
[2019-12-01] MEDS ORDERED: hydrALAZINE 20 MG/ML VIAL. ONE (14:12)
[2019-12-01] MEDS ORDERED: SEVOFLURANE 61 TO 120 MINUTES. IH ONE (15:06)
--- NOTE | 2019-12-01 15:08 | PDOC4 ---
Operative Note Operative Note Date: 12/01/2019 at 1505 Preoperative diagnosis: Bilateral inguinal hernias Postoperative diagnosis: Same Procedure: Robotic assisted laparoscopic bilateral inguinal hernia repairs with mesh Surgeon: Kofi Specimen: None Dictation: Patient is a 54-year-old gentleman with bilateral inguinal hernias. Procedure of robotic assisted laparoscopic bilateral inguinal hernia repair with mesh was explained to the patient detail risk-benefit were also discussed including bleeding infection injury to intra-abdominal contents possibly necessitating further or open operations alternatives to this procedure also discussed with the patient who seemed to understand and gave both verbal and written consent to have the procedure performed. Patient was taken to the operating room placed in the supine position general anesthesia was initiated once patient was sleeping intubated is placed in low lithotomy positioning and his abdomen was prepped and draped usual sterile fashion using ChloraPrep. Area just below the umbilicus was injected with quarter percent Marcaine with epinephrine incision was made 11 blade scalpel and a varies needle was placed within the abdomen creating pneumoperitoneum once this was complete a millimeter da Ryland port was placed and a da Ryland camera was placed within the abdomen which was inspected it was noted that the year right inguinal hernia was larger than the left side to 8 mm da Ryland ports were placed one in the left midabdomen one in the right midabdomen under direct visualization. At this point the robot was brought in and docked to all port sites and surgeon went to the robotic console using a grasper and Endo Macrina scissors the peritoneum over the hernia defect was taken down electrocautery and blunt dissection reducing the hernia sac on both sides. A large 3D max Bard mesh was placed over the right and left sides and the peritoneum was then closed with a running 2 OV lock absorbable suture. Once this was complete needles of the sutures were removed the pneumoperitoneum was reduced all ports were undocked from the robot and removed all port sites were closed for subcuticular Monocryl Mastisol Steri-Strips and island dressings were applied. Patient was awakened extubated in the operating room taken to recovery stable condition all sponge instrument needle counts listed as correct estimated blood loss 10 mL. CRAIG MONTEZ MD Dec 01, 2019 15:08
--- NOTE | 2019-12-01 15:12 | DISCH ---
DISCHARGE INSTRUCTIONS Condition on Discharge Condition on Discharge: Stable Activity After Discharge Activity Instructions for Disc: Avoid exertion Other activity instructions: No lifting more than 20 pounds for 2 weeks Lifting Instructions after Dis: No heavy lifting Diet after Discharge Diet after Discharge: Renal Dialysis Diet Texture: Regular Wound Incision Care Other wound/incision instructi: May shower in 24 hours Contacting the after DC Call your doctor for: If your condition worsens Follow-Up Follow up with: Dr. Montez in 2 weeks Treatment/Equipment after DC Adaptive Equipment Issued: None CRAIG MONTEZ MD Dec 01, 2019 15:12
[2019-12-01] MEDS: fentaNYL PF VIAL 100 MCG/2 ML VIAL IV PRN ×2 (15:30→15:47)
[2019-12-01] MEDS ORDERED: OXYC-325 PO (15:59)
[2019-12-01] MEDS ORDERED: oxyCODONE/APAP 5/325 1 TAB TABLET PO ONE ×2 (16:00)
[2019-12-01] MEDS ORDERED: MORPHINE SULFATE 2 MG/ML VIAL. ONE (16:05)
[2019-12-01 17:15] VITALS: BP 183/73
== END 2019-12-01 17:24 | disposition home or self-care (01) ==
LOC: SURG 11:07
PROVIDERS: ATTEND Surgery
DX: K40.20 Bilateral inguinal hernia, without obstruction or gangrene, not specified as recurrent (principal); I12.0 Hypertensive chronic kidney disease with stage 5 chronic kidney disease or end stage renal disease; N18.6 End stage renal disease; E78.00 Pure hypercholesterolemia, unspecified; I48.91 Unspecified atrial fibrillation; M10.9 Gout, unspecified; E66.9 Obesity, unspecified; Z68.30 Body mass index [BMI] 30.0-30.9, adult
CPT/HCPCS: 36415; 49650; 80048; 82962; C1781; J0360; J0696; J1100; J2270; J2405; J2704; J2710; J3010; J3490; J2250

== ENCOUNTER 2019-12-27 02:53 | Inpatient (IN) | payer MEDICARE, OTHER ==
[~2019-12-27] VITALS: Ht 182.9 cm; Wt 100.5 kg
[~2019-12-27 02:53] MED LIST changes: -ACETAMINOPHEN 500 MG TABLET PO PRN; +APIX5TAB PO; -ASPI-612 PO; +ASPI-886 PO; -BUPIVACAINE-EPI 0.25%-1:200000 MPF 30 ML VIAL. ONE; +DILT180C29 PO; -HYDROmorphone 2 MG/ML VIAL IV PRN; -IV RINGERS,LACTATED 1000ML 1,000 ML IV SCH; -LIDOCAINE 2% PF 5 ML VIAL. ONE; -MINERAL OIL for SURGERY 10 ML VIAL. MC ONE; -MORPHINE SULFATE 2 MG/ML VIAL. IV PRN; -ONDANSETRON PF 4 MG/2 ML VIAL. IV PRN; +OXYC-325 PO; -PROCHLORPERAZINE 10 MG/2 ML VIAL. IV PRN; -PROPOFOL 10 MG/ML (20ML) VIAL. IV ONE; -ROCURONIUM 50 MG/5 ML VIAL. ONE; -fentaNYL PF VIAL 100 MCG/2 ML VIAL IV PRN
[2019-12-27 03:51] LABS: BASO # 0.1 x10^3/uL (0.0-0.2); BASO % 1 % (0-3); EOS # 0.2 x10^3/uL (0.0-0.7); EOS % 2 % (0-3); HEMATOCRIT 25.1 % (39.0-53.0); HEMOGLOBIN 8.5 g/dL (13.0-17.5); LYMPH # 1.1 x10^3/uL (1.0-4.8); LYMPH % 14 % (24-48); MEAN CORPUSCULAR HEMOGLOBIN 33 pg (25-35); MEAN CORPUSCULAR HGB CONC 34 g/dL (31-37); MEAN CORPUSCULAR VOLUME 96 fL (79-100); MONO # 0.9 x10^3/uL (0.0-1.1); MONO % 11 % (0-9); NEUT # 5.7 x10^3/uL (1.8-7.7); NEUT % 72 % (31-73); PLATELET COUNT 313 x10^3/uL (140-400); RED BLOOD COUNT 2.63 x10^6/uL (4.30-5.70); RED CELL DISTRIBUTION WIDTH 14.2 % (11.5-14.5); WHITE BLOOD COUNT 7.9 x10^3/uL (4.0-11.0)
[2019-12-27 03:57] LABS: CALCIUM 8.6 mg/dL (8.5-10.1); GFR 9.9; POTASSIUM 3.3 mmol/L (3.5-5.1)
[2019-12-27] MEDS ORDERED: ONDANSETRON PF 4 MG/2 ML VIAL. IVP ONE (04:00)
[2019-12-27 04:03] LABS: ALBUMIN 2.5 g/dL (3.4-5.0); ALBUMIN/GLOBULIN RATIO 0.6 (1.0-1.7); TOTAL BILIRUBIN 0.4 mg/dL (0.2-1.0); TOTAL PROTEIN 6.8 g/dL (6.4-8.2)
--- NOTE | 2019-12-27 04:12 | PHYS DOC ---
Past Medical History Past Medical History: A-Fib, Asthma, Diabetes-Type II, Hypertension, Renal Failure, Other Additional Past Medical Histor: RENAL INSUFFIENCY Past Surgical History: Cholecystectomy, Other Additional Past Surgical Histo: SHUNT IN LEFT ARM, HERNIA REPAIR Smoking Status: Never Smoker Alcohol Use: None Drug Use: None General Adult EDM: Chief Complaint: NAUSEA/VOMITING/DIARRHA HPI: HPI: Patient is a 54 year old male presents to the ED with a chief complaint of nausea. Patient states that he ate [employer] at 1 AM after which he took 2 tablets of [place]. Patient states that he started feeling nauseated after that. Patient states that he is been taking [place] for pain control and sometimes that does make him nauseated. Patient does state that he has a history of dialysis and goes every Thursday, Thursday and Thursday. Review of Systems: Review of Systems: Constitutional: Denies fever or chills. [] Eyes: Denies change in visual acuity. [] HENT: Denies nasal congestion or sore throat. [] Respiratory: Denies cough or shortness of breath. [] Cardiovascular: Denies chest pain or edema. [] GI: Complains of nausea Neurologic: Denies headache, focal weakness or sensory changes. [] Heart Score: Risk Factors: Risk Factors: DM, Current or recent (<one month) smoker, HTN, HLP, family history of CAD, obesity. Risk Scores: Score 0 - 3: 2.5% MACE over next 6 weeks - Discharge Home Score 4 - 6: 20.3% MACE over next 6 weeks - Admit for Clinical Observation Score 7 - 10: 72.7% MACE over next 6 weeks - Early Invasive Strategies Current Medications: Current Medications Medications (Trade) Dose Ordered Sig/[facility] Start Time Stop Time Status Last Admin Dose Admin Ondansetron HCl (Zofran) 4 mg 1X ONCE 12/27/19 04:00 12/27/19 04:01 DC 12/27/19 03:59 4 MG Allergies: Allergies: Allergies Coded Allergies Type Severity Reaction Last Updated Verified No Known Drug Allergies 12/01/19 No Physical Exam: PE: Constitutional: Well developed, well nourished, no acute distress, non-toxic appearance. [] HENT: Normocephalic, atraumatic Eyes: EOMI Neck: Normal range of motion, Supple Cardiovascular:Heart rate regular rhythm Lungs & Thorax: Bilateral breath sounds clear to auscultation [] Abdomen: Bowel sounds normal, soft, no tenderness Extremities: No tenderness, ROM intact Neurologic: Alert and oriented X 3 Current Patient Data: Labs: Laboratory Tests Test 12/27/19 03:40 White Blood Count 7.9 x10^3/uL (4.0-11.0) Red Blood Count 2.63 x10^6/uL (4.30-5.70) L Hemoglobin 8.5 g/dL (13.0-17.5) L Hematocrit 25.1 % (39.0-53.0) L Mean Corpuscular Volume 96 fL (79-100) Mean Corpuscular Hemoglobin 33 pg (25-35) Mean Corpuscular Hemoglobin Concent 34 g/dL (31-37) Red Cell Distribution Width 14.2 % (11.5-14.5) Platelet Count 313 x10^3/uL (140-400) Neutrophils (%) (Auto) 72 % (31-73) Lymphocytes (%) (Auto) 14 % (24-48) L Monocytes (%) (Auto) 11 % (0-9) H Eosinophils (%) (Auto) 2 % (0-3) Basophils (%) (Auto) 1 % (0-3) Neutrophils # (Auto) 5.7 x10^3/uL (1.8-7.7) Lymphocytes # (Auto) 1.1 x10^3/uL (1.0-4.8) Monocytes # (Auto) 0.9 x10^3/uL (0.0-1.1) Eosinophils # (Auto) 0.2 x10^3/uL (0.0-0.7) Basophils # (Auto) 0.1 x10^3/uL (0.0-0.2) Sodium Level 144 mmol/L (136-145) Potassium Level 3.3 mmol/L (3.5-5.1) L Chloride Level 99 mmol/L (98-107) Carbon Dioxide Level 29 mmol/L (21-32) Anion Gap 16 (6-14) H Blood Urea Nitrogen 20 mg/dL (8-26) Creatinine 7.0 mg/dL (0.7-1.3) H Estimated GFR (Cockcroft-Gault) 9.9 BUN/Creatinine Ratio 3 (6-20) L Glucose Level 173 mg/dL (70-99) H Calcium Level 8.6 mg/dL (8.5-10.1) Total Bilirubin 0.4 mg/dL (0.2-1.0) Aspartate Amino Transferase (AST) 11 U/L (15-37) L Alanine Aminotransferase (ALT) 14 U/L (16-63) L Alkaline Phosphatase 71 U/L (46-116) Total Protein 6.8 g/dL (6.4-8.2) Albumin 2.5 g/dL (3.4-5.0) L Albumin/Globulin Ratio 0.6 (1.0-1.7) L Lipase 164 U/L (73-393) Laboratory Tests 12/27/19 03:40 Laboratory Tests 12/27/19 03:40 Vital Signs: Vital Signs Date Time Temp Pulse Resp B/P (MAP) Pulse Ox O2 Delivery O2 Flow Rate FiO2 12/27/19 03:15 98.2 66 18 197/86 (123) 100 Room Air 98.2 EKG: EKG: [EKG interpretation: 4: 02 AM on 12/27/2019 HR: 65 Sinus rhythm Regular intervals Left axis deviation LAFB Nonspecific ST changes ] Radiology/Procedures: Radiology/Procedures: [] Impression: CXR FINDINGS: Lungs: Normal lung volume. No pulmonary mass or consolidation. The tracheobronchial tree and hilar structures are normal. Pleura: No pleural effusion or pneumothorax. Heart and Mediastinum: Cardiomegaly. And tortuosity of the thoracic aorta. IMPRESSION: No acute cardiopulmonary process. Course & Med Decision Making: Course & Med Decision Making Pertinent Labs and Imaging studies reviewed. (See chart for details) Patient was given IV Zofran in the ER. Labs show that patient has a troponin of 0.021. This is mildly elevated from his previous troponin level in October which is less than 0.017. Patient is given aspirin in the ER. EKG does not show any acute changes. Patient will be admitted for further evaluation and trending of the troponin. Discussed results and plan of care with patient. We will discuss with Dr. FLOYD for admission. Frieda Disclaimer: Frieda Disclaimer: This electronic medical record was generated, in whole or in part, using a voice recognition dictation system. Departure Departure Impression: Primary Impression: Elevated troponin Additional Impression: Nausea Disposition: ADMITTED INPATIENT Admitting Physician: Holly Floyd Condition: GOOD Referrals: DORIS MAHONEY (PCP) Justicifation of Admission Dx: Justifications for Admission: Justification of Admission Dx: Yes Comments: INDETERMINATE TROPONIN JANET HONG DO Dec 27, 2019 04:12
--- NOTE | 2019-12-27 04:43 | RAD ---
CHEST AP ONLY INDICATION: PAIN . COMPARISON STUDY: 02/17/2018. FINDINGS: Lungs: Normal lung volume. No pulmonary mass or consolidation. The tracheobronchial tree and hilar structures are normal. Pleura: No pleural effusion or pneumothorax. Heart and Mediastinum: Cardiomegaly. And tortuosity of the thoracic aorta. IMPRESSION: No acute cardiopulmonary process. Electronically signed by: Daryn Galvan MD (12/27/2019 4:40 AM) [facility]
[2019-12-27] MEDS ORDERED: hydrALAZINE 20 MG/ML VIAL. IVP ONE (05:00)
--- NOTE | 2019-12-27 06:15 | NUR ---
The patient, MARYJANE GUZMAN, 54 y/o, M admitted by RAMU FLOYD MD, was given written information regarding hospital policies, unit procedures and contact persons. patient arrived to room 660 at this time via bed, assisted by ED staff. Valuables were checked and noted. Patient is currently laying in bed watching TV at this time. Tele monitor was applied to the patient at this time as well. This RN will continue to monitor the patient at this time.
[2019-12-27 07:42] VITALS: BP 169/79
[2019-12-27] MEDS ORDERED: POTASSIUM CHLORIDE 20 MEQ TABLET.ER. PO ONE (09:30)
[2019-12-27] MEDS ORDERED: PANTOPRAZOLE 40 MG TABLET.DR. PO ONE (09:30)
--- NOTE | 2019-12-27 09:39 | PDOC ---
Provider Note Provider Note Pt seen .H&P dictated.#[id number]. Justicifation of Admission Dx: Justifications for Admission: Justification of Admission Dx: Yes RAMU FLOYD MD Dec 27, 2019 09:39
[2019-12-27] MEDS ORDERED: ISOSORBIDE MONONITRATE ER 30 MG TAB.ER.24H PO SCH (10:00)
[2019-12-27] MEDS ORDERED: amLODIPine BESYLATE 10 MG TABLET PO SCH (10:00)
[2019-12-27] MEDS ORDERED: POLYETHYLENE GLYCOL 3350 17 GM PACKET. PO PRN (10:15)
[2019-12-27 10:21] LABS: CHOLESTEROL/HDL RATIO 2.7
[2019-12-27] MEDS: MULTIVITAMIN with MINERAL TABLET. PO SCH (10:25)
[2019-12-27] MEDS: APIXABAN 5 MG TABLET. PO SCH ×2 (10:25→21:29)
--- NOTE | 2019-12-27 10:28 | EKG ---
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
[2019-12-27] MEDS: cloNIDine HCL 0.3 MG TABLET PO SCH ×3 (10:29→21:29)
[2019-12-27] MEDS: POLYETHYLENE GLYCOL 3350 17 GM PACKET. PO SCH ×2 (10:45→21:29)
--- NOTE | 2019-12-27 10:49 | HP ---
ADMIT DATE: 12/27/2019 LOCATION: 660. REASON FOR ADMISSION TO THE HOSPITAL: Epigastric pain, slight elevation in troponin, rule out coronary artery disease. HISTORY OF PRESENT ILLNESS: The patient is a 54-year-old male patient, who has a history of hypertension, has chronic kidney disease; on hemodialysis for last 3 years. He goes to dialysis on Thursday, Thursday and Thursday. He also has a history of diabetes, hypertension, and chronic AFib. Has developed, ate something yesterday, says he was feeling pain, epigastric discomfort yesterday, he came to the Emergency Room. EKG negative. Troponin borderline 0.2. Was admitted to the hospital and Cardiology was consulted. PAST MEDICAL HISTORY: As mentioned, has history of diabetes, hypertension, chronic kidney disease, dialysis and he also has chronic leg ulcers, bilateral swelling at the [facility]. PAST SURGICAL HISTORY: Had a gallbladder surgery, shunt in the AVM, and hernia repair. PERSONAL HISTORY: Denies smoking, alcohol, or drug abuse. FAMILY HISTORY: Positive for diabetes, heart disease. REVIEW OF SYMPTOMS: Complains of nausea, some vomiting, no diarrhea, some epigastric; he states he ate some [employer] and rest of the 14-system was reviewed and negative. The patient goes to the [facility] for left leg ulcers, calciphylaxis. ALLERGIES: No known drug allergies. MEDICATIONS AT HOME: The patient is on oxycodone 5 mg q. 6, amlodipine 10 mg daily, Eliquis 5 mg twice a day, atorvastatin 40 mg daily, clonidine 0.3 three times a day, Cardizem 180 mg; takes 240 mg daily, hydralazine 50 mg 3 times daily, isosorbide 60 mg daily, multivitamin daily, questionable on metoprolol on that medication. PHYSICAL EXAMINATION: GENERAL: The patient is not in any distress. VITAL SIGNS: Temperature 98, pulse 66, respirations 18, blood pressure 197/86, 100% on room air. HEENT: Head is atraumatic. Pupils equal. Oral cavity: No congestion. NECK: Supple. Thyroid not enlarged. JVD not elevated. CHEST: Symmetrical. CARDIOVASCULAR: S1, S2. LUNGS: Clear to auscultation. ABDOMEN: Soft, bowel sounds present. No mass palpable. Slight epigastric tenderness to deep palpation. No rebound. Bowel sounds present. GENITALIA: Deferred. RECTAL: Deferred. EXTREMITIES: The patient is a small ulcer on the right posterior leg and large ulcer with necrotic base at the left leg due to calciphylaxis. Pulses hard to feel. NEUROLOGIC: Cranial nerves intact. Power 5/5, moving all extremities. LABORATORY DATA: Shows a white count of 8, hemoglobin 8.5, platelets 313. Electrolytes shows sodium 144, potassium 3.3, chloride 99, bicarb 29, anion gap 16, BUN 20, creatinine 7.0, glucose 173. LFTs were normal. Troponin 0.021. IMAGING: Chest x-ray: No acute process. EKG: Done, report is pending. FINAL IMPRESSION: 1. Epigastric pain, rule out coronary artery disease, slight elevation in troponin. 2. Probably epigastric pain secondary to gastritis. The patient says he had some Taco [employer]. 3. End-stage renal disease; on hemodialysis; goes to dialysis on Thursday, Thursday, and Thursday. 4. Atrial fibrillation, on Eliquis. 5. 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 6. Hypertension. 7. Hyperlipidemia. 8. Chronic pain medications. PLAN: At this time, the patient is admitted to the hospital. 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 Also, have start on Protonix and hopefully that should improve the stomach and we will have a Vascular consult and Wound Care consult for peripheral vascular disease and calciphylaxis ulcers. RAMU FLOYD MD DR: MILDRED/ed JOB#: [id number] / [id number] Jara Ahmed MD [facility] CAMPUSJean Marie
[2019-12-27 11:00] VITALS: BP 161/74
--- NOTE | 2019-12-27 13:04 | RAD ---
Bilateral lower extremity arterial duplex ultrasound 12/27/2019 INDICATION: Peripheral vascular disease. COMPARISON STUDY: None available. Discussion: Ultrasound evaluation of the major arteries of the bilateral lower extremities was performed including color Doppler imaging spectral analysis. Diffuse atherosclerotic vascular disease is noted throughout the major arteries of the bilateral lower extremities. Normal waveform morphology, and peak systolic velocities are seen throughout the visualized arteries of the bilateral lower extremities. No focal aneurysm or occlusion is seen. No area of increased velocity suggestive of hemodynamically significant stenosis is seen. A small popliteal fossa cyst present on the right. IMPRESSION: Diffuse atherosclerotic vascular disease without sonographic evidence of focal hemodynamically significant stenosis Electronically signed by: Navin Terrazas MD (12/27/2019 1:00 PM) [id number]
--- NOTE | 2019-12-27 14:03 | NUR ---
Wound Care Pt just had dressings changed. WC will follow up tomorrow
--- NOTE | 2019-12-27 14:30 | PDOC2 ---
DULCE MARIA PATEL BROADCAST METEOROLOGIST 12/27/19 1430: CARDIAC CONSULT DATE OF CONSULT Date of Consult DATE: 12/27/19 TIME: 1030 REASON FOR CONSULT Reason for Consult: Chest pain REFERRING PHYSICIAN Referring Physician: Gibson SOURCE Source: Chart review, Patient HISTORY OF PRESENT ILLNESS HISTORY OF PRESENT ILLNESS This is a pleasant 54 yo male admitted for complains of leg pain and abdominal pain. No chest pain per se but has been having abdominal pain and has not had a BM for at least about a week and he continues to use oxycodone due to leg pain particularly around his dilcia ulcer. He has 2+ pedal pulse of both feet with equal warmth and no neurological compromise but definitely has wounds behind his calves at the high part of ankles. Definitely has hardened tissues around and eschar as well. These wounds particularly in his left has limited his mobility due tot he pain. No SOA, palpitations and has been compliant with hime medications and dialysis. PAST MEDICAL HISTORY Past Medical History Cardiovascular: HTN, CAD with distal LAD lesion, PAFIB GI: Peptic Ulcer disease Musculoskeletal: Osteoarthritis Rheumatologic: Gout Renal/: Chronic renal failure (on HD) Endocrine: Diabetes PAST SURGICAL HISTORY Past Surgical History LHC, Cholecystectomy, Other (LUE fistula), recent bilateral inguinal hernia repair FAMILY HISTORY Family History: Diabetes, Hypertension SOCIAL HISTORY Smoke: No ALCOHOL: none Drugs: None Lives: with Family CURRENT MEDICATIONS CURRENT MEDICATIONS Current Medications Medications (Trade) Dose Ordered Sig/Evie Route PRN Reason Start Time Stop Time Status Last Admin Dose Admin Ondansetron HCl (Zofran) 4 mg 1X ONCE IVP 12/27/19 04:00 12/27/19 04:01 DC 12/27/19 03:59 Hydralazine HCl (Apresoline Inj) 10 mg 1X ONCE IVP 12/27/19 05:00 12/27/19 05:01 DC 12/27/19 04:40 Amlodipine Besylate (Norvasc) 10 mg DAILY PO 12/27/19 10:00 12/27/19 10:29 Apixaban (Eliquis) 5 mg BID PO 12/27/19 09:30 12/27/19 10:25 Clonidine HCl (Catapres) 0.3 mg TID PO 12/27/19 10:00 12/27/19 10:29 Diltiazem HCl (Cardizem 24hr Cd) 240 mg DAILY PO 12/27/19 10:00 12/27/19 10:28 Hydralazine HCl (Apresoline) 50 mg TID PO 12/27/19 10:00 12/27/19 10:45 Isosorbide Mononitrate (Imdur) 60 mg DAILY PO 12/27/19 10:00 12/27/19 10:30 Multivitamins (Thera M Plus) 1 tab DAILY PO 12/27/19 10:00 12/27/19 10:25 Pantoprazole Sodium (Protonix) 40 mg 1X ONCE PO 12/27/19 09:30 12/27/19 09:41 DC 12/27/19 10:26 Potassium Chloride (Klor-Con) 20 meq 1X ONCE PO 12/27/19 09:30 12/27/19 09:41 DC 12/27/19 10:25 Polyethylene Glycol (miraLAX PACKET) 17 gm BID PO 12/27/19 10:30 12/27/19 10:45 ALLERGIES ALLERGIES: Coded Allergies: No Known Drug Allergies (Unverified , 12/01/19) ROS Review of System 14 point ROS evlauated with pertinent positives noted per HPI PHYSICAL EXAM General: Alert, Oriented X3, Cooperative, No acute distress HEENT: Atraumatic, Mucous membr. moist/pink Lungs: Clear to auscultation, Normal air movement Heart: Regular rate Extremities: No cyanosis, No edema, Other (2+ bilateral LE pedal pulses) Skin: Other (bilateral inferior aspect of calves) Neuro: Normal speech, Sensation intact Psych/Mental Status: Mental status NL, Mood NL MUSCULOSKELETAL: No joint tenderness VITALS/I&O VITALS/I&O: Vital Signs Date Time Temp Pulse Resp B/P (MAP) Pulse Ox O2 Delivery O2 Flow Rate FiO2 12/27/19 11:00 98.7 76 18 161/74 (103) 94 Room Air 98.7 LABS Lab: Laboratory Tests Test 12/27/19 03:40 12/27/19 07:45 White Blood Count 7.9 x10^3/uL (4.0-11.0) Red Blood Count 2.63 x10^6/uL (4.30-5.70) L Hemoglobin 8.5 g/dL (13.0-17.5) L Hematocrit 25.1 % (39.0-53.0) L Mean Corpuscular Volume 96 fL (79-100) Mean Corpuscular Hemoglobin 33 pg (25-35) Mean Corpuscular Hemoglobin Concent 34 g/dL (31-37) Red Cell Distribution Width 14.2 % (11.5-14.5) Platelet Count 313 x10^3/uL (140-400) Neutrophils (%) (Auto) 72 % (31-73) Lymphocytes (%) (Auto) 14 % (24-48) L Monocytes (%) (Auto) 11 % (0-9) H Eosinophils (%) (Auto) 2 % (0-3) Basophils (%) (Auto) 1 % (0-3) Neutrophils # (Auto) 5.7 x10^3/uL (1.8-7.7) Lymphocytes # (Auto) 1.1 x10^3/uL (1.0-4.8) Monocytes # (Auto) 0.9 x10^3/uL (0.0-1.1) Eosinophils # (Auto) 0.2 x10^3/uL (0.0-0.7) Basophils # (Auto) 0.1 x10^3/uL (0.0-0.2) Sodium Level 144 mmol/L (136-145) Potassium Level 3.3 mmol/L (3.5-5.1) L Chloride Level 99 mmol/L (98-107) Carbon Dioxide Level 29 mmol/L (21-32) Anion Gap 16 (6-14) H Blood Urea Nitrogen 20 mg/dL (8-26) Creatinine 7.0 mg/dL (0.7-1.3) H Estimated GFR (Cockcroft-Gault) 9.9 BUN/Creatinine Ratio 3 (6-20) L Glucose Level 173 mg/dL (70-99) H Calcium Level 8.6 mg/dL (8.5-10.1) Total Bilirubin 0.4 mg/dL (0.2-1.0) Aspartate Amino Transferase (AST) 11 U/L (15-37) L Alanine Aminotransferase (ALT) 14 U/L (16-63) L Alkaline Phosphatase 71 U/L (46-116) Troponin I Quantitative 0.021 ng/mL (0.000-0.055) < 0.017 ng/mL (0.000-0.055) Total Protein 6.8 g/dL (6.4-8.2) Albumin 2.5 g/dL (3.4-5.0) L Albumin/Globulin Ratio 0.6 (1.0-1.7) L Lipase 164 U/L (73-393) Triglycerides Level 80 mg/dL (0-150) Cholesterol Level 88 mg/dL (0-200) LDL Cholesterol, Calculated 39 mg/dL (0-100) VLDL Cholesterol, Calculated 16 mg/dL (0-40) Non-HDL Cholesterol Calculated 55 mg/dL (0-129) HDL Cholesterol 33 mg/dL (40-60) L Cholesterol/HDL Ratio 2.7 Thyroid Stimulating Hormone (TSH) 2.615 uIU/mL (0.358-3.74) Laboratory Tests 12/27/19 03:40 Laboratory Tests 12/27/19 03:40 ECHOCARDIOGRAM ECHOCARDIOGRAM <Conclusion> The left ventricular systolic function is normal. The Ejection Fraction is 55-60%. There is normal LV segmental wall motion. Trace mitral regurgitation. Trace tricuspid regurgitation with an estimated PAP 33 mmHg. There is no evidence of significant pericardial effusion. DATE: 08/02/19 0948 HEART CATH HEART CATH FINDINGS 1. Hemodynamics: Left ventricular end-diastolic pressure of 15 mmHg. No pullback gradient across the aortic valve. 2. Left ventriculography: Normal left ventricle systolic function with ejection fraction estimated at 60%. No significant mitral regurgitation seen. 3. Coronary angiography: a. The left main coronary artery arose from the left sinus of Valsalva, gave rise to the left anterior descending, ramus intermedius and left circumflex arteries and did not show any significant stenosis. b. The left anterior descending artery showed 90% stenosis in the very distal segment. c. The left circumflex artery did not show any significant stenosis. d. The ramus intermedius artery showed 30% stenosis in the proximal segment. e. The right coronary artery was a large and dominant vessel arising from the right sinus of Valsalva that did not show any significant stenosis. Conclusion 90% stenosis involving the very distal segment of the left anterior descending artery Recommendations Medical Therapy DATE: 08/02/19 1234 ASSESSMENT/PLAN ASSESSMENT/PLAN 1. Atypical chest pain: more from abdominal pain 2. Abdominal pain with contributing opioid induced constipation: per PCP 3. Bilateral calf wounds with chronic pain likely induced by calciphylaxis 4. HTN urgency: improving 5. DM2/HLP: per PCP 6. CAD: known for distal LAD lesion 7. ESRD on HD: renal transplant candidate 8. Anemia of chronic disease : Hgb in the 8s 9. PAFIB: noted sometime in 10/2019 at [facility] per pt. presently SR. Recommendations 1. No ASA with concurrent eliquis use and anemia and PUD. DC norvasc as pt is already on cardizem CD. Continue home metoprolol and multaq. Will adjust BP meds per BP trend. Consider ARB or ACEi if OK with nephrology He does not check his BP at home. Discussed HBPM 2. Wound care team 3. Continue secondary prevention measures. Supportive care. 4. Fluid off loading per HD JUAN MANUEL MG MD 12/27/19 7807: CARDIAC CONSULT ASSESSMENT/PLAN ASSESSMENT/PLAN Patient seen and examined. Agree with LAB DIRECTOR's assessment and plan. CP atypical and prob GI etiology CAD clinically stable Calf wounds from calciphylaxis - treat per wound care team PAF maintaining SR. Continue eliquis BP better controlled Continue hemodialysis per nephrology team Thank you for your consultation DULCE MARIA PATEL APRN Dec 27, 2019 14:30 JUAN MANUEL MG MD Dec 27, 2019 18:48
--- NOTE | 2019-12-27 14:35 | PDOC2 ---
CONSULT Date of Consult Date of Consult DATE: 12/27/19 TIME: 14:08 Reason for Consult Reason for Consult: Left posterior calf wound Referring Physician Referring Physician: Identification/Chief Complaint Chief Complaint Epigastric pain, slight elevation in troponin, rule out coronary artery disease. Bilateral leg ulcers Source Source: Patient History of Present Illness Reason for Visit: This is a 54-year-old diabetic gentleman with end-stage renal disease dependent on hemodialysis through a left upper arm brachiocephalic AV fistula that was created by Dr. Villaseñor on March [id number]. He was admitted to the hospital with some complaints of epigastric pain and chest pain with slight elevation of troponins. Cardiology has been consulted and he has been cleared with regard to being negative for NC. He was recently in the hospital for inguinal hernia repair at the beginning of November. Prior to that, Ortho did an I&D of his right posterior calf on July [id number]. He had a wound VAC placed on his right posterior lower leg until October of this year. He has been going to the [facility] [place]. About the time that the wound VAC on the right leg was being discontinued, it was noted that his left posterior calf had begun to breakdown. 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 Other than complaining of left calf pain, he currently denies any other significant symptoms. He denies fever and chills, nausea and vomiting today. He has chronic constipation related to pain medication. He denies dysuria (he does make some urine) and hematuria and denies hematochezia and melena.. He denies chest pain and shortness of breath. He denies any transient unilateral numbness, weakness or clumsiness of a hand, arm or leg. He has some left fifth finger numbness that is chronic. He denies any transient episodes of garbled speech, facial drooping or amaurosis. He denies any new or different abdomen, back or groin pain except for some lower abdominal and groin pain related to his surgery from early November. He denies abdominal pain associated with eating. He denies any buttock, thigh or calf cramping when he walks. He does have a history of coronary artery disease as evidenced by a cardiac cath in July 2019. He has no pacemaker nor does he have an AICD. He has never had a stroke. He has been in end-stage renal disease for the last 3 years. He is diabetic w ith a history of hypertension and atrial fibrillation. He does not smoke. He does not take aspirin but he does take Eliquis for A. fib. He does take atorvastatin daily. Bilateral lower extremity arterial ultrasound today showed Diffuse atherosclerotic vascular disease without sonographic evidence of focal hemodynamically significant stenosis Past Medical History Cardiovascular: HTN GI: Peptic Ulcer disease Heme/Onc: Anemia NOS Musculoskeletal: Osteoarthritis Rheumatologic: Gout Renal/: Chronic renal failure Endocrine: Diabetes Past Surgical History Past Surgical History: Cholecystectomy, Other Family History Family History: Diabetes, Hypertension Social History ALCOHOL: none Drugs: None Lives: with Family Current Problem List Problem List Problems Medical Problems: (1) Elevated troponin Status: Acute (2) Nausea Status: Acute Current Medications Current Medications Current Medications Ondansetron HCl (Zofran) 4 mg 1X ONCE IVP Last administered on 12/27/19at 03:59; Start 12/27/19 at 04:00; Stop 12/27/19 at 04:01; Status DC Hydralazine HCl (Apresoline Inj) 10 mg 1X ONCE IVP Last administered on 12/27/19at 04:40; Start 12/27/19 at 05:00; Stop 12/27/19 at 05:01; Status DC Amlodipine Besylate (Norvasc) 10 mg DAILY PO Last administered on 12/27/19at 10:29; Start 12/27/19 at 10:00 Apixaban (Eliquis) 5 mg BID PO Last administered on 12/27/19at 10:25; Start 12/27/19 at 09:30 Atorvastatin Calcium (Lipitor) 40 mg QHS PO ; Start 12/27/19 at 21:00 Clonidine HCl (Catapres) 0.3 mg TID PO Last administered on 12/27/19at 10:29; Start 12/27/19 at 10:00 Diltiazem HCl (Cardizem 24hr Cd) 240 mg DAILY PO Last administered on 12/27/19at 10:28; Start 12/27/19 at 10:00 Hydralazine HCl (Apresoline) 50 mg TID PO Last administered on 12/27/19at 10:45; Start 12/27/19 at 10:00 Isosorbide Mononitrate (Imdur) 60 mg DAILY PO Last administered on 12/27/19at 10:30; Start 12/27/19 at 10:00 Multivitamins (Thera M Plus) 1 tab DAILY PO Last administered on 12/27/19at 10:25; Start 12/27/19 at 10:00 Pantoprazole Sodium (Protonix) 40 mg 1X ONCE PO Last administered on 12/27/19at 10:26; Start 12/27/19 at 09:30; Stop 12/27/19 at 09:41; Status DC Pantoprazole Sodium (Protonix) 40 mg DAILYAC PO ; Start 12/28/19 at 07:30 Potassium Chloride (Klor-Con) 20 meq 1X ONCE PO Last administered on 12/27/19at 10:25; Start 12/27/19 at 09:30; Stop 12/27/19 at 09:41; Status DC Polyethylene Glycol (miraLAX PACKET) 17 gm PRN BID PRN PO CONSTIPATION; Start 12/27/19 at 10:15; Stop 12/27/19 at 10:22; Status DC Polyethylene Glycol (miraLAX PACKET) 17 gm BID PO Last administered on 12/27/19at 10:45; Start 12/27/19 at 10:30 Active Scripts Active Isosorbide Mononitrate Er (Isosorbide Mononitrate) 30 Mg Tab.er.24h 60 Mg PO DAILY Atorvastatin Calcium 40 Mg Tablet 40 Mg PO QHS Thera-M Tablet (Multivits,Ca,Minerals/Iron/Fa) 1 Each Tablet 1 Tab PO DAILY Reported Percocet 5-325 mg Tablet (Oxycodone HCl/Acetaminophen) 1 Each Tablet 1-2 Tab PO PRN Q6HRS MDD 12 Tablet(s) Eliquis (Apixaban) 5 Mg Tablet 5 Mg PO BID Diltiazem 24HR Cd (Diltiazem Hcl) 180 Mg Cap.er.24h 240 Mg PO DAILY Metoprolol Tartrate 100 Mg Tablet 1 Tab PO BID Amlodipine Besylate 10 Mg Tablet 10 Mg PO DAILY Hydralazine Hcl 50 Mg Tablet 50 Mg PO TID Clonidine Hcl 0.3 Mg Tablet 0.3 Mg PO TID Allergies Allergies: Coded Allergies: No Known Drug Allergies (Unverified , 12/01/19) ROS Review of System A 10 point review of systems is negative except for what is listed in his HPI. Physical Exam General: Alert, Oriented X3, Cooperative, No acute distress HEENT: Atraumatic Lungs: Clear to auscultation, Normal air movement Heart: Regular rate, Other (He has a loud heart murmur, likely referred bruit from his left upper arm AV fistula. He also has bilateral carotid bruits, likely due to the same. He has 2+ carotid pulses. He has 2+ radial pulses. He has 2+ femoral, popliteal and dorsalis pedis pulses. He has minimal lower extr emity edema. He has an excellent thrill through his left upper arm brachiocephalic AV fistula.) Abdomen: Normal bowel sounds, Soft, Other (He has some lower abdominal and inguinal tenderness to palpation related to his surgery for bilateral inguinal hernia repair.) Extremities: No cyanosis, Normal pulses Skin: Other (He has evidence of a right posterior calf wound that has healed. The central portion of the wound is pink, lacking pigment. On the left posterior calf, he has skin necrosis and subcutaneous tissue exposure. There is no purulence at this time.) Neuro: Normal speech, Strength at 5/5 X4 ext Psych/Mental Status: Mental status NL, Mood NL MUSCULOSKELETAL: No deformity, No swelling, Other (He is able to dorsiflex and plantarflex both feet. He is able to raise his legs up in the air for me to examine the backs of his legs.) Vitals VITALS Vital Signs Date Time Temp Pulse Resp B/P (MAP) Pulse Ox O2 Delivery O2 Flow Rate FiO2 12/27/19 11:00 98.7 76 18 161/74 (103) 94 Room Air 98.7 Labs Labs Laboratory Tests Test 12/27/19 03:40 12/27/19 07:45 White Blood Count 7.9 x10^3/uL (4.0-11.0) Red Blood Count 2.63 x10^6/uL (4.30-5.70) Hemoglobin 8.5 g/dL (13.0-17.5) Hematocrit 25.1 % (39.0-53.0) Mean Corpuscular Volume 96 fL (79-100) Mean Corpuscular Hemoglobin 33 pg (25-35) Mean Corpuscular Hemoglobin Concent 34 g/dL (31-37) Red Cell Distribution Width 14.2 % (11.5-14.5) Platelet Count 313 x10^3/uL (140-400) Neutrophils (%) (Auto) 72 % (31-73) Lymphocytes (%) (Auto) 14 % (24-48) Monocytes (%) (Auto) 11 % (0-9) Eosinophils (%) (Auto) 2 % (0-3) Basophils (%) (Auto) 1 % (0-3) Neutrophils # (Auto) 5.7 x10^3/uL (1.8-7.7) Lymphocytes # (Auto) 1.1 x10^3/uL (1.0-4.8) Monocytes # (Auto) 0.9 x10^3/uL (0.0-1.1) Eosinophils # (Auto) 0.2 x10^3/uL (0.0-0.7) Basophils # (Auto) 0.1 x10^3/uL (0.0-0.2) Sodium Level 144 mmol/L (136-145) Potassium Level 3.3 mmol/L (3.5-5.1) Chloride Level 99 mmol/L (98-107) Carbon Dioxide Level 29 mmol/L (21-32) Anion Gap 16 (6-14) Blood Urea Nitrogen 20 mg/dL (8-26) Creatinine 7.0 mg/dL (0.7-1.3) Estimated GFR (Cockcroft-Gault) 9.9 BUN/Creatinine Ratio 3 (6-20) Glucose Level 173 mg/dL (70-99) Calcium Level 8.6 mg/dL (8.5-10.1) Total Bilirubin 0.4 mg/dL (0.2-1.0) Aspartate Amino Transf (AST/SGOT) 11 U/L (15-37) Alanine Aminotransferase (ALT/SGPT) 14 U/L (16-63) Alkaline Phosphatase 71 U/L (46-116) Troponin I Quantitative 0.021 ng/mL (0.000-0.055) < 0.017 ng/mL (0.000-0.055) Total Protein 6.8 g/dL (6.4-8.2) Albumin 2.5 g/dL (3.4-5.0) Albumin/Globulin Ratio 0.6 (1.0-1.7) Lipase 164 U/L (73-393) Triglycerides Level 80 mg/dL (0-150) Cholesterol Level 88 mg/dL (0-200) LDL Cholesterol, Calculated 39 mg/dL (0-100) VLDL Cholesterol, Calculated 16 mg/dL (0-40) Non-HDL Cholesterol Calculated 55 mg/dL (0-129) HDL Cholesterol 33 mg/dL (40-60) Cholesterol/HDL Ratio 2.7 Thyroid Stimulating Hormone (TSH) 2.615 uIU/mL (0.358-3.74) Laboratory Tests Test 12/27/19 03:40 12/27/19 07:45 White Blood Count 7.9 x10^3/uL (4.0-11.0) Red Blood Count 2.63 x10^6/uL (4.30-5.70) Hemoglobin 8.5 g/dL (13.0-17.5) Hematocrit 25.1 % (39.0-53.0) Mean Corpuscular Volume 96 fL (79-100) Mean Corpuscular Hemoglobin 33 pg (25-35) Mean Corpuscular Hemoglobin Concent 34 g/dL (31-37) Red Cell Distribution Width 14.2 % (11.5-14.5) Platelet Count 313 x10^3/uL (140-400) Neutrophils (%) (Auto) 72 % (31-73) Lymphocytes (%) (Auto) 14 % (24-48) Monocytes (%) (Auto) 11 % (0-9) Eosinophils (%) (Auto) 2 % (0-3) Basophils (%) (Auto) 1 % (0-3) Neutrophils # (Auto) 5.7 x10^3/uL (1.8-7.7) Lymphocytes # (Auto) 1.1 x10^3/uL (1.0-4.8) Monocytes # (Auto) 0.9 x10^3/uL (0.0-1.1) Eosinophils # (Auto) 0.2 x10^3/uL (0.0-0.7) Basophils # (Auto) 0.1 x10^3/uL (0.0-0.2) Sodium Level 144 mmol/L (136-145) Potassium Level 3.3 mmol/L (3.5-5.1) Chloride Level 99 mmol/L (98-107) Carbon Dioxide Level 29 mmol/L (21-32) Anion Gap 16 (6-14) Blood Urea Nitrogen 20 mg/dL (8-26) Creatinine 7.0 mg/dL (0.7-1.3) Estimated GFR (Cockcroft-Gault) 9.9 BUN/Creatinine Ratio 3 (6-20) Glucose Level 173 mg/dL (70-99) Calcium Level 8.6 mg/dL (8.5-10.1) Total Bilirubin 0.4 mg/dL (0.2-1.0) Aspartate Amino Transf (AST/SGOT) 11 U/L (15-37) Alanine Aminotransferase (ALT/SGPT) 14 U/L (16-63) Alkaline Phosphatase 71 U/L (46-116) Troponin I Quantitative 0.021 ng/mL (0.000-0.055) < 0.017 ng/mL (0.000-0.055) Total Protein 6.8 g/dL (6.4-8.2) Albumin 2.5 g/dL (3.4-5.0) Albumin/Globulin Ratio 0.6 (1.0-1.7) Lipase 164 U/L (73-393) Triglycerides Level 80 mg/dL (0-150) Cholesterol Level 88 mg/dL (0-200) LDL Cholesterol, Calculated 39 mg/dL (0-100) VLDL Cholesterol, Calculated 16 mg/dL (0-40) Non-HDL Cholesterol Calculated 55 mg/dL (0-129) HDL Cholesterol 33 mg/dL (40-60) Cholesterol/HDL Ratio 2.7 Thyroid Stimulating Hormone (TSH) 2.615 uIU/mL (0.358-3.74) Assessment/Plan Assessment/Plan Left leg posterior calf wound. Admission for rule out NC, this has been ruled out. History of end-stage renal disease and calciphylaxis. I briefly discussed his case with Dr. Bahena. He has palpable pulses. His arterial ultrasound today showed no hemodynamically significant stenosis. Since his right calf healed with wound VAC therapy, it is reasonable to consider that his left leg posterior calf wound will heal with debridement and wound VAC placement. Plan: He will need to off weight the backs of his legs. I briefly discussed the risk of amputation in the event that his wounds do not heal, especially considering he has normal pulses. We will add him on the schedule tomorrow for a left posterior calf wound debridement and wound VAC placement. INÉS MARAVILLA WALKING DRAGLINE OPERATOR Dec 27, 2019 14:34
[2019-12-27] MEDS ORDERED: ISOSORBIDE MONONITRATE ER 30 MG TAB.ER.24H PO ONE (14:45)
--- NOTE | 2019-12-27 14:52 | NUR ---
SW following. Reviewed chart and spoke with RN. Spoke with pt who resides at home with his . Pt drives and follows up with [facility] out-patient wound care. SW called the wound clinic to coordinate care. Pt may need a wound vac. Pt on oral medications and room air. SW to follow.
[2019-12-27 15:00] VITALS: BP 114/52
--- NOTE | 2019-12-27 15:19 | NUR ---
This RN has paged Dr. Arreaga three times and has called answering service multiple times in regards to pain medication orders. Answering service number at [phone] has had busy tone with each call. Will continue calling and await orders.
--- NOTE | 2019-12-27 15:56 | NUR ---
This RN received orders by telephone from Dr. Arreaga for Lortab Q6 PRN.
[2019-12-27] MEDS: HYDROcodone/APAP 5/325MG 1 TAB TABLET PO PRN ×2 (16:07→23:22)
[2019-12-27] MEDS: DRONEDARONE HCL 400 MG TABLET PO SCH (17:01)
[2019-12-27 19:45] VITALS: BP 123/63
[2019-12-27] MEDS: ATORVASTATIN CALCIUM 40 MG TABLET. PO SCH (21:29)
--- NOTE | 2019-12-27 22:24 | RAD ---
Carotid doppler ultrasound History: Bilateral carotid bruits Multiple grayscale, color, and duplex spectral analysis waveform sonographic images were acquired of the carotid, subclavian, and vertebral arteries. Comparison: None Findings: RIGHT: PSV cm/sec EDV cm/sec Common carotid artery 80 34 Maximal internal carotid artery 144 38 External carotid artery 102 Vertebral artery 34 ICA/CCA ratio 1.8 LEFT: PSV cm/sec EDV cm/sec Common carotid artery 94 36 Maximum internal carotid artery 94 34 External carotid artery 108 Vertebral artery 53 ICA/CCA ratio 1 Velocities used to determine stenosis are known to correlate with NASCET angiographic criteria. There is antegrade flow of the bilateral vertebral arteries. There is plaque of the right carotid bulb. Incidental note is made of a right thyroid nodule about 1.3 cm in greatest dimension. Impression: 1. There is no evidence of a hemodynamically significant stenosis. There is plaque of the right carotid bulb. Electronically signed by: Daryn West MD (12/27/2019 10:21 PM) [facility]
[2019-12-27 23:45] VITALS: BP 139/69
[2019-12-28] VITALS (7 sets, daily range): BP systolic 145–175; BP diastolic 57–75
[2019-12-28 04:53] LABS: BASO % 1 % (0-3); EOS # 0.2 x10^3/uL (0.0-0.7); EOS % 2 % (0-3); HEMATOCRIT 21.2 % (39.0-53.0); LYMPH # 1.4 x10^3/uL (1.0-4.8); LYMPH % 16 % (24-48); MEAN CORPUSCULAR HEMOGLOBIN 32 pg (25-35); MEAN CORPUSCULAR HGB CONC 33 g/dL (31-37); MEAN CORPUSCULAR VOLUME 97 fL (79-100); MONO % 12 % (0-9); NEUT # 6.2 x10^3/uL (1.8-7.7); NEUT % 70 % (31-73); PLATELET COUNT 260 x10^3/uL (140-400); RED BLOOD COUNT 2.19 x10^6/uL (4.30-5.70); WHITE BLOOD COUNT 8.9 x10^3/uL (4.0-11.0)
[2019-12-28 05:05] LABS: CALCIUM 9.2 mg/dL (8.5-10.1); CREATININE 9.7 mg/dL (0.7-1.3); GFR 6.8
[2019-12-28] MEDS: PANTOPRAZOLE 40 MG TABLET.DR. PO SCH (07:01)
[2019-12-28] MEDS: DRONEDARONE HCL 400 MG TABLET PO SCH ×2 (08:00→17:00)
[2019-12-28] MEDS: cloNIDine HCL 0.3 MG TABLET PO SCH ×3 (08:33→19:36)
[2019-12-28] MEDS: ISOSORBIDE MONONITRATE ER 30 MG TAB.ER.24H PO SCH (08:33)
[2019-12-28] MEDS: MULTIVITAMIN with MINERAL TABLET. PO SCH (08:34)
[2019-12-28] MEDS: POLYETHYLENE GLYCOL 3350 17 GM PACKET. PO SCH ×2 (08:34→19:37)
--- NOTE | 2019-12-28 09:00 | PDOC ---
DULCE MARIA PATEL STOPPER SETTER 12/28/19 0900: CARDIO Progress Notes Date and Time Date of Service 12/28/2019 Time of Evaluation 1630 Subjective Subjective: No Chest Pain, No shortness of breath, No Palpitations Vitals Vitals Vital Signs Date Time Temp Pulse Resp B/P (MAP) Pulse Ox O2 Delivery O2 Flow Rate FiO2 12/28/19 08:30 Room Air 12/28/19 07:00 98.6 57 18 145/71 (95) 95 98.6 Weight Weight [ ] Input and Output Intake and Output Intake and Output 12/28/19 07:00 Intake Total 100 ml Output Total 125 ml Balance -25 ml Intake Oral 100 ml Output Urine Total 125 ml Laboratory Labs Laboratory Tests Test 12/27/19 15:40 12/28/19 04:00 Coronavirus (COVID-19)(PCR) Negative (NEGATIVE) White Blood Count 8.9 x10^3/uL (4.0-11.0) Red Blood Count 2.19 x10^6/uL (4.30-5.70) Hemoglobin 7.0 g/dL (13.0-17.5) Hematocrit 21.2 % (39.0-53.0) Mean Corpuscular Volume 97 fL (79-100) Mean Corpuscular Hemoglobin 32 pg (25-35) Mean Corpuscular Hemoglobin Concent 33 g/dL (31-37) Red Cell Distribution Width 14.0 % (11.5-14.5) Platelet Count 260 x10^3/uL (140-400) Neutrophils (%) (Auto) 70 % (31-73) Lymphocytes (%) (Auto) 16 % (24-48) Monocytes (%) (Auto) 12 % (0-9) Eosinophils (%) (Auto) 2 % (0-3) Basophils (%) (Auto) 1 % (0-3) Neutrophils # (Auto) 6.2 x10^3/uL (1.8-7.7) Lymphocytes # (Auto) 1.4 x10^3/uL (1.0-4.8) Monocytes # (Auto) 1.0 x10^3/uL (0.0-1.1) Eosinophils # (Auto) 0.2 x10^3/uL (0.0-0.7) Basophils # (Auto) 0.0 x10^3/uL (0.0-0.2) Sodium Level 143 mmol/L (136-145) Potassium Level 4.0 mmol/L (3.5-5.1) Chloride Level 103 mmol/L (98-107) Carbon Dioxide Level 27 mmol/L (21-32) Anion Gap 13 (6-14) Blood Urea Nitrogen 28 mg/dL (8-26) Creatinine 9.7 mg/dL (0.7-1.3) Estimated GFR (Cockcroft-Gault) 6.8 Glucose Level 130 mg/dL (70-99) Calcium Level 9.2 mg/dL (8.5-10.1) Physical Exam HEENT: Neck Supple W Full Motion Chest: Symmetric LUNGS: Clear to Auscultation Heart: S1S2, RRR (SR) Abdomen: Soft N/T Extremities: No Edema, Other (S/P left posterior calf debridement) Neurology: alert, oriented, follow commands Assessment Assessment 1. Atypical chest pain: more from abdominal pain 2. Abdominal pain with contributing opioid induced constipation: per PCP 3. Bilateral calf wounds with chronic pain likely induced by calciphylaxis: S/P debridement to left posterior calf 4. HTN urgency: now controlled 5. DM2/HLP: per PCP 6. CAD: known for distal LAD lesion 7. ESRD on HD: renal transplant candidate 8. Anemia of chronic disease : Hgb down to 7 today, no obvious bleed 9. PAFIB: noted sometime in 10/2019 at [facility] per pt. presently SR. Recommendations 1. No ASA with concurrent eliquis use and anemia and PUD. LOKESH he as pt is already on cardizem CD. Continue home metoprolol and multaq. Consider ARB or ACEi if BP remains not controlled if OK with nephrology He does not check his BP at home. Discussed HBPM 2. Wound care team. May hold eliquis for now post op. Will reevaluate ASA vs Eliquis for stroke prevention given his anemia and hx of PUD 3. Continue secondary prevention measures. Supportive care. 4. Transfusion today and fluid off loading per HD Justicifation of Admission Dx: Justifications for Admission: Justification of Admission Dx: Yes JUAN MANUEL MG MD 12/29/19 0824: CARDIO Progress Notes Assessment Assessment Patient seen and examined 12/28/19. Agree with ENTERPRISE ENGINEER's assessment and plan. Chest pain with atypical features and noncardiac. CAD status clinically stable overall. Blood pressure better controlled. Wound care team following for bilateral calf wounds secondary to calciphylaxis. Continue hemodialysis per nephrology team. DULCE MARIA PATEL APRN Dec 28, 2019 09:00 JUAN MANUEL MG MD Dec 29, 2019 08:24
[2019-12-28] MEDS ORDERED: IV NORMAL SALINE 1000ML BAG 1,000 ML IV PRN ×4 (09:02→11:16)
[2019-12-28] MEDS ORDERED: ALBUMIN HUMAN 25% 200 ML IV PRN (09:15)
[2019-12-28] MEDS ORDERED: DIALYSIS PATIENT. MC PRN ×6 (09:15→11:30)
[2019-12-28] MEDS ORDERED: 0.9 % SODIUM CHLORIDE 10 ML DISP.SYRIN. IV PRN ×4 (09:15→11:30)
--- NOTE | 2019-12-28 09:24 | PDOC ---
PROGRESS NOTES Subjective Subjective feels better today Objective Objective Vital Signs Date Time Temp Pulse Resp B/P (MAP) Pulse Ox O2 Delivery O2 Flow Rate FiO2 12/28/19 08:30 Room Air 12/28/19 07:00 98.6 57 18 145/71 (95) 95 98.6 Intake and Output 12/28/19 07:00 Intake Total 100 ml Output Total 125 ml Balance -25 ml Intake Oral 100 ml Output Urine Total 125 ml Physical Exam Abdomen: Normal bowel sounds, Soft, Other (He has some lower abdominal and inguinal tenderness to palpation related to his surgery for bilateral inguinal hernia repair.) Heart: Regular rate, Other (He has a loud heart murmur, likely referred bruit from his left upper arm AV fistula. He also has bilateral carotid bruits, likely due to the same. He has 2+ carotid pulses. He has 2+ radial pulses. He has 2+ femoral, popliteal and dorsalis pedis pulses. He has minimal lower extremity edema. He has an excellent thrill through his left upper arm brachiocephalic AV fistula.) Extremities: No cyanosis, Normal pulses General: Alert, Oriented X3, Cooperative, No acute distress HEENT: Atraumatic Lungs: Clear to auscultation, Normal air movement MUSCULOSKELETAL: No deformity, No swelling, Other (He is able to dorsiflex and plantarflex both feet. He is able to raise his legs up in the air for me to examine the backs of his legs.) Neuro: Normal speech, Strength at 5/5 X4 ext Psych/Mental Status: Mental status NL, Mood NL Skin: Other (He has evidence of a right posterior calf wound that has healed. The central portion of the wound is pink, lacking pigment. On the left posterior calf, he has skin necrosis and subcutaneous tissue exposure. There is no purulence at this time.) Diagnosis Problem List Problems Medical Problems: (1) Elevated troponin Status: Acute (2) Nausea Status: Acute Assessment Assessment Problems Medical Problems: (1) Elevated troponin Status: Acute (2) Nausea Status: Acute FINAL IMPRESSION: 1. Epigastric pain, rule out coronary artery disease, no elevation in troponin.No [place] 2. Probably epigastric pain secondary to gastritis. The patient says he had some [employer]. 3. End-stage renal disease; on hemodialysis; goes to dialysis on Thursday, Thursday, and [facility]. 4. Atrial fibrillation, on Eliquis. 5. 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 6. Hypertension. 7. Hyperlipidemia. 8. Chronic pain medications. 9. Anemia of ch disease PLAN: Hb 7.0 going for leg wound debridement type+cross for 2 units. Dialysis later today No mi , cardiology note appreciated. Arterial doppler noted ,no major blockage. Home in 1-2 days. At this time, the patient is admitted to the hospital. Cardiac serial enzymes, radiation monitor, cardiac EKG. Also, have start on Protonix and hopefully that should improve the stomach and we will have a Vascular consult and Wound Care consult for peripheral vascular disease and calciphylaxis ulcers. Plan Plan of Care Problems Medical Problems: (1) Elevated troponin Status: Acute (2) Nausea Status: Acute Comment Review of Relevant I have reviewed the following items maame (where applicable) has been applied. Labs Laboratory Tests Test 12/27/19 15:40 12/28/19 04:00 Coronavirus (COVID-19)(PCR) Negative (NEGATIVE) White Blood Count 8.9 x10^3/uL (4.0-11.0) Red Blood Count 2.19 x10^6/uL (4.30-5.70) Hemoglobin 7.0 g/dL (13.0-17.5) Hematocrit 21.2 % (39.0-53.0) Mean Corpuscular Volume 97 fL (79-100) Mean Corpuscular Hemoglobin 32 pg (25-35) Mean Corpuscular Hemoglobin Concent 33 g/dL (31-37) Red Cell Distribution Width 14.0 % (11.5-14.5) Platelet Count 260 x10^3/uL (140-400) Neutrophils (%) (Auto) 70 % (31-73) Lymphocytes (%) (Auto) 16 % (24-48) Monocytes (%) (Auto) 12 % (0-9) Eosinophils (%) (Auto) 2 % (0-3) Basophils (%) (Auto) 1 % (0-3) Neutrophils # (Auto) 6.2 x10^3/uL (1.8-7.7) Lymphocytes # (Auto) 1.4 x10^3/uL (1.0-4.8) Monocytes # (Auto) 1.0 x10^3/uL (0.0-1.1) Eosinophils # (Auto) 0.2 x10^3/uL (0.0-0.7) Basophils # (Auto) 0.0 x10^3/uL (0.0-0.2) Sodium Level 143 mmol/L (136-145) Potassium Level 4.0 mmol/L (3.5-5.1) Chloride Level 103 mmol/L (98-107) Carbon Dioxide Level 27 mmol/L (21-32) Anion Gap 13 (6-14) Blood Urea Nitrogen 28 mg/dL (8-26) Creatinine 9.7 mg/dL (0.7-1.3) Estimated GFR (Cockcroft-Gault) 6.8 Glucose Level 130 mg/dL (70-99) Calcium Level 9.2 mg/dL (8.5-10.1) Medications Current Medications Acetaminophen/ Hydrocodone Bitart (Lortab 5/325) 1 tab PRN Q6HRS PRN PO MODERATE PAIN Last administered on 12/27/19at 23:22; Start 12/27/19 at 16:00 Albumin Human 200 ml @ 200 mls/hr 1X PRN PRN IV Hypotension; Start 12/28/19 at 09:15; Stop 12/28/19 at 15:14 Amlodipine Besylate (Norvasc) 10 mg DAILY PO Last administered on 12/27/19at 10:29; Start 12/27/19 at 10:00; Stop 12/27/19 at 14:32; Status DC Apixaban (Eliquis) 5 mg BID PO Last administered on 12/27/19at 21:29; Start 12/27/19 at 09:30; Stop 12/28/19 at 08:10; Status DC Apixaban (Eliquis) 5 mg BID PO ; Start 12/28/19 at 21:00; Stop 12/28/19 at 08:59; Status DC Apixaban (Eliquis) 5 mg BID PO ; Start 12/29/19 at 21:00 Atorvastatin Calcium (Lipitor) 40 mg QHS PO Last administered on 12/27/19at 21:29; Start 12/27/19 at 21:00 Cefazolin Sodium (Ancef) 1 gm 1X PRN IVP PRIOR TO PROCEDURE; Start 12/28/19 at 10:00 Clonidine HCl (Catapres) 0.3 mg TID PO Last administered on 12/27/19at 21:29; Start 12/27/19 at 10:00 Diltiazem HCl (Cardizem 24hr Cd) 240 mg DAILY PO Last administered on 12/27/19at 10:28; Start 12/27/19 at 10:00 Dronedarone (Multaq) 400 mg BIDWMEALS PO Last administered on 12/27/19at 17:01; Start 12/27/19 at 17:00 Hydralazine HCl (Apresoline) 50 mg TID PO Last administered on 12/27/19at 21:30; Start 12/27/19 at 10:00 Info (Anti-Coagulation Monitoring By Pharmacy) 1 each PRN DAILY PRN [facility] SEE COMMENTS; Start 12/28/19 at 08:45 Info (PHARMACY MONITORING -- do not chart) 1 each PRN DAILY PRN [facility] SEE COMMENTS; Start 12/28/19 at 09:15 Info (PHARMACY MONITORING -- do not chart) 1 each PRN DAILY PRN [facility] SEE COMMENTS; Start 12/28/19 at 09:15; Status UNV Isosorbide Mononitrate (Imdur) 30 mg 1X ONCE PO Last administered on 12/27/19at 15:27; Start 12/27/19 at 14:45; Stop 12/27/19 at 14:46; Status DC Isosorbide Mononitrate (Imdur) 60 mg DAILY PO Last administered on 12/27/19at 10:30; Start 12/27/19 at 10:00; Stop 12/27/19 at 14:32; Status DC Isosorbide Mononitrate (Imdur) 90 mg DAILY PO ; Start 12/28/19 at 09:00 Multivitamins (Thera M Plus) 1 tab DAILY PO Last administered on 12/27/19at 10:25; Start 12/27/19 at 10:00 Pantoprazole Sodium (Protonix) 40 mg 1X ONCE PO Last administered on 12/27/19at 10:26; Start 12/27/19 at 09:30; Stop 12/27/19 at 09:41; Status DC Pantoprazole Sodium (Protonix) 40 mg DAILYAC PO ; Start 12/28/19 at 07:30 Polyethylene Glycol (miraLAX PACKET) 17 gm BID PO Last administered on 12/27/19at 21:29; Start 12/27/19 at 10:30 Polyethylene Glycol (miraLAX PACKET) 17 gm PRN BID PRN PO CONSTIPATION; Start 12/27/19 at 10:15; Stop 12/27/19 at 10:22; Status DC Potassium Chloride (Klor-Con) 20 meq 1X ONCE PO Last administered on 12/27/19at 10:25; Start 12/27/19 at 09:30; Stop 12/27/19 at 09:41; Status DC Sodium Chloride 1,000 ml @ 400 mls/hr Q2H30M PRN IV PATENCY; Start 12/28/19 at 09:02; Stop 12/28/19 at 21:01 Sodium Chloride 1,000 ml @ 1,000 mls/hr Q1H PRN IV hypotension; Start 12/28/19 at 09:02; Stop 12/28/19 at 15:01 Sodium Chloride (Normal Saline Flush) 10 ml 1X PRN PRN IV AP catheter pack; Start 12/28/19 at 09:15; Stop 12/29/19 at 09:14 Sodium Chloride (Normal Saline Flush) 10 ml 1X PRN PRN IV OBSTETRIC ANAESTHETIST catheter pack; Start 12/28/19 at 09:15; Stop 12/29/19 at 09:14 Vitals/I & O Vital Sign - Last 24 Hours 12/27/19 12/27/19 12/27/19 12/27/19 10:28 10:29 10:29 10:30 Pulse 76 76 76 76 B/P (MAP) 161/74 161/74 161/74 161/74 12/27/19 12/27/19 12/27/19 12/27/19 10:45 11:00 15:00 15:27 Temp 98.7 99.1 98.7 99.1 Pulse 76 76 65 65 Resp 18 18 B/P (MAP) 161/74 161/74 (103) 114/52 (72) 114/52 Pulse Ox 94 93 O2 Delivery Room Air Room Air 12/27/19 12/27/19 12/27/19 12/27/19 15:27 15:28 17:01 19:35 Pulse 65 65 63 B/P (MAP) 114/52 114/52 112/57 O2 Delivery Room Air 12/27/19 12/27/19 12/27/1912/26/20 19:45 21:29 21:30 23:22 Temp 98.2 98.2 Pulse 63 63 63 Resp 16 B/P (MAP) 123/63 (83) 123/63 123/63 Pulse Ox 94 94 O2 Delivery Room Air Room Air 12/27/19 12/28/19 12/28/19 12/28/19 23:45 03:38 07:00 08:30 Temp 98.4 98.6 98.4 98.6 Pulse 63 59 57 Resp 16 16 18 B/P (MAP) 139/69 (92) 145/71 (95) Pulse Ox 95 95 O2 Delivery Room Air Room Air Room Air Room Air Intake and Output 12/27/19 12/27/19 12/28/19 15:00 23:00 07:00 Intake Total 0 ml 100 ml Output Total 125 ml Balance 0 ml -125 ml 100 ml Justicifation of Admission Dx: Justifications for Admission: Justification of Admission Dx: Yes RAMU FLOYD MD Dec 28, 2019 09:24
[2019-12-28] MEDS ORDERED: IV RINGERS,LACTATED 1000ML 1,000 ML IV SCH ×2 (09:43→12:33)
[2019-12-28] MEDS ORDERED: PROCHLORPERAZINE 10 MG/2 ML VIAL. IV PRN (09:45)
[2019-12-28] MEDS ORDERED: LIDOCAINE 2% PF 5 ML VIAL. ONE (09:49)
[2019-12-28] MEDS ORDERED: PROPOFOL 10 MG/ML (20ML) VIAL. IV ONE (09:49)
[2019-12-28] MEDS ORDERED: fentaNYL PF VIAL 100 MCG/2 ML VIAL ONE ×3 (09:50→12:41)
[2019-12-28] MEDS ORDERED: ceFAZolin SODIUM IV Push 1 GM VIAL. IVP PRN (10:00)
[2019-12-28] MEDS: IV NORMAL SALINE 1000ML BAG 1,000 ML IV SCH (10:42)
[2019-12-28] MEDS ORDERED: ONDANSETRON PF 4 MG/2 ML VIAL. ONE (11:12)
[2019-12-28] MEDS ORDERED: LIDOCAINE 1% PF 5 ML VIAL. ONE (11:12)
[2019-12-28] MEDS ORDERED: LIDOCAINE 1% Multi-Dose 20 ML VIAL. ONE (11:19)
[2019-12-28] MEDS ORDERED: SURGICEL FIBRILLAR 1X2 EACH. ONE (11:19)
[2019-12-28] MEDS ORDERED: SEVOFLURANE 31 TO 60 MINUTES. IH ONE (11:59)
[2019-12-28] MEDS ORDERED: ESMOLOL 100 MG/10 ML VIAL. IVP ONE (12:05)
[2019-12-28] MEDS ORDERED: niCARdipine INJ. IV ONE (12:13)
--- NOTE | 2019-12-28 12:25 | PDOC4 ---
Operative Note Operative Note Operative Report - dictated Pre-op: left posterior calf large necrotic wound Post-op: same Operation: left posterior calf debridement of necrotic skin and subcutaneous tissue Surgeon: Dr. Genaro Bahena Anesthesia: general Blood loss: 10ml GENARO BAHENA MD Dec 28, 2019 12:25
[2019-12-28] MEDS ORDERED: MORPHINE SULFATE 2 MG/ML VIAL. ONE (12:28)
[2019-12-28] MEDS ORDERED: HYDROmorphone 2 MG/ML VIAL ONE (12:32)
[2019-12-28] MEDS ORDERED: PROCHLORPERAZINE 10 MG/2 ML VIAL. ONE (12:34)
[2019-12-28] MEDS: HYDROmorphone 2 MG/ML VIAL IV PRN ×4 (12:35→23:01)
[2019-12-28] MEDS: fentaNYL PF VIAL 100 MCG/2 ML VIAL IVP PRN ×2 (12:45→12:50)
--- NOTE | 2019-12-28 12:58 | OP ---
DATE OF SURGERY: 12/28/2019 SURGEON: Keshia Bahena MD ANESTHESIA USED: General anesthesia. PREOPERATIVE DIAGNOSIS: Left posterior calf large necrotic wound, thought to be secondary to calciphylaxis. POSTOPERATIVE DIAGNOSES: Left posterior calf large necrotic wound, thought to be secondary to calciphylaxis. OPERATION PERFORMED: Left posterior calf, sharp excisional debridement of necrotic skin and subcutaneous tissue, measurements after debridement were approximately 13 cm in length x 9 cm in width x 0.5 cm in depth. BLOOD LOSS: 10 mL. INDICATIONS: The patient is a 54-year-old male with end-stage renal disease, on chronic hemodialysis. He has developed a necrotic extensive wound on his left posterior calf. This has a black gangrene throughout the wound bed. Recommendations were made for debridement of the left posterior calf wound. Informed consent was obtained including the risks of bleeding, need for long-term wound care and likely need for skin grafting to get this to fully heal. DETAILS OF THE OPERATION: The patient was brought to the operating room and placed on table in supine position. He received general anesthesia monitored throughout the case by the anesthesiologist. His left lower leg was prepped and draped circumferentially by normal sterile fashion. I sharply excised necrotic skin and subcutaneous tissue throughout the wound bed. This was into the deep subcutaneous tissue level with black necrotic tissue to that depth. Copious amounts of tissue was debrided throughout the wound to get back to good healthy tissue at all of the areas of this large wound. After debridement, there was no further necrotic tissue visualized. There was good bleeding, which was controlled with electrocautery. We washed the wound with copious amounts of antibiotic solution. I covered the large wound with Aquacel dressing, ABD pads, Kerlix and an Michael wrap. He tolerated the surgery with no immediate complications. SPECIMEN: Necrotic tissue and adjacent healthy skin was sent to pathology for evaluation. KESHIA BAHENA MD DR: GALI/ed JOB#: [id number] / [id number]
[2019-12-28] MEDS ORDERED: MORPHINE SULFATE 2 MG/ML VIAL. IV ONE (13:30)
--- NOTE | 2019-12-28 13:35 | PDOC2 ---
CONSULT Date of Consult Date of Consult DATE: 12/28/19 TIME: 13:20 Reason for Consult Reason for Consult: ESRD Source Source: Chart review, Patient History of Present Illness Reason for Visit: Pt is a 54-year-old male admitted with c/o epigastric pain after he ate something yesterday, Pt admitted to r/o CAD He is ESRD on HD MWF along with other significant PMHx He was also having leg pain . He reports no BM for at least about a week , he uses oxycodone for leg pain hese wounds particularly in his left has limited his mobility due tot he pain. No SOA, palpitations and has been compliant Denies any N/V. No SOB or CP . Past Medical History Cardiovascular: HTN GI: Peptic Ulcer disease Heme/Onc: Anemia NOS Musculoskeletal: Osteoarthritis Rheumatologic: Gout Renal/: Chronic renal failure Endocrine: Diabetes Past Surgical History Past Surgical History: Cholecystectomy, Other Family History Family History: Diabetes, Hypertension Social History No ALCOHOL: none Drugs: None Lives: with Family Current Problem List Problem List Problems Medical Problems: (1) Elevated troponin Status: Acute (2) Nausea Status: Acute Current Medications Current Medications Current Medications Ondansetron HCl (Zofran) 4 mg 1X ONCE IVP Last administered on 12/27/19at 03:59; Start 12/27/19 at 04:00; Stop 12/27/19 at 04:01; Status DC Hydralazine HCl (Apresoline Inj) 10 mg 1X ONCE IVP Last administered on 12/27/19at 04:40; Start 12/27/19 at 05:00; Stop 12/27/19 at 05:01; Status DC Amlodipine Besylate (Norvasc) 10 mg DAILY PO Last administered on 12/27/19at 10:29; Start 12/27/19 at 10:00; Stop 12/27/19 at 14:32; Status DC Apixaban (Eliquis) 5 mg BID PO Last administered on 12/27/19at 21:29; Start 12/27/19 at 09:30; Stop 12/28/19 at 08:10; Status DC Atorvastatin Calcium (Lipitor) 40 mg QHS PO Last administered on 12/27/19at 21:29; Start 12/27/19 at 21:00 Clonidine HCl (Catapres) 0.3 mg TID PO Last administered on 12/27/19at 21:29; Start 12/27/19 at 10:00 Diltiazem HCl (Cardizem 24hr Cd) 240 mg DAILY PO Last administered on 12/27/19at 10:28; Start 12/27/19 at 10:00 Hydralazine HCl (Apresoline) 50 mg TID PO Last administered on 12/27/19at 21:30; Start 12/27/19 at 10:00 Isosorbide Mononitrate (Imdur) 60 mg DAILY PO Last administered on 12/27/19at 10:30; Start 12/27/19 at 10:00; Stop 12/27/19 at 14:32; Status DC Multivitamins (Thera M Plus) 1 tab DAILY PO Last administered on 12/27/19 10:25; Start 12/27/19 at 10:00 Pantoprazole Sodium (Protonix) 40 mg 1X ONCE PO Last administered on 12/27/19at 10:26; Start 12/27/19 at 09:30; Stop 12/27/19 at 09:41; Status DC Pantoprazole Sodium (Protonix) 40 mg DAILYAC PO ; Start 12/28/19 at 07:30 Potassium Chloride (Klor-Con) 20 meq 1X ONCE PO Last administered on 12/27/19 10:25; Start 12/27/19 at 09:30; Stop 12/27/19 at 09:41; Status DC Polyethylene Glycol (miraLAX PACKET) 17 gm PRN BID PRN PO CONSTIPATION; Start 12/27/19 at 10:15; Stop 12/27/19 at 10:22; Status DC Polyethylene Glycol (miraLAX PACKET) 17 gm BID PO Last administered on 12/27/19at 21:29; Start 12/27/19 at 10:30 Isosorbide Mononitrate (Imdur) 90 mg DAILY PO ; Start 12/28/19 at 09:00 Isosorbide Mononitrate (Imdur) 30 mg 1X ONCE PO Last administered on 12/27/19at 15:27; Start 12/27/19 at 14:45; Stop 12/27/19 at 14:46; Status DC Cefazolin Sodium (Ancef) 1 gm 1X PRN IVP PRIOR TO PROCEDURE Last administered on 12/28/19at 11:53; Start 12/28/19 at 10:00; Stop 12/28/19 at 12:00; Status DC Acetaminophen/ Hydrocodone Bitart (Lortab 5/325) 1 tab PRN Q6HRS PRN PO MODERATE PAIN Last administered on 12/27/19at 23:22; Start 12/27/19 at 16:00 Dronedarone (Multaq) 400 mg BIDWMEALS PO Last administered on 12/27/19at 17:01; Start 12/27/19 at 17:00 Apixaban (Eliquis) 5 mg BID PO ; Start 12/28/19 at 21:00; Stop 12/28/19 at 08:59; Status DC Info (Anti-Coagulation Monitoring By Pharmacy) 1 each PRN DAILY PRN MC SEE COM MENTS; Start 12/28/19 at 08:45 Apixaban (Eliquis) 5 mg BID PO ; Start 12/29/19 at 21:00 Sodium Chloride 1,000 ml @ 1,000 mls/hr Q1H PRN IV hypotension; Start 12/28/19 at 09:02; Stop 12/28/19 at 15:01 Albumin Human 200 ml @ 200 mls/hr 1X PRN PRN IV Hypotension; Start 12/28/19 at 09:15; Stop 12/28/19 at 15:14 Sodium Chloride (Normal Saline Flush) 10 ml 1X PRN PRN IV AP catheter pack; Start 12/28/19 at 09:15; Stop 12/28/19 at 19:00 Sodium Chloride (Normal Saline Flush) 10 ml 1X PRN PRN IV RN EMERGENCY ROOM catheter pack; Start 12/28/19 at 09:15; Stop 12/28/19 at 19:00 Sodium Chloride 1,000 ml @ 400 mls/hr Q2H30M PRN IV PATENCY; Start 12/28/19 at 09:02; Stop 12/28/19 at 21:01 Info (PHARMACY MONITORING -- do not chart) 1 each PRN DAILY PRN MC SEE COMMENTS; Start 12/28/19 at 09:15; Status UNV Info (PHARMACY MONITORING -- do not chart) 1 each PRN DAILY PRN MC SEE COMMENTS; Start 12/28/19 at 09:15 Ringer's Solution 1,000 ml @ 30 mls/hr Q24H IV ; Start 12/28/19 at 09:43; Stop 12/28/19 at 10:37; Status DC Prochlorperazine Edisylate (Compazine) 5 mg PACU PRN PRN IV NAUSEA, MRX1; Start 12/28/19 at 09:45; Stop 12/28/19 at 20:00 Propofol (Diprivan) 200 mg STK-MED ONCE IV ; Start 12/28/19 at 09:49; Stop 12/28/19 at 09:50; Status DC Lidocaine HCl (Lidocaine Pf 2% Vial) 5 ml STK-MED ONCE .ROUTE ; Start 12/28/19 at 09:49; Stop 12/28/19 at 09:50; Status DC Fentanyl Citrate (Fentanyl 2ml Vial) 100 mcg STK-MED ONCE .ROUTE ; Start 12/28/19 at 09:50; Stop 12/28/19 at 09:50; Status DC Sodium Chloride 1,000 ml @ 30 mls/hr Q24H IV Last administered on 12/28/19at 10:42; Start 12/28/19 at 10:45 Lidocaine HCl (Xylocaine-Mpf 1% 5ml Vial) 5 ml STK-MED ONCE .ROUTE ; Start 12/28/19 at 11:12; Stop 12/28/19 at 11:12; Status DC Ondansetron HCl (Zofran) 4 mg STK-MED ONCE .ROUTE ; Start 12/28/19 at 11:12; Stop 12/28/19 at 11:12; Status DC Info (PHARMACY MONITORING -- do not chart) 1 each PRN DAILY PRN MC SEE COMMENTS; Start 12/28/19 at 11:15 Info (PHARMACY MONITORING -- do not chart) 1 each PRN DAILY PRN MC SEE COMMENTS; Start 12/28/19 at 11:15 Lidocaine HCl (Lidocaine 1% 20ml Vial) 20 ml STK-MED ONCE .ROUTE ; Start 12/28/19 at 11:19; Stop 12/28/19 at 11:19; Status DC Cellulose (Surgicel Fibrillar 1x2) 1 each STK-MED ONCE .ROUTE ; Start 12/28/19 at 11:19; Stop 12/28/19 at 11:19; Status DC Sodium Chloride 1,000 ml @ 1,000 mls/hr Q1H PRN IV hypotension; Start 12/28/19 at 11:16; Stop 12/28/19 at 17:15 Sodium Chloride (Normal Saline Flush) 10 ml 1X PRN PRN IV AP catheter pack; Start 12/28/19 at 11:30; Stop 12/29/19 at 11:29 Sodium Chloride (Normal Saline Flush) 10 ml 1X PRN PRN IV RN EMERGENCY ROOM catheter pack; Start 12/28/19 at 11:30; Stop 12/29/19 at 11:29 Sodium Chloride 1,000 ml @ 400 mls/hr Q2H30M PRN IV PATENCY; Start 12/28/19 at 11:16; Stop 12/28/19 at 23:15 Info (PHARMACY MONITORING -- do not chart) 1 each PRN DAILY PRN MC SEE COMMENTS; Start 12/28/19 at 11:30; Status UNV Info (PHARMACY MONITORING -- do not chart) 1 each PRN DAILY PRN MC SEE COMMENTS; Start 12/28/19 at 11:30 Cefazolin Sodium 1 gm/Sodium Chloride 500 ml @ 500 mls/hr 1X ONCE IRR Last administered on 12/28/19at 12:40; Start 12/28/19 at 11:30; Stop 12/28/19 at 12:29; Status DC Sevoflurane (Ultane) 30 ml STK-MED ONCE IH ; Start 12/28/19 at 11:59; Stop 12/28/19 at 11:59; Status DC Esmolol HCl (Brevibloc) 100 mg STK-MED ONCE IVP ; Start 12/28/19 at 12:05; Stop 12/28/19 at 12:05; Status DC Fentanyl Citrate (Fentanyl 2ml Vial) 100 mcg STK-MED ONCE .ROUTE ; Start 12/28/19 at 12:06; Stop 12/28/19 at 12:07; Status DC Nicardipine HCl (Cardene) 25 mg STK-MED ONCE IV ; Start 12/28/19 at 12:13; Stop 12/28/19 at 12:14; Status DC Morphine Sulfate (Morphine Sulfate) 2 mg STK-MED ONCE .ROUTE ; Start 12/28/19 at 12:28; Stop 12/28/19 at 12:28; Status DC Hydromorphone HCl (Dilaudid) 2 mg STK-MED ONCE .ROUTE ; Start 12/28/19 at 12:32; Stop 12/28/19 at 12:32; Status DC Ringer's Solution 1,000 ml @ 30 mls/hr Q24H IV ; Start 12/28/19 at 12:33; Stop 12/29/19 at 00:32 Prochlorperazine Edisylate (Compazine) 10 mg STK-MED ONCE .ROUTE ; Start 12/28/19 at 12:34; Stop 12/28/19 at 12:34; Status DC Fentanyl Citrate (Fentanyl 2ml Vial) 100 mcg STK-MED ONCE .ROUTE ; Start 12/28/19 at 12:41; Stop 12/28/19 at 12:41; Status DC Active Scripts Active Isosorbide Mononitrate Er (Isosorbide Mononitrate) 30 Mg Tab.er.24h 60 Mg PO DAILY Atorvastatin Calcium 40 Mg Tablet 40 Mg PO QHS Thera-M Tablet (Multivits,Ca,Minerals/Iron/Fa) 1 Each Tablet 1 Tab PO DAILY Reported Percocet 5-325 mg Tablet (Oxycodone HCl/Acetaminophen) 1 Each Tablet 1-2 Tab PO PRN Q6HRS MDD 12 Tablet(s) Eliquis (Apixaban) 5 Mg Tablet 5 Mg PO BID Diltiazem 24HR Cd (Diltiazem Hcl) 180 Mg Cap.er.24h 240 Mg PO DAILY Metoprolol Tartrate 100 Mg Tablet 1 Tab PO BID Amlodipine Besylate 10 Mg Tablet 10 Mg PO DAILY Hydralazine Hcl 50 Mg Tablet 50 Mg PO TID Clonidine Hcl 0.3 Mg Tablet 0.3 Mg PO TID Allergies Allergies: Coded Allergies: No Known Drug Allergies (Unverified , 12/01/19) ROS Review of System Per HPI Physical Exam Physical Exam General: No acute distress HEENT: OM moist NECK Supple Lungs: Clear to auscultation, Non labored Heart: Regular rate Extremities: No cyanosis,2+ bilateral LE Skin: No rash Neuro: grossly normal Psych/Mental Status: Mental status NL, Mood NL No araujo Vital Signs Vital Signs Date Time Temp Pulse Resp B/P (MAP) Pulse Ox O2 Delivery O2 Flow Rate FiO2 12/28/19 13:00 98.3 92 18 213/78 100 Simple Mask 10 98.3 Assessment & Plan ESRD-On HD MWF under Dr. 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 S/P excisional debridement of necrotic skin and subcutaneous tissue earlier today Epigastric Pain- Atypical per cardiology HTN urgency: now controlled DM2 per PCP CAD: distal LAD lesion Anemia - PRBC ordered by Primary PAFIB: presently SR. Labs Labs Laboratory Tests Test 12/27/19 03:40 12/27/19 07:45 12/27/19 15:40 12/28/19 04:00 White Blood Count 7.9 x10^3/uL (4.0-11.0) 8.9 x10^3/uL (4.0-11.0) Red Blood Count 2.63 x10^6/uL (4.30-5.70) 2.19 x10^6/uL (4.30-5.70) Hemoglobin 8.5 g/dL (13.0-17.5) 7.0 g/dL (13.0-17.5) Hematocrit 25.1 % (39.0-53.0) 21.2 % (39.0-53.0) Mean Corpuscular Volume 96 fL (79-100) 97 fL (79-100) Mean Corpuscular Hemoglobin 33 pg (25-35) 32 pg (25-35) Mean Corpuscular Hemoglobin Concent 34 g/dL (31-37) 33 g/dL (31-37) Red Cell Distribution Width 14.2 % (11.5-14.5) 14.0 % (11.5-14.5) Platelet Count 313 x10^3/uL (140-400) 260 x10^3/uL (140-400) Neutrophils (%) (Auto) 72 % (31-73) 70 % (31-73) Lymphocytes (%) (Auto) 14 % (24-48) 16 % (24-48) Monocytes (%) (Auto) 11 % (0-9) 12 % (0-9) Eosinophils (%) (Auto) 2 % (0-3) 2 % (0-3) Basophils (%) (Auto) 1 % (0-3) 1 % (0-3) Neutrophils # (Auto) 5.7 x10^3/uL (1.8-7.7) 6.2 x10^3/uL (1.8-7.7) Lymphocytes # (Auto) 1.1 x10^3/uL (1.0-4.8) 1.4 x10^3/uL (1.0-4.8) Monocytes # (Auto) 0.9 x10^3/uL (0.0-1.1) 1.0 x10^3/uL (0.0-1.1) Eosinophils # (Auto) 0.2 x10^3/uL (0.0-0.7) 0.2 x10^3/uL (0.0-0.7) Basophils # (Auto) 0.1 x10^3/uL (0.0-0.2) 0.0 x10^3/uL (0.0-0.2) Sodium Level 144 mmol/L (136-145) 143 mmol/L (136-145) Potassium Level 3.3 mmol/L (3.5-5.1) 4.0 mmol/L (3.5-5.1) Chloride Level 99 mmol/L (98-107) 103 mmol/L (98-107) Carbon Dioxide Level 29 mmol/L (21-32) 27 mmol/L (21-32) Anion Gap 16 (6-14) 13 (6-14) Blood Urea Nitrogen 20 mg/dL (8-26) 28 mg/dL (8-26) Creatinine 7.0 mg/dL (0.7-1.3) 9.7 mg/dL (0.7-1.3) Estimated GFR (Cockcroft-Gault) 9.9 6.8 BUN/Creatinine Ratio 3 (6-20) Glucose Level 173 mg/dL (70-99) 130 mg/dL (70-99) Calcium Level 8.6 mg/dL (8.5-10.1) 9.2 mg/dL (8.5-10.1) Total Bilirubin 0.4 mg/dL (0.2-1.0) Aspartate Amino Transf (AST/SGOT) 11 U/L (15-37) Alanine Aminotransferase (ALT/SGPT) 14 U/L (16-63) Alkaline Phosphatase 71 U/L (46-116) Troponin I Quantitative 0.021 ng/mL (0.000-0.055) < 0.017 ng/mL (0.000-0.055) Total Protein 6.8 g/dL (6.4-8.2) Albumin 2.5 g/dL (3.4-5.0) Albumin/Globulin Ratio 0.6 (1.0-1.7) Lipase 164 U/L (73-393) Triglycerides Level 80 mg/dL (0-150) Cholesterol Level 88 mg/dL (0-200) LDL Cholesterol, Calculated 39 mg/dL (0-100) VLDL Cholesterol, Calculated 16 mg/dL (0-40) Non-HDL Cholesterol Calculated 55 mg/dL (0-129) HDL Cholesterol 33 mg/dL (40-60) Cholesterol/HDL Ratio 2.7 Thyroid Stimulating Hormone (TSH) 2.615 uIU/mL (0.358-3.74) Coronavirus (COVID-19)(PCR) Negative (NEGATIVE) Laboratory Tests Test 12/27/19 15:40 12/28/19 04:00 Coronavirus (COVID-19)(PCR) Negative (NEGATIVE) White Blood Count 8.9 x10^3/uL (4.0-11.0) Red Blood Count 2.19 x10^6/uL (4.30-5.70) Hemoglobin 7.0 g/dL (13.0-17.5) Hematocrit 21.2 % (39.0-53.0) Mean Corpuscular Volume 97 fL (79-100) Mean Corpuscular Hemoglobin 32 pg (25-35) Mean Corpuscular Hemoglobin Concent 33 g/dL (31-37) Red Cell Distribution Width 14.0 % (11.5-14.5) Platelet Count 260 x10^3/uL (140-400) Neutrophils (%) (Auto) 70 % (31-73) Lymphocytes (%) (Auto) 16 % (24-48) Monocytes (%) (Auto) 12 % (0-9) Eosinophils (%) (Auto) 2 % (0-3) Basophils (%) (Auto) 1 % (0-3) Neutrophils # (Auto) 6.2 x10^3/uL (1.8-7.7) Lymphocytes # (Auto) 1.4 x10^3/uL (1.0-4.8) Monocytes # (Auto) 1.0 x10^3/uL (0.0-1.1) Eosinophils # (Auto) 0.2 x10^3/uL (0.0-0.7) Basophils # (Auto) 0.0 x10^3/uL (0.0-0.2) Sodium Level 143 mmol/L (136-145) Potassium Level 4.0 mmol/L (3.5-5.1) Chloride Level 103 mmol/L (98-107) Carbon Dioxide Level 27 mmol/L (21-32) Anion Gap 13 (6-14) Blood Urea Nitrogen 28 mg/dL (8-26) Creatinine 9.7 mg/dL (0.7-1.3) Estimated GFR (Cockcroft-Gault) 6.8 Glucose Level 130 mg/dL (70-99) Calcium Level 9.2 mg/dL (8.5-10.1) Review All relevant outside records, renal labs, imaging studies, telemetry/EKG's were reviewed. Images Images IMPRESSION: Diffuse atherosclerotic vascular disease without sonographic evidence of focal hemodynamically significant stenosis STEPHEN LIEBERMAN MD Dec 28, 2019 13:35
--- NOTE | 2019-12-28 15:07 | NUR ---
SW following. Reviewed chart and spoke with RN. Pt to have a blood transfusion today. Pt to get a wound vac placed today. Pt to discharge home with continued out-patient wound care with [facility] and out-patient dialysis on MWF with [facility], , (fax) when stable. SW to continue following.
[2019-12-28] MEDS: HYDROcodone/APAP 5/325MG 1 TAB TABLET PO PRN (16:54)
[2019-12-28] MEDS ORDERED: HYDROmorphone 2 MG/ML VIAL IV ONE (19:30)
[2019-12-28] MEDS: ATORVASTATIN CALCIUM 40 MG TABLET. PO SCH (19:37)
--- NOTE | 2019-12-28 19:45 | NUR ---
Paged vascular regarding copious serosanguineous drainage from surgical debridement saturating the dressing and the patient's bed. Received orders to redress and reinforce surgical dressing. Will monitor.
[2019-12-28] MEDS ORDERED: APIXABAN 5 MG TABLET. PO SCH (21:00)
[2019-12-29 03:59] VITALS: BP 163/83
[2019-12-29 04:29] LABS: BASO % 0 % (0-3); EOS # 0.2 x10^3/uL (0.0-0.7); EOS % 2 % (0-3); HEMATOCRIT 27.1 % (39.0-53.0); HEMOGLOBIN 9.1 g/dL (13.0-17.5); LYMPH # 1.1 x10^3/uL (1.0-4.8); LYMPH % 10 % (24-48); MEAN CORPUSCULAR HEMOGLOBIN 32 pg (25-35); MEAN CORPUSCULAR HGB CONC 34 g/dL (31-37); MEAN CORPUSCULAR VOLUME 97 fL (79-100); MONO % 9 % (0-9); NEUT # 8.6 x10^3/uL (1.8-7.7); NEUT % 78 % (31-73); PLATELET COUNT 296 x10^3/uL (140-400); RED BLOOD COUNT 2.81 x10^6/uL (4.30-5.70); RED CELL DISTRIBUTION WIDTH 14.2 % (11.5-14.5); WHITE BLOOD COUNT 10.9 x10^3/uL (4.0-11.0)
[2019-12-29 04:56] LABS: CALCIUM 8.8 mg/dL (8.5-10.1); CREATININE 5.9 mg/dL (0.7-1.3); GFR 12.1; POTASSIUM 3.7 mmol/L (3.5-5.1)
[2019-12-29 07:10] VITALS: BP 119/67
[2019-12-29] MEDS: PANTOPRAZOLE 40 MG TABLET.DR. PO SCH (08:36)
[2019-12-29] MEDS: ISOSORBIDE MONONITRATE ER 30 MG TAB.ER.24H PO SCH (08:37)
[2019-12-29] MEDS: DRONEDARONE HCL 400 MG TABLET PO SCH ×2 (08:37→17:51)
[2019-12-29] MEDS: cloNIDine HCL 0.3 MG TABLET PO SCH ×3 (08:37→22:38)
[2019-12-29] MEDS: MULTIVITAMIN with MINERAL TABLET. PO SCH (08:37)
[2019-12-29] MEDS: POLYETHYLENE GLYCOL 3350 17 GM PACKET. PO SCH ×2 (08:38→22:38)
[2019-12-29] MEDS: IV NORMAL SALINE 1000ML BAG 1,000 ML IV SCH (08:41)
[2019-12-29] MEDS ORDERED: METHYLNALTREXONE 12 MG/0.6 ML VIAL. SQ PRN (08:45)
[2019-12-29] MEDS ORDERED: SENNOSIDES/DOCUSATE 8.6/50MG TABLET. PO PRN (08:45)
--- NOTE | 2019-12-29 08:45 | PDOC ---
PROGRESS NOTES Subjective Subjective feels better, pain legs, s/p debridement Objective Objective Vital Signs Date Time Temp Pulse Resp B/P (MAP) Pulse Ox O2 Delivery O2 Flow Rate FiO2 12/29/19 08:38 96 119/67 12/29/19 07:10 99.2 17 98 Room Air 99.2 12/28/19 13:00 10 Intake and Output 12/29/19 07:00 Intake Total 520 ml Output Total 85 ml Balance 435 ml Intake Oral 490 ml Blood Product IV Normal Saline Flush 30 ml Output Urine Total 75 ml Estimated Blood Loss 10 ml Physical Exam Abdomen: Normal bowel sounds, Soft, Other (He has some lower abdominal and inguinal tenderness to palpation related to his surgery for bilateral inguinal hernia repair.) Heart: Regular rate, Other (He has a loud heart murmur, likely referred bruit from his left upper arm AV fistula. He also has bilateral carotid bruits, likely due to the same. He has 2+ carotid pulses. He has 2+ radial pulses. He has 2+ femoral, popliteal and dorsalis pedis pulses. He has minimal lower extremity edema. He has an excellent thrill through his left upper arm brachio cephalic AV fistula.) Extremities: No cyanosis, Normal pulses General: Alert, Oriented X3, Cooperative, No acute distress HEENT: Atraumatic Lungs: Clear to auscultation, Normal air movement MUSCULOSKELETAL: No deformity, No swelling, Other (He is able to dorsiflex and plantarflex both feet. He is able to raise his legs up in the air for me to examine the backs of his legs.) Neuro: Normal speech, Strength at 5/5 X4 ext Psych/Mental Status: Mental status NL, Mood NL Skin: Other (He has evidence of a right posterior calf wound that has healed. The central portion of the wound is pink, lacking pigment. On the left posterior calf, he has skin necrosis and subcutaneous tissue exposure. There is no purulence at this time.) Diagnosis Problem List Problems Medical Problems: (1) Elevated troponin Status: Acute (2) Nausea Status: Acute Assessment Assessment Problems Medical Problems: (1) Elevated troponin Status: Acute (2) Nausea Status: Acute FINAL IMPRESSION: 1. Epigastric pain, rule out coronary artery disease, no elevation in troponin.No PA 2. Probably epigastric pain secondary to gastritis. The patient says he had some [employer]. 3. End-stage renal disease; on hemodialysis; goes to dialysis on Thursday, Thursday, and Thursday. 4. Atrial fibrillation, on Eliquis. 5. 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 6. Hypertension. 7. Hyperlipidemia. 8. Chronic pain medications. 9. Anemia of ch disease PLAN:POD#1 debridement wound vac to be placed today d/c home after dialysis tomorrow. Hb 8.4,after 1 u prbc transfusion going for leg wound debridement No mi , cardiology note appreciated. Arterial doppler noted ,no major blockage. At this time, the patient is admitted to the hospital. Cardiac serial enzymes, color television console monitor, cardiac EKG. Also, have start on Protonix and hopefully that should improve the stomach and we will have a Vascular consult and Wound Care consult for peripheral vascular disease and calciphylaxis ulcers. Plan Plan of Care Problems Medical Problems: (1) Elevated troponin Status: Acute (2) Nausea Status: Acute Comment Review of Relevant I have reviewed the following items maame (where applicable) has been applied. Labs Laboratory Tests Test 12/28/19 15:45 12/29/19 03:35 Hemoglobin 8.3 g/dL (13.0-17.5) 9.1 g/dL (13.0-17.5) White Blood Count 10.9 x10^3/uL (4.0-11.0) Red Blood Count 2.81 x10^6/uL (4.30-5.70) Hematocrit 27.1 % (39.0-53.0) Mean Corpuscular Volume 97 fL (79-100) Mean Corpuscular Hemoglobin 32 pg (25-35) Mean Corpuscular Hemoglobin Concent 34 g/dL (31-37) Red Cell Distribution Width 14.2 % (11.5-14.5) Platelet Count 296 x10^3/uL (140-400) Neutrophils (%) (Auto) 78 % (31-73) Lymphocytes (%) (Auto) 10 % (24-48) Monocytes (%) (Auto) 9 % (0-9) Eosinophils (%) (Auto) 2 % (0-3) Basophils (%) (Auto) 0 % (0-3) Neutrophils # (Auto) 8.6 x10^3/uL (1.8-7.7) Lymphocytes # (Auto) 1.1 x10^3/uL (1.0-4.8) Monocytes # (Auto) 1.0 x10^3/uL (0.0-1.1) Eosinophils # (Auto) 0.2 x10^3/uL (0.0-0.7) Basophils # (Auto) 0.0 x10^3/uL (0.0-0.2) Sodium Level 140 mmol/L (136-145) Potassium Level 3.7 mmol/L (3.5-5.1) Chloride Level 101 mmol/L (98-107) Carbon Dioxide Level 32 mmol/L (21-32) Anion Gap 7 (6-14) Blood Urea Nitrogen 17 mg/dL (8-26) Creatinine 5.9 mg/dL (0.7-1.3) Estimated GFR (Cockcroft-Gault) 12.1 Glucose Level 119 mg/dL (70-99) Calcium Level 8.8 mg/dL (8.5-10.1) Medications Current Medications Albumin Human 200 ml @ 200 mls/hr 1X PRN PRN IV Hypotension; Start 12/28/19 at 09:15; Stop 12/28/19 at 15:14; Status DC Apixaban (Eliquis) 5 mg BID PO ; Start 12/28/19 at 21:00; Stop 12/28/19 at 08:59; Status DC Apixaban (Eliquis) 5 mg BID PO ; Start 12/29/19 at 21:00 Cefazolin Sodium (Ancef) 1 gm 1X PRN IVP PRIOR TO PROCEDURE Last administered on 12/28/19at 11:53; Start 12/28/19 at 10:00; Stop 12/28/19 at 12:00; Status DC Cefazolin Sodium 1 gm/Sodium Chloride 500 ml @ 500 mls/hr 1X ONCE IRR Last administered on 12/28/19at 12:40; Start 12/28/19 at 11:30; Stop 12/28/19 at 12:29; Status DC Cellulose (Surgicel Fibrillar 1x2) 1 each STK-MED ONCE .ROUTE ; Start 12/28/19 at 11:19; Stop 12/28/19 at 11:19; Status DC Esmolol HCl (Brevibloc) 100 mg STK-MED ONCE IVP ; Start 12/28/19 at 12:05; Stop 12/28/19 at 12:05; Status DC Fentanyl Citrate (Fentanyl 2ml Vial) 100 mcg STK-MED ONCE .ROUTE ; Start 12/28/19 at 09:50; Stop 12/28/19 at 09:50; Status DC Fentanyl Citrate (Fentanyl 2ml Vial) 100 mcg STK-MED ONCE .ROUTE ; Start 12/28/19 at 12:06; Stop 12/28/19 at 12:07; Status DC Fentanyl Citrate (Fentanyl 2ml Vial) 100 mcg STK-MED ONCE .ROUTE ; Start 12/28/19 at 12:41; Stop 12/28/19 at 12:41; Status DC Fentanyl Citrate (Fentanyl 2ml Vial) while in pacu. PRN Q5MIN PRN IVP pain Last administered on 12/28/19at 12:50; Start 12/28/19 at 13:30; Stop 12/28/19 at 18:00; Status DC Hydromorphone HCl (Dilaudid) 0.5 mg PRN Q3HRS ONCE IV ; Start 12/28/19 at 19:30; Stop 12/28/19 at 19:31; Status UNV Hydromorphone HCl (Dilaudid) 0.5 mg PRN Q3HRS PRN IV MODERATE PAIN 4-6 Last administered on 12/28/19at 23:01; Start 12/28/19 at 19:30 Hydromorphone HCl (Dilaudid) 1 mg PRN Q10MIN PRN IV MODERATE PAIN Last administered on 12/28/19at 12:45; Start 12/28/19 at 13:30; Stop 12/28/19 at 18:00; Status DC Hydromorphone HCl (Dilaudid) 2 mg PRN Q10MIN PRN IV SEVERE PAIN; Start 12/28/19 at 13:45 Hydromorphone HCl (Dilaudid) 2 mg STK-MED ONCE .ROUTE ; Start 12/28/19 at 12:32; Stop 12/28/19 at 12:32; Status DC Info (Anti-Coagulation Monitoring By Pharmacy) 1 each PRN DAILY PRN MC SEE COMMENTS; Start 12/28/19 at 08:45 Info (PHARMACY MONITORING -- do not chart) 1 each PRN DAILY PRN MC SEE COMMENTS; Start 12/28/19 at 09:15; Status Cancel Info (PHARMACY MONITORING -- do not chart) 1 each PRN DAILY PRN MC SEE COMMENTS; Start 12/28/19 at 09:15; Status UNV Info (PHARMACY MONITORING -- do not chart) 1 each PRN DAILY PRN MC SEE COMMENTS; Start 12/28/19 at 11:15 Info (PHARMACY MONITORING -- do not chart) 1 each PRN DAILY PRN MC SEE COMMENTS; Start 12/28/19 at 11:15; Status Cancel Info (PHARMACY MONITORING -- do not chart) 1 each PRN DAILY PRN MC SEE COMMENTS; Start 12/28/19 at 11:30; Status Cancel Info (PHARMACY MONITORING -- do not chart) 1 each PRN DAILY PRN MC SEE COMMENTS; Start 12/28/19 at 11:30; Status UNV Isosorbide Mononitrate (Imdur) 90 mg DAILY PO Last administered on 12/29/19at 08:37; Start 12/28/19 at 09:00 Lidocaine HCl (Lidocaine 1% 20ml Vial) 20 ml STK-MED ONCE .ROUTE ; Start 12/28/19 at 11:19; Stop 12/28/19 at 11:19; Status DC Lidocaine HCl (Lidocaine Pf 2% Vial) 5 ml STK-MED ONCE .ROUTE ; Start 12/28/19 at 09:49; Stop 12/28/19 at 09:50; Status DC Lidocaine HCl (Xylocaine-Mpf 1% 5ml Vial) 5 ml STK-MED ONCE .ROUTE ; Start 12/28/19 at 11:12; Stop 12/28/19 at 11:12; Status DC Morphine Sulfate (Morphine Sulfate) 2 mg 1X ONCE IV Last administered on 12/28/19at 12:31; Start 12/28/19 at 13:30; Stop 12/28/19 at 13:34; Status DC Morphine Sulfate (Morphine Sulfate) 2 mg STK-MED ONCE .ROUTE ; Start 12/28/19 at 12:28; Stop 12/28/19 at 12:28; Status DC Nicardipine HCl (Cardene) 25 mg STK-MED ONCE IV ; Start 12/28/19 at 12:13; Stop 12/28/19 at 12:14; Status DC Ondansetron HCl (Zofran) 4 mg STK-MED ONCE .ROUTE ; Start 12/28/19 at 11:12; Stop 12/28/19 at 11:12; Status DC Prochlorperazine Edisylate (Compazine) 5 mg PACU PRN PRN IV NAUSEA, MRX1 Last administered on 12/28/19at 12:40; Start 12/28/19 at 09:45; Stop 12/28/19 at 20:00; Status DC Prochlorperazine Edisylate (Compazine) 10 mg STK-MED ONCE .ROUTE ; Start 12/28/19 at 12:34; Stop 12/28/19 at 12:34; Status DC Propofol (Diprivan) 200 mg STK-MED ONCE IV ; Start 12/28/19 at 09:49; Stop 12/28/19 at 09:50; Status DC Ringer's Solution 1,000 ml @ 30 mls/hr Q24H IV ; Start 12/28/19 at 09:43; Stop 12/28/19 at 10:37; Status DC Ringer's Solution 1,000 ml @ 30 mls/hr Q24H IV ; Start 12/28/19 at 12:33; Stop 12/28/19 at 15:20; Status DC Sevoflurane (Ultane) 30 ml STK-MED ONCE IH ; Start 12/28/19 at 11:59; Stop 12/28/19 at 11:59; Status DC Sodium Chloride 1,000 ml @ 30 mls/hr Q24H IV Last administered on 12/28/19at 10:42; Start 12/28/19 at 10:45 Sodium Chloride 1,000 ml @ 400 mls/hr Q2H30M PRN IV PATENCY; Start 12/28/19 at 09:02; Stop 12/28/19 at 21:01; Status DC Sodium Chloride 1,000 ml @ 400 mls/hr Q2H30M PRN IV PATENCY; Start 12/28/19 at 11:16; Stop 12/28/19 at 23:15; Status DC Sodium Chloride 1,000 ml @ 1,000 mls/hr Q1H PRN IV hypotension; Start 12/28/19 at 09:02; Stop 12/28/19 at 15:01; Status DC Sodium Chloride 1,000 ml @ 1,000 mls/hr Q1H PRN IV hypotension; Start 12/28/19 at 11:16; Stop 12/28/19 at 17:15; Status DC Sodium Chloride (Normal Saline Flush) 10 ml 1X PRN PRN IV AP catheter pack; Start 12/28/19 at 09:15; Stop 12/28/19 at 19:00; Status DC Sodium Chloride (Normal Saline Flush) 10 ml 1X PRN PRN IV GOVERNOR ASSEMBLER catheter 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; Start 12/28/19 at 09:15; Stop 12/28/19 at 19:00; Status DC Sodium Chloride (Normal Saline Flush) 10 ml 1X PRN PRN IV AP catheter pack; Start 12/28/19 at 11:30; Stop 12/29/19 at 11:29 Sodium Chloride (Normal Saline Flush) 10 ml 1X PRN PRN IV G[employer]ERNOR ASSEMBLER catheter pack; Start 12/28/19 at 11:30; Stop 12/29/19 at 11:29 Vitals/I & O Vital Sign - Last 24 Hours 12/28/19 12/28/19 12/28/19 12/28/19 10:27 10:44 12:30 12:30 Temp 97.2 97.8 98.3 97.2 97.8 98.3 Pulse 56 55 89 Resp 20 18 24 B/P (MAP) 178/84 145/70 (95) 219/57 Pulse Ox 95 96 100 O2 Delivery Room Air Room Air Simple Mask Mask O2 Flow Rate 10 10 12/28/19 12/28/19 12/28/19 12/28/19 12:31 12:35 12:45 12:45 Resp 24 24 24 24 Pulse Ox 100 100 100 100 O2 Delivery Simple Mask Simple Mask Simple Mask Simple Mask O2 Flow Rate 10.0 10.0 10.0 10.0 12/28/19 12/28/19 12/28/19 12/28/19 12:45 12:50 13:00 13:15 Temp 97.8 98.3 98.3 97.8 98.3 98.3 Pulse 100 92 94 Resp 24 18 18 17 B/P (MAP) 214/68 213/78 210/74 Pulse Ox 100 100 100 95 O2 Delivery Simple Mask Simple Mask Simple Mask Room Air O2 Flow Rate 10 10.0 10 12/28/19 12/28/19 12/28/19 12/28/19 13:30 14:16 14:31 15:00 Temp 98.3 97.9 98.4 98.3 98.3 97.9 98.4 98.3 Pulse 92 75 68 68 Resp 16 16 16 16 B/P (MAP) 175/71 163/70 157/75 166/57 Pulse Ox 95 O2 Delivery Room Air 12/28/19 12/28/19 12/28/19 12/28/19 15:00 19:33 19:36 19:37 Temp 98.3 98.3 Pulse 68 Resp 16 B/P (MAP) 166/57 175/72 175/74 O2 Delivery Room Air 12/28/19 12/28/19 12/28/19 12/28/19 19:56 20:00 20:06 23:01 Temp 98.7 98.7 Pulse 71 Resp 16 B/P (MAP) 175/72 (106) Pulse Ox 97 O2 Delivery Room Air Room Air Room Air Room Air 12/28/19 12/28/19 12/29/19 12/29/19 23:13 23:22 03:59 07:10 Temp 98.2 98.5 99.2 98.2 98.5 99.2 Pulse 68 70 96 Resp 16 16 17 B/P (MAP) 149/65 (93) 163/83 (109) 119/67 (84) Pulse Ox 94 94 98 O2 Delivery Room Air Room Air Room Air Room Air 12/29/19 12/29/19 12/29/19 12/29/19 08:37 08:37 08:37 08:37 Pulse 96 96 96 96 B/P (MAP) 119/67 119/67 119/67 119/67 12/29/19 08:38 Pulse 96 B/P (MAP) 119/67 Intake and Output 12/28/19 12/28/19 12/29/19 15:00 23:00 07:00 Intake Total 30 ml 240 ml 250 ml Output Total 10 ml 75 ml Balance 20 ml 240 ml 175 ml Justicifation of Admission Dx: Justifications for Admission: Justification of Admission Dx: Yes RAMU FLOYD MD Dec 29, 2019 08:45
--- NOTE | 2019-12-29 10:48 | PDOC ---
SUBJECTIVE ROS No complaints OBJECTIVE Vital Signs Vital Signs Date Time Temp Pulse Resp B/P (MAP) Pulse Ox O2 Delivery O2 Flow Rate FiO2 12/29/19 08:38 96 119/67 12/29/19 08:30 Room Air 12/29/19 07:10 99.2 17 98 99.2 12/28/19 13:00 10 I & 0 Intake and Output 12/29/19 07:00 Intake Total 520 ml Output Total 85 ml Balance 435 ml Intake Oral 490 ml Blood Product IV Normal Saline Flush 30 ml Output Urine Total 75 ml Estimated Blood Loss 10 ml PHYSICAL EXAM Physical Exam General: No acute distress HEENT: OM moist NECK Supple Lungs: Clear to auscultation, Non labored Heart: Regular rate Extremities: No cyanosis,2+ bilateral LE Skin: No rash Neuro: grossly normal Psych/Mental Status: Mental status NL, Mood NL DIAGNOSIS/ASSESSMENT Assessment & Plan ESRD-On HD MWF under Dr. Grande's care Has been on HD since 2016 , has minmal RRF No indication for HD today Left posterior calf large necrotic wound, suspect 2/2 calciphylaxis. S/P excisional debridement of necrotic skin and subcutaneous tissue 12/27 Epigastric Pain- Atypical Resolved HTN urgency: now controlled DM2 per PCP CAD: distal LAD lesion Anemia - PRBC ordered by Primary PAFIB: presently SR. COMMENT/RELEVANT DATA Meds Current Medications Medications (Trade) Dose Ordered Sig/Evie Start Time Stop Time Status Last Admin Dose Admin Acetaminophen/ Hydrocodone Bitart (Lortab 5/325) 1 tab PRN Q6HRS PRN 12/27/19 16:00 12/28/19 16:54 1 TAB Albumin Human 200 ml @ 200 mls/hr 1X PRN PRN 12/28/19 09:15 12/28/19 15:14 DC Amlodipine Besylate (Norvasc) 10 mg DAILY 12/27/19 10:00 12/27/19 14:32 DC 12/27/19 10:29 10 MG Apixaban (Eliquis) 5 mg BID 12/29/19 21:00 Atorvastatin Calcium (Lipitor) 40 mg QHS 12/27/19 21:00 12/28/19 19:37 40 MG Cefazolin Sodium (Ancef) 1 gm 1X PRN 12/28/19 10:00 12/28/19 12:00 DC 12/28/19 11:53 1 GM Cefazolin Sodium 1 gm/Sodium Chloride 500 ml @ 500 mls/hr 1X ONCE 12/28/19 11:30 12/28/19 12:29 DC 12/28/19 12:40 Cellulose (Surgicel Fibrillar 1x2) 1 each STK-MED ONCE 12/28/19 11:19 12/28/19 11:19 DC Clonidine HCl (Catapres) 0.3 mg TID 12/27/19 10:00 12/29/19 08:37 0.3 MG Diltiazem HCl (Cardizem 24hr Cd) 240 mg DAILY 12/27/19 10:00 12/29/19 08:38 240 MG Dronedarone (Multaq) 400 mg BIDWMEALS 12/27/19 17:00 12/29/19 08:37 400 MG Esmolol HCl (Brevibloc) 100 mg STK-MED ONCE 12/28/19 12:05 12/28/19 12:05 DC Fentanyl Citrate (Fentanyl 2ml Vial) while in pacu. PRN Q5MIN PRN 12/28/19 13:30 12/28/19 18:00 DC 12/28/19 12:50 50 MCG Hydralazine HCl (Apresoline Inj) 10 mg 1X ONCE 12/27/19 05:00 12/27/19 05:01 DC 12/27/19 04:40 10 MG Hydralazine HCl (Apresoline) 50 mg TID 12/27/19 10:00 12/29/19 08:37 50 MG Hydromorphone HCl (Dilaudid) 0.5 mg PRN Q3HRS PRN 12/28/19 19:30 12/28/19 23:01 0.5 MG Info (Anti-Coagulation Monitoring By Pharmacy) 1 each PRN DAILY PRN 12/28/19 08:45 Info (PHARMACY MONITORING -- do not chart) 1 each PRN DAILY PRN 12/28/19 11:30 Cancel Isosorbide Mononitrate (Imdur) 30 mg 1X ONCE 12/27/19 14:45 12/27/19 14:46 DC 12/27/19 15:27 30 MG Lidocaine HCl (Lidocaine 1% 20ml Vial) 20 ml STK-MED ONCE 12/28/19 11:19 12/28/19 11:19 DC Lidocaine HCl (Lidocaine Pf 2% Vial) 5 ml STK-MED ONCE 12/28/19 09:49 12/28/19 09:50 DC Lidocaine HCl (Xylocaine-Mpf 1% 5ml Vial) 5 ml STK-MED ONCE 12/28/19 11:12 12/28/19 11:12 DC Methylnaltrexone [place] (Relistor) 12 mg 1X PRN 12/29/19 08:45 Morphine Sulfate (Morphine Sulfate) 2 mg 1X ONCE 12/28/19 13:30 12/28/19 13:34 DC 12/28/19 12:31 2 MG Multivitamins (Thera M Plus) 1 tab DAILY 12/27/19 10:00 12/29/19 08:37 1 TAB Nicardipine HCl (Cardene) 25 mg STK-MED ONCE 12/28/19 12:13 12/28/19 12:14 DC Ondansetron HCl (Zofran) 4 mg STK-MED ONCE 12/28/19 11:12 12/28/19 11:12 DC Pantoprazole Sodium (Protonix) 40 mg DAILYAC 12/28/19 07:30 12/29/19 08:36 40 MG Polyethylene Glycol (miraLAX PACKET) 17 gm BID 12/27/19 10:30 12/29/19 08:38 17 GM Potassium Chloride (Klor-Con) 20 meq 1X ONCE 12/27/19 09:30 12/27/19 09:41 DC 12/27/19 10:25 20 MEQ Prochlorperazine Edisylate (Compazine) 10 mg STK-MED ONCE 12/28/19 12:34 12/28/19 12:34 DC Propofol (Diprivan) 200 mg STK-MED ONCE 12/28/19 09:49 12/28/19 09:50 DC Ringer's Solution 1,000 ml @ 30 mls/hr Q24H 12/28/19 12:33 12/28/19 15:20 DC Senna/Docusate Sodium (Senna Plus) 1 tab PRN BID PRN 12/29/19 08:45 Sevoflurane (Ultane) 30 ml STK-MED ONCE 12/28/19 11:59 12/28/19 11:59 DC Sodium Chloride 1,000 ml @ 400 mls/hr Q2H30M PRN 12/28/19 11:16 12/28/19 23:15 DC Sodium Chloride (Normal Saline Flush) 10 ml 1X PRN PRN 12/28/19 11:30 12/29/19 11:29 Lab Laboratory Tests Test 12/28/19 15:45 12/29/19 03:35 Hemoglobin 8.3 g/dL (13.0-17.5) 9.1 g/dL (13.0-17.5) White Blood Count 10.9 x10^3/uL (4.0-11.0) Red Blood Count 2.81 x10^6/uL (4.30-5.70) Hematocrit 27.1 % (39.0-53.0) Mean Corpuscular Volume 97 fL (79-100) Mean Corpuscular Hemoglobin 32 pg (25-35) Mean Corpuscular Hemoglobin Concent 34 g/dL (31-37) Red Cell Distribution Width 14.2 % (11.5-14.5) Platelet Count 296 x10^3/uL (140-400) Neutrophils (%) (Auto) 78 % (31-73) Lymphocytes (%) (Auto) 10 % (24-48) Monocytes (%) (Auto) 9 % (0-9) Eosinophils (%) (Auto) 2 % (0-3) Basophils (%) (Auto) 0 % (0-3) Neutrophils # (Auto) 8.6 x10^3/uL (1.8-7.7) Lymphocytes # (Auto) 1.1 x10^3/uL (1.0-4.8) Monocytes # (Auto) 1.0 x10^3/uL (0.0-1.1) Eosinophils # (Auto) 0.2 x10^3/uL (0.0-0.7) Basophils # (Auto) 0.0 x10^3/uL (0.0-0.2) Sodium Level 140 mmol/L (136-145) Potassium Level 3.7 mmol/L (3.5-5.1) Chloride Level 101 mmol/L (98-107) Carbon Dioxide Level 32 mmol/L (21-32) Anion Gap 7 (6-14) Blood Urea Nitrogen 17 mg/dL (8-26) Creatinine 5.9 mg/dL (0.7-1.3) Estimated GFR (Cockcroft-Gault) 12.1 Glucose Level 119 mg/dL (70-99) Calcium Level 8.8 mg/dL (8.5-10.1) Results All relevant outside records, renal labs, imaging studies, telemetry/EKG's were reviewed. Justicifation of Admission Dx: Justifications for Admission: Justification of Admission Dx: Yes STEPHEN LIEBEMRAN MD Dec 29, 2019 10:48
[2019-12-29 11:05] VITALS: BP 123/69
[2019-12-29] MEDS: HYDROmorphone 2 MG/ML VIAL IV PRN ×2 (11:18→15:19)
--- NOTE | 2019-12-29 11:51 | PDOC ---
CARDIO Progress Notes Date and Time Date of Service 12/29/2019 Time of Evaluation 0930 Subjective Subjective: No Chest Pain, No shortness of breath, No Palpitations, Other (surgical leg pain controlled) Vitals Vitals Vital Signs Date Time Temp Pulse Resp B/P (MAP) Pulse Ox O2 Delivery O2 Flow Rate FiO2 12/29/19 11:05 98.6 66 16 123/69 (87) 96 Room Air 98.6 12/28/19 13:00 10 Weight Weight [ ] Input and Output Intake and Output Intake and Output 12/29/19 07:00 Intake Total 520 ml Output Total 85 ml Balance 435 ml Intake Oral 490 ml Blood Product IV Normal Saline Flush 30 ml Output Urine Total 75 ml Estimated Blood Loss 10 ml Laboratory Labs Laboratory Tests Test 12/28/19 15:45 12/29/19 03:35 Hemoglobin 8.3 g/dL (13.0-17.5) 9.1 g/dL (13.0-17.5) White Blood Count 10.9 x10^3/uL (4.0-11.0) Red Blood Count 2.81 x10^6/uL (4.30-5.70) Hematocrit 27.1 % (39.0-53.0) Mean Corpuscular Volume 97 fL (79-100) Mean Corpuscular Hemoglobin 32 pg (25-35) Mean Corpuscular Hemoglobin Concent 34 g/dL (31-37) Red Cell Distribution Width 14.2 % (11.5-14.5) Platelet Count 296 x10^3/uL (140-400) Neutrophils (%) (Auto) 78 % (31-73) Lymphocytes (%) (Auto) 10 % (24-48) Monocytes (%) (Auto) 9 % (0-9) Eosinophils (%) (Auto) 2 % (0-3) Basophils (%) (Auto) 0 % (0-3) Neutrophils # (Auto) 8.6 x10^3/uL (1.8-7.7) Lymphocytes # (Auto) 1.1 x10^3/uL (1.0-4.8) Monocytes # (Auto) 1.0 x10^3/uL (0.0-1.1) Eosinophils # (Auto) 0.2 x10^3/uL (0.0-0.7) Basophils # (Auto) 0.0 x10^3/uL (0.0-0.2) Sodium Level 140 mmol/L (136-145) Potassium Level 3.7 mmol/L (3.5-5.1) Chloride Level 101 mmol/L (98-107) Carbon Dioxide Level 32 mmol/L (21-32) Anion Gap 7 (6-14) Blood Urea Nitrogen 17 mg/dL (8-26) Creatinine 5.9 mg/dL (0.7-1.3) Estimated GFR (Cockcroft-Gault) 12.1 Glucose Level 119 mg/dL (70-99) Calcium Level 8.8 mg/dL (8.5-10.1) Physical Exam HEENT: Neck Supple W Full Motion Chest: Symmetric LUNGS: Clear to Auscultation Heart: S1S2, RRR (SR) Abdomen: Soft N/T Extremities: No Edema, Other (S/P left posterior calf wound debridement) Neurology: alert, oriented, follow commands Assessment Assessment 1. Atypical chest pain: more from abdominal pain 2. Abdominal pain with contributing opioid induced constipation: per PCP 3. Bilateral calf wounds with chronic pain likely induced by calciphylaxis: S/P debridement to left posterior calf POD#1 4. HTN urgency: now controlled 5. DM2/HLP: per PCP 6. CAD: known for distal LAD lesion 7. ESRD on HD: renal transplant candidate 8. Anemia of chronic disease : Hgb was 7 and 9.1 post transfusion 9. PAFIB: noted sometime in 10/2019 at [facility] per pt. presently SR. Recommendations 1. No ASA with concurrent eliquis use and anemia and PUD. Discussed further with pt in regards to BP meds and he is no longer on norvasc nor cardizem but only on metoprolol/imdur/hydralazine/clonidine. Will DC cardizem and will resume metoprolol tomorrow. He does not check his BP at home. Discussed HBPM and further adjustment of his BP meds as an outpt per trend. Continue multaq for rhythm control. 2. Wound care team. May resume eliquis tonight unless Hgb trends down again then will need to reeval ASA vs eliquis 3. Continue secondary prevention measures. Supportive care. 4. Transfusion today and fluid off loading per HD 5. Follow up in office. Feb 08 10 AM Justicifation of Admission Dx: Justifications for Admission: Justification of Admission Dx: Yes DULCE MARIA PATEL BUSINESS INFORMATION ANALYST Dec 29, 2019 11:51
--- NOTE | 2019-12-29 12:08 | PDOC ---
PROGRESS NOTES Subjective Subjective I am doing pretty well. My left leg is sore. He is POD#1 from left posterior calf debridement of necrotic skin and subcutaneous tissue by Dr. Bahena. Patient is examined in bed today. He denies chest pain and shortness of breath. He denies fever and chills. His main complaint is tenderness to touch in his left lower leg. His white count today is 10.9, hemoglobin 9.1, hematocrit 27.1 and his platelet count is 296. He dialyzes through a left upper arm AV fistula. He had a carotid ultrasound for a carotid bruit. There was no hemodynamically significant stenosis. He had a ratio on the right of 1.8 and a ratio on the left of 1.0. He had an incidental right thyroid nodule measuring 1.3 cm. Objective Objective Vital Signs Date Time Temp Pulse Resp B/P (MAP) Pulse Ox O2 Delivery O2 Flow Rate FiO2 12/29/19 11:05 98.6 66 16 123/69 (87) 96 Room Air 98.6 12/28/19 13:00 10 Intake and Output 12/29/19 07:00 Intake Total 520 ml Output Total 85 ml Balance 435 ml Intake Oral 490 ml Blood Product IV Normal Saline Flush 30 ml Output Urine Total 75 ml Estimated Blood Loss 10 ml Physical Exam Physical Exam Vital signs stable. No acute distress. His left posterior lower leg wound was unwrapped. The tissue is beefy red and bloody. It is painful to touch. Extremities: No cyanosis General: Alert, Cooperative HEENT: Atraumatic Lungs: Normal air movement Neuro: Normal speech Psych/Mental Status: Mental status NL, Mood NL Skin: No rashes Assessment Assessment Problems Medical Problems: (1) Elevated troponin Status: Acute (2) Nausea Status: Acute Plan Plan of Care 54 year old male with ESRD on chronic dialysis developed a large necrotic wound on the left posterior calf. 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 He is POD#1 from debridement of the wound. He will need wound vac treatment and eventual skin grafting when granulation tissue forms. His wound is beefy red and bloody today. He may need an additional day for hemostasis before wound VAC is replaced. Kaiden, the wound care nurse will make the final determination in about an hour. The wound was rewrapped with a saline moistened pad (non stick) and Kerlix. Plan: If we cannot reapply the wound VAC today, will apply tomorrow. Continue Eliquis daily as directed by cardiology. Follow-up with primary care on an outpatient basis for the right thyroid nodule. Follow-up in 1 year with vascular surgery and a carotid ultrasound and office visit at that time. We of course will continue to follow him while he is an inpatient. guidance services coordinator for discharge planning. He will need post hospitalization wound care through the wound care center. Comment Review of Relevant I have reviewed the following items maame (where applicable) has been applied. Labs Laboratory Tests Test 12/27/19 15:40 12/28/19 04:00 12/28/19 15:45 12/29/19 03:35 Coronavirus (COVID-19)(PCR) Negative (NEGATIVE) White Blood Count 8.9 x10^3/uL (4.0-11.0) 10.9 x10^3/uL (4.0-11.0) Red Blood Count 2.19 x10^6/uL (4.30-5.70) 2.81 x10^6/uL (4.30-5.70) Hemoglobin 7.0 g/dL (13.0-17.5) 8.3 g/dL (13.0-17.5) 9.1 g/dL (13.0-17.5) Hematocrit 21.2 % (39.0-53.0) 27.1 % (39.0-53.0) Mean Corpuscular Volume 97 fL (79-100) 97 fL (79-100) Mean Corpuscular Hemoglobin 32 pg (25-35) 32 pg (25-35) Mean Corpuscular Hemoglobin Concent 33 g/dL (31-37) 34 g/dL (31-37) Red Cell Distribution Width 14.0 % (11.5-14.5) 14.2 % (11.5-14.5) Platelet Count 260 x10^3/uL (140-400) 296 x10^3/uL (140-400) Neutrophils (%) (Auto) 70 % (31-73) 78 % (31-73) Lymphocytes (%) (Auto) 16 % (24-48) 10 % (24-48) Monocytes (%) (Auto) 12 % (0-9) 9 % (0-9) Eosinophils (%) (Auto) 2 % (0-3) 2 % (0-3) Basophils (%) (Auto) 1 % (0-3) 0 % (0-3) Neutrophils # (Auto) 6.2 x10^3/uL (1.8-7.7) 8.6 x10^3/uL (1.8-7.7) Lymphocytes # (Auto) 1.4 x10^3/uL (1.0-4.8) 1.1 x10^3/uL (1.0-4.8) Monocytes # (Auto) 1.0 x10^3/uL (0.0-1.1) 1.0 x10^3/uL (0.0-1.1) Eosinophils # (Auto) 0.2 x10^3/uL (0.0-0.7) 0.2 x10^3/uL (0.0-0.7) Basophils # (Auto) 0.0 x10^3/uL (0.0-0.2) 0.0 x10^3/uL (0.0-0.2) Sodium Level 143 mmol/L (136-145) 140 mmol/L (136-145) Potassium Level 4.0 mmol/L (3.5-5.1) 3.7 mmol/L (3.5-5.1) Chloride Level 103 mmol/L (98-107) 101 mmol/L (98-107) Carbon Dioxide Level 27 mmol/L (21-32) 32 mmol/L (21-32) Anion Gap 13 (6-14) 7 (6-14) Blood Urea Nitrogen 28 mg/dL (8-26) 17 mg/dL (8-26) Creatinine 9.7 mg/dL (0.7-1.3) 5.9 mg/dL (0.7-1.3) Estimated GFR (Cockcroft-Gault) 6.8 12.1 Glucose Level 130 mg/dL (70-99) 119 mg/dL (70-99) Calcium Level 9.2 mg/dL (8.5-10.1) 8.8 mg/dL (8.5-10.1) Hepatitis B Surface Antigen Nonreactive (Nonreactive) Laboratory Tests Test 12/28/19 15:45 7/9/20 03:35 Hemoglobin 8.3 g/dL (13.0-17.5) 9.1 g/dL (13.0-17.5) White Blood Count 10.9 x10^3/uL (4.0-11.0) Red Blood Count 2.81 x10^6/uL (4.30-5.70) Hematocrit 27.1 % (39.0-53.0) Mean Corpuscular Volume 97 fL (79-100) Mean Corpuscular Hemoglobin 32 pg (25-35) Mean Corpuscular Hemoglobin Concent 34 g/dL (31-37) Red Cell Distribution Width 14.2 % (11.5-14.5) Platelet Count 296 x10^3/uL (140-400) Neutrophils (%) (Auto) 78 % (31-73) Lymphocytes (%) (Auto) 10 % (24-48) Monocytes (%) (Auto) 9 % (0-9) Eosinophils (%) (Auto) 2 % (0-3) Basophils (%) (Auto) 0 % (0-3) Neutrophils # (Auto) 8.6 x10^3/uL (1.8-7.7) Lymphocytes # (Auto) 1.1 x10^3/uL (1.0-4.8) Monocytes # (Auto) 1.0 x10^3/uL (0.0-1.1) Eosinophils # (Auto) 0.2 x10^3/uL (0.0-0.7) Basophils # (Auto) 0.0 x10^3/uL (0.0-0.2) Sodium Level 140 mmol/L (136-145) Potassium Level 3.7 mmol/L (3.5-5.1) Chloride Level 101 mmol/L (98-107) Carbon Dioxide Level 32 mmol/L (21-32) Anion Gap 7 (6-14) Blood Urea Nitrogen 17 mg/dL (8-26) Creatinine 5.9 mg/dL (0.7-1.3) Estimated GFR (Cockcroft-Gault) 12.1 Glucose Level 119 mg/dL (70-99) Calcium Level 8.8 mg/dL (8.5-10.1) Medications Current Medications Ondansetron HCl (Zofran) 4 mg 1X ONCE IVP Last administered on 7/7/20at 03:59; Start 12/27/19 at 04:00; Stop 12/27/19 at 04:01; Status DC Hydralazine HCl (Apresoline Inj) 10 mg 1X ONCE IVP Last administered on 12/27/19 04:40; Start 12/27/19 at 05:00; Stop 12/27/19 at 05:01; Status DC Amlodipine Besylate (Norvasc) 10 mg DAILY PO Last administered on 12/27/19 10:29; Start 12/27/19 at 10:00; Stop 12/27/19 at 14:32; Status DC Apixaban (Eliquis) 5 mg BID PO Last administered on 12/27/19 21:29; Start 12/27/19 at 09:30; Stop 12/28/19 at 08:10; Status DC Atorvastatin Calcium (Lipitor) 40 mg QHS PO Last administered on 12/28/19 19:37; Start 12/27/19 at 21:00 Clonidine HCl (Catapres) 0.3 mg TID PO Last administered on 12/29/19 08:37; Start 12/27/19 at 10:00 Diltiazem HCl (Cardizem 24hr Cd) 240 mg DAILY PO Last administered on 12/29/19 08:38; Start 12/27/19 at 10:00 Hydralazine HCl (Apresoline) 50 mg TID PO Last administered on 12/29/19 08:37; Start 12/27/19 at 10:00 Isosorbide Mononitrate (Imdur) 60 mg DAILY PO Last administered on 12/27/19 10:30; Start 12/27/19 at 10:00; Stop 12/27/19 at 14:32; Status DC Multivitamins (Thera M Plus) 1 tab DAILY PO Last administered on 12/29/19 08:37; Start 12/27/19 at 10:00 Pantoprazole Sodium (Protonix) 40 mg 1X ONCE PO Last administered on 12/27/19 10:26; Start 12/27/19 at 09:30; Stop 12/27/19 at 09:41; Status DC Pantoprazole Sodium (Protonix) 40 mg DAILYAC PO Last administered on 12/29/19at 08:36; Start 12/28/19 at 07:30 Potassium Chloride (Klor-Con) 20 meq 1X ONCE PO Last administered on 12/27/19at 10:25; Start 12/27/19 at 09:30; Stop 12/27/19 at 09:41; Status DC Polyethylene Glycol (miraLAX PACKET) 17 gm PRN BID PRN PO CONSTIPATION; Start 12/27/19 at 10:15; Stop 12/27/19 at 10:22; Status DC Polyethylene Glycol (miraLAX PACKET) 17 gm BID PO Last administered on 12/29/19at 08:38; Start 12/27/19 at 10:30 Isosorbide Mononitrate (Imdur) 90 mg DAILY PO Last administered on 12/29/19at 08:37; Start 12/28/19 at 09:00 Isosorbide Mononitrate (Imdur) 30 mg 1X ONCE PO Last administered on 12/27/19at 15:27; Start 12/27/19 at 14:45; Stop 12/27/19 at 14:46; Status DC Cefazolin Sodium (Ancef) 1 gm 1X PRN IVP PRIOR TO PROCEDURE Last administered on 12/28/19at 11:53; Start 12/28/19 at 10:00; Stop 12/28/19 at 12:00; Status DC Acetaminophen/ Hydrocodone Bitart (Lortab 5/325) 1 tab PRN Q6HRS PRN PO MODERATE PAIN Last administered on 12/28/19at 16:54; Start 12/27/19 at 16:00 Dronedarone (Multaq) 400 mg BIDWMEALS PO Last administered on 12/29/19at 08:37; Start 12/27/19 at 17:00 Apixaban (Eliquis) 5 mg BID PO ; Start 12/28/19 at 21:00; Stop 12/28/19 at 08:59; Status DC Info (Anti-Coagulation Monitoring By Pharmacy) 1 each PRN DAILY PRN MC SEE COMMENTS; Start 12/28/19 at 08:45 Apixaban (Eliquis) 5 mg BID PO ; Start 12/29/19 at 21:00 Sodium Chloride 1,000 ml @ 1,000 mls/hr Q1H PRN IV hypotension; Start 12/28/19 at 09:02; Stop 12/28/19 at 15:01; Status DC Albumin Human 200 ml @ 200 mls/hr 1X PRN PRN IV Hypotension; Start 12/28/19 at 09:15; Stop 12/28/19 at 15:14; Status DC Sodium Chloride (Normal Saline Flush) 10 ml 1X PRN PRN IV AP catheter pack; Start 12/28/19 at 09:15; Stop 12/28/19 at 19:00; Status DC Sodium Chloride (Normal Saline Flush) 10 ml 1X PRN PRN IV B[employer]NAGER catheter pack; Start 12/28/19 at 09:15; Stop 12/28/19 at 19:00; Status DC Sodium Chloride 1,000 ml @ 400 mls/hr Q2H30M PRN IV PATENCY; Start 12/28/19 at 09:02; Stop 12/28/19 at 21:01; Status DC Info (PHARMACY MONITORING -- do not chart) 1 each PRN DAILY PRN MC SEE COMMENTS; Start 12/28/19 at 09:15; Status UNV Info (PHARMACY MONITORING -- do not chart) 1 each PRN DAILY PRN MC SEE COMMENTS; Start 12/28/19 at 09:15; Status Cancel Ringer's Solution 1,000 ml @ 30 mls/hr Q24H IV ; Start 12/28/19 at 09:43; Stop 12/28/19 at 10:37; Status DC Prochlorperazine Edisylate (Compazine) 5 mg PACU PRN PRN IV NAUSEA, MRX1 Last administered on 12/28/19at 12:40; Start 12/28/19 at 09:45; Stop 12/28/19 at 20:00; Status DC Propofol (Diprivan) 200 mg STK-MED ONCE IV ; Start 12/28/19 at 09:49; Stop at 09:50; Status DC Lidocaine HCl (Lidocaine Pf 2% Vial) 5 ml STK-MED ONCE .ROUTE ; Start 12/28/19 at 09:49; Stop 12/28/19 at 09:50; Status DC Fentanyl Citrate (Fentanyl 2ml Vial) 100 mcg STK-MED ONCE .ROUTE ; Start 12/28/19 at 09:50; Stop 12/28/19 at 09:50; Status DC Sodium Chloride 1,000 ml @ 30 mls/hr Q24H IV Last administered on 12/28/19at 10:42; Start 12/28/19 at 10:45 Lidocaine HCl (Xylocaine-Mpf 1% 5ml Vial) 5 ml STK-MED ONCE .ROUTE ; Start 12/28/19 at 11:12; Stop 12/28/19 at 11:12; Status DC Ondansetron HCl (Zofran) 4 mg STK-MED ONCE .ROUTE ; Start 12/28/19 at 11:12; Stop 12/28/19 at 11:12; Status DC Info (PHARMACY MONITORING -- do not chart) 1 each PRN DAILY PRN MC SEE COMMENTS; Start 12/28/19 at 11:15; Status Cancel Info (PHARMACY MONITORING -- do not chart) 1 each PRN DAILY PRN MC SEE COMMENTS; Start 12/28/19 at 11:15 Lidocaine HCl (Lidocaine 1% 20ml Vial) 20 ml STK-MED ONCE .ROUTE ; Start 12/28/19 at 11:19; Stop 12/28/19 at 11:19; Status DC Cellulose (Surgicel Fibrillar 1x2) 1 each STK-MED ONCE .ROUTE ; Start 12/28/19 at 11:19; Stop 12/28/19 at 11:19; Status DC Sodium Chloride 1,000 ml @ 1,000 mls/hr Q1H PRN IV hypotension; Start 12/28/19 at 11:16; Stop 12/28/19 at 17:15; Status DC Sodium Chloride (Normal Saline Flush) 10 ml 1X PRN PRN IV AP catheter pack; Start 12/28/19 at 11:30; Stop 12/29/19 at 11:29; Status DC Sodium Chloride (Normal Saline Flush) 10 ml 1X PRN PRN IV BODY SHOP MANAGER catheter pack; Start 12/28/19 at 11:30; Stop 12/29/19 at 11:29; Status DC Sodium Chloride 1,000 ml @ 400 mls/hr Q2H30M PRN IV PATENCY; Start 12/28/19 at 11:16; Stop 12/28/19 at 23:15; Status DC Info (PHARMACY MONITORING -- do not chart) 1 each PRN DAILY PRN MC SEE COMMENTS; Start 12/28/19 at 11:30; Status UNV Info (PHARMACY MONITORING -- do not chart) 1 each PRN DAILY PRN MC SEE C OMMENTS; Start 12/28/19 at 11:30; Status Cancel Cefazolin Sodium 1 gm/Sodium Chloride 500 ml @ 500 mls/hr 1X ONCE IRR Last ad ministered on 12/28/19at 12:40; Start 12/28/19 at 11:30; Stop 12/28/19 at 12:29; Status DC Sevoflurane (Ultane) 30 ml STK-MED ONCE IH ; Start 12/28/19 at 11:59; Stop 12/28/19 at 11:59; Status DC Esmolol HCl (Brevibloc) 100 mg STK-MED ONCE IVP ; Start 12/28/19 at 12:05; Stop 12/28/19 at 12:05; Status DC Fentanyl Citrate (Fentanyl 2ml Vial) 100 mcg STK-MED ONCE .ROUTE ; Start 12/28/19 at 12:06; Stop 12/28/19 at 12:07; Status DC Nicardipine HCl (Cardene) 25 mg STK-MED ONCE IV ; Start 12/28/19 at 12:13; Stop 12/28/19 at 12:14; Status DC Morphine Sulfate (Morphine Sulfate) 2 mg STK-MED ONCE .ROUTE ; Start 12/28/19 at 12:28; Stop 12/28/19 at 12:28; Status DC Hydromorphone HCl (Dilaudid) 2 mg STK-MED ONCE .ROUTE ; Start 12/28/19 at 12:32; Stop 12/28/19 at 12:32; Status DC Ringer's Solution 1,000 ml @ 30 mls/hr Q24H IV ; Start 12/28/19 at 12:33; Stop 12/28/19 at 15:20; Status DC Prochlorperazine Edisylate (Compazine) 10 mg STK-MED ONCE .ROUTE ; Start 12/28/19 at 12:34; Stop 12/28/19 at 12:34; Status DC Fentanyl Citrate (Fentanyl 2ml Vial) 100 mcg STK-MED ONCE .ROUTE ; Start 12/28/19 at 12:41; Stop 12/28/19 at 12:41; Status DC Morphine Sulfate (Morphine Sulfate) 2 mg 1X ONCE IV Last administered on 12/28/19at 12:31; Start 12/28/19 at 13:30; Stop 12/28/19 at 13:34; Status DC Hydromorphone HCl (Dilaudid) 1 mg PRN Q10MIN PRN IV MODERATE PAIN Last administered on 12/28/19at 12:45; Start 12/28/19 at 13:30; Stop 12/28/19 at 18:00; Status DC Fentanyl Citrate (Fentanyl 2ml Vial) while in pacu. PRN Q5MIN PRN IVP pain Last administered on 12/28/19at 12:50; Start 12/28/19 at 13:30; Stop 12/28/19 at 18:00; Status DC Hydromorphone HCl (Dilaudid) 2 mg PRN Q10MIN PRN IV SEVERE PAIN; Start 12/28/19 at 13:45 Hydromorphone HCl (Dilaudid) 0.5 mg PRN Q3HRS ONCE IV ; Start 12/28/19 at 19:30; Stop 12/28/19 at 19:31; Status UNV Hydromorphone HCl (Dilaudid) 0.5 mg PRN Q3HRS PRN IV MODERATE PAIN 4-6 Last administered on 12/29/19at 11:18; Start 12/28/19 at 19:30 Senna/Docusate Sodium (Senna Plus) 1 tab PRN BID PRN PO CONSTIPATION; Start 12/29/19 at 08:45 Methylnaltrexone [place]rington (Relistor) 12 mg 1X PRN SQ severe constipation; Start 12/29/19 at 08:45 Active Scripts Active Isosorbide Mononitrate Er (Isosorbide Mononitrate) 30 Mg Tab.er.24h 60 Mg PO DAILY Atorvastatin Calcium 40 Mg Tablet 40 Mg PO QHS Thera-M Tablet (Multivits,Ca,Minerals/Iron/Fa) 1 Each Tablet 1 Tab PO DAILY Reported Percocet 5-325 mg Tablet (Oxycodone HCl/Acetaminophen) 1 Each Tablet 1-2 Tab PO PRN Q6HRS MDD 12 Tablet(s) Eliquis (Apixaban) 5 Mg Tablet 5 Mg PO BID Diltiazem 24HR Cd (Diltiazem Hcl) 180 Mg Cap.er.24h 240 Mg PO DAILY Metoprolol Tartrate 100 Mg Tablet 1 Tab PO BID Amlodipine Besylate 10 Mg Tablet 10 Mg PO DAILY Hydralazine Hcl 50 Mg Tablet 50 Mg PO TID Clonidine Hcl 0.3 Mg Tablet 0.3 Mg PO TID Vitals/I & O Vital Sign - Last 24 Hours 12/28/19 12/28/19 12/28/19 12/28/19 12:30 12:30 12:31 12:35 Temp 98.3 98.3 Pulse 89 Resp 24 24 24 B/P (MAP) 219/57 Pulse Ox 100 100 100 O2 Delivery Simple Mask Mask Simple Mask Simple Mask O2 Flow Rate 10 10 10.0 10.0 12/28/19 12/28/19 12/28/19 12/28/19 12:45 12:45 12:45 12:50 Temp 97.8 97.8 Pulse 100 Resp 24 24 24 18 B/P (MAP) 214/68 Pulse Ox 100 100 100 100 O2 Delivery Simple Mask Simple Mask Simple Mask Simple Mask O2 Flow Rate 10.0 10.0 10 10.0 12/28/19 12/28/19 12/28/19 12/28/19 13:00 13:15 13:30 14:16 Temp 98.3 98.3 98.3 97.9 98.3 98.3 98.3 97.9 Pulse 92 94 92 75 Resp 18 17 16 16 B/P (MAP) 213/78 210/74 175/71 163/70 Pulse Ox 100 95 95 O2 Delivery Simple Mask Room Air Room Air O2 Flow Rate 10 12/28/19 12/28/19 12/28/19 12/28/19 14:31 15:00 15:00 19:33 Temp 98.4 98.3 98.3 98.4 98.3 98.3 Pulse 68 68 68 Resp 16 16 16 B/P (MAP) 157/75 166/57 166/57 O2 Delivery Room Air 12/28/19 12/28/19 12/28/19 12/28/19 19:36 19:37 19:56 20:00 Temp 98.7 98.7 Pulse 71 Resp 16 B/P (MAP) 175/72 175/74 175/72 (106) Pulse Ox 97 O2 Delivery Room Air Room Air 12/28/19 12/28/19 12/28/19 12/28/19 20:06 23:01 23:13 23:22 Temp 98.2 98.2 Pulse 68 Resp 16 B/P (MAP) 149/65 (93) Pulse Ox 94 O2 Delivery Room Air Room Air Room Air Room Air 12/29/19 12/29/19 12/29/19 12/29/19 03:59 07:10 08:30 08:37 Temp 98.5 99.2 98.5 99.2 Pulse 70 96 96 Resp 16 17 B/P (MAP) 163/83 (109) 119/67 (84) 119/67 Pulse Ox 94 98 O2 Delivery Room Air Room Air Room Air 12/29/19 12/29/19 12/29/19 12/29/19 08:37 08:37 08:37 08:38 Pulse 96 96 96 96 B/P (MAP) 119/67 119/67 119/67 119/67 12/29/19 11:05 Temp 98.6 98.6 Pulse 66 Resp 16 B/P (MAP) 123/69 (87) Pulse Ox 96 O2 Delivery Room Air Intake and Output 12/28/19 12/28/19 12/29/19 15:00 23:00 07:00 Intake Total 30 ml 240 ml 250 ml Output Total 10 ml 75 ml Balance 20 ml 240 ml 175 ml Justicifation of Admission Dx: Justifications for Admission: Justification of Admission Dx: Yes INÉS [employer]AV[employer]A [employer] Dec 29, 2019 12:08
[2019-12-29] MEDS: ANTI-COAG MONITOR BY PHARMACY. MC PRN (14:57)
[2019-12-29 15:03] VITALS: BP 104/60
--- NOTE | 2019-12-29 17:08 | NUR ---
SW following. Reviewed chart and spoke with RN and CM. Pt from home. Pt got wound vac today and will likely discharge tomorrow, 12/30/2019 with out-pt wound care per Dr. Vazquez. LIDIA to continue following.
--- NOTE | 2019-12-29 17:55 | NUR ---
Wound Care Wound care follow up for post op assessment and vac placement. Wound pictured and measured. Unable to place vac today due to bleeding. Will reassess tomorrow. dressed with collagen, contact layer, abd and kerlix.
[2019-12-29] MEDS: HYDROcodone/APAP 5/325MG 1 TAB TABLET PO PRN (21:57)
[2019-12-29] MEDS: ATORVASTATIN CALCIUM 40 MG TABLET. PO SCH (22:36)
[2019-12-29] MEDS: APIXABAN 5 MG TABLET. PO SCH (22:36)
[2019-12-29 23:00] VITALS: BP 122/62
[2019-12-30 03:00] VITALS: BP 123/58
[2019-12-30] MEDS ORDERED: IV NORMAL SALINE 1000ML BAG 1,000 ML IV PRN ×2 (07:43)
[2019-12-30] MEDS ORDERED: ALBUMIN HUMAN 25% 200 ML IV PRN (07:45)
[2019-12-30] MEDS ORDERED: DIALYSIS PATIENT. MC PRN ×2 (07:45)
[2019-12-30] MEDS ORDERED: diphenhydrAMINE 50 MG/ML VIAL IV PRN ×2 (07:45)
[2019-12-30] MEDS: HYDROcodone/APAP 5/325MG 1 TAB TABLET PO PRN ×2 (08:31→18:21)
[2019-12-30] MEDS: cloNIDine HCL 0.3 MG TABLET PO SCH ×2 (09:00→13:50)
[2019-12-30] MEDS ORDERED: METOPROLOL TART IMMED RELEASE 50 MG TABLET. PO SCH (09:00)
[2019-12-30] MEDS: APIXABAN 5 MG TABLET. PO SCH (09:00)
--- NOTE | 2019-12-30 09:03 | PDOC ---
PROGRESS NOTES Subjective Subjective seen in dialysis unit,ready to go home Objective Objective Vital Signs Date Time Temp Pulse Resp B/P (MAP) Pulse Ox O2 Delivery O2 Flow Rate FiO2 12/30/19 08:31 14 99 Room Air 12/30/19 03:00 97.9 57 123/58 (79) 97.9 12/29/19 22:57 10.0 Intake and Output 12/30/19 07:00 Intake Total 750 ml Balance 750 ml Intake Oral 750 ml Physical Exam Abdomen: Normal bowel sounds, Soft, Other (He has some lower abdominal and inguinal tenderness to palpation related to his surgery for bilateral inguinal hernia repair.) Heart: Regular rate, Other (He has a loud heart murmur, likely referred bruit from his left upper arm AV fistula. He also has bilateral carotid bruits, likely due to the same. He has 2+ carotid pulses. He has 2+ radial pulses. He has 2+ femoral, popliteal and dorsalis pedis pulses. He has minimal lower extremity edema. He has an excellent thrill through his left upper arm brachiocephalic AV fistula.) Extremities: No cyanosis General: Alert, Cooperative HEENT: Atraumatic Lungs: Normal air movement MUSCULOSKELETAL: No deformity, No swelling, Other (He is able to dorsiflex and plantarflex both feet. He is able to raise his legs up in the air for me to examine the backs of his legs.) Neuro: Normal speech Psych/Mental Status: Mental status NL, Mood NL Skin: No rashes Diagnosis Problem List Problems Medical Problems: (1) Elevated troponin Status: Acute (2) Nausea Status: Acute Assessment Assessment Problems Medical Problems: (1) Elevated troponin Status: Acute (2) Nausea Status: Acute FINAL IMPRESSION: 1. Epigastric pain, rule out coronary artery disease, no elevation in troponin.No IA 2. Probably epigastric pain secondary to gastritis. The patient says he had some Taco Duncan. 3. End-stage renal disease; on hemodialysis; goes to dialysis on Thursday, Thursday, and Thursday. 4. Atrial fibrillation, on Eliquis. 5. 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 6. Hypertension. 7. Hyperlipidemia. 8. Chronic pain medications. 9. Anemia of ch disease PLAN:POD#2 debridement of left leg ulcer wound vac to be placed today d/c home after dialysis today spoke with case management. wound vac today. Hb 9.4,after 1 u prbc transfusion Plan Plan of Care Problems Medical Problems: (1) Elevated troponin Status: Acute (2) Nausea Status: Acute Comment Review of Relevant I have reviewed the following items maame (where applicable) has been applied. Medications Current Medications Albumin Human 200 ml @ 200 mls/hr 1X PRN PRN IV Hypotension; Start 12/30/19 at 07:45; Stop 12/30/19 at 13:44 Apixaban (Eliquis) 5 mg BID PO Last administered on 12/29/19at 22:36; Start 12/29/19 at 21:00 Diphenhydramine HCl (Benadryl) 25 mg 1X PRN PRN IV ITCHING; Start 12/30/19 at 07:45; Stop 12/31/19 at 07:44 Diphenhydramine HCl (Benadryl) 25 mg 1X PRN PRN IV ITCHING; Start 12/30/19 at 07:45; Stop 12/31/19 at 07:44 Info (PHARMACY MONITORING -- do not chart) 1 each PRN DAILY PRN MC SEE COMMENTS; Start 12/30/19 at 07:45; Stop 12/30/19 at 08:01; Status DC Info (PHARMACY MONITORING -- do not chart) 1 each PRN DAILY PRN MC SEE COMMENTS; Start 12/30/19 at 07:45; Stop 12/30/19 at 08:01; Status DC Metoprolol Tartrate (Lopressor) 100 mg BID PO ; Start 12/30/19 at 09:00 Sodium Chloride 1,000 ml @ 400 mls/hr Q2H30M PRN IV PATENCY; Start 12/30/19 at 07:43; Stop 12/30/19 at 19:42 Sodium Chloride 1,000 ml @ 1,000 mls/hr Q1H PRN IV hypotension; Start 12/30/19 at 07:43; Stop 12/30/19 at 13:42 Vitals/I & O Vital Sign - Last 24 Hours 12/29/19 12/29/19 12/29/19 12/29/19 11:05 15:03 15:18 15:19 Temp 98.6 98.6 98.6 98.6 Pulse 66 65 65 65 Resp 16 16 B/P (MAP) 123/69 (87) 104/60 (75) 104/60 104/60 Pulse Ox 96 96 O2 Delivery Room Air Room Air 12/29/19 12/29/19 12/29/19 12/29/19 17:51 20:05 21:57 22:37 Pulse 64 66 Resp 18 B/P (MAP) 107/47 115/66 Pulse Ox 96 O2 Delivery Room Air Room Air O2 Flow Rate 10.0 12/29/19 12/29/19 12/29/19 12/30/19 22:38 22:57 23:00 03:00 Temp 97.5 97.9 97.5 97.9 Pulse 66 57 57 Resp 18 16 17 B/P (MAP) 115/66 122/62 (82) 123/58 (79) Pulse Ox 96 96 94 O2 Delivery Room Air Room Air Room Air O2 Flow Rate 10.0 12/30/19 08:31 Resp 14 Pulse Ox 99 O2 Delivery Room Air Intake and Output 12/29/19 12/29/19 12/30/19 15:00 23:00 07:00 Intake Total 300 ml 450 ml Balance 300 ml 450 ml Justicifation of Admission Dx: Justifications for Admission: Justification of Admission Dx: Yes RAMU FLOYD MD Dec 30, 2019 09:03
[2019-12-30] MEDS ORDERED: POLY17PO28 PO (09:09)
[2019-12-30] MEDS ORDERED: HYDR-2761 PO (09:09)
--- NOTE | 2019-12-30 09:13 | SNU/HH DC ---
DISCHARGE WITH HOME HEALTH DISCHARGE INFORMATION: Discharge Date: Dec 30, 2019 Final Diagnosis: Problems Medical Problems: (1) Elevated troponin Status: Acute (2) Nausea Status: Acute Condition on Discharge: Stable CODE STATUS: Code Status: Full HOME HEALTH: Face to Face: I certify this patient is under my care and that I, or a nurse practitioner or physician's executive administrative assistant working with me, had a face to face encounter that meets the physician face to face encounter requirements with this patient on []. Fdc For: Wound Vac RN For Eval/Treatment: Yes Pt Meets Homebound Status: Other: (wounds) POST DISCHARGE ORDERS: Activity Instructions for Disc: Resume previous activity, Avoid exertion DIET AFTER DISCHARGE: Renal Wound/Incision Care: Other, see below (wound vac) TREATMENT/EQUIPMENT ORDERS: Adaptive Equipment Issued: None CERTIFICATION STATEMENT: Certification Statement: Certification Statement: Based on the above finding, I certify that this patient is confined to the home and needs intermittent fdc care, physical therapy and/or speech therapy, or continues to need occupational therapy.~ This patient is under my care, and I have initiated the establishment of the plan of care.~ This patient will be followed by myself or a community physician who will periodically review the plan of care. Home Meds Active Scripts Hydrocodone Bit/Acetaminophen (HYDROCODONE-APAP 5-325 ) 1 Tab Tablet, 1 TAB PO PRN Q6HRS PRN for MODERATE PAIN for 7 Days, TAB Prov:RAMU FLOYD MD 12/30/19 Polyethylene Glycol 3350 (POLYETHYLENE GLYCOL 3350) 17 Gm Powd.pack, 17 GM PO BID for constipation for 30 Days, #60 PKT Prov:RAMU FLOYD MD 12/30/19 Isosorbide Mononitrate (ISOSORBIDE MONONITRATE ER) 30 Mg Tab.er.24h, 60 MG PO DAILY for htn, #30 TAB.SR 1 Refill Prov:DELMIS CARVALHO MD 08/05/19 Atorvastatin Calcium (ATORVASTATIN CALCIUM) 40 Mg Tablet, 40 MG PO QHS for lipids, #30 TAB Prov:DELMIS CARVALHO MD 08/05/19 Multivits,Ca,Minerals/Iron/Fa (THERA-M TABLET) 1 Each Tablet, 1 TAB PO DAILY for leg wound, #30 TAB Prov:DELMIS CARVALHO MD 08/03/19 Reported Medications Apixaban (ELIQUIS) 5 Mg Tablet, 5 MG PO BID for blood thinner, TAB 12/01/19 Metoprolol Tartrate (METOPROLOL TARTRATE) 100 Mg Tablet, 1 TAB PO BID for rate control, #60 TAB 5 Refills 12/16/18 Hydralazine Hcl (HYDRALAZINE HCL) 50 Mg Tablet, 50 MG PO TID, TAB 03/25/17 Clonidine Hcl (CLONIDINE HCL) 0.3 Mg Tablet, 0.3 MG PO TID, TAB 03/25/17 Discontinued Reported Medications Oxycodone HCl/Acetaminophen (Percocet 5-325 mg Tablet) 1 Each Tablet, 1-2 TAB PO PRN Q6HRS for PAIN MDD 12 Tablet(s), #20 TAB 0 Refills 12/01/19 Diltiazem Hcl (DILTIAZEM 24HR CD) 180 Mg Cap.er.24h, 240 MG PO DAILY for hr control, CAP.SR 12/01/19 Amlodipine Besylate (AMLODIPINE BESYLATE) 10 Mg Tablet, 10 MG PO DAILY, TAB 03/25/17 RAMU FLOYD MD Dec 30, 2019 09:13
[2019-12-30] MEDS ORDERED: DRON400T PO (09:14)
--- NOTE | 2019-12-30 10:42 | PDOC ---
SUBJECTIVE ROS seen on HD, No complaints OBJECTIVE Vital Signs Vital Signs Date Time Temp Pulse Resp B/P (MAP) Pulse Ox O2 Delivery O2 Flow Rate FiO2 12/30/19 08:31 14 99 Room Air 12/30/19 03:00 97.9 57 123/58 (79) 97.9 12/29/19 22:57 10.0 I & 0 Intake and Output 12/30/19 07:00 Intake Total 750 ml Balance 750 ml Intake Oral 750 ml PHYSICAL EXAM Physical Exam General: No acute distress HEENT: OM moist NECK Supple Lungs: Clear to auscultation, Non labored Heart: Regular rate Extremities: No cyanosis,2+ bilateral LE Skin: No rash Neuro: grossly normal Psych/Mental Status: Mental status NL, Mood NL DIAGNOSIS/ASSESSMENT Assessment & Plan ESRD-On HD MWF under Dr. 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 S/P excisional debridement of necrotic skin and subcutaneous tissue 12/27 Wound vac will be placed today Epigastric Pain- Atypical Resolved HTN urgency: now controlled DM2 per PCP CAD: distal LAD lesion Anemia - PRBC ordered by Primary PAFIB: presently SR. COMMENT/RELEVANT DATA Meds Current Medications Medications (Trade) Dose Ordered Sig/Evie Start Time Stop Time Status Last Admin Dose Admin Acetaminophen/ Hydrocodone Bitart (Lortab 5/325) 1 tab PRN Q6HRS PRN 12/27/19 16:00 12/30/19 08:31 1 TAB Albumin Human 200 ml @ 200 mls/hr 1X PRN PRN 12/30/19 07:45 12/30/19 13:44 Amlodipine Besylate (Norvasc) 10 mg DAILY 12/27/19 10:00 12/27/19 14:32 DC 12/27/19 10:29 10 MG Apixaban (Eliquis) 5 mg BID 12/29/19 21:00 12/29/19 22:36 5 MG Atorvastatin Calcium (Lipitor) 40 mg QHS 12/27/19 21:00 12/29/19 22:36 40 MG Cefazolin Sodium (Ancef) 1 gm 1X PRN 12/28/19 10:00 12/28/19 12:00 DC 12/28/19 11:53 1 GM Cefazolin Sodium 1 gm/Sodium Chloride 500 ml @ 500 mls/hr 1X ONCE 12/28/19 11:30 12/28/19 12:29 DC 12/28/19 12:40 Cellulose (Surgicel Fibrillar 1x2) 1 each STK-MED ONCE 12/28/19 11:19 12/28/19 11:19 DC Clonidine HCl (Catapres) 0.3 mg TID 12/27/19 10:00 12/29/19 22:38 0.3 MG Diltiazem HCl (Cardizem 24hr Cd) 240 mg DAILY 12/27/19 10:00 12/29/19 14:43 DC 12/29/19 08:38 240 MG Diphenhydramine HCl (Benadryl) 25 mg 1X PRN PRN 12/30/19 07:45 12/31/19 07:44 Dronedarone (Multaq) 400 mg BIDWMEALS 12/27/19 17:00 12/29/19 17:51 400 MG Esmolol HCl (Brevibloc) 100 mg STK-MED ONCE 12/28/19 12:05 12/28/19 12:05 DC Fentanyl Citrate (Fentanyl 2ml Vial) while in pacu. PRN Q5MIN PRN 12/28/19 13:30 12/28/19 18:00 DC 12/28/19 12:50 50 MCG Hydralazine HCl (Apresoline Inj) 10 mg 1X ONCE 12/27/19 05:00 12/27/19 05:01 DC 12/27/19 04:40 10 MG Hydralazine HCl (Apresoline) 50 mg TID 12/27/19 10:00 12/29/19 22:37 50 MG Hydromorphone HCl (Dilaudid) 0.5 mg PRN Q3HRS PRN 12/28/19 19:30 12/29/19 15:19 0.5 MG Info (Anti-Coagulation Monitoring By Pharmacy) 1 each PRN DAILY PRN 12/28/19 08:45 12/29/19 14:57 1 EACH Info (PHARMACY MONITORING -- do not chart) 1 each PRN DAILY PRN 12/30/19 07:45 12/30/19 08:01 DC Isosorbide Mononitrate (Imdur) 30 mg 1X ONCE 12/27/19 14:45 12/27/19 14:46 DC 12/27/19 15:27 30 MG Lidocaine HCl (Lidocaine 1% 20ml Vial) 20 ml STK-MED ONCE 12/28/19 11:19 12/28/19 11:19 DC Lidocaine HCl (Lidocaine Pf 2% Vial) 5 ml STK-MED ONCE 12/28/19 09:49 12/28/19 09:50 DC Lidocaine HCl (Xylocaine-Mpf 1% 5ml Vial) 5 ml STK-MED ONCE 12/28/19 11:12 12/28/19 11:12 DC Methylnaltrexone [place] (Relistor) 12 mg 1X PRN 12/29/19 08:45 Metoprolol Tartrate (Lopressor) 100 mg BID 12/30/19 09:00 Morphine Sulfate (Morphine Sulfate) 2 mg 1X ONCE 12/28/19 13:30 12/28/19 13:34 DC 12/28/19 12:31 2 MG Multivitamins (Thera M Plus) 1 tab DAILY 12/27/19 10:00 12/29/19 08:37 1 TAB Nicardipine HCl (Cardene) 25 mg STK-MED ONCE 12/28/19 12:13 12/28/19 12:14 DC Ondansetron HCl (Zofran) 4 mg STK-MED ONCE 12/28/19 11:12 12/28/19 11:12 DC Pantoprazole Sodium (Protonix) 40 mg DAILYAC 12/28/19 07:30 12/29/19 08:36 40 MG Polyethylene Glycol (miraLAX PACKET) 17 gm BID 12/27/19 10:30 12/29/19 22:38 17 GM Potassium Chloride (Klor-Con) 20 meq 1X ONCE 12/27/19 09:30 12/27/19 09:41 DC 12/27/19 10:25 20 MEQ Prochlorperazine Edisylate (Compazine) 10 mg STK-MED ONCE 12/28/19 12:34 12/28/19 12:34 DC Propofol (Diprivan) 200 mg STK-MED ONCE 12/28/19 09:49 12/28/19 09:50 DC Ringer's Solution 1,000 ml @ 30 mls/hr Q24H 12/28/19 12:33 12/28/19 15:20 DC Senna/Docusate Sodium (Senna Plus) 1 tab PRN BID PRN 12/29/19 08:45 Sevoflurane (Ultane) 30 ml STK-MED ONCE 12/28/19 11:59 12/28/19 11:59 DC Sodium Chloride 1,000 ml @ 400 mls/hr Q2H30M PRN 12/30/19 07:43 12/30/19 19:42 Sodium Chloride (Normal Saline Flush) 10 ml 1X PRN PRN 12/28/19 11:30 12/29/19 11:29 DC Results All relevant outside records, renal labs, imaging studies, telemetry/EKG's were reviewed. Justicifation of Admission Dx: Justifications for Admission: Justification of Admission Dx: Yes STEPHEN LIEBERMAN MD Dec 30, 2019 10:42
[2019-12-30] MEDS: IV NORMAL SALINE 1000ML BAG 1,000 ML IV SCH (10:45)
[2019-12-30] MEDS: HYDROmorphone 2 MG/ML VIAL IV PRN ×3 (11:53→16:48)
[2019-12-30] MEDS: ANTI-COAG MONITOR BY PHARMACY. MC PRN (13:13)
[2019-12-30] MEDS: POLYETHYLENE GLYCOL 3350 17 GM PACKET. PO SCH (13:48)
[2019-12-30] MEDS: ISOSORBIDE MONONITRATE ER 30 MG TAB.ER.24H PO SCH (13:49)
[2019-12-30] MEDS: MULTIVITAMIN with MINERAL TABLET. PO SCH (13:50)
[2019-12-30] MEDS: PANTOPRAZOLE 40 MG TABLET.DR. PO SCH (13:50)
[2019-12-30] MEDS: DRONEDARONE HCL 400 MG TABLET PO SCH ×2 (13:51→18:21)
[2019-12-30 15:00] VITALS: BP 127/69
--- NOTE | 2019-12-30 16:40 | NUR ---
SW following. Spoke with RN and reviewed chart. Dr. Arreaga put in discharge orders for discharge home today, 12/30/2019 with out-patient follow up for wound care. No further SW needs at this time.
--- NOTE | 2019-12-30 17:48 | NUR ---
Wound Care Wound Type/Assessment: Left posterior lower leg Calciphylaxis, s/p surgical debridement Thursday. Wound bed is dusky red, red granulated, with blood clots at 12:00 and 1:00, wound is oozing but not actively bleeding. Would not recommend applying vac at this time, d/t blood clots and oozing, vac can be applied in clinic next week. Treatment Recommendations/Plan: Dressed with contact layer, Drawtex for absorption, ABD and wrapped with kerlix. Extra dressings sent with pt for the weekend. Education provided: to pt re: dressing changes, signs of active bleeding and if necessary to return to ED d/t bleeding. Offloading surface/device: N/A Recommended Referrals/Tests: N\A Discharge Recommendations for dressings: See treatment plan above, wound vac early next week in clinic, if wound is stable, will defer to Dr. York. Pt scheduled in wound clinic on Thursday, 01/02 at 0830.
--- NOTE | 2019-12-30 18:10 | PATHOLOGY ---
[facility] Accession Number: [id number] . 01 Material submitted: . calf - LEFT CALF SKIN WOUND. Modifiers: left . 01 Clinical history: . gangrene . 02 Diagnosis: Segments of skin and subcutaneous tissue, left calf wound debridement: - Focal gangrenous necrosis and ulceration of skin with underlying acute cellulitis and focal subcutaneous fat necrosis and small vessel calcification. (JPM/db; 12/30/2019) LBQ 12/30/2019 1614 Local . 02 Electronically signed: . Storm Rodriguez MD, Pathologist NPI- [id number] . 01 Gross description: . The specimen is received in formalin, labeled "Pawel Valenzuela Jr, left calf skin wound" and consists of 2 necrotic segments of brown skin measuring 2.8 x 1.2 x 0.3 cm and 1.8 x 1.0 x 0.5 cm. Crystal Mounter sections are submitted in A1. (SDY; 12/29/2019) SYU/SYU 12/29/2019 1622 Local . 02 Pathologist provided ICD-10: I96, L03.116 . 02 CPT . 253569 Specimen Comment: A courtesy copy of this report has been sent to [phone], [phone] Specimen Comment: [id number], , Specimen Comment: Report sent to ,DR FLOYD,DR MAHONEY / DR HONG Performed at: 01 [facility] [address], [place] [id number] MD Alexx Al MD Phone: [phone] Performed at: 02 [facility] [place] [id number] MD Storm Rodriguez MD Phone: [phone]
[2019-12-30 18:21] VITALS: BP 127/69
--- NOTE | 2019-12-30 18:30 | NUR ---
Discharge information given to patient regarding follow up appointments with Dr. Arreaga, Dr. Baker, Dr. Bahena, and wound care clinic. Education given over medication, HTN, and wound care. Patient verbalizes understanding.
--- NOTE | 2019-12-31 11:27 | PDOC ---
Provider Note Provider Note Discharge summary dictated.#[id number]. Justicifation of Admission Dx: Justifications for Admission: Justification of Admission Dx: Yes RAMU FLOYD MD Dec 31, 2019 11:27
--- NOTE | 2019-12-31 11:37 | DS ---
DATE OF DISCHARGE: 12/30/2019 REASON FOR ADMISSION TO THE HOSPITAL: Epigastric pain, possible CAD. The patient has a known history of atrial fibrillation, on Eliquis. PROCEDURES DONE: Surgical debridement of the wounds in the left leg. HOSPITAL COURSE: The patient is a 54-year-old male with history of hypertension, AFib. He also has end-stage renal disease, on hemodialysis. He has developed a wound on the left leg. He has calciphylaxis and he has one on the right leg, which is almost healing, but the left one is large and the patient says he ate some taco at restaurant and he did not get well and he had epigastric pain and was brought to the hospital. Because of his cardiac history, Cardiology was consulted. Cardiac enzymes were negative. The patient had a large necrotic ulcer at the posterior left calf; was seen by Vascular, debridement was done surgically and it shows calciphylaxis. The patient had arterial Doppler; shows adequate blood flow and the patient was dialyzed. He was in the hospital. He had hemoglobin drop down to 7. He was given 1 unit of packed RBC. FINAL DIAGNOSES: 1. Chest pain secondary to epigastric pain, probably food indigestion from [employer] eating a taco. 2. Large necrotic ulcer, left calf, secondary to calciphylaxis, had surgical debridement. 3. End-stage renal disease, on hemodialysis. 4. Chronic atrial fibrillation, on Eliquis, anticoagulation, rate control. 5. Hyperlipidemia. DISPOSITION: Home. The patient is going [facility]; needs a wound VAC and also off from work for a couple of weeks until the wounds heal. 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 RAMU FLOYD MD DR: MILDRED/ed JOB#: [id number] / [id number] Jara Ahmed MD
== END 2019-12-30 18:58 | disposition home or self-care (01) | DRG 356 ==
LOC: ER 02:53 → 6 SOUTH 04:20
PROVIDERS: ADMIT Internal Medicine; ATTEND Internal Medicine
PROC: 30233N1 Transfusion of Nonautologous Red Blood Cells into Peripheral Vein, Percutaneous Approach (ICD-10-PCS; 2019-12-28)
PROC: 5A1D70Z Performance of Urinary Filtration, Intermittent, Less than 6 Hours Per Day (ICD-10-PCS; 2019-12-28)
PROC: 0JBP0ZZ Excision of Left Lower Leg Subcutaneous Tissue and Fascia, Open Approach (ICD-10-PCS; principal; 2019-12-28 12:15)
PROC: 5A1D70Z Performance of Urinary Filtration, Intermittent, Less than 6 Hours Per Day (ICD-10-PCS; 2019-12-30)
DX: K29.70 Gastritis, unspecified, without bleeding (principal); N18.6 End stage renal disease; L97.929 Non-pressure chronic ulcer of unspecified part of left lower leg with unspecified severity; E11.52 Type 2 diabetes mellitus with diabetic peripheral angiopathy with gangrene; I12.0 Hypertensive chronic kidney disease with stage 5 chronic kidney disease or end stage renal disease; L97.919 Non-pressure chronic ulcer of unspecified part of right lower leg with unspecified severity; Z94.0 Kidney transplant status; K30 Functional dyspepsia; E83.59 Other disorders of calcium metabolism; E11.22 Type 2 diabetes mellitus with diabetic chronic kidney disease; E11.622 Type 2 diabetes mellitus with other skin ulcer; S80.922A Unspecified superficial injury of left lower leg, initial encounter; X58.XXXA Exposure to other specified factors, initial encounter; D63.8 Anemia in other chronic diseases classified elsewhere; E04.1 Nontoxic single thyroid nodule; E78.5 Hyperlipidemia, unspecified; G89.29 Other chronic pain; I16.0 Hypertensive urgency; I25.10 Atherosclerotic heart disease of native coronary artery without angina pectoris; I48.0 Paroxysmal atrial fibrillation; J45.909 Unspecified asthma, uncomplicated; M10.9 Gout, unspecified; M19.90 Unspecified osteoarthritis, unspecified site; R79.89 Other specified abnormal findings of blood chemistry; R20.0 Anesthesia of skin; Z20.828 Contact with and (suspected) exposure to other viral communicable diseases; K59.09 Other constipation; Z99.2 Dependence on renal dialysis; Y93.89 Activity, other specified; Y92.89 Other specified places as the place of occurrence of the external cause; Y99.8 Other external cause status; Z83.3 Family history of diabetes mellitus; Z87.11 Personal history of peptic ulcer disease; Z82.49 Family history of ischemic heart disease and other diseases of the circulatory system; Z79.01 Long term (current) use of anticoagulants; Z90.49 Acquired absence of other specified parts of digestive tract
CPT/HCPCS: 36415; 71045; 80048; 80053; 80061; 83690; 84443; 84484; 85018; 85025; 86850; 86900; 86901; 86920; 87340; 88304; 93005; 93880; 93925; 96374; 96375; J0360; J0690; J0780; J1170; J2270; J2405; J2704; J3010; J3490; J7030; P9016; 99285-25; A4461; G0378; U0003-CS

== ENCOUNTER 2020-06-07 11:49 | Emergency (ER) | payer MEDICARE, OTHER ==
[~2020-06-07] VITALS: Ht 182.9 cm; Wt 103.1 kg
[~2020-06-07 11:49] MED LIST changes: +AMLO-187 PO; -AMLO10TA8 PO; +DRON400T PO; +HYDR-2761 PO; +POLY17PO28 PO
[2020-06-07 12:22] LABS: BASO # 0.1 x10^3/uL (0.0-0.2); BASO % 1 % (0-3); EOS # 0.2 x10^3/uL (0.0-0.7); EOS % 4 % (0-3); HEMATOCRIT 29.5 % (39.0-53.0); HEMOGLOBIN 9.8 g/dL (13.0-17.5); LYMPH # 1.4 x10^3/uL (1.0-4.8); LYMPH % 24 % (24-48); MEAN CORPUSCULAR HEMOGLOBIN 32 pg (25-35); MEAN CORPUSCULAR HGB CONC 33 g/dL (31-37); MEAN CORPUSCULAR VOLUME 97 fL (79-100); MONO # 0.5 x10^3/uL (0.0-1.1); MONO % 10 % (0-9); NEUT # 3.5 x10^3/uL (1.8-7.7); NEUT % 62 % (31-73); PLATELET COUNT 204 x10^3/uL (140-400); RED BLOOD COUNT 3.04 x10^6/uL (4.30-5.70); RED CELL DISTRIBUTION WIDTH 13.9 % (11.5-14.5); WHITE BLOOD COUNT 5.7 x10^3/uL (4.0-11.0)
--- NOTE | 2020-06-07 12:24 | RAD ---
Examination: XR CHEST 1V History: Reason: syncope Comparison/Correlation: 12/27/2019 Findings: Portable upright frontal view of the chest was obtained. Heart size and pulmonary vasculatu re are normal. No pneumothorax. No significant pleural effusion. No infiltrate. Bony structures are i ntact. Stent material overlies the left axillary region. Impression: No suspicious masses. Electronically signed by: Brian Hightower MD (06/07/2020 12:22 PM) [id number]
--- NOTE | 2020-06-07 12:27 | RAD ---
Examination: CT HEAD/BRAIN WO History: Reason: syncope / Comparison/Correlation: None Findings: Axial images of the head were obtained without contrast. Coronal reformatted images provide d. Atrophy and chronic ischemic changes of the white matter noted. No intracranial hemorrhage, midline s hift, or mass effect. Old lacunar infarct involving the posterior limb of the left internal capsule i s present. Bony structures are intact. Impression: No intracranial hemorrhage. 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 Electronically signed by: Brian Hightower MD (06/07/2020 12:25 PM) [id number]
[2020-06-07 12:35] LABS: CALCIUM 9.2 mg/dL (8.5-10.1); CREATININE 8.8 mg/dL (0.7-1.3); GFR 7.6; POTASSIUM 4.6 mmol/L (3.5-5.1)
[2020-06-07 12:41] LABS: ALBUMIN/GLOBULIN RATIO 0.8 (1.0-1.7); MAGNESIUM 2.3 mg/dL (1.8-2.4); TOTAL BILIRUBIN 0.6 mg/dL (0.2-1.0); TOTAL PROTEIN 6.7 g/dL (6.4-8.2)
[2020-06-07 14:22] VITALS: BP 125/70
--- NOTE | 2020-06-07 14:35 | PHYS DOC ---
Past Medical History Past Medical History: A-Fib, Asthma, Diabetes-Type II, Hypertension, Renal Failure, Other Additional Past Medical Histor: RENAL INSUFFIENCY (CHRISTIAN SANTOS APRN) Past Surgical History: Cholecystectomy, Other Additional Past Surgical Histo: SHUNT IN LEFT ARM, HERNIA REPAIR (CHRISTIAN SANTOS APRN) Smoking Status: Never Smoker Alcohol Use: None Drug Use: None (CHRISTIAN SANTOS APRN) General Adult EDM: Chief Complaint: SYNCOPE HPI: HPI: Patient is a 55 year old male with history of diabetes type 2, hypertension, Afib, end-stage kidney disease on dialysis Thursday last dialyzed yesterday who presents to the ED today complaining of a syncope episode. Patient states he was at the [facility] getting his hair done, he states the [facility] informed him he passed out. Patient states he went to the [facility] after eating a small muffin otherwise no breakfast. Patient denies falling. Denies any chest pain or shortness of breath. Denies any symptoms right now. (CHRISTIAN SANTOS APRN) Review of Systems: Review of Systems: Constitutional: Denies fever or chills. [] Eyes: Denies change in visual acuity. [] HENT: Denies nasal congestion or sore throat. [] Respiratory: Denies cough or shortness of breath. [] Cardiovascular: Denies chest pain or edema. [] GI: Denies abdominal pain, nausea, vomiting, bloody stools or diarrhea. [] : Denies dysuria. [] Musculoskeletal: Denies back pain or joint pain. [] Integument: Denies rash. [] Neurologic: Reports syncope episode. Denies headache, focal weakness or sensory changes. [] Psychiatric: Denies depression or anxiety. [] (CHRISTIAN SANTOS APRN) Heart Score: Risk Factors: Risk Factors: DM, Current or recent (<one month) smoker, HTN, HLP, family history of CAD, obesity. Risk Scores: Score 0 - 3: 2.5% MACE over next 6 weeks - Discharge Home Score 4 - 6: 20.3% MACE over next 6 weeks - Admit for Clinical Observation Score 7 - 10: 72.7% MACE over next 6 weeks - Early Invasive Strategies (CHRISTIAN SANTOS APRN) Allergies: Allergies: Allergies Coded Allergies Type Severity Reaction Last Updated Verified No Known Drug Allergies 6/11/20 No (CHRISTIAN SANTOS CAR FILLER) Physical Exam: PE: Constitutional: Well developed, well nourished, no acute distress, non-toxic appearance. [] HENT: Normocephalic, atraumatic, bilateral external ears normal, oropharynx moist, no oral exudates, nose normal. [] Eyes: PERRLA, EOMI, conjunctiva normal, no discharge. [] Neck: Normal range of motion, no tenderness, supple, no stridor. [] Cardiovascular:Heart rate regular rhythm, no murmur [] Lungs & Thorax: Bilateral breath sounds clear to auscultation [] Abdomen: Bowel sounds normal, soft, no tenderness, no masses, no pulsatile masses. [] Skin: Warm, dry, no erythema, no rash. [] Dialysis fistula on the left upper extremity with positive bruit and thrill Back: No tenderness, no CVA tenderness. [] Extremities: No tenderness, no cyanosis, no clubbing, ROM intact, no edema. [] Neurologic: Alert and oriented X 3, normal motor function, normal sensory function, no focal deficits noted. Cranial nerves II through XII intact Psychologic: Affect normal, judgement normal, mood normal. [] (CHRISTIAN SANTOS CAR FILLER) Current Patient Data: Labs: Laboratory Tests Test 06/07/20 12:01 06/07/20 12:15 Glucose (Fingerstick) 222 mg/dL (70-99) H White Blood Count 5.7 x10^3/uL (4.0-11.0) Red Blood Count 3.04 x10^6/uL (4.30-5.70) L Hemoglobin 9.8 g/dL (13.0-17.5) L Hematocrit 29.5 % (39.0-53.0) L Mean Corpuscular Volume 97 fL (79-100) Mean Corpuscular Hemoglobin 32 pg (25-35) Mean Corpuscular Hemoglobin Concent 33 g/dL (31-37) Red Cell Distribution Width 13.9 % (11.5-14.5) Platelet Count 204 x10^3/uL (140-400) Neutrophils (%) (Auto) 62 % (31-73) Lymphocytes (%) (Auto) 24 % (24-48) Monocytes (%) (Auto) 10 % (0-9) H Eosinophils (%) (Auto) 4 % (0-3) H Basophils (%) (Auto) 1 % (0-3) Neutrophils # (Auto) 3.5 x10^3/uL (1.8-7.7) Lymphocytes # (Auto) 1.4 x10^3/uL (1.0-4.8) Monocytes # (Auto) 0.5 x10^3/uL (0.0-1.1) Eosinophils # (Auto) 0.2 x10^3/uL (0.0-0.7) Basophils # (Auto) 0.1 x10^3/uL (0.0-0.2) Sodium Level 142 mmol/L (136-145) Potassium Level 4.6 mmol/L (3.5-5.1) Chloride Level 103 mmol/L (98-107) Carbon Dioxide Level 30 mmol/L (21-32) Anion Gap 9 (6-14) Blood Urea Nitrogen 34 mg/dL (8-26) H Creatinine 8.8 mg/dL (0.7-1.3) H Estimated GFR (Cockcroft-Gault) 7.6 BUN/Creatinine Ratio 4 (6-20) L Glucose Level 215 mg/dL (70-99) H Calcium Level 9.2 mg/dL (8.5-10.1) Magnesium Level 2.3 mg/dL (1.8-2.4) Total Bilirubin 0.6 mg/dL (0.2-1.0) Aspartate Amino Transferase (AST) 17 U/L (15-37) Alanine Aminotransferase (ALT) 34 U/L (16-63) Alkaline Phosphatase 127 U/L (46-116) H Troponin I Quantitative 0.026 ng/mL (0.000-0.055) IV-Rgr-S-Type Natriuretic Peptide 2445 pg/mL (0-124) H Total Protein 6.7 g/dL (6.4-8.2) Albumin 3.0 g/dL (3.4-5.0) L Albumin/Globulin Ratio 0.8 (1.0-1.7) L Thyroid Stimulating Hormone (TSH) 2.483 uIU/mL (0.358-3.74) Laboratory Tests 06/07/20 12:15 Laboratory Tests 06/07/20 12:15 Vital Signs: Vital Signs Date Time Temp Pulse Resp B/P (MAP) Pulse Ox O2 Delivery O2 Flow Rate FiO2 06/07/20 13:22 62 16 117/63 (81) 99 Room Air 06/07/20 11:49 97.9 97.9 (CHRISTIAN SANTOS APRN) EKG: EK interpreted by Dr. Farr sinus rhythm HR 63 no STEMI[] (CHRISTIAN SANTOS APRN) Radiology/Procedures: Radiology/Procedures: []PROCEDURE: CT HEAD WO CONTRAST Examination: CT HEAD/BRAIN WO History: Reason: syncope / Comparison/Correlation: None Findings: Axial images of the head were obtained without contrast. Coronal reformatted images provided. Atrophy and chronic ischemic changes of the white matter noted. No intracranial hemorrhage, midline shift, or mass effect. Old lacunar infarct involving the posterior limb of the left internal capsule is present. Bony structures are intact. Impression: No intracranial hemorrhage. 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 Electronically signed by: Brian Carbajal MD (06/07/2020 12:25 PM) [id number] DICTATED and SIGNED BY: BRIAN CARBAJAL MD DATE: 06/07/20 [id number] PROCEDURE: PORTABLE CHEST 1V Examination: XR CHEST 1V History: Reason: syncope Comparison/Correlation: 12/27/2019 Findings: Portable upright frontal view of the chest was obtained. Heart size and pulmonary vasculature are normal. No pneumothorax. No significant pleural effusion. No infiltrate. Bony structures are intact. Stent material overlies the left axillary region. Impression: No suspicious masses. Electronically signed by: Brian Carbajal MD (06/07/2020 12:22 PM) [id number] DICTATED and SIGNED BY: BRIAN CARBAJAL MD DATE: 06/07/20 [id number] (CHRISTIAN SANTOS APRN) Course & Med Decision Making: Course & Med Decision Making Pertinent Labs and Imaging studies reviewed. (See chart for details) This is a 55-year-old male patient presenting to the ED today to be evaluated after having a syncope episode at the [facility]. Patient did not have sufficient breakfast before going to the [facility]. CT of the head is negative, labs are negative. He is currently awake alert oriented in no distress. Was discharged home. Follow-up with his own PCP in the course of this week or next week (CHRISTIAN SANTOS APRN) Frieda Disclaimer: Dragon Disclaimer: This electronic medical record was generated, in whole or in part, using a voice recognition dictation system. (CHRISTIAN SANTOS APRN) Departure Departure Impression: Primary Impression: Syncope Qualified Codes: R55 - Syncope and collapse Disposition: 01 DC HOME SELF CARE/HOMELESS Condition: STABLE Referrals: RAMU FLOYD MD (PCP) follow up in the course of this week Patient Instructions: Syncope, Onnt-po-Oueq Additional Instructions: You were evaluated in the emergency room after a syncope episode. We recommend you make sure you eat a healthy breakfast every morning. Follow-up with your own doctor in the course of this week or next week. Come back to the ED at any point symptoms worsen Attending Signature Attending Signature I have reviewed the PA/ELECTRIC OPERATOR's note and plan of care. I was available for consultation as needed during the patient's visit in the emergency department. I agree with the clinical impression, plan, and disposition. (LESLY FARR DO) CHRISTIAN SANTOS APRN Jun 07, 2020 14:35 LESLY FARR DO Jun 08, 2020 06:57
== END 2020-06-07 14:45 | disposition home or self-care (01) ==
LOC: ER 11:49
DX: R55 Syncope and collapse (principal); I48.20 Chronic atrial fibrillation, unspecified; J45.909 Unspecified asthma, uncomplicated; E11.9 Type 2 diabetes mellitus without complications; I10 Essential (primary) hypertension; N19 Unspecified kidney failure; Z90.49 Acquired absence of other specified parts of digestive tract; Z98.890 Other specified postprocedural states
CPT/HCPCS: 36415; 70450; 71045; 80053; 82962; 83735; 83880; 84443; 84484; 85025; 93005; 99285

== ENCOUNTER → 2020-10-30 | Outpatient (CLI) | payer OTHER, MEDICARE ==
[~2020-10-30] MED LIST changes: -DRON400T PO; +DRON400T6 PO; -ISOS30TA4 PO; +ISOS30TA68 PO; -MULT1TAB90 PO; +MULT1TAB92 PO; -POLY17PO28 PO; +POLY17PO52 PO
--- NOTE | 2020-10-31 12:50 | CARD ---
MR#: [id number] Date of Study: 10/30/2020 Ordering Physician: JUAN MANUEL MG, Referring Physician: JUAN MANUEL MG Tech: Libby Salazar [facility] APPROVED REPORT EXAM: Two-dimensional and M-mode echocardiogram with Doppler and color Doppler. Other Information Quality : AverageHR: 72bpm Rhythm : NSR INDICATION Cardiac Disease: CAD RISK FACTORS Hypertension Obesity 2D DIMENSIONS RVDd3.6 (2.9-3.5cm)Left Atrium(2D)6.0 (1.6-4.0cm) IVSd1.9 (0.7-1.1cm)Aortic Root(2D)4.4 (2.0-3.7cm) LVDd5.4 (3.9-5.9cm)LVOT Diameter2.7 (1.8-2.4cm) PWd1.7 (0.7-1.1cm)LVDs4.1 (2.5-4.0cm) FS (%) 23.4 %SV65.9 ml LVEF(%)46.3 (>50%) Aortic Valve AoV Peak Matt.123.5cm/sAoV VTI25.2cm AO Peak GR.6.1mmHgLVOT Peak Matt.104.5cm/s AO Mean GR.3mmHgAVA (VMAX)4.94cm2 Mitral Valve MV E Gqmhydei92.4cm/sMV DECEL OVAS141vb MV A Xdumxmus92.9cm/sE/A Ratio1.0 Pulmonary Valve PV Peak Jfshvbph268.3cm/s LEFT VENTRICLE The left ventricle is normal size. There is moderate concentric left ventricular hypertrophy. The lef t ventricular systolic function is normal and the ejection fraction is lower limits of normal range. Estimated ejection fraction 50%. There is normal LV segmental wall motion. Tissue Doppler imaging rev eals moderate left ventricular diastolic dysfunction. RIGHT VENTRICLE The right ventricle is normal size. There is normal right ventricular wall thickness. The right ventr icular systolic function is normal. ATRIA The left atrium is mildly dilated. The right atrium size is normal. The interatrial septum is intact with no evidence for an atrial septal defect or patent foramen ovale as noted on 2-D or Doppler imagi ng. AORTIC VALVE The aortic valve is normal in structure and function. Doppler and Color Flow revealed no significant aortic regurgitation. There is no significant aortic valvular stenosis. MITRAL VALVE The mitral valve is normal in structure and function. There is no evidence of mitral valve prolapse. There is no mitral valve stenosis. Doppler and Color Flow revealed no mitral valve regurgitation note d. TRICUSPID VALVE The tricuspid valve is normal in structure and function. Doppler and Color Flow revealed no tricuspid valve regurgitation noted. Unable to estimate PAP. There is no tricuspid valve stenosis. PULMONIC VALVE Doppler and Color Flow revealed no pulmonic valvular regurgitation. There is no pulmonic valvular dione nosis. GREAT VESSELS The aortic root is normal in size. The IVC is normal in size and collapses >50% with inspiration. PERICARDIAL EFFUSION There is no evidence of significant pericardial effusion. Critical Notification Critical Value: No <Conclusion> The left ventricular systolic function is normal and the ejection fraction is lower limits of normal range. Estimated ejection fraction 50%. There is normal LV segmental wall motion. There is moderate concentric left ventricular hypertrophy. Signed by : Trenton Ochoa, Electronically Approved : 10/31/2020 12:50:01
== END ==
LOC: ECHO 15:18
PROVIDERS: ATTEND Internal Medicine Cardiovascular Disease
DX: I51.7 Cardiomegaly (principal); I25.10 Atherosclerotic heart disease of native coronary artery without angina pectoris
CPT/HCPCS: 93306

== ENCOUNTER 2021-03-22 11:21 | Emergency (ER) | payer MEDICARE, OTHER ==
[~2021-03-22] VITALS: Ht 182.9 cm; Wt 109.0 kg
[~2021-03-22 11:21] MED LIST changes: -DOXY100C2 PO; +DOXY100C3 PO
[2021-03-22 12:11] LABS: BASO % 0 % (0-3); EOS % 0 % (0-3); HEMATOCRIT 36.7 % (39.0-53.0); HEMOGLOBIN 12.4 g/dL (13.0-17.5); LYMPH # 0.1 x10^3/uL (1.0-4.8); LYMPH % 2 % (24-48); MEAN CORPUSCULAR HEMOGLOBIN 33 pg (25-35); MEAN CORPUSCULAR HGB CONC 34 g/dL (31-37); MEAN CORPUSCULAR VOLUME 98 fL (79-100); MONO % 0 % (0-9); NEUT # 4.2 x10^3/uL (1.8-7.7); NEUT % 98 % (31-73); PLATELET COUNT 149 x10^3/uL (140-400); RED BLOOD COUNT 3.74 x10^6/uL (4.30-5.70); RED CELL DISTRIBUTION WIDTH 14.9 % (11.5-14.5); WHITE BLOOD COUNT 4.2 x10^3/uL (4.0-11.0)
[2021-03-22 12:21] LABS: CALCIUM 8.4 mg/dL (8.5-10.1); CREATININE 9.2 mg/dL (0.7-1.3); GFR 7.2; POTASSIUM 3.6 mmol/L (3.5-5.1)
--- NOTE | 2021-03-22 12:22 | RAD ---
XR CHEST 1V History: Weakness, tachycardia Comparison: 06/07/2020 Technique: Portable AP radiograph of the chest. Findings: The lungs are adequately inflated. There is left retrocardiac and basilar opacity with blunting the l eft costophrenic angle. Heart size is normal pulmonary vasculature is mildly cephalized. Left infracl avicular vascular stent. Degenerative changes of the shoulders and spine. Impression: 1. Left pleural effusion and adjacent opacities which may represent edema. Superimposed infection ca nnot be excluded. Electronically signed by: Anastacio Leiva MD (03/22/2021 12:20 PM) [id number]
[2021-03-22 12:25] LABS: ALBUMIN 3.2 g/dL (3.4-5.0); ALBUMIN/GLOBULIN RATIO 0.8 (1.0-1.7); PHOSPHORUS 2.9 mg/dL (2.6-4.7); TOTAL BILIRUBIN 1.1 mg/dL (0.2-1.0)
[2021-03-22 12:41] LABS: % BANDS 34 % (0-9); % LYMPHS 3 % (24-48); % METAS 6 % (0-0); % MONOS 1 % (0-10); % SEGS 56 % (35-66); PLT ESTIMATE ADEQUATE (ADEQUATE)
[2021-03-22 12:42] LABS: TOXIC VACUOLATION PRESENT
--- NOTE | 2021-03-22 12:46 | PHYS DOC ---
Past Medical History Past Medical History: A-Fib, Asthma, Diabetes-Type II, Hypertension, Renal Failure, Other Additional Past Medical Histor: RENAL INSUFFIENCY Past Surgical History: No Surgical History Additional Past Surgical Histo: SHUNT IN LEFT ARM, HERNIA REPAIR Smoking Status: Never Smoker Alcohol Use: None Drug Use: None General Adult EDM: Chief Complaint: FATIGUE HPI: HPI: Patient is a 56-year-old male presents to the emergency department complaining of a sudden onset of exhaustion feeling cold and tired while at dialysis today. Patient reports he was 1 hour into a 4-hour hemodialysis when the sensations came upon. Patient states his blood pressure was taken and it was low in the 80s over something. Patient reports he was sent here by ambulance for hypotension. Patient denies chest pain, shortness of breath, chest or nasal congestion. Denies recent fever or chills. Reports he has been vaccinated for the COVID-19 virus. States Thursday and Thursday hemodialysis, last full dialysis Thursday without problems. Patient denies other physical complaints or physical concerns Review of Systems: Review of Systems: 14 body systems of review of systems have been reviewed. See HPI for pertinent positives and negative responses, otherwise all other systems are negative, nonpertinent or noncontributory. Constitutional: Negative except as outlined in HPI above. Skin: Negative except as outlined in HPI above. Eyes: Negative except as outlined in HPI above. HENT: Negative except as outlined in HPI above. Respiratory: Negative except as outlined in HPI above. Cardiovascular: Negative except as outlined in HPI above. GI: Negative except as outlined in HPI above. : Negative except as outlined in HPI above. Musculoskeletal: Negative except as outlined in HPI above. Integument: Negative except as outlined in HPI above. Neurologic: Negative except as outlined in HPI above. Endocrine: Negative except as outlined in HPI above. Lymphatic: Negative except as outlined in HPI above. Psychiatric: Negative except as outlined in HPI above. Heart Score: C/O Chest Pain: No Risk Factors: Risk Factors: DM, Current or recent (<one month) smoker, HTN, HLP, family history of CAD, obesity. Risk Scores: Score 0 - 3: 2.5% MACE over next 6 weeks - Discharge Home Score 4 - 6: 20.3% MACE over next 6 weeks - Admit for Clinical Observation Score 7 - 10: 72.7% MACE over next 6 weeks - Early Invasive Strategies Allergies: Allergies: Allergies Coded Allergies Type Severity Reaction Last Updated Verified No Known Drug Allergies 03/22/21 No Physical Exam: PE: Constitutional: Well developed, well nourished, no acute distress, non-toxic appearance. [] HENT: Normocephalic, atraumatic, bilateral external ears normal, oropharynx moist, no oral exudates, nose normal. [] Eyes: PERRLA, EOMI, conjunctiva normal, no discharge. [] Neck: Normal range of motion, no tenderness, supple, no stridor. [] Cardiovascular:Heart rate regular rhythm, no murmur [] Lungs & Thorax: Bilateral breath sounds clear to auscultation [] Abdomen: Bowel sounds normal, soft, no tenderness, no masses, no pulsatile masses. [] Skin: Warm, dry, no erythema, no rash. [] Back: No tenderness, no CVA tenderness. [] Extremities: No tenderness, no cyanosis, no clubbing, ROM intact, no edema. [] Neurologic: Alert and oriented X 3, normal motor function, normal sensory function, no focal deficits noted. [] Psychologic: Affect normal, judgement normal, mood normal. [] Current Patient Data: Labs: Laboratory Tests Test 03/22/21 12:00 03/22/21 12:02 White Blood Count 4.2 x10^3/uL Red Blood Count 3.74 x10^6/uL Hemoglobin 12.4 g/dL Hematocrit 36.7 % Mean Corpuscular Volume 98 fL Mean Corpuscular Hemoglobin 33 pg Mean Corpuscular Hemoglobin Concent 34 g/dL Red Cell Distribution Width 14.9 % Platelet Count 149 x10^3/uL Neutrophils (%) (Auto) 98 % Lymphocytes (%) (Auto) 2 % Monocytes (%) (Auto) 0 % Eosinophils (%) (Auto) 0 % Basophils (%) (Auto) 0 % Neutrophils # (Auto) 4.2 x10^3/uL Lymphocytes # (Auto) 0.1 x10^3/uL Monocytes # (Auto) 0.0 x10^3/uL Eosinophils # (Auto) 0.0 x10^3/uL Basophils # (Auto) 0.0 x10^3/uL Segmented Neutrophils % 56 % Band Neutrophils % 34 % Lymphocytes % 3 % Monocytes % 1 % Metamyelocytes % 6 % Toxic Vacuolation Present Platelet Estimate Adequate Large Platelets Occ Sodium Level 138 mmol/L Potassium Level 3.6 mmol/L Chloride Level 98 mmol/L Carbon Dioxide Level 28 mmol/L Anion Gap 12 Blood Urea Nitrogen 40 mg/dL Creatinine 9.2 mg/dL Estimated GFR (Cockcroft-Gault) 7.2 BUN/Creatinine Ratio 4 Glucose Level 89 mg/dL Calcium Level 8.4 mg/dL Phosphorus Level 2.9 mg/dL Magnesium Level 2.0 mg/dL Total Bilirubin 1.1 mg/dL Aspartate Amino Transf (AST/SGOT) 109 U/L Alanine Aminotransferase (ALT/SGPT) 79 U/L Alkaline Phosphatase 99 U/L Creatine Kinase 407 U/L Creatine Kinase MB (Mass) 2.8 ng/mL Creatine Kinase MB Relative Index 0.7 % Troponin I Quantitative 0.022 ng/mL EV-Dqb-U-Type Natriuretic Peptide 2293 pg/mL Total Protein 7.0 g/dL Albumin 3.2 g/dL Albumin/Globulin Ratio 0.8 SARS-CoV-2 Antigen (Rapid) Negative Laboratory Tests Test 03/22/21 12:00 03/22/21 12:02 White Blood Count 4.2 x10^3/uL (4.0-11.0) Red Blood Count 3.74 x10^6/uL (4.30-5.70) L Hemoglobin 12.4 g/dL (13.0-17.5) L Hematocrit 36.7 % (39.0-53.0) L Mean Corpuscular Volume 98 fL (79-100) Mean Corpuscular Hemoglobin 33 pg (25-35) Mean Corpuscular Hemoglobin Concent 34 g/dL (31-37) Red Cell Distribution Width 14.9 % (11.5-14.5) H Platelet Count 149 x10^3/uL (140-400) Neutrophils (%) (Auto) 98 % (31-73) H Lymphocytes (%) (Auto) 2 % (24-48) L Monocytes (%) (Auto) 0 % (0-9) Eosinophils (%) (Auto) 0 % (0-3) Basophils (%) (Auto) 0 % (0-3) Neutrophils # (Auto) 4.2 x10^3/uL (1.8-7.7) Lymphocytes # (Auto) 0.1 x10^3/uL (1.0-4.8) L Monocytes # (Auto) 0.0 x10^3/uL (0.0-1.1) Eosinophils # (Auto) 0.0 x10^3/uL (0.0-0.7) Basophils # (Auto) 0.0 x10^3/uL (0.0-0.2) Segmented Neutrophils % 56 % (35-66) Band Neutrophils % 34 % (0-9) H Lymphocytes % 3 % (24-48) L Monocytes % 1 % (0-10) Metamyelocytes % 6 % (0-0) H Toxic Vacuolation Present Platelet Estimate Adequate (ADEQUATE) Large Platelets Occ Sodium Level 138 mmol/L (136-145) Potassium Level 3.6 mmol/L (3.5-5.1) Chloride Level 98 mmol/L (98-107) Carbon Dioxide Level 28 mmol/L (21-32) Anion Gap 12 (6-14) Blood Urea Nitrogen 40 mg/dL (8-26) H Creatinine 9.2 mg/dL (0.7-1.3) H Estimated GFR (Cockcroft-Gault) 7.2 BUN/Creatinine Ratio 4 (6-20) L Glucose Level 89 mg/dL (70-99) Calcium Level 8.4 mg/dL (8.5-10.1) L Phosphorus Level 2.9 mg/dL (2.6-4.7) Magnesium Level 2.0 mg/dL (1.8-2.4) Total Bilirubin 1.1 mg/dL (0.2-1.0) H Aspartate Amino Transferase (AST) 109 U/L (15-37) H Alanine Aminotransferase (ALT) 79 U/L (16-63) H Alkaline Phosphatase 99 U/L (46-116) Creatine Kinase 407 U/L (39-308) H Creatine Kinase MB (Mass) 2.8 ng/mL (0.0-3.6) Creatine Kinase MB Relative Index 0.7 % (0-4) Troponin I Quantitative 0.022 ng/mL (0.000-0.055) YL-Zhz-U-Type Natriuretic Peptide 2293 pg/mL (0-124) H Total Protein 7.0 g/dL (6.4-8.2) Albumin 3.2 g/dL (3.4-5.0) L Albumin/Globulin Ratio 0.8 (1.0-1.7) L SARS-CoV-2 Antigen (Rapid) Negative (NEGATIVE) Laboratory Tests 03/22/21 12:00 Laboratory Tests 03/22/21 12:00 Vital Signs: Vital Signs Date Time Temp Pulse Resp B/P (MAP) Pulse Ox O2 Delivery O2 Flow Rate FiO2 03/22/21 11:35 116 03/22/21 11:26 98.9 15 153/78 (103) 99 Room Air 98.9 EKG: EKG: EKG performed at 1156 by ED nursing staff shows sinus tachycardia with left axis deviation, MS interval 0.152, QTc interval 0.481, no acute STEMI, no ACS, no a cute ischemia appreciated, EKG interpreted by ED attending physician Dr. Smith Radiology/Procedures: Radiology/Procedures: PATIENT: MARYJANE GUZMAN ACCOUNT: [id number] : 1965 LOCATION: ER AGE: 56 SEX: M EXAM STATUS: REG ER ORD. PHYSICIAN: LESLY PORRAS APRN REASON: Weakness, tachycardia PROCEDURE: CHEST AP ONLY XR CHEST 1V History: Weakness, tachycardia Comparison: 06/07/2020 Technique: Portable AP radiograph of the chest. Findings: The lungs are adequately inflated. There is left retrocardiac and basilar opacity with blunting the left costophrenic angle. Heart size is normal pulmonary vasculature is mildly cephalized. Left infraclavicular vascular stent. Degenerative changes of the shoulders and spine. Impression: 1. Left pleural effusion and adjacent opacities which may represent edema. Superimposed infection cannot be excluded. Electronically signed by: Anastacio Leiva MD (03/22/2021 12:20 PM) [id number] Course & Med Decision Making: Course & Med Decision Making Pertinent Labs and Imaging studies reviewed. (See chart for details) 56-year-old male, vital signs reviewed, presents emergency department concerning chills feeling tired with exertion sudden onset during hemodialysis today. Patient physical examination nonconcerning, will order labs with urine, patient states he does make some urine, will reevaluate after period of time. After period of time, upon reevaluation of the patient, the patient is awake alert stating he feels much better and is ready to leave. Patient now discloses he worked overnight prior to going to dialysis and feels he was just very tired after taking a nap here in the emergency department he feels much better and is ready to go home, patient reports he has secured a hemodialysis appointment for 6:00 in the morning to catch up. Patient states he is ready to go home. Patient denies feelings of tiredness exhaustion or fever or chills. Discussed with patient lab results, COVID-19 virus testing negative, patient states he thinks he just overdid it from working overnight and going straight to dialysis in the morning. We will discharged home with strict follow-up tomorrow morning to complete dialysis patient is amenable to ED discharge planning, discussed with the patient all findings and diagnostic testing as well as the need to fo llow-up with their primary care provider for further evaluation and treatment or return to the ED if any new or worsening symptoms. Strict return precautions were also discussed at length, the patient voiced understanding and agreement with the discharge planning. The patient was nontoxic in appearance, in no apparent distress, and hemodynamically stable at the time of disposition. Dragon Disclaimer: [employer] Disclaimer: This electronic medical record was generated, in whole or in part, using a voice recognition dictation system. Departure Departure Impression: Primary Impression: Fatigue Qualified Codes: R53.83 - Other fatigue Disposition: 01 HOME / SELF CARE / HOMELESS Condition: GOOD Referrals: RAMU FLOYD MD (PCP) Additional Instructions: You were seen today in the emergency department after an overwhelming sensation of feeling tired and exhausted during your dialysis today. You did disclose that you had worked overnight and most likely was just very exhausted and tired from work and then going straight to dialysis. Your lab work and x-rays along with your EKG were negative for concerning findings. As we discussed, keep your appointment tomorrow for your hemodialysis at 6 AM to complete. Please return the emergency department for worsening symptoms or other concerns. Thank you for visiting our Emergency Department. It was a pleasure taking care of you today in the emergency department and we appreciate you trusting us with your care. If any additional problems come up don't hesitate to return to visit us. Please follow up with your primary care provider so they can plan additional care if needed and know about the problem that you had. If symptoms worsen come back to the Emergency Department. Any concerning symptoms that start such as ch est pain, shortness of air, weakness or numbness on one side of the body, running high fevers or any other concerning symptoms return to the ER. EMERGENCY DEPARTMENT GENERAL DISCHARGE INSTRUCTIONS Thank you for coming to [facility] Emergency Department (ED) today and trusting us with you care. We trust that you had a positive experience in our Emergency Department. If you wish to speak to the department management, you may call the Director at [phone]. YOUR FOLLOW UP INSTRUCTIONS ARE FOLLOWS: 1. Do you have a private Doctor? If you do not have a private doctor, please ask for a resource list of physicians or clinics that may be able to assist you with fol low up care. 2. The Emergency Physicain has interpreted your x-rays. The X-Ray specialist will also review them. If there is a change in the findings, you will be notified in 48 hours when at all possible. 3. A lab test or culture has been done, your results will be reviewed and you will be notified if you need a change in treatment. ADDITIONAL INSTRUCTIONS AND INFORMATION: 1. Your care today has been supervised by a physician who is specially trained in emergency care. Many problems require more than one evaluation for a complete diagnosis and treatment. We recommend that you schedule your follow up appointment as recommended to ensure complete treatment of you illness or injury. If you are unable to obtain follow up care and continue to have a problem, or if your condition worsens, we recommend that you return to the ED. 2. We are not able to safely determine your condition over the phone nor are we able to give sound medical advice over the phone. For these safety reasons, if you call for medical advice we will ask you to come to the ED for further evaluation. 3. If you have any questions regarding these discharge instructions please call the ED at [phone]. SAFETY INFORMATION: In the interest of safety, wellness, and injury prevention; we encourage you to wear your sealbelt, if you smoke; quite smoking, and we encourage family to use a p rotective helmet for bicycling and other sporting events that present an increased risk for head injury. IF YOUR SYMPTOMS WORSEN OR NEW SYMPTOMS DEVELOP, OR YOU HAVE CONCERNS ABOUT YOUR CONDITION; OR IF YOUR CONDITION WORSENS WHILE YOU ARE WAITING FOR YOUR FOLLOW UP APPOINTMENT; EITHER CONTACT YOUR PRIMARY CARE DOCTOR, THE PHYSICIAN WHOSE NAME AND NUMBER YOU WERE GIVEN, OR RETURN TO THE ED IMMEDIATELY. LESLY PORRAS APRN Mar 22, 2021 12:46
[2021-03-22 13:58] VITALS: BP 151/70
--- NOTE | 2021-03-22 16:02 | NUR ---
IP: Patient notified of negative COVID19 test results. Verbalized understanding.
--- NOTE | 2021-03-22 16:31 | EKG ---
[facility] [address] [place] [address] Test Date: 2021-03-22 Test Time: 11:56:24 Pat Name: MARYJANE GUZMAN Department: Room: Gender: M Gore Inserter: : 1965 Requested By: LESLY PORRAS Order Number: [id number] Reading MD: Salvador Baker Measurements Intervals Bryant Rate: 109 P: 208 TN: 152 QRS: -41 QRSD: 96 T: 42 QT: 356 QTc: 481 Interpretive Statements SINUS TACHYCARDIA ABNORMAL LEFT AXIS DEVIATION LEFT ANTERIOR FASCICULAR BLOCK LEFT VENTRICULAR HYPERTROPHY ABNORMAL ECG Electronically Signed On 03-28-2021 13:06:28 CDT by Salvador Baker
== END 2021-03-22 13:59 | disposition home or self-care (01) ==
LOC: ER 11:21
DX: R53.83 Other fatigue (principal); I95.9 Hypotension, unspecified; I48.91 Unspecified atrial fibrillation; J45.909 Unspecified asthma, uncomplicated; I12.9 Hypertensive chronic kidney disease with stage 1 through stage 4 chronic kidney disease, or unspecified chronic kidney disease; E11.22 Type 2 diabetes mellitus with diabetic chronic kidney disease; N18.9 Chronic kidney disease, unspecified; Z20.822 Contact with and (suspected) exposure to COVID-19; Z99.2 Dependence on renal dialysis
CPT/HCPCS: 36415; 71045; 80053; 82553; 83735; 83880; 84100; 84484; 85007; 85025; 87040; 87426; 93005; 99285; U0003; U0005

== ENCOUNTER 2021-07-19 06:21 | Emergency (ER) | payer MEDICARE, OTHER ==
[~2021-07-19] VITALS: Ht 182.9 cm; Wt 111.0 kg
[2021-07-19 06:25] VITALS: BP 143/80
--- NOTE | 2021-07-19 08:30 | PHYS DOC ---
Past Medical History Past Medical History: A-Fib, Asthma, Hypertension, Renal Failure, Other Additional Past Medical Histor: diaylsis M W F Past Surgical History: Other Additional Past Surgical Histo: Left arm AV fistula Smoking Status: Never Smoker Alcohol Use: None Drug Use: None General Adult EDM: Chief Complaint: BACK PAIN - NO INJURY HPI: HPI: Patient is a 56 year old male who presents with right-sided lower back pain. 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 Pain worse with transitioning from sitting to standing or laying down and vice versa, and walking. Improved with heat pack and naproxen 800 mg x 1. denies numbness tingling, weakness, fever, chills, loss of bowel or bladder control, pain does not radiate. 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 At that time, the pain radia vicente down posteriorly leg to his knee. He was told he had a herniated disc and completed physical therapy 3 times a week with resolution. Prior to last night he had had no recurrence of that pain or baseline back pain. Review of Systems: Review of Systems: Constitutional: Denies fever or chills Eyes: Denies redness or eye pain HENT: Denies nasal congestion or sore throat Respiratory: Denies cough or shortness of breath Cardiovascular: Denies chest pain or palpitations GI: Denies abdominal pain, nausea, or vomiting. Loss of bowel control : Denies dysuria or hematuria, loss of bladder control Musculoskeletal: Denies joint pain. Reports back pain Integument: Denies rash or skin lesions Neurologic: Denies headache, focal weakness or sensory changes as numbness, tingling, or weakness Complete systems were reviewed and found to be within normal limits, except as documented in this note. Heart Score: C/O Chest Pain: No Risk Factors: Risk Factors: DM, Current or recent (<one month) smoker, HTN, HLP, family history of CAD, obesity. Allergies: Allergies: Allergies Coded Allergies Type Severity Reaction Last Updated Verified No Known Drug Allergies 03/22/21 No Physical Exam: PE: Constitutional: Well developed, well nourished, uncomfortable secondary to pain however no acute distress, non-toxic appearance HENT: Normocephalic, atraumatic Eyes: EOMI, conjunctiva normal, no discharge Neck: Normal range of motion, no tenderness, supple Lungs & Thorax: No respiratory distress, equal chest rise and fall Abdomen: Soft, no tenderness Skin: Warm, dry, no erythema, no rash Back: TTP right lower back, no midline tenderness, no CVA tenderness, no ecchymosis, erythema or edema. Positive straight leg test on the left. negative standing Trendelenburg bilateral Extremities: No deformity ROM intact, no edema Neurologic: Alert and oriented X 3, normal motor function, normal sensory function, no focal deficits noted Psychologic: Affect normal, judgment normal Current Patient Data: Vital Signs: Vital Signs Date Time Temp Pulse Resp B/P (MAP) Pulse Ox O2 Delivery O2 Flow Rate FiO2 07/19/21 06:25 98.1 77 18 143/80 (101) 98 Room Air 98.1 EKG: EKG: [] Radiology/Procedures: Radiology/Procedures: [] Course & Med Decision Making: Course & Med Decision Making Pertinent Labs and Imaging studies reviewed. (See chart for details) Patient presents with sudden onset stabbing back pain after helping lift patient overnight. No acute/emergent symptoms/signs on exam and history. Back muscle spasm versus irritation/recurrence of previous disc herniation. Given dose of steroid for inflammation, Rx for pain meds and muscle relaxer. Given history of herniated disc recommend following with PCP, may need further imaging including MRI. Avoid activities that aggravate symptoms. Encourage heat/ice PRN. Return to ER for any loss of bowel or bladder function or severe/worsening. Patient stable for discharge with outpatient follow-up with PCP. Discussed findings and plan with patient, who acknowledges understanding and agreement. Frieda Disclaimer: Frieda Disclaimer: This electronic medical record was generated, in whole or in part, using a voice recognition dictation system. Departure Departure Impression: Primary Impression: Back pain Qualified Codes: M54.50 - Low back pain, unspecified Disposition: HOME / SELF CARE / HOMELESS Condition: STABLE Referrals: RAMU FLOYD MD (PCP) JESSE LEHMAN MD Patient Instructions: Back Pain, Adult, [id number] Additional Instructions: Ice area of discomfort 20 minutes on then leave off next 20 minutes. Repeat several times daily for next 2 days. May use [id number] Tylenol as needed but do not take at same time as hydrocodone pain medication as it already has Tylenol in it. Scripts Prednisone (PREDNISONE) 20 Mg Tablet 2 TAB PO DAILY, #8 TAB Start this prescription tomorrow, 07/20/21 Prov: LESLY FARR DO 07/19/21 Orphenadrine Citrate (ORPHENADRINE CITRATE) 100 Mg Tablet.er 1 TAB PO BID PRN for MUSCLE PAIN, #20 TAB Prov: LESLY FARR DO 07/19/21 Hydrocodone Bit/Acetaminophen (HYDROCODONE-APAP 5-325 ) 1 Tab Tablet 0.5-1 TAB PO PRN Q6HRS PRN for PAIN, #14 TAB 0 Refills Prov: LESLY FARR DO 07/19/21 LESLY FARR DO Jul 19, 2021 08:30
[2021-07-19] MEDS ORDERED: HYDR-2761 PO (08:34)
[2021-07-19] MEDS ORDERED: PRED20TA PO (08:34)
[2021-07-19] MEDS ORDERED: ORPH100T PO (08:34)
== END 2021-07-19 08:44 | disposition home or self-care (01) ==
LOC: ER 06:21
DX: M54.50 Low back pain, unspecified (principal); I48.91 Unspecified atrial fibrillation; J45.909 Unspecified asthma, uncomplicated; I12.9 Hypertensive chronic kidney disease with stage 1 through stage 4 chronic kidney disease, or unspecified chronic kidney disease; N18.9 Chronic kidney disease, unspecified
CPT/HCPCS: 99283

== ENCOUNTER 2021-09-25 06:05 | Inpatient (IN) | payer MEDICARE, OTHER ==
[~2021-09-25] VITALS: Ht 182.9 cm; Wt 118.0 kg
[~2021-09-25 06:05] MED LIST changes: +ORPH100T PO; +PRED20TA PO
[2021-09-25] MEDS ORDERED: ASPIRIN CHEWABLE 81 MG TABLET. PO ONE (06:30)
[2021-09-25] MEDS ORDERED: LIDO:MAALOX 1:1 20 ML SINGLE DOSE. SWSW ONE (06:30)
--- NOTE | 2021-09-25 06:36 | PHYS DOC ---
Past Medical History Past Medical History: A-Fib, Asthma, High Cholesterol, Hypertension, Renal Failure, Other Additional Past Medical Histor: diaylsis M W F Past Surgical History: Other Additional Past Surgical Histo: Left arm AV fistula Smoking Status: Never Smoker Alcohol Use: None Drug Use: None Adult General Chief Complaint Chief Complaint: CHEST PAIN HPI HPI Patient is a 56 year old male presenting to emergency department for evaluation of chest pain that he says started approximately 5 AM this morning. He describes it as a burning sensation in the middle of his lower chest. He says that it radiates straight through to the back. He says he was walking when the pain started but was not necessarily exerting himself. He denies any shortness of breath diaphoresis nausea or vomiting. He says that he had similar episodes on Thursday when he was taking out the trash. He has a history of hypertension high cholesterol and atrial fibrillation and takes Eliquis. He says that he had a heart catheterization with Dr. Stevan Santos 18 to 24 months ago and he required no stents and he has no known coronary artery disease. He says he is supposed to get a stress test but thinks he had an echocardiogram that was normal. He is in no acute distress with normal vital signs. Review of Systems Review of Systems Constitutional: Denies fever or chills [] Eyes: Denies change in visual acuity, redness, or eye pain [] HENT: Denies nasal congestion or sore throat [] Respiratory: Denies cough or shortness of breath [] Cardiovascular: + CP GI: Denies abdominal pain, nausea, vomiting, bloody stools or diarrhea [] : Denies dysuria or hematuria [] Musculoskeletal: Denies back pain or joint pain [] Integument: Denies rash or skin lesions [] Neurologic: Denies headache, focal weakness or sensory changes [] Endocrine: Denies polyuria or polydipsia [] All other systems were reviewed and found to be within normal limits, except as documented in this note. Current Medications Current Medications Current Medications Medications (Trade) Dose Ordered Sig/Evie Start Time Stop Time Status Last Admin Dose Admin Aspirin (Aspirin Chewable) 324 mg 1X ONCE 09/25/21 06:30 09/25/21 06:31 DC 09/25/21 06:32 324 MG Multi-Ingredient Mouthwash/Gargle (Gi Cocktail) 20 ml 1X ONCE 09/25/21 06:30 09/25/21 06:31 DC 09/25/21 06:32 20 ML Ondansetron HCl (Zofran) 4 mg PRN Q8HRS PRN 09/25/21 10:00 09/26/21 09:59 Allergies Allergies Allergies Coded Allergies Type Severity Reaction Last Updated Verified No Known Drug Allergies 03/22/21 No Physical Exam Physical Exam Constitutional: Well developed, well nourished, no acute distress, non-toxic appearance. [] HENT: Normocephalic, atraumatic, bilateral external ears normal, oropharynx moist, no oral exudates, nose normal. [] Eyes: PERRLA, EOMI, conjunctiva normal, no discharge. [] Neck: Normal range of motion, no tenderness, supple, no stridor. [] Cardiovascular:Heart rate regular rhythm, no murmur [] Lungs & Thorax: Bilateral breath sounds clear to auscultation [] Abdomen: Bowel sounds normal, soft, no tenderness, no masses, no pulsatile masses. [] Skin: Warm, dry, no erythema, no rash. [] Back: No tenderness, no CVA tenderness. [] Extremities: No tenderness, no cyanosis, no clubbing, ROM intact, no edema. [] Neurologic: Alert and oriented X 3, normal motor function, normal sensory function, no focal deficits noted. [] Psychologic: Affect normal, judgement normal, mood normal. [] Current Patient Data Vital Signs Vital Signs Date Time Temp Pulse Resp B/P (MAP) Pulse Ox O2 Delivery O2 Flow Rate FiO2 09/25/21 08:33 62 13 161/94 (116) 94 Room Air 09/25/21 06:10 98.8 98.8 Lab Values Laboratory Tests Test 09/25/21 06:28 09/25/21 08:46 White Blood Count 5.7 x10^3/uL (4.0-11.0) Red Blood Count 4.00 x10^6/uL (4.30-5.70) L Hemoglobin 13.2 g/dL (13.0-17.5) Hematocrit 42.0 % (39.0-53.0) Mean Corpuscular Volume 105 fL (79-100) H Mean Corpuscular Hemoglobin 33 pg (25-35) Mean Corpuscular Hemoglobin Concent 32 g/dL (31-37) Red Cell Distribution Width 15.4 % (11.5-14.5) H Platelet Count 195 x10^3/uL (140-400) Neutrophils (%) (Auto) 63 % (31-73) Lymphocytes (%) (Auto) 22 % (24-48) L Monocytes (%) (Auto) 11 % (0-9) H Eosinophils (%) (Auto) 3 % (0-3) Basophils (%) (Auto) 1 % (0-3) Neutrophils # (Auto) 3.6 x10^3/uL (1.8-7.7) Lymphocytes # (Auto) 1.3 x10^3/uL (1.0-4.8) Monocytes # (Auto) 0.6 x10^3/uL (0.0-1.1) Eosinophils # (Auto) 0.2 x10^3/uL (0.0-0.7) Basophils # (Auto) 0.1 x10^3/uL (0.0-0.2) Prothrombin Time 14.7 SEC (11.7-14.0) H Prothrombin Time INR 1.2 (0.8-1.1) H Activated Partial Thromboplast Time 34 SEC (24-38) D-Dimer (Kelsey) 0.39 ug/mlFEU (0.00-0.50) Sodium Level 139 mmol/L (136-145) Potassium Level 5.2 mmol/L (3.5-5.1) H Chloride Level 99 mmol/L (98-107) Carbon Dioxide Level 27 mmol/L (21-32) Anion Gap 13 (6-14) Blood Urea Nitrogen 59 mg/dL (8-26) H Creatinine 14.0 mg/dL (0.7-1.3) H Estimated GFR (Cockcroft-Gault) 4.4 BUN/Creatinine Ratio 4 (6-20) L Glucose Level 243 mg/dL (70-99) H Calcium Level 8.4 mg/dL (8.5-10.1) L Total Bilirubin 0.5 mg/dL (0.2-1.0) Aspartate Amino Transferase (AST) 7 U/L (15-37) L Alanine Aminotransferase (ALT) 13 U/L (16-63) L Alkaline Phosphatase 97 U/L (46-116) Troponin I High Sensitivity 64 ng/L (4-75) 76 ng/L (4-75) H KT-Uki-M-Type Natriuretic Peptide 1707 pg/mL (0-124) H Total Protein 7.1 g/dL (6.4-8.2) Albumin 3.4 g/dL (3.4-5.0) Albumin/Globulin Ratio 0.9 (1.0-1.7) L Lipase 322 U/L (73-393) Laboratory Tests 09/25/21 06:28 Laboratory Tests 09/25/21 06:28 EKG EKG Sinus rhythm at 78 bpm with leftward axis no ST elevation or depression with normal T waves. Similar when compared to prior done on 2020 Radiology/Procedures Radiology/Procedures [] Course & Med Decision Making Course & Med Decision Making Patient with chest pain that is not typical for ACS I will check labs and imaging treat his symptoms and reassess. Patient does meet NSTEMI criteria as his troponin went up 12 in 2 hours so he will be admitted to Dr. Jo with cardiology and nephrology consults pending. Dragon Disclaimer Dragon Disclaimer This electronic medical record was generated, in whole or in part, using a voice recognition dictation system. Departure Departure Impression: Primary Impression: ESRD (end stage renal disease) on dialysis Additional Impression: NSTEMI (non-ST elevated myocardial infarction) Disposition: ADMITTED INPATIENT Admitting Physician: Holly Floyd Condition: GUARDED Referrals: HOLLY FLOYD MD (PCP) Problem Qualifiers DEONNA PRIETO DO Sep 25, 2021 06:36
[2021-09-25 06:40] LABS: BASO # 0.1 x10^3/uL (0.0-0.2); BASO % 1 % (0-3); EOS # 0.2 x10^3/uL (0.0-0.7); EOS % 3 % (0-3); HEMOGLOBIN 13.2 g/dL (13.0-17.5); LYMPH # 1.3 x10^3/uL (1.0-4.8); LYMPH % 22 % (24-48); MEAN CORPUSCULAR HEMOGLOBIN 33 pg (25-35); MEAN CORPUSCULAR HGB CONC 32 g/dL (31-37); MEAN CORPUSCULAR VOLUME 105 fL (79-100); MONO # 0.6 x10^3/uL (0.0-1.1); MONO % 11 % (0-9); NEUT # 3.6 x10^3/uL (1.8-7.7); NEUT % 63 % (31-73); PLATELET COUNT 195 x10^3/uL (140-400); RED CELL DISTRIBUTION WIDTH 15.4 % (11.5-14.5); WHITE BLOOD COUNT 5.7 x10^3/uL (4.0-11.0)
--- NOTE | 2021-09-25 06:40 | EKG ---
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
[2021-09-25 06:51] LABS: CALCIUM 8.4 mg/dL (8.5-10.1); GFR 4.4; POTASSIUM 5.2 mmol/L (3.5-5.1)
[2021-09-25 06:54] LABS: PROTHROMBIN TIME PATIENT 14.7 SEC (11.7-14.0)
[2021-09-25 06:58] LABS: ALBUMIN 3.4 g/dL (3.4-5.0); ALBUMIN/GLOBULIN RATIO 0.9 (1.0-1.7); TOTAL BILIRUBIN 0.5 mg/dL (0.2-1.0); TOTAL PROTEIN 7.1 g/dL (6.4-8.2)
[2021-09-25 07:05] LABS: D-DIMER 0.39 ug/mlFEU (0.00-0.50)
--- NOTE | 2021-09-25 07:07 | RAD ---
EXAMINATION: Chest radiograph. VIEWS: 1 COMPARISON: 03/22/2021 INDICATION:56 years, Male, chest pain. FINDINGS: Stable borderline enlarged cardiomediastinal silhouette. No focal consolidation. No pleural effusion or pneumothorax. No acute osseous process. IMPRESSION: No acute cardiopulmonary process. Electronically signed by: Serafin Kaufman MD (09/25/2021 7:04 AM) [facility]
[2021-09-25] MEDS ORDERED: ONDANSETRON PF 4 MG/2 ML VIAL. IVP PRN (10:00)
[2021-09-25 11:51] VITALS: BP 184/95
--- NOTE | 2021-09-25 12:04 | PDOC2 ---
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 Harley SOURCE Source: Chart review, Patient HISTORY OF PRESENT ILLNESS HISTORY OF PRESENT ILLNESS This is a 56 yo male who presented secondary to chest pain. Patient reports pain began on Thursday when he was taking out trash. Reports as burning pain. Thought was GERD so he took Tums and had Sprite, which seemed to relieve the pain. Yesterday while at work, pain returned and was a little more intense. Again describes as burning sensation. This times, pain radiated around to his back. No associated shortness of breath, diaphoresis, palpitations, or nausea/vomiting. Pain lasted about 30 minutes and resolved with rest. Due to cardiac history, patient decided to come to the ED for further evaluation and treatment. Has had not further pain since Thursday, although has not exerted himself either. PAST MEDICAL HISTORY Past Medical History Cardiovascular: HTN, CAD with distal LAD lesion, PAFIB GI: Peptic Ulcer disease Musculoskeletal: Osteoarthritis Rheumatologic: Gout Renal/: Chronic renal failure (on HD) Endocrine: Diabetes PAST SURGICAL HISTORY Past Surgical History LHC, Cholecystectomy, Other (LUE fistula), recent bilateral inguinal hernia repair FAMILY HISTORY Family History: Diabetes, Hypertension SOCIAL HISTORY Social History Smoke: No ALCOHOL: none Drugs: None Lives: with Family CURRENT MEDICATIONS CURRENT MEDICATIONS Current Medications Medications (Trade) Dose Ordered Sig/Evie Route PRN Reason Start Time Stop Time Status Last Admin Dose Admin Aspirin (Aspirin Chewable) 324 mg 1X ONCE PO 09/25/21 06:30 09/25/21 06:31 DC 09/25/21 06:32 Multi-Ingredient Mouthwash/Gargle (Gi Cocktail) 20 ml 1X ONCE SWSW 09/25/21 06:30 09/25/21 06:31 DC 09/25/21 06:32 ALLERGIES ALLERGIES: Coded Allergies: No Known Drug Allergies (Unverified , 03/22/21) ROS Review of System 14 point ROS evlauated with pertinent positives noted per HPI PHYSICAL EXAM PHYSICAL EXAM General: Alert, Oriented X3, Cooperative, No acute distress HEENT: Atraumatic, Mucous membr. moist/pink Lungs: Clear to auscultation, Normal air movement Heart: Regular rate Extremities: No cyanosis, No edema Skin: warm, dry, no wounds Neuro: Normal speech, Sensation intact Psych/Mental Status: Mental status NL, Mood NL MUSCULOSKELETAL: No joint tenderness VITALS/I&O VITALS/I&O: Vital Signs Date Time Temp Pulse Resp B/P (MAP) Pulse Ox O2 Delivery O2 Flow Rate FiO2 09/25/21 11:51 97.2 70 18 184/95 (124) 100 Room Air 97.2 LABS Lab: Laboratory Tests Test 09/25/21 06:28 09/25/21 08:46 White Blood Count 5.7 x10^3/uL (4.0-11.0) Red Blood Count 4.00 x10^6/uL (4.30-5.70) L Hemoglobin 13.2 g/dL (13.0-17.5) Hematocrit 42.0 % (39.0-53.0) Mean Corpuscular Volume 105 fL (79-100) H Mean Corpuscular Hemoglobin 33 pg (25-35) Mean Corpuscular Hemoglobin Concent 32 g/dL (31-37) Red Cell Distribution Width 15.4 % (11.5-14.5) H Platelet Count 195 x10^3/uL (140-400) Neutrophils (%) (Auto) 63 % (31-73) Lymphocytes (%) (Auto) 22 % (24-48) L Monocytes (%) (Auto) 11 % (0-9) H Eosinophils (%) (Auto) 3 % (0-3) Basophils (%) (Auto) 1 % (0-3) Neutrophils # (Auto) 3.6 x10^3/uL (1.8-7.7) Lymphocytes # (Auto) 1.3 x10^3/uL (1.0-4.8) Monocytes # (Auto) 0.6 x10^3/uL (0.0-1.1) Eosinophils # (Auto) 0.2 x10^3/uL (0.0-0.7) Basophils # (Auto) 0.1 x10^3/uL (0.0-0.2) Prothrombin Time 14.7 SEC (11.7-14.0) H Prothrombin Time INR 1.2 (0.8-1.1) H Activated Partial Thromboplast Time 34 SEC (24-38) D-Dimer (Kelsey) 0.39 ug/mlFEU (0.00-0.50) Sodium Level 139 mmol/L (136-145) Potassium Level 5.2 mmol/L (3.5-5.1) H Chloride Level 99 mmol/L (98-107) Carbon Dioxide Level 27 mmol/L (21-32) Anion Gap 13 (6-14) Blood Urea Nitrogen 59 mg/dL (8-26) H Creatinine 14.0 mg/dL (0.7-1.3) H Estimated GFR (Cockcroft-Gault) 4.4 BUN/Creatinine Ratio 4 (6-20) L Glucose Level 243 mg/dL (70-99) H Calcium Level 8.4 mg/dL (8.5-10.1) L Total Bilirubin 0.5 mg/dL (0.2-1.0) Aspartate Amino Transferase (AST) 7 U/L (15-37) L Alanine Aminotransferase (ALT) 13 U/L (16-63) L Alkaline Phosphatase 97 U/L (46-116) Troponin I High Sensitivity 64 ng/L (4-75) 76 ng/L (4-75) H WB-Qkj-P-Type Natriuretic Peptide 1707 pg/mL (0-124) H Total Protein 7.1 g/dL (6.4-8.2) Albumin 3.4 g/dL (3.4-5.0) Albumin/Globulin Ratio 0.9 (1.0-1.7) L Lipase 322 U/L (73-393) Laboratory Tests 09/25/21 06:28 Laboratory Tests 09/25/21 06:28 ECHOCARDIOGRAM ECHOCARDIOGRAM <Conclusion> The left ventricular systolic function is normal. The Ejection Fraction is 55-60%. There is normal LV segmental wall motion. Trace mitral regurgitation. Trace tricuspid regurgitation with an estimated PAP 33 mmHg. There is no evidence of significant pericardial effusion. DATE: 08/02/19 0948 <Conclusion> The left ventricular systolic function is normal and the ejection fraction is lower limits of normal range. Estimated ejection fraction 50%. There is normal LV segmental wall motion. There is moderate concentric left ventricular hypertrophy. DATE: 10/30/20 [id number] HEART CATH HEART CATH FINDINGS 1. Hemodynamics: Left ventricular end-diastolic pressure of 15 mmHg. No pullback gradient across the aortic valve. 2. Left ventriculography: Normal left ventricle systolic function with ejection fraction estimated at 60%. No significant mitral regurgitation seen. 3. Coronary angiography: a. The left main coronary artery arose from the left sinus of Valsalva, gave rise to the left anterior descending, ramus intermedius and left circumflex arteries and did not show any significant stenosis. b. The left anterior descending artery showed 90% stenosis in the very distal segment. c. The left circumflex artery did not show any significant stenosis. d. The ramus intermedius artery showed 30% stenosis in the proximal segment. e. The right coronary artery was a large and dominant vessel arising from the right sinus of Valsalva that did not show any significant stenosis. Conclusion 90% stenosis involving the very distal segment of the left anterior descending artery Recommendations Medical Therapy DATE: 08/02/19 1234 ASSESSMENT/PLAN ASSESSMENT/PLAN 1. Chest pain; mixed features 2. Mild troponin elevation; trop highest 76. Possibly type II, but type I cannot be ruled out 3. CAD: known for very distal LAD lesion 4. HTN urgency; remains elevated 5. Hyperlipidemia; statin 6. PAFIB; presently SR 7. Diabetes, II 8. ESRD on HD; on Multaq for rhythm maintenance, metoprolol for rate control, and Eliquis for stroke prophylaxis. QTc 476 9. Anemia of chronic disease Recommendations Trend troponin Lipids Secondary prevention measures Resume home antiHTN therapy; titrate as warranted Hydralazine IV PRN Resume Imdur Fluid off loading per HD Possible outpatient ischemic evaluation Further pending above supportive care JUAN MANUEL MG MD 09/25/212109: CARDIAC CONSULT ASSESSMENT/PLAN ASSESSMENT/PLAN Patient seen and examined. Agree with CHIEF ENVIRONMENTAL COMMITMENT OFFICER's assessment and plan CP with mixed features - slight trop elevation prob demand ischemia CAD status stable Resume home antihypertensives and titrate for better BP control PAF maintaining SR Continue fluid removal with HD per nephrology team Plan outpatient ischemic evaluation Thank you for your consultation EDENILSON MADDOX APRN Sep 25, 2021 12:04 JUAN MANUEL MG MD Sep 25, 2021 21:10
--- NOTE | 2021-09-25 12:14 | PDOC2 ---
CONSULT Date of Consult Date of Consult DATE: 09/25/21 TIME: 12:07 Reason for Consult Reason for Consult: ESRD Identification/Chief Complaint Chief Complaint Chest pain Currently denies Source Source: Chart review, Patient History of Present Illness Reason for Visit: Patient is a 56 year old AA male presenting to emergency department for evaluation of chest pain , started approximately 5 AM this morning. He describes it as a burning sensation in the middle of his lower chest. He says that it radiates straight through to the back. He says he was walking when the pain started but was not necessarily exerting himself. He denies any shortness of breath diaphoresis nausea or vomiting. He says that he had similar episodes on Thursday when he was taking out the trash. He has a history of hypertension high cholesterol and atrial fibrillation and takes Eliquis. He says that he had a heart catheterization with Dr. Stevan Santos 18 to 24 months ago and he required no stents and he has no known coronary artery disease. He says he is supposed to get a stress test but thinks he had an echocardiogram that was normal. Currently feels better . Past Medical History Cardiovascular: HTN GI: Peptic Ulcer disease Heme/Onc: Anemia NOS Musculoskeletal: Osteoarthritis Rheumatologic: Gout Renal/: Chronic renal failure Endocrine: Diabetes Past Surgical History Past Surgical History: Cholecystectomy, Other Family History Family History: Diabetes, Hypertension Social History ALCOHOL: none Drugs: None Lives: with Family Current Problem List Problem List Problems Medical Problems: (1) NSTEMI (non-ST elevated myocardial infarction) Status: Acute Current Medications Current Medications Current Medications Aspirin (Aspirin Chewable) 324 mg 1X ONCE PO Last administered on 09/25/21at 06:32; Start 09/25/21 at 06:30; Stop 09/25/21 at 06:31; Status DC Multi-Ingredient Mouthwash/Gargle (Gi Cocktail) 20 ml 1X ONCE SWSW Last administered on 09/25/21at 06:32; Start 09/25/21 at 06:30; Stop 09/25/21 at 06:31; Status DC Ondansetron HCl (Zofran) 4 mg PRN Q8HRS PRN IVP NAUSEA/VOMITING; Start 09/25/21 at 10:00; Stop 09/26/21 at 09:59 Active Scripts Active Prednisone 20 Mg Tablet 2 Tab PO DAILY Start this prescription tomorrow, 07/20/21 Orphenadrine Citrate 100 Mg Tablet.er 1 Tab PO BID PRN Hydrocodone-Apap 5-325 (Hydrocodone Bit/Acetaminophen) 1 Tab Tablet 0.5-1 Tab PO PRN Q6HRS PRN Multaq (Dronedarone Hcl) 400 Mg Tablet 400 Mg PO BIDWMEALS 30 Days Hydrocodone-Apap 5-325 (Hydrocodone Bit/Acetaminophen) 1 Tab Tablet 1 Tab PO PRN Q6HRS PRN 7 Days Polyethylene Glycol 3350 17 Gm Powd.pack 17 Gm PO BID 30 Days Isosorbide Mononitrate Er (Isosorbide Mononitrate) 30 Mg Tab.er.24h 60 Mg PO DAILY Atorvastatin Calcium 40 Mg Tablet 40 Mg PO QHS Thera-M Tablet (Multivits,Ca,Minerals/Iron/Fa) 1 Each Tablet 1 Tab PO DAILY Reported Eliquis (Apixaban) 5 Mg Tablet 5 Mg PO BID Metoprolol Tartrate 100 Mg Tablet 1 Tab PO BID Hydralazine Hcl 50 Mg Tablet 50 Mg PO TID Clonidine Hcl 0.3 Mg Tablet 0.3 Mg PO TID Allergies Allergies: Coded Allergies: No Known Drug Allergies (Unverified , 03/22/21) ROS Review of System As per HPI, rest of the ROS is negative Physical Exam Physical Exam General: No acute distress HEENT: OM moist NECK Supple Lungs: Clear to auscultation, Non labored Heart: Regular rate Abd Soft, NT Extremities: No cyanosis LE edema + Skin: No rash Neuro: grossly normal Psych/Mental Status: Mental status NL, Mood NL No [place], No CVA or SP tenderness Vital Signs Vital Signs Date Time Temp Pulse Resp B/P (MAP) Pulse Ox O2 Delivery O2 Flow Rate FiO2 09/25/21 11:51 97.2 70 18 184/95 (124) 100 Room Air 97.2 Assessment & Plan ESRD-On HD [facility] under Dr. Grande . Dialysis today , discussed treatment plan with KENNEDY Has been on HD since 2017, no significant RRF Chest pain- Mild troponin elevation HTN urgency; remains elevated PAFIB; presently SR DM2 per PCP CAD: distal LAD lesion Anemia - Hgb Normal , No indication for TEO Labs Labs Laboratory Tests Test 09/25/21 06:28 09/25/21 08:46 White Blood Count 5.7 x10^3/uL (4.0-11.0) Red Blood Count 4.00 x10^6/uL (4.30-5.70) Hemoglobin 13.2 g/dL (13.0-17.5) Hematocrit 42.0 % (39.0-53.0) Mean Corpuscular Volume 105 fL (79-100) Mean Corpuscular Hemoglobin 33 pg (25-35) Mean Corpuscular Hemoglobin Concent 32 g/dL (31-37) Red Cell Distribution Width 15.4 % (11.5-14.5) Platelet Count 195 x10^3/uL (140-400) Neutrophils (%) (Auto) 63 % (31-73) Lymphocytes (%) (Auto) 22 % (24-48) Monocytes (%) (Auto) 11 % (0-9) Eosinophils (%) (Auto) 3 % (0-3) Basophils (%) (Auto) 1 % (0-3) Neutrophils # (Auto) 3.6 x10^3/uL (1.8-7.7) Lymphocytes # (Auto) 1.3 x10^3/uL (1.0-4.8) Monocytes # (Auto) 0.6 x10^3/uL (0.0-1.1) Eosinophils # (Auto) 0.2 x10^3/uL (0.0-0.7) Basophils # (Auto) 0.1 x10^3/uL (0.0-0.2) Prothrombin Time 14.7 SEC (11.7-14.0) Prothromb Time International Ratio 1.2 (0.8-1.1) Activated Partial Thromboplast Time 34 SEC (24-38) D-Dimer (Kelsey) 0.39 ug/mlFEU (0.00-0.50) Sodium Level 139 mmol/L (136-145) Potassium Level 5.2 mmol/L (3.5-5.1) Chloride Level 99 mmol/L (98-107) Carbon Dioxide Level 27 mmol/L (21-32) Anion Gap 13 (6-14) Blood Urea Nitrogen 59 mg/dL (8-26) Creatinine 14.0 mg/dL (0.7-1.3) Estimated GFR (Cockcroft-Gault) 4.4 BUN/Creatinine Ratio 4 (6-20) Glucose Level 243 mg/dL (70-99) Calcium Level 8.4 mg/dL (8.5-10.1) Total Bilirubin 0.5 mg/dL (0.2-1.0) Aspartate Amino Transf (AST/SGOT) 7 U/L (15-37) Alanine Aminotransferase (ALT/SGPT) 13 U/L (16-63) Alkaline Phosphatase 97 U/L (46-116) Troponin I High Sensitivity 64 ng/L (4-75) 76 ng/L (4-75) SR-Gqb-G-Type Natriuretic Peptide 1707 pg/mL (0-124) Total Protein 7.1 g/dL (6.4-8.2) Albumin 3.4 g/dL (3.4-5.0) Albumin/Globulin Ratio 0.9 (1.0-1.7) Lipase 322 U/L (73-393) Laboratory Tests Test 09/25/21 06:28 09/25/21 08:46 White Blood Count 5.7 x10^3/uL (4.0-11.0) Red Blood Count 4.00 x10^6/uL (4.30-5.70) Hemoglobin 13.2 g/dL (13.0-17.5) Hematocrit 42.0 % (39.0-53.0) Mean Corpuscular Volume 105 fL (79-100) Mean Corpuscular Hemoglobin 33 pg (25-35) Mean Corpuscular Hemoglobin Concent 32 g/dL (31-37) Red Cell Distribution Width 15.4 % (11.5-14.5) Platelet Count 195 x10^3/uL (140-400) Neutrophils (%) (Auto) 63 % (31-73) Lymphocytes (%) (Auto) 22 % (24-48) Monocytes (%) (Auto) 11 % (0-9) Eosinophils (%) (Auto) 3 % (0-3) Basophils (%) (Auto) 1 % (0-3) Neutrophils # (Auto) 3.6 x10^3/uL (1.8-7.7) Lymphocytes # (Auto) 1.3 x10^3/uL (1.0-4.8) Monocytes # (Auto) 0.6 x10^3/uL (0.0-1.1) Eosinophils # (Auto) 0.2 x10^3/uL (0.0-0.7) Basophils # (Auto) 0.1 x10^3/uL (0.0-0.2) Prothrombin Time 14.7 SEC (11.7-14.0) Prothromb Time International Ratio 1.2 (0.8-1.1) Activated Partial Thromboplast Time 34 SEC (24-38) D-Dimer (Kelsey) 0.39 ug/mlFEU (0.00-0.50) Sodium Level 139 mmol/L (136-145) Potassium Level 5.2 mmol/L (3.5-5.1) Chloride Level 99 mmol/L (98-107) Carbon Dioxide Level 27 mmol/L (21-32) Anion Gap 13 (6-14) Blood Urea Nitrogen 59 mg/dL (8-26) Creatinine 14.0 mg/dL (0.7-1.3) Estimated GFR (Cockcroft-Gault) 4.4 BUN/Creatinine Ratio 4 (6-20) Glucose Level 243 mg/dL (70-99) Calcium Level 8.4 mg/dL (8.5-10.1) Total Bilirubin 0.5 mg/dL (0.2-1.0) Aspartate Amino Transf (AST/SGOT) 7 U/L (15-37) Alanine Aminotransferase (ALT/SGPT) 13 U/L (16-63) Alkaline Phosphatase 97 U/L (46-116) Troponin I High Sensitivity 64 ng/L (4-75) 76 ng/L (4-75) QA-Ghd-L-Type Natriuretic Peptide 1707 pg/mL (0-124) Total Protein 7.1 g/dL (6.4-8.2) Albumin 3.4 g/dL (3.4-5.0) Albumin/Globulin Ratio 0.9 (1.0-1.7) Lipase 322 U/L (73-393) Review All relevant outside records, renal labs, imaging studies, telemetry/EKG's were reviewed. Images Images EXAMINATION: Chest radiograph. VIEWS: 1 COMPARISON: 03/22/2021 INDICATION:56 years, Male, chest pain. FINDINGS: Stable borderline enlarged cardiomediastinal silhouette. No focal consolidation. No pleural effusion or pneumothorax. No acute osseous process. IMPRESSION: No acute cardiopulmonary process. STEPHEN LIEBERMAN MD Sep 25, 2021 12:14
[2021-09-25 13:07] LABS: CHOLESTEROL/HDL RATIO 2.9
[2021-09-25] MEDS ORDERED: IV NORMAL SALINE 1000ML BAG 1,000 ML IV PRN ×2 (13:15)
[2021-09-25] MEDS ORDERED: DIALYSIS PATIENT. MC PRN (13:15)
[2021-09-25] MEDS: cloNIDine HCL 0.3 MG TABLET PO SCH ×2 (17:00→20:19)
[2021-09-25 19:36] VITALS: BP 148/74
[2021-09-25] MEDS: DRONEDARONE HCL 400 MG TABLET PO SCH (20:14)
[2021-09-25] MEDS: MULTIVITAMIN with MINERAL TABLET. PO SCH (20:15)
[2021-09-25] MEDS: ATORVASTATIN CALCIUM 40 MG TABLET. PO SCH (20:15)
[2021-09-25] MEDS: ISOSORBIDE MONONITRATE ER 30 MG TAB.ER.24H PO SCH (20:17)
[2021-09-25] MEDS: APIXABAN 5 MG TABLET. PO SCH (20:18)
[2021-09-25] MEDS: POLYETHYLENE GLYCOL 3350 17 GM PACKET. PO SCH (20:18)
[2021-09-25] MEDS ORDERED: METOPROLOL TART IMMED RELEASE 50 MG TABLET. PO SCH (21:00)
[2021-09-25 22:44] VITALS: BP 123/62
[2021-09-26 03:00] VITALS: BP 92/60
[2021-09-26 05:23] LABS: CALCIUM 8.4 mg/dL (8.5-10.1); CREATININE 9.7 mg/dL (0.7-1.3); GFR 6.8; POTASSIUM 5.3 mmol/L (3.5-5.1)
[2021-09-26 06:39] LABS: BASO # 0.1 x10^3/uL (0.0-0.2); BASO % 1 % (0-3); EOS # 0.1 x10^3/uL (0.0-0.7); EOS % 3 % (0-3); HEMATOCRIT 44.4 % (39.0-53.0); HEMOGLOBIN 14.1 g/dL (13.0-17.5); LYMPH # 1.1 x10^3/uL (1.0-4.8); LYMPH % 27 % (24-48); MEAN CORPUSCULAR HEMOGLOBIN 33 pg (25-35); MEAN CORPUSCULAR HGB CONC 32 g/dL (31-37); MEAN CORPUSCULAR VOLUME 105 fL (79-100); MONO # 0.5 x10^3/uL (0.0-1.1); MONO % 11 % (0-9); NEUT # 2.4 x10^3/uL (1.8-7.7); NEUT % 58 % (31-73); PLATELET COUNT 208 x10^3/uL (140-400); RED BLOOD COUNT 4.22 x10^6/uL (4.30-5.70); RED CELL DISTRIBUTION WIDTH 15.4 % (11.5-14.5); WHITE BLOOD COUNT 4.2 x10^3/uL (4.0-11.0)
[2021-09-26 07:00] VITALS: BP 123/79
[2021-09-26] MEDS: MULTIVITAMIN with MINERAL TABLET. PO SCH (08:36)
[2021-09-26] MEDS: DRONEDARONE HCL 400 MG TABLET PO SCH ×2 (08:36→18:26)
[2021-09-26] MEDS: ISOSORBIDE MONONITRATE ER 30 MG TAB.ER.24H PO SCH (08:38)
[2021-09-26] MEDS: APIXABAN 5 MG TABLET. PO SCH ×2 (08:38→20:41)
--- NOTE | 2021-09-26 08:53 | EKG ---
[facility] [address] [place] [address] Test Date: 2021-09-26 Test Time: 08:45:33 Pat Name: MARYJANE GUZMAN Department: Room: [facility] Gender: M Delivery Person: LILLI : 1965 Requested By: RAMU FLOYD Order Number: [id number] Reading MD: Salvador Baker Measurements Intervals [place] Rate: 72 P: 38 MN: 164 QRS: -47 QRSD: 96 T: 24 QT: 432 QTc: 475 Interpretive Statements SINUS RHYTHM ABNORMAL LEFT AXIS DEVIATION LEFT ANTERIOR FASCICULAR BLOCK LEFT VENTRICULAR HYPERTROPHY PROLONGED QT ABNORMAL ECG Electronically Signed On 10-04-2021 14:25:18 CDT by Salvador Baker
[2021-09-26] MEDS: POLYETHYLENE GLYCOL 3350 17 GM PACKET. PO SCH ×2 (09:00→20:52)
[2021-09-26] MEDS: cloNIDine HCL 0.3 MG TABLET PO SCH ×3 (09:00→21:00)
--- NOTE | 2021-09-26 09:34 | PDOC ---
Provider Note Date of Service: DATE: 09/26/21 TIME: 09:32 Provider Note Pt seen. H&P dictated.#[id number]. Justifications for Admission Other Justification RAMU FLOYD MD Sep 26, 2021 09:34
--- NOTE | 2021-09-26 09:53 | HP ---
DATE OF SERVICE: 09/26/2021 ADMIT DATE: 09/25/2021 REASON FOR ADMISSION TO THE HOSPITAL: Chest discomfort. The patient has a known history of coronary artery disease, diabetes, end-stage renal disease. HISTORY OF PRESENT ILLNESS: The patient is a 56-year-old male patient well known to me, has end-stage renal disease, on dialysis Thursday, Thursday and Thursday and he had noticed some pain while he was taking his trash and it was burning sensation radiating to the arm as well as the back, came to the Emergency Room. First troponin was negative, but was trending up. The patient was admitted for further evaluation. The patient had a cardiac cath shows last year distal LAD lesion and 1 vessel disease. The patient also has dialysis, was being seen by Cardiology as well as Renal. PAST MEDICAL HISTORY: Hypertension, coronary artery disease, diabetes, paroxysmal AFib, on Eliquis. SURGICAL HISTORY: Gallbladder surgery, AV fistula for dialysis, inguinal hernia, and heart cardiac cath last year. ALLERGIES: No known drug allergies. PERSONAL HISTORY: Denies smoking, alcohol, or drug abuse. MEDICATIONS AT HOME: The patient is on Eliquis 5 mg twice a day, atorvastatin 40 mg daily, clonidine 0.3 three times a day, Multaq 400 mg twice a day, hydralazine 50 mg 3 times a day, hydrocodone for pain, isosorbide 30 mg daily, multivitamin daily, MiraLax 17 grams daily, hydrocodone for pain. He is not on insulin. Medications for diabetes, diet controlled. FAMILY HISTORY: Positive for diabetes, heart disease. 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 REVIEW OF SYMPTOMS: The patient feels better. No pain now. Denies nausea, vomiting. Rest of the 14 systems reviewed and negative. PHYSICAL EXAMINATION: VITAL SIGNS: At the time of admission shows temperature 97, pulse 70, respirations 18, blood pressure 184/95, 100% on room air. HEENT: Head is atraumatic. Pupils equal. Oral cavity, no congestion. NECK: Supple. Thyroid not enlarged. JVD not elevated. CHEST: Symmetrical. CARDIOVASCULAR: S1, S2. LUNGS: Clear. No wheezing. ABDOMEN: Soft. No mass palpable. EXTERNAL GENITALIA: No Centeno. RECTUM: Deferred. EXTREMITIES: No calf tenderness, no edema. The patient has AV shunt in the left upper extremity, has a good thrill. NEUROLOGIC: No focal deficits noted. LABORATORY DATA: Shows a white count of 5, hemoglobin 13, platelets 195. INR 1.2. Electrolytes show sodium 139, potassium 5.2, chloride 99, bicarb 27, BUN 59, creatinine 14, glucose 243. LFTs were normal. BNP 1700. First troponin was 64, went up to 171 and within 24 hours went up to 230. TSH was 3.2. Lipid profile: Cholesterol 144, LDL 77, HDL 50. Had a chest x-ray negative. EKG negative for acute PR. FINAL IMPRESSION: 1. Chest pain with elevated troponin, possible demand ischemia. 2. Known history of coronary artery disease as a single vessel distal LAD by cardiac catheterization last year. 3. End-stage renal disease, on hemodialysis 3 times a week. 4. Paroxysmal atrial fibrillation, on Multaq and Eliquis. 5. Diabetes, diet control. 6. Hypertension. 7. Hyperlipidemia. PLAN: At this time, was admitted to the hospital, seen by Cardiology. The patient also got the dialysis, goes to dialysis Thursday, Thursday and Thursday. I spoke with Dr. Baker, going to review his old cardiac cath and reevaluate. He may need a cardiac cath at this point, but the patient is symptom free, may be single vessel disease, medical management. PEYTON AQUINO: MILDRED/ed TID: [id number]
[2021-09-26 11:00] VITALS: BP 106/60
--- NOTE | 2021-09-26 11:17 | PDOC ---
DATE OF SERVICE DATE: 09/26/21 TIME: 11:15 SUBJECTIVE ROS stable, resting comfortably. No SOB OBJECTIVE Vital Signs Vital Signs Date Time Temp Pulse Resp B/P (MAP) Pulse Ox O2 Delivery O2 Flow Rate FiO2 09/26/21 11:00 97.8 80 19 106/60 (75) 94 Room Air 97.8 I & 0 Intake and Output 09/26/21 07:00 Intake Total 700 ml Balance 700 ml Intake Oral 700 ml PHYSICAL EXAM Physical Exam General: No acute distress HEENT: OM moist NECK Supple Lungs: Clear to auscultation, Non labored Heart: Regular rate Abd Soft, NT Extremities: No cyanosis LE edema + Skin: No rash Neuro: grossly normal Psych/Mental Status: Mental status NL, Mood NL No Centeno, No CVA or SP tenderness Vital Signs Vital Signs Date Time Temp Pulse Resp B/P (MAP) Pulse Ox O2 Delivery O2 Flow Rate FiO2 09/25/21 11:51 97.2 70 18 184/95 (124) 100 Room Air 97.2 DIAGNOSIS/ASSESSMENT Assessment & Plan ESRD-On HD [facility] under Dr. Grande .No indication for dialysis today Has been on HD since 2017, no significant RRF Chest pain- Mild troponin elevation HTN urgency; remains elevated PAFIB; presently SR DM2 per PCP CAD: distal LAD lesion Anemia - Hgb Normal , No indication for TEO COMMENT/RELEVANT DATA Meds Current Medications Medications (Trade) Dose Ordered Sig/Evie Start Time Stop Time Status Last Admin Dose Admin Acetaminophen/ Hydrocodone Bitart (Lortab 5/325) 1 tab PRN Q6HRS PRN 09/25/21 21:15 Apixaban (Eliquis) 5 mg BID 09/25/21 21:00 09/26/21 08:38 5 MG Aspirin (Aspirin Chewable) 324 mg 1X ONCE 09/25/21 06:30 09/25/21 06:31 DC 09/25/21 06:32 324 MG Atorvastatin Calcium (Lipitor) 40 mg QHS 09/25/21 21:00 09/25/21 20:15 40 MG Clonidine HCl (Catapres) 0.3 mg TID 09/25/21 17:00 09/25/21 20:19 0.3 MG Dronedarone (Multaq) 400 mg BIDWMEALS 09/25/21 17:00 09/26/21 08:36 400 MG Hydralazine HCl (Apresoline) 50 mg TID 09/25/21 17:00 Info (PHARMACY MONITORING -- do not chart) 1 each PRN DAILY PRN 09/25/21 13:15 Isosorbide Mononitrate (Imdur) 60 mg DAILY 09/25/21 17:00 09/26/21 08:38 60 MG Metoprolol Tartrate (Lopressor) 100 mg BID 09/25/21 21:00 09/25/21 19:18 DC Multi-Ingredient Mouthwash/Gargle (Gi Cocktail) 20 ml 1X ONCE 09/25/21 06:30 09/25/21 06:31 DC 09/25/21 06:32 20 ML Multivitamins (Thera M Plus) 1 tab DAILY 09/25/21 17:00 09/26/21 08:36 1 TAB Ondansetron HCl (Zofran) 4 mg PRN Q8HRS PRN 09/25/21 10:00 09/26/21 09:59 DC Polyethylene Glycol (miraLAX PACKET) 17 gm BID 09/25/21 21:00 09/25/21 20:18 17 GM Sodium Chloride 1,000 ml @ 400 mls/hr Q2H30M PRN 09/25/21 13:15 09/26/21 04:57 DC Lab Laboratory Tests Test 09/25/21 12:24 09/25/21 17:45 09/25/21 20:29 09/26/21 02:35 Troponin I High Sensitivity 96 ng/L (4-75) 171 ng/L (4-75) 230 ng/L (4-75) Triglycerides Level 83 mg/dL (0-150) Cholesterol Level 144 mg/dL (0-200) LDL Cholesterol, Calculated 77 mg/dL (0-100) VLDL Cholesterol, Calculated 17 mg/dL (0-40) Non-HDL Cholesterol Calculated 94 mg/dL (0-129) HDL Cholesterol 50 mg/dL (40-60) Cholesterol/HDL Ratio 2.9 Glucose (Fingerstick) 159 mg/dL (70-99) White Blood Count 4.2 x10^3/uL (4.0-11.0) Red Blood Count 4.22 x10^6/uL (4.30-5.70) Hemoglobin 14.1 g/dL (13.0-17.5) Hematocrit 44.4 % (39.0-53.0) Mean Corpuscular Volume 105 fL (79-100) Mean Corpuscular Hemoglobin 33 pg (25-35) Mean Corpuscular Hemoglobin Concent 32 g/dL (31-37) Red Cell Distribution Width 15.4 % (11.5-14.5) Platelet Count 208 x10^3/uL (140-400) Neutrophils (%) (Auto) 58 % (31-73) Lymphocytes (%) (Auto) 27 % (24-48) Monocytes (%) (Auto) 11 % (0-9) Eosinophils (%) (Auto) 3 % (0-3) Basophils (%) (Auto) 1 % (0-3) Neutrophils # (Auto) 2.4 x10^3/uL (1.8-7.7) Lymphocytes # (Auto) 1.1 x10^3/uL (1.0-4.8) Monocytes # (Auto) 0.5 x10^3/uL (0.0-1.1) Eosinophils # (Auto) 0.1 x10^3/uL (0.0-0.7) Basophils # (Auto) 0.1 x10^3/uL (0.0-0.2) Sodium Level 143 mmol/L (136-145) Potassium Level 5.3 mmol/L (3.5-5.1) Chloride Level 101 mmol/L (98-107) Carbon Dioxide Level 31 mmol/L (21-32) Anion Gap 11 (6-14) Blood Urea Nitrogen 34 mg/dL (8-26) Creatinine 9.7 mg/dL (0.7-1.3) Estimated GFR (Cockcroft-Gault) 6.8 Glucose Level 134 mg/dL (70-99) Calcium Level 8.4 mg/dL (8.5-10.1) Thyroid Stimulating Hormone (TSH) 3.212 uIU/mL (0.358-3.74) Test 09/26/21 07:42 Glucose (Fingerstick) 161 mg/dL (70-99) Results All relevant outside records, renal labs, imaging studies, telemetry/EKG's were reviewed. Justicifation of Admission Dx: Justifications for Admission: Justification of Admission Dx: Yes STEPHEN LIEBERMAN MD Sep 26, 2021 11:17
--- NOTE | 2021-09-26 12:22 | PDOC ---
DULCE MARIA PATEL I O PSYCHOLOGIST 09/26/21 1222: CARDIO Progress Notes Date and Time Date of Service 09/26/2021 Time of Evaluation 1200 Subjective Subjective: No Chest Pain, No shortness of breath, No Palpitations Vitals Vitals Vital Signs Date Time Temp Pulse Resp B/P (MAP) Pulse Ox O2 Delivery O2 Flow Rate FiO2 09/26/21 11:00 97.8 80 19 106/60 (75) 94 Room Air 97.8 Weight Weight [ ] Input and Output Intake and Output Intake and Output 09/26/21 07:00 Intake Total 700 ml Balance 700 ml Intake Oral 700 ml Laboratory Labs Laboratory Tests Test 09/25/21 12:24 09/25/21 17:45 09/25/21 20:29 09/26/21 02:35 Troponin I High Sensitivity 96 ng/L (4-75) 171 ng/L (4-75) 230 ng/L (4-75) Triglycerides Level 83 mg/dL (0-150) Cholesterol Level 144 mg/dL (0-200) LDL Cholesterol, Calculated 77 mg/dL (0-100) VLDL Cholesterol, Calculated 17 mg/dL (0-40) Non-HDL Cholesterol Calculated 94 mg/dL (0-129) HDL Cholesterol 50 mg/dL (40-60) Cholesterol/HDL Ratio 2.9 Glucose (Fingerstick) 159 mg/dL (70-99) White Blood Count 4.2 x10^3/uL (4.0-11.0) Red Blood Count 4.22 x10^6/uL (4.30-5.70) Hemoglobin 14.1 g/dL (13.0-17.5) Hematocrit 44.4 % (39.0-53.0) Mean Corpuscular Volume 105 fL (79-100) Mean Corpuscular Hemoglobin 33 pg (25-35) Mean Corpuscular Hemoglobin Concent 32 g/dL (31-37) Red Cell Distribution Width 15.4 % (11.5-14.5) Platelet Count 208 x10^3/uL (140-400) Neutrophils (%) (Auto) 58 % (31-73) Lymphocytes (%) (Auto) 27 % (24-48) Monocytes (%) (Auto) 11 % (0-9) Eosinophils (%) (Auto) 3 % (0-3) Basophils (%) (Auto) 1 % (0-3) Neutrophils # (Auto) 2.4 x10^3/uL (1.8-7.7) Lymphocytes # (Auto) 1.1 x10^3/uL (1.0-4.8) Monocytes # (Auto) 0.5 x10^3/uL (0.0-1.1) Eosinophils # (Auto) 0.1 x10^3/uL (0.0-0.7) Basophils # (Auto) 0.1 x10^3/uL (0.0-0.2) Sodium Level 143 mmol/L (136-145) Potassium Level 5.3 mmol/L (3.5-5.1) Chloride Level 101 mmol/L (98-107) Carbon Dioxide Level 31 mmol/L (21-32) Anion Gap 11 (6-14) Blood Urea Nitrogen 34 mg/dL (8-26) Creatinine 9.7 mg/dL (0.7-1.3) Estimated GFR (Cockcroft-Gault) 6.8 Glucose Level 134 mg/dL (70-99) Calcium Level 8.4 mg/dL (8.5-10.1) Thyroid Stimulating Hormone (TSH) 3.212 uIU/mL (0.358-3.74) Test 09/26/21 07:42 09/26/21 11:58 Glucose (Fingerstick) 161 mg/dL (70-99) 153 mg/dL (70-99) Physical Exam HEENT: Neck Supple W Full Motion Chest: Symmetric LUNGS: Clear to Auscultation Heart: S1S2, RRR (SR) Abdomen: Soft N/T Extremities: No Edema, No Calf Tenderness Neurology: alert, oriented, follow commands Assessment Assessment 1. Chest pain; mixed features 2. Mild troponin elevation; trop trending up Possibly type II, but type I cannot be ruled out 3. CAD: known for very distal LAD lesion 4. HTN urgency; controlled at low end 5. Hyperlipidemia; statin 6. PAFIB; presently SR 7. Diabetes, II 8. ESRD on HD; on Multaq for rhythm maintenance, metoprolol for rate control, and Eliquis for stroke prophylaxis. QTc 476 9. Anemia of chronic disease Recommendations Holding BB for now with BP at low end Secondary prevention measures Resume home antiHTN therapy; titrate as warranted Hydralazine IV PRN Resume Imdur Fluid off loading per HD [facility] tomorrow to further ascertain any contributing significant ischemia, risks and benefits discussed and agreeable to proceed Justicifation of Admission Dx: Justifications for Admission: Justification of Admission Dx: Yes JUAN MANUEL MG MD 09/26/21 2210: CARDIO Progress Notes Assessment Assessment Patient seen and examined. Agree with SELF DEFENSE INSTRUCTOR's assessment and plan CAD presenting with NSTEMI - could be type 2 but significant stenosis needs to be ruled out Agree with cardiac cath and possible PCI BP better controlled PAF maintaining SR Continue fluid removal with HD per nephrology team DULCE MARIA PATEL APRN Sep 26, 2021 12:22 JUAN MANUEL MG MD Sep 26, 2021 22:10
--- NOTE | 2021-09-26 13:29 | NUR ---
SS following for discharge planning. SS reviewed pt chart and discussed with pt RN. Pt is from home with spouse and is currently on room air. Cardiology and Nephrology following. Pt having heart cath tomorrow. Pt has outpatient hemodialysis at [facility], ; fax [phone], Thursday, Thursday, and Thursday. SS will continue to follow for discharge planning.
[2021-09-26] MEDS: ASPIRIN ENTERIC COATED 81 MG TABLET.DR. PO SCH (14:11)
[2021-09-26 14:39] VITALS: BP 105/61
[2021-09-26 19:16] VITALS: BP 129/73
--- NOTE | 2021-09-26 20:23 | NUR ---
Pt c/o chest pain dr paredes notified, new orders received, will cont to monitor pt status and safety. pmrn
[2021-09-26] MEDS ORDERED: NITROGLYCERIN SUBLINGUAL 0.4 MG BOTTLE OF 25. SL PRN (20:45)
[2021-09-26] MEDS ORDERED: SIMETHICONE 80 MG TAB.CHEW PO PRN (20:45)
[2021-09-26] MEDS ORDERED: MAG HYDROX/ALUMINUM HYD/SIMETH 30 ML ORAL.SUSP PO PRN ×2 (20:45)
[2021-09-26] MEDS: ATORVASTATIN CALCIUM 40 MG TABLET. PO SCH (20:49)
--- NOTE | 2021-09-26 20:52 | EKG ---
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
[2021-09-26] MEDS ORDERED: PANTOPRAZOLE 40 MG TABLET.DR. PO ONE (21:00)
[2021-09-26 22:48] VITALS: BP 145/93
[2021-09-27] VITALS (9 sets, daily range): BP systolic 114–142; BP diastolic 58–82
[2021-09-27 05:34] LABS: CALCIUM 8.6 mg/dL (8.5-10.1); CREATININE 12.6 mg/dL (0.7-1.3); POTASSIUM 5.8 mmol/L (3.5-5.1)
[2021-09-27] MEDS: PANTOPRAZOLE 40 MG TABLET.DR. PO SCH (05:58)
[2021-09-27] MEDS ORDERED: DIALYSIS PATIENT. MC PRN (07:30)
[2021-09-27] MEDS ORDERED: IV NORMAL SALINE 1000ML BAG 1,000 ML IV PRN ×2 (07:30)
[2021-09-27] MEDS: ASPIRIN ENTERIC COATED 81 MG TABLET.DR. PO SCH (08:00)
[2021-09-27] MEDS: DRONEDARONE HCL 400 MG TABLET PO SCH ×2 (08:00→17:00)
--- NOTE | 2021-09-27 08:24 | PDOC ---
MODERATE SEDATION ASSESSMENT RISKS/ALTERNATIVES Risks/Alternatives Risks and alternatives of this type of sedation and procedure discussed with: RISK/ALTERNATIVES: Patient H & P ON CHART H & P H & P on chart and reviewed for co-morbid conditions and appropriate labs. H&P ON CHART: Yes STATUS PREG STATUS ASSESSED: N/A MEDS/ALLERGIES REVIEWED Meds/Allergies Reviewed Medications and Allergies including time and route of recently administered narcotics and sedatives. MEDS/ALLERGIES REVIEWED: Yes ASA RATING ASA RATING: III AIRWAY ASSESSMENT Airway Assessment Airway patency, oral function limitations, presence of caps, crowns, dentures, partials, and ability to extend neck assessed. AIRWAY ASSESSMENT: Yes MALLAMPATI SCORE MALLAMPATI SCORE: II PRE-SEDATION ASSESSMENT PRE-SEDATION ASSESSMENT: Yes JUAN MANUEL MG MD Sep 27, 2021 08:24
[2021-09-27] MEDS ORDERED: MIDAZOLAM HCL/PF 2 MG/2 ML VIAL. ONE (08:27)
[2021-09-27] MEDS ORDERED: fentaNYL PF VIAL 100 MCG/2 ML VIAL ONE (08:27)
[2021-09-27] MEDS ORDERED: BIVALIRUDIN 250 MG VIAL. IVP ONE ×2 (08:39→09:00)
[2021-09-27] MEDS ORDERED: IODIXANOL 320 MG/ML 100 ML VIAL. ONE ×2 (08:43→09:03)
[2021-09-27] MEDS ORDERED: CLOPIDOGREL BISULFATE 75 MG TABLET ONE (08:58)
[2021-09-27] MEDS ORDERED: ASPIRIN 325 MG TABLET ONE (08:58)
[2021-09-27] MEDS ORDERED: MIDAZOLAM HCL/PF 2 MG/2 ML VIAL. IV ONE (09:00)
[2021-09-27] MEDS: POLYETHYLENE GLYCOL 3350 17 GM PACKET. PO SCH ×2 (09:00→21:00)
[2021-09-27] MEDS ORDERED: CLOPIDOGREL BISULFATE 75 MG TABLET PO ONE (09:00)
[2021-09-27] MEDS: cloNIDine HCL 0.3 MG TABLET PO SCH ×3 (09:00→21:00)
[2021-09-27] MEDS ORDERED: LIDOCAINE 2% Multi-Dose 20 ML VIAL. IJ ONE (09:00)
[2021-09-27] MEDS: MULTIVITAMIN with MINERAL TABLET. PO SCH (09:00)
[2021-09-27] MEDS ORDERED: ASPIRIN 325 MG TABLET PO ONE (09:00)
[2021-09-27] MEDS ORDERED: IODIXANOL 320 MG/ML 100 ML VIAL. IART ONE (09:00)
[2021-09-27] MEDS: ISOSORBIDE MONONITRATE ER 30 MG TAB.ER.24H PO SCH (09:00)
[2021-09-27] MEDS ORDERED: fentaNYL PF VIAL 100 MCG/2 ML VIAL IV ONE (09:00)
[2021-09-27] MEDS: APIXABAN 5 MG TABLET. PO SCH ×2 (09:00→21:00)
--- NOTE | 2021-09-27 09:00 | NUR ---
MEDICATION NOTE 0900 MEDS NOT GIVEN, PT IS IN SAND BUFFER AT THIS TIME. WILL REASSESS ONCE BACK FROM DIALYSIS FOR POTENTIAL DOSING.
[2021-09-27] MEDS ORDERED: LIDOCAINE 1% PF 2 ML VIAL. ONE (09:03)
[2021-09-27] MEDS ORDERED: NITROGLYCERIN SUBLINGUAL 0.4 MG BOTTLE OF 25. SL PRN (09:15)
--- NOTE | 2021-09-27 09:20 | NUR ---
PT RETURN FROM [employer]ICAL [employer]ICE [employer]SEMBLER AT 0920. VSS, SET FOR FREQUENTS. (R) GROIN SITE CLEAN, DRY, AND INTACT. BREAKFAST ORDERED FOR PATIENT. DIALYSIS NOTIFIED OF PT RETURN TO FLOOR, HE IS UP WITH THEM NEXT. THEY WANT HIM TO REMAIN ON THE FLOOR X 1 HOUR PRIOR TO MOVING TO THEIR DEPARTMENT.
[2021-09-27] MEDS ORDERED: ASPI-886 PO (09:39)
[2021-09-27] MEDS ORDERED: NITR0.4T24 SL (09:39)
[2021-09-27] MEDS ORDERED: CLOP75TA PO (09:39)
--- NOTE | 2021-09-27 09:41 | DISCH ---
DISCHARGE INSTRUCTIONS Condition on Discharge Condition on Discharge: Stable Activity After Discharge Activity Instructions for Disc: Activity as tolerated Lifting Instructions after Dis: No heavy lifting Diet after Discharge Diet after Discharge: Renal Dialysis (Cardiac) Diet Texture: Regular Liquid Texture: Thin Liquid Swallowing Supervision: None needed Wound Incision Care Wound/Incision Care: Change dressing, Reinforce dressing PRN Wound Care Equipment: Dressings Checks after Discharge Checks after discharge: Check blood press - daily Contacting the DRDaylin after DC Call your doctor for: If your condition worsens Follow-Up Follow up with: in 5-7 days Follow Up With: Optical Scientist Treatment/Equipment after DC Adaptive Equipment Issued: None MED GUIDRY MD Sep 27, 2021 09:41
--- NOTE | 2021-09-27 09:46 | PDOC3 ---
IM DISCHARGE SUMMARY Date of Admission Date of Admission Date of Admission: Sep 25, 2021 at 09:57 Date of Discharge Date of Discharge September 27, 2021 Primary Diagnosis Primary Diagnosis 1. Non-ST elevation [place].. 2. Known history of coronary artery disease as a single vessel distal LAD by cardiac catheterization last year. Cardiac catheterization with stent placement. 3. End-stage renal disease, on hemodialysis 3 times a week. 4. Paroxysmal atrial fibrillation, on Multaq and Eliquis. 5. Diabetes, diet control. 6. Hypertension. 7. Hyperlipidemia. Consults Consults Salvador Baker MD; Aleksandr Grande MD Procedures Procedures Cardiac catheterization with stent placement on September 27, 2021 Labs Labs Laboratory Tests Test 09/26/21 11:58 09/26/21 20:16 09/27/21 04:00 09/27/21 07:55 Glucose (Fingerstick) 153 mg/dL (70-99) H 158 mg/dL (70-99) H 106 mg/dL (70-99) H Sodium Level 139 mmol/L (136-145) Potassium Level 5.8 mmol/L (3.5-5.1) H Chloride Level 100 mmol/L (98-107) Carbon Dioxide Level 29 mmol/L (21-32) Anion Gap 10 (6-14) Blood Urea Nitrogen 64 mg/dL (8-26) H Creatinine 12.6 mg/dL (0.7-1.3) H Estimated GFR (Cockcroft-Gault) 5.0 Glucose Level 71 mg/dL (70-99) Calcium Level 8.6 mg/dL (8.5-10.1) Creatine Kinase 260 U/L (39-308) Laboratory Tests 09/27/21 04:00 Brief hospital course Brief hospital course The patient is a 56-year-old male patient well known to me, has end-stage renal disease, on dialysis Thursday, Thursday and Thursday and he had noticed some pain while he was taking his trash and it was burning sensation radiating to the arm as well as the back, came to the Emergency Room. First troponin was negative, but was trending up. The patient was admitted for further evaluation. The patient had a cardiac cath shows last year distal LAD lesion and 1 vessel disease. The patient also has dialysis, was being seen by Cardiology as well as Renal. For more details regarding the past history, family history, social history, surgical history and other details, please refer to the H&P. Patient was admitted to the hospital. The troponin level remained high and was thought to have non-ST elevation myocardial infarction. Patient underwent cardiac catheterization and had a stent placement on September 27, 2021. This was likely in the ramus branch. However I do not have cardiac catheterization report or any more details. Currently he is on Eliquis at home and has been started on Plavix and aspirin here. I advised the nurse to check with the the rn support services about DAPT with Eliquis as this will increase his risk of bleeding. This was discussed with the patient also. Clinically patient is feeling fine and he wants to go home today. He is getting hemodialysis Thursday. If stable and if okay with the rn support services he may be able to go home later this afternoon after hemodialysis. Medications Medications reviewed and reconciled for discharge. Home Meds Active Scripts Clopidogrel Bisulfate (CLOPIDOGREL) 75 Mg Tablet, 75 MG PO DAILYWBKFT for CAD for 30 Days, #30 TAB Prov:MED GUIDRY MD 09/27/21 Aspirin (ASPIRIN EC) 81 Mg Tablet.dr, 81 MG PO DAILYWBKFT for CAD for 30 Days, #30 TAB.SR Prov:MED GUIDRY MD 09/27/21 Nitroglycerin (NITROSTAT) 0.4 Mg Tab.subl, 0.4 MG SL PRN Q5MIN PRN for CHEST PAIN, #25 TAB Prov:MED GUIDRY MD 09/27/21 Dronedarone Hcl (MULTAQ) 400 Mg Tablet, 400 MG PO BIDWMEALS for afib for 30 Days, #60 TAB Prov:RAMU FLOYD MD 12/30/19 Hydrocodone Bit/Acetaminophen (HYDROCODONE-APAP 5-325 ) 1 Tab Tablet, 1 TAB PO PRN Q6HRS PRN for MODERATE PAIN for 7 Days, TAB Prov:RAMU FLOYD MD 12/30/19 Polyethylene Glycol 3350 (POLYETHYLENE GLYCOL 3350) 17 Gm Powd.pack, 17 GM PO BID for constipation for 30 Days, #60 PKT Prov:RAMU FLOYD MD 12/30/19 Isosorbide Mononitrate (ISOSORBIDE MONONITRATE ER) 30 Mg Tab.er.24h, 60 MG PO DAILY for htn, #30 TAB.SR 1 Refill Prov:DELMIS CARVALHO MD 08/05/19 Atorvastatin Calcium (ATORVASTATIN CALCIUM) 40 Mg Tablet, 40 MG PO QHS for lipids, #30 TAB Prov:DELMIS CARVALHO MD 08/05/19 Multivits,Ca,Minerals/Iron/Fa (THERA-M TABLET) 1 Each Tablet, 1 TAB PO DAILY for leg wound, #30 TAB Prov:DELMIS CARVALHO MD 08/03/19 Reported Medications Apixaban (ELIQUIS) 5 Mg Tablet, 5 MG PO BID for blood thinner, TAB 12/01/19 Hydralazine Hcl (HYDRALAZINE HCL) 50 Mg Tablet, 50 MG PO TID, TAB 03/25/17 Clonidine Hcl (CLONIDINE HCL) 0.3 Mg Tablet, 0.3 MG PO TID, TAB 03/25/17 Discontinued Scripts Hydrocodone Bit/Acetaminophen (HYDROCODONE-APAP 5-325 ) 1 Tab Tablet, 0.5-1 TAB PO PRN Q6HRS PRN for PAIN, #14 TAB 0 Refills Prov:LESLY FARR DO 07/19/21 Allergy Allergies Coded Allergies Type Severity Reaction Last Updated Verified No Known Drug Allergies 03/22/21 No Follow up See in 5 to 7 days. Follow-up with the rn support services as indicated. DISPOSITION: Home Comments Discharge Management - 35 minutes. For other details please refer to discharge instructions Justicifation of Admission Dx: Justifications for Admission: Justification of Admission Dx: Yes MED GUIDRY MD Sep 27, 2021 09:46
--- NOTE | 2021-09-27 10:11 | CARD ---
MR#: [id number] Date of Study: 09/27/2021 Ordering Physician: DULCE MARIA PATEL, Referring Physician: DULCE MARIA PATEL Tech: Thelma Iniguez APPROVED REPORT Technologist: Thelma Iniguez Nurse: Mayra Varma RN Procedure(s) performed: 1. Left heart catheterization and selective coronary angiography 2. Successful PCI/drug-eluting stent placement to the ramus intermedius artery fl time: 9.3 min dose: 114 gycm2 contrast: 176 ml moderate sedation: 36 MINUTES CS Clinical Frailty Scale [facility] Clinical Frailty Scale: Moderately Frail Heart Failure Heart Failure: Yes If Yes, Newly Diagnosed: No If Yes, HF Type: Diastolic If Yes, NYHA Class: Class II CASE TECHNIQUE IV conscious sedation was used throughout procedure with appropriate monitoring and was performed in the presence of a registered nurse who was an independent trained observer other than the physician p erforming the procedure. During this case, Fluoroscopy and low osmolar contrast were used for imaging . Specimen(s) Removed: No Estimated Blood loss: 15 cc's. PROCEDURE NARRATIVE After explaining the risk, benefits and alternative options, informed consent was obtained from patie nt. Patient was brought to the cardiac Manager Metal and her right groin was prepped and draped in the us ual fashion. 10 cc of 2% lidocaine was infiltrated into the skin and subcutaneous tissues for local anesthesia. Arterial access was obtained in the right common femoral artery and a 6 [place] sheath wa s inserted. 6 [place] JL4 and 6 [place] JR4 catheters were used to perform selective angiography of th e left and right coronary arteries. LVEDP and transaortic gradients were measured. The following fi ndings were noted: FINDINGS 1. Hemodynamics: Left ventricular end-diastolic pressure 12 mmHg. No pullback gradient across the a ortic valve. 2. Coronary angiography: a. The left main coronary artery arose from the left sinus of Valsalva, gave rise to the left anteri or descending, ramus intermedius and left circumflex arteries and did not show any significant stenos is. b. The left anterior descending artery showed a patent stent in the mid segment. The distal segment showed severe diffuse disease. c. The ramus intermedius artery showed tandem 90 and 95% stenosis in the proximal segment. d. The left circumflex artery showed 50% stenosis in a small to medium caliber first obtuse marginal branch, 50% stenosis in the AV groove segment and 90% stenosis in the small caliber second obtuse ma rginal branch. e. The right coronary artery was a large and dominant vessel arising from the right sinus of Valsalv a that did not show any significant stenosis. INTERVENTION The left main coronary artery was engaged with a 6 [place] EBU 4 guide catheter after initial attempts to engage this with EBU 3.5 by unsuccessful. The stenosis in the proximal segment of the ramus inte rmedius artery were crossed with a 0.014 inch Phobious guidewire. These were predilated with a 2.5 x 15 mm sapphire balloon following which this was successfully treated with a 2.75 x 20 mm iLost Promus Elite drug-eluting stent. Follow-up angiography showed resolution of the stenosi s to 0% with CAROLINE-3 distal flow. Patient tolerated the procedure well. Hemostasis in the right calf was achieved using Angio-Seal. There were no immediate complications. CAROLINE Flow CAROLINE Flow (Pre-Intervention): CAROLINE-1 CAROLINE Flow (Post-Intervention): CAROLINE-3 Conclusion 1. Tandem 90 and 95% stenosis involving the proximal segment of ramus intermedius artery, culprit ve ssel for patient's non-STEMI. The previously placed stent in the mid segment of the left anterior de scending artery is widely patent and the distal segment of LAD showed severe diffuse disease, describ ed in prior cardiac catheterizations. The second obtuse marginal branch of the left circumflex arter y was a small caliber vessel that showed 90% stenosis and is not amenable for intervention. 2. Successful PCI/drug-eluting stent placement to the ramus intermedius artery. Recommendations 1. Aspirin 81 mg daily for 1 month (patient on Eliquis for atrial fibrillation) 2. Plavix 75 mg daily 3. Cardiovascular risk factor modification Signed by : Salvador Baker, Electronically Approved : 09/27/2021 10:11:12
--- NOTE | 2021-09-27 10:36 | NUR ---
TRANSPORTATION ARRIVIES TO MOVE PT TO DIALYSIS. HD IS MADE AWARE THAT PT IS TO REMAIN FLAT X 2-3 MORE HOURS. GROIN SITE ASSESSED, ET DRESSING IS STILL CDI AT THIS TIME WITH NO SIGNS OF OOZING. AREA AROUND ACCESS POINT REMAINS SOFT.
[2021-09-27] MEDS: HYDROcodone/APAP 5/325MG 1 TAB TABLET PO PRN ×2 (10:51→18:09)
--- NOTE | 2021-09-27 10:52 | NUR ---
DIALYSIS CALLED, SOME BLOOD NOTED ON (R) GROIN OPSITE, PT REPORTS DISCOMFORT. PULLED PRN HYDROCO FOR PT, ET WENT TO HD. OPSITE IS ABOUT 3/4 BLOODY, WHERE NO BLEEDING WAS NOTED PRIOR TO TRANSPORT. AREA IS SOFT, AND DRESSING MARKED. PAIN MEDICATION GIVEN. WILL REASSESS NEEDED DURING HD. VS PER HD.
--- NOTE | 2021-09-27 11:27 | NUR ---
CALLED TO DIALYSIS ROOM, (R) GROIN SITE SATURATED AT THIS TIME. DRESSING CHANGED, TIMED FOR 1124. WILL CONTINUE TO MONITOR SITE FOR TEXTURE AND BLEEDING. VS PER DIALYSIS STAFF. PT CONTINUES TO REMAIN FLAT, AND IS APOLOGETIC FOR BLEEDING REASSURED THAT HE HAS BEEN FOLLOWING INSTRUCTIONS, THE BLEEDING IS NOT HIS FAULT.
--- NOTE | 2021-09-27 12:35 | PDOC ---
DATE OF SERVICE DATE: 09/27/21 TIME: 12:31 SUBJECTIVE ROS No SOB . S/P heart cath earlier today. No complaints on dialysis OBJECTIVE Vital Signs Vital Signs Date Time Temp Pulse Resp B/P (MAP) Pulse Ox O2 Delivery O2 Flow Rate FiO2 09/27/21 11:21 18 97 Room Air 09/27/21 10:04 64 142/82 (102) 09/27/21 08:30 2.0 09/27/21 07:00 97.4 97.4 I & 0 Intake and Output 09/27/21 07:00 Intake Total 1100 ml Balance 1100 ml Intake Oral 1100 ml # Voids 1 # Bowel Movements 1 PHYSICAL EXAM Physical Exam General: No acute distress HEENT: OM moist NECK Supple Lungs: Clear to auscultation, Non labored Heart: Regular rate Abd Soft, NT Extremities: No cyanosis LE edema + Skin: No rash Neuro: grossly normal Psych/Mental Status: Mental status NL, Mood NL No [place], No CVA or SP tenderness Vital Signs Vital Signs Date Time Temp Pulse Resp B/P (MAP) Pulse Ox O2 Delivery O2 Flow Rate FiO2 09/25/21 11:51 97.2 70 18 184/95 (124) 100 Room Air 97.2 DIAGNOSIS/ASSESSMENT Assessment & Plan ESRD-On HD MWF , seen during dialysis. tolerating well. Continue as ordered. brenton Gaona Has been on HD since 2017, no significant RRF Chest pain/ NSTEMI- POA -S/P Heart Cath today - Successful PCI/drug-eluting stent placement to the ramus intermedius artery. HTN urgency;poa- Improved PAFIB; presently SR DM2 per PCP CAD: distal LAD lesion Anemia - Hgb Normal , No indication for TEO COMMENT/RELEVANT DATA Meds Current Medications Medications (Trade) Dose Ordered Sig/Evie Start Time Stop Time Status Last Admin Dose Admin Acetaminophen/ Hydrocodone Bitart (Lortab 5/325) 1 tab PRN Q6HRS PRN 09/25/21 21:15 09/27/21 10:51 1 TAB Al Hydroxide/Mg Hydroxide (Mylanta Plus Xs) 30 ml PRN Q2HR PRN 09/26/21 20:45 Apixaban (Eliquis) 5 mg BID 09/25/21 21:00 09/26/21 08:38 5 MG Aspirin (Aspirin Chewable) 324 mg 1X ONCE 09/25/21 06:30 09/25/21 06:31 DC 09/25/21 06:32 324 MG Aspirin (Myles Aspirin) 325 mg 1X ONCE 09/27/21 09:00 09/27/21 09:03 DC 09/27/21 09:00 325 MG Aspirin (Ecotrin) 81 mg DAILYWBKFT 09/26/21 12:30 09/26/21 14:11 81 MG Atorvastatin Calcium (Lipitor) 40 mg QHS 09/25/21 21:00 09/26/21 20:49 40 MG Bivalirudin (Angiomax) 250 mg 1X ONCE 09/27/21 09:00 09/27/21 09:03 DC 09/27/21 09:00 250 MG Clonidine HCl (Catapres) 0.3 mg TID 09/25/21 17:00 09/26/21 21:00 0.3 MG Clopidogrel Bisulfate (Plavix) 75 mg DAILYWBKFT 09/28/21 08:00 Dronedarone (Multaq) 400 mg BIDWMEALS 09/25/21 17:00 09/26/21 18:26 400 MG Fentanyl Citrate (Fentanyl 2ml Vial) 50 mcg 1X ONCE 09/27/21 09:00 09/27/21 09:02 DC 09/27/21 08:30 50 MCG Heparin Sodium/ Sodium Chloride 500 ml @ As Directed STK-MED ONCE 09/27/21 09:03 09/27/21 09:03 DC Heparin Sodium/ Sodium Chloride (HEPARIN for ARTERIAL LINE FLUSH) 1,000 unit 1X ONCE 09/27/21 09:00 09/27/21 09:02 DC 09/27/21 09:00 1,000 UNIT Hydralazine HCl (Apresoline) 50 mg TID 09/25/21 17:00 09/26/21 20:51 50 MG Info (PHARMACY MONITORING -- do not chart) 1 each PRN DAILY PRN 09/27/21 07:30 Iodixanol (Visipaque 320) 100 ml STK-MED ONCE 09/27/21 09:03 09/27/21 09:03 DC Isosorbide Mononitrate (Imdur) 60 mg DAILY 09/25/21 17:00 09/26/21 08:38 60 MG Lidocaine HCl (Lidocaine 2% 20ml Vial) 20 ml 1X ONCE 09/27/21 09:00 09/27/21 09:03 DC 09/27/21 09:00 20 ML Lidocaine HCl (Xylocaine-Mpf 1% 2ml Vial) 2 ml STK-MED ONCE 09/27/21 09:03 09/27/21 09:03 DC Metoprolol Tartrate (Lopressor) 100 mg BID 09/25/21 21:00 09/25/21 19:18 DC Midazolam HCl (Versed) 2 mg 1X ONCE 09/27/21 09:00 09/27/21 09:02 DC 09/27/21 08:30 2 MG Multi-Ingredient Mouthwash/Gargle (Gi Cocktail) 20 ml 1X ONCE 09/25/21 06:30 09/25/21 06:31 DC 09/25/21 06:32 20 ML Multivitamins (Thera M Plus) 1 tab DAILY 09/25/21 17:00 09/26/21 08:36 1 TAB Nitroglycerin (Nitrostat) 0.4 mg PRN Q5MIN PRN 09/27/21 09:15 Ondansetron HCl (Zofran) 4 mg PRN Q8HRS PRN 09/25/21 10:00 09/26/21 09:59 DC Pantoprazole Sodium (Protonix) 40 mg 1X ONCE 09/26/21 21:00 09/26/21 21:01 DC 09/26/21 20:50 40 MG Polyethylene Glycol (miraLAX PACKET) 17 gm BID 09/25/21 21:00 09/25/21 20:18 17 GM Simethicone (Gas-X) 80 mg PRN AFTMEALHC PRN 09/26/21 20:45 Sodium Chloride 1,000 ml @ 400 mls/hr Q2H30M PRN 09/27/21 07:30 09/27/21 19:29 Lab Laboratory Tests Test 09/26/21 20:16 09/27/21 04:00 09/27/21 07:55 Glucose (Fingerstick) 158 mg/dL (70-99) 106 mg/dL (70-99) Sodium Level 139 mmol/L (136-145) Potassium Level 5.8 mmol/L (3.5-5.1) Chloride Level 100 mmol/L (98-107) Carbon Dioxide Level 29 mmol/L (21-32) Anion Gap 10 (6-14) Blood Urea Nitrogen 64 mg/dL (8-26) Creatinine 12.6 mg/dL (0.7-1.3) Estimated GFR (Cockcroft-Gault) 5.0 Glucose Level 71 mg/dL (70-99) Calcium Level 8.6 mg/dL (8.5-10.1) Creatine Kinase 260 U/L (39-308) Results All relevant outside records, renal labs, imaging studies, telemetry/EKG's were reviewed. Justicifation of Admission Dx: Justifications for Admission: Justification of Admission Dx: Yes STEPHEN LIEBERMAN MD Sep 27, 2021 12:35
--- NOTE | 2021-09-27 14:57 | NUR ---
MEDICATION NOTE 1400 MEDS NOT GIVEN, PT IN DIALYSIS. JUST REC'D VERBAL REPORT FROM HD RN. PT WILL BE RETURNING TO FLOOR SOON, BUT SBP IN 90'S AT THIS TIME, SO MEDICATION WILL BE HELD.
--- NOTE | 2021-09-27 16:11 | NUR ---
PT ARRIVES TO ROOM POST HD. 3L REMOVED, PT ALERT ET ORIENTED, BP SLIGHTLY LOW. GROIN SITE SOFT, NO S/S HEMATOMA. DRESSING IS SATURATED, VERY SLOW OOZE. REPLACED DRESSING AT THIS TIME. WILL CONTINUE TO MONITOR.
--- NOTE | 2021-09-27 16:21 | NUR ---
SS following up with discharge planning. SS reviewed pt chart and discussed with pt RN. Pt is from home with spouse and is currently on room air. Cardiology following. Pt had heart cath on 09/27/2021. Discharge order on the chart for home with self care.
[2021-09-27] MEDS: ATORVASTATIN CALCIUM 40 MG TABLET. PO SCH (21:29)
[2021-09-28] MEDS: HYDROcodone/APAP 5/325MG 1 TAB TABLET PO PRN ×2 (02:38→09:55)
[2021-09-28 03:00] VITALS: BP 103/67
[2021-09-28] MEDS: PANTOPRAZOLE 40 MG TABLET.DR. PO SCH (06:33)
[2021-09-28 07:00] VITALS: BP 124/81
--- NOTE | 2021-09-28 07:20 | PDOC ---
PROGRESS NOTES Date of Service: DATE: 09/28/21 TIME: 07:20 Subjective Subjective Denied any chest pain or shortness of breath Objective Objective Vital Signs Date Time Temp Pulse Resp B/P (MAP) Pulse Ox O2 Delivery O2 Flow Rate FiO2 09/28/21 03:00 97.8 80 20 103/67 (79) 95 Nasal Cannula 2.0 97.8 Intake and Output 09/28/21 07:00 Intake Total 580 ml Balance 580 ml Intake Oral 580 ml Physical Exam MUSCULOSKELETAL: No deformity, No swelling, Other Assessment Assessment 1. Non-STEMI in a patient with known history of coronary artery disease. Cardiac catheterization yesterday showed patent stent in LAD and significant stenosis involving ramus intermedius artery. He underwent successful PCI/ABELARDO. He is presently stable and chest pain-free. Continue DAPT for 1 month. Stop aspirin thereafter and continue Plavix (patient on triple therapy). We will resume aspirin once he completes treatment with Plavix. Continue current secondary prevention measures. 2. HTN urgency; better controlled 3. Hyperlipidemia; statin 4. PAFIB; presently SR. Continue Multaq for antiarrhythmic therapy and Eliquis for stroke prophylaxis. 5. Diabetes, II: Treat per IM 8. ESRD: Hemodialysis per nephrology team 9. Anemia of chronic disease Follow-up in 1 month. Plan Plan of Care Problems Medical Problems: (1) NSTEMI (non-ST elevated myocardial infarction) Status: Acute Comment Review of Relevant I have reviewed the following items maame (where applicable) has been applied. Labs Laboratory Tests Test 09/27/21 07:55 09/27/21 16:41 09/27/21 20:33 Glucose (Fingerstick) 106 mg/dL (70-99) 167 mg/dL (70-99) 172 mg/dL (70-99) Medications Current Medications Aspirin (Myles Aspirin) 325 mg 1X ONCE PO Last administered on 09/27/21at 09:00; Start 09/27/21 at 09:00; Stop 09/27/21 at 09:03; Status DC Aspirin (Myles Aspirin) 325 mg STK-MED ONCE .ROUTE ; Start 09/27/21 at 08:58; Stop 09/27/21 at 08:58; Status DC Bivalirudin (Angiomax) 250 mg 1X ONCE IVP Last administered on 09/27/21at 09:00; Start 09/27/21 at 09:00; Stop 09/27/21 at 09:03; Status DC Bivalirudin (Angiomax) 250 mg STK-MED ONCE IVP ; Start 09/27/21 at 08:39; Stop 09/27/21 at 08:39; Status DC Clopidogrel Bisulfate (Plavix) 75 mg DAILYWBKFT PO ; Start 09/28/21 at 08:00 Clopidogrel Bisulfate (Plavix) 75 mg STK-MED ONCE .ROUTE ; Start 09/27/21 at 08:58; Stop 09/27/21 at 08:58; Status DC Clopidogrel Bisulfate (Plavix) 600 mg 1X ONCE PO Last administered on 09/27/21at 09:00; Start 09/27/21 at 09:00; Stop 09/27/21 at 09:03; Status DC Fentanyl Citrate (Fentanyl 2ml Vial) 50 mcg 1X ONCE IV Last administered on 09/27/21at 08:30; Start 09/27/21 at 09:00; Stop 09/27/21 at 09:02; Status DC Fentanyl Citrate (Fentanyl 2ml Vial) 100 mcg STK-MED ONCE .ROUTE ; Start 09/27/21 at 08:27; Stop 09/27/21 at 08:28; Status DC Heparin Sodium/ Sodium Chloride 500 ml @ As Directed STK-MED ONCE .ROUTE ; Start 09/27/21 at 09:03; Stop 09/27/21 at 09:03; Status DC Heparin Sodium/ Sodium Chloride (HEPARIN for ARTERIAL LINE FLUSH) 1,000 unit 1X ONCE IART Last administered on 09/27/21at 09:00; Start 09/27/21 at 09:00; Stop 09/27/21 at 09:02; Status DC Info (PHARMACY MONITORING -- do not chart) 1 each PRN DAILY PRN MC SEE COMMENTS; Start 09/27/21 at 07:30 Iodixanol (Visipaque 320) 100 ml 1X ONCE IART Last administered on 09/27/21at 09:00; Start 09/27/21 at 09:00; Stop 09/27/21 at 09:02; Status DC Iodixanol (Visipaque 320) 100 ml STK-MED ONCE .ROUTE ; Start 09/27/21 at 08:43; Stop 09/27/21 at 08:44; Status DC Iodixanol (Visipaque 320) 100 ml STK-MED ONCE .ROUTE ; Start 09/27/21 at 09:03; Stop 09/27/21 at 09:03; Status DC Lidocaine HCl (Lidocaine 2% 20ml Vial) 20 ml 1X ONCE IJ Last administered on 09/27/21at 09:00; Start 09/27/21 at 09:00; Stop 09/27/21 at 09:03; Status DC Lidocaine HCl (Xylocaine-Mpf 1% 2ml Vial) 2 ml STK-MED ONCE .ROUTE ; Start 09/27/21 at 09:03; Stop 09/27/21 at 09:03; Status DC Midazolam HCl (Versed) 2 mg 1X ONCE IV Last administered on 09/27/21at 08:30; Start 09/27/21 at 09:00; Stop 09/27/21 at 09:02; Status DC Midazolam HCl (Versed) 2 mg STK-MED ONCE .ROUTE ; Start 09/27/21 at 08:27; Stop 09/27/21 at 08:28; Status DC Nitroglycerin (Nitrostat) 0.4 mg PRN Q5MIN PRN SL CHEST PAIN; Start 09/27/21 at 09:15 Pantoprazole Sodium (Protonix) 40 mg DAILYAC PO Last administered on 09/28/21at 06:33; Start 09/27/21 at 07:30 Sodium Chloride 1,000 ml @ 400 mls/hr Q2H30M PRN IV PATENCY; Start 09/27/21 at 07:30; Stop 09/27/21 at 19:29; Status DC Sodium Chloride 1,000 ml @ 1,000 mls/hr Q1H PRN IV hypotension; Start 09/27/21 at 07:30; Stop 09/27/21 at 13:29; Status DC Vitals/I & O Vital Sign - Last 24 Hours 09/27/21 09/27/21 09/27/21 09/27/21 08:00 08:30 09:00 09:10 Pulse 66 Resp 17 20 Pulse Ox 99 98 96 O2 Delivery Nasal Cannula Nasal Cannula Room Air Room Air O2 Flow Rate 2.0 2.0 09/27/21 09/27/21 09/27/21 09/27/21 09:19 09:34 09:49 10:04 Pulse 63 62 59 64 Resp 18 18 18 18 B/P (MAP) 128/81 (97) 126/76 (93) 121/70 (87) 142/82 (102) Pulse Ox 99 98 98 97 O2 Delivery Room Air Room Air Room Air 09/27/21 09/27/21 09/27/21 09/27/21 10:51 11:21 14:00 14:00 Pulse 64 64 Resp 18 18 B/P (MAP) 97/59 97/59 Pulse Ox 97 97 O2 Delivery Room Air Room Air 09/27/21 09/27/21 09/27/21 09/27/21 17:00 18:09 19:20 20:14 Temp 97.6 97.6 Pulse 64 71 Resp 16 20 B/P (MAP) 97/59 114/71 (85) Pulse Ox 97 94 O2 Delivery Nasal Cannula Room Air Nasal Cannula O2 Flow Rate 2.0 09/27/21 09/27/21 09/28/21 09/28/21 21:29 23:20 02:38 03:00 Temp 98.0 97.8 98.0 97.8 Pulse 71 70 80 Resp 20 20 B/P (MAP) 114/71 115/71 (86) 103/67 (79) Pulse Ox 96 95 O2 Delivery Room Air Room Air Nasal Cannula O2 Flow Rate 2.0 Intake and Output 09/27/21 09/27/21 09/28/21 15:00 23:00 07:00 Intake Total 400 ml 180 ml Balance 400 ml 180 ml JUAN MANUEL MG MD Sep 28, 2021 07:20
--- NOTE | 2021-09-28 07:42 | NUR ---
pt cont to have oozing to right groin site through out night . dr mcpherson notified, orders given to apply pressure to groin site for 15 mins. then apply sand bag. hold eliquis until further notice. pmrn
[2021-09-28] MEDS ORDERED: CLOPIDOGREL BISULFATE 75 MG TABLET PO SCH (08:00)
[2021-09-28] MEDS: POLYETHYLENE GLYCOL 3350 17 GM PACKET. PO SCH (08:25)
[2021-09-28] MEDS: DRONEDARONE HCL 400 MG TABLET PO SCH (08:26)
[2021-09-28] MEDS: MULTIVITAMIN with MINERAL TABLET. PO SCH (08:26)
[2021-09-28] MEDS: ASPIRIN ENTERIC COATED 81 MG TABLET.DR. PO SCH (08:26)
[2021-09-28] MEDS: ISOSORBIDE MONONITRATE ER 30 MG TAB.ER.24H PO SCH (08:27)
[2021-09-28] MEDS: cloNIDine HCL 0.3 MG TABLET PO SCH ×2 (09:00→14:00)
[2021-09-28] MEDS: APIXABAN 5 MG TABLET. PO SCH (09:00)
[2021-09-28 11:00] VITALS: BP 115/63
--- NOTE | 2021-09-28 11:00 | PDOC ---
IM PROGRESS NOTES- Subjective Subjective No complaints of chest pains or dyspnea. Objective Vitals/I&O Vital Signs Date Time Temp Pulse Resp B/P (MAP) Pulse Ox O2 Delivery O2 Flow Rate FiO2 09/28/21 09:55 96 Room Air 09/28/21 08:27 66 124/81 09/28/21 07:00 97.6 20 97.6 09/28/21 03:00 2.0 I & O 09/27/21 09/27/21 09/28/21 14:59 22:59 06:59 Intake Total 400 ml 180 ml Balance 400 ml 180 ml Physical Exam Physical Exam General Appearance - alert and in no distress Chest - decreased breath sounds at bases Heart - S1 and S2 normal Abdomen - soft, non tender Neurological - alert and oriented Musculoskeletal - generalized weakness Extremities - no edema Labs Laboratory Tests Test 09/27/21 16:41 09/27/21 20:33 09/28/21 07:50 Glucose (Fingerstick) 167 mg/dL (70-99) H 172 mg/dL (70-99) H 130 mg/dL (70-99) H Meds Current Medications Medications (Trade) Dose Ordered Sig/Evie Route PRN Reason Start Time Stop Time Status Last Admin Dose Admin Clopidogrel Bisulfate (Plavix) 75 mg DAILYWBKFT PO 09/28/21 08:00 09/28/21 08:26 Assessment Assessment 1. Non-ST elevation IN.. 2. Known history of coronary artery disease as a single vessel distal LAD by cardiac catheterization last year. Cardiac catheterization with stent placement. 3. End-stage renal disease, on hemodialysis 3 times a week. 4. Paroxysmal atrial fibrillation, on Multaq and Eliquis. 5. Diabetes, diet control. 6. Hypertension. 7. Hyperlipidemia. Plan: Patient was admitted to the hospital. The troponin level remained high and was thought to have non-ST elevation myocardial infarction. Patient underwent cardiac catheterization and had a stent placement on September 27, 2021. Procedure(s) performed: 1. Left heart catheterization and selective coronary angiography 2. Successful PCI/drug-eluting stent placement to the ramus intermedius artery Currently he is on Eliquis at home and has been started on Plavix and aspirin here. 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 This was discussed with the patient also. Clinically patient is feeling fine and he wants to go home today. Bleeding from the right groin has stopped. He is getting hemodialysis Thursday. Okay to discharge home. Discharge management 35 minutes. Plan Plan For more details regarding further plans, please refer to the orders. Justifications for Admission Other Justification MED GUIDRY MD Sep 28, 2021 11:00
[2021-09-28 14:47] VITALS: BP 130/86
== END 2021-09-28 16:00 | disposition home or self-care (01) | DRG 246 ==
LOC: ER 06:05 → 6 SOUTH 09:57
PROVIDERS: ADMIT Internal Medicine; ATTEND Internal Medicine
PROC: 5A1D70Z Performance of Urinary Filtration, Intermittent, Less than 6 Hours Per Day (ICD-10-PCS; 2021-09-25)
PROC: B2111ZZ Fluoroscopy of Multiple Coronary Arteries using Low Osmolar Contrast (ICD-10-PCS; principal; 2021-09-27)
PROC: 027034Z Dilation of Coronary Artery, One Artery with Drug-eluting Intraluminal Device, Percutaneous Approach (ICD-10-PCS; 2021-09-27)
PROC: 4A023N7 Measurement of Cardiac Sampling and Pressure, Left Heart, Percutaneous Approach (ICD-10-PCS; 2021-09-27)
PROC: 5A1D70Z Performance of Urinary Filtration, Intermittent, Less than 6 Hours Per Day (ICD-10-PCS; 2021-09-27)
DX: I21.4 Non-ST elevation (NSTEMI) myocardial infarction (principal); N18.6 End stage renal disease; I12.0 Hypertensive chronic kidney disease with stage 5 chronic kidney disease or end stage renal disease; D63.8 Anemia in other chronic diseases classified elsewhere; E11.22 Type 2 diabetes mellitus with diabetic chronic kidney disease; E78.00 Pure hypercholesterolemia, unspecified; E78.5 Hyperlipidemia, unspecified; I16.0 Hypertensive urgency; I25.10 Atherosclerotic heart disease of native coronary artery without angina pectoris; M19.90 Unspecified osteoarthritis, unspecified site; I48.0 Paroxysmal atrial fibrillation; M10.9 Gout, unspecified; J45.909 Unspecified asthma, uncomplicated; Z79.02 Long term (current) use of antithrombotics/antiplatelets; Z82.49 Family history of ischemic heart disease and other diseases of the circulatory system; Z83.3 Family history of diabetes mellitus; Z87.11 Personal history of peptic ulcer disease; Z99.2 Dependence on renal dialysis; Z90.49 Acquired absence of other specified parts of digestive tract
CPT/HCPCS: 92928; 93458; 99285; G0269; 36415; 71045; 80048; 80053; 80061; 82550; 82962; 83690; 83880; 84443; 84484; 85025; 85379; 85610; 85730; 93005; 99152; 99153; C1894; J0583; J1644; J2250; J3010; Q9967; C1874; G0378

== ENCOUNTER 2021-10-12 18:41 | Inpatient (IN) | payer MEDICARE, OTHER ==
[~2021-10-12] VITALS: Ht 182.9 cm; Wt 115.8 kg
[~2021-10-12 18:41] MED LIST changes: +CLOP75TA PO; +NITR0.4T24 SL
[2021-10-12 19:53] LABS: BASO # 0.1 x10^3/uL (0.0-0.2); BASO % 1 % (0-3); EOS # 0.1 x10^3/uL (0.0-0.7); EOS % 1 % (0-3); HEMATOCRIT 48.3 % (39.0-53.0); LYMPH # 1.6 x10^3/uL (1.0-4.8); LYMPH % 21 % (24-48); MEAN CORPUSCULAR HEMOGLOBIN 34 pg (25-35); MEAN CORPUSCULAR HGB CONC 33 g/dL (31-37); MEAN CORPUSCULAR VOLUME 103 fL (79-100); MONO # 0.7 x10^3/uL (0.0-1.1); MONO % 10 % (0-9); NEUT # 5.1 x10^3/uL (1.8-7.7); NEUT % 67 % (31-73); PLATELET COUNT 280 x10^3/uL (140-400); RED BLOOD COUNT 4.68 x10^6/uL (4.30-5.70); RED CELL DISTRIBUTION WIDTH 14.5 % (11.5-14.5); WHITE BLOOD COUNT 7.6 x10^3/uL (4.0-11.0)
[2021-10-12 20:06] LABS: CALCIUM 8.1 mg/dL (8.5-10.1); CREATININE 13.1 mg/dL (0.7-1.3); GFR 4.8; POTASSIUM 4.3 mmol/L (3.5-5.1)
[2021-10-12 20:12] LABS: ALBUMIN 3.5 g/dL (3.4-5.0); ALBUMIN/GLOBULIN RATIO 0.8 (1.0-1.7); MAGNESIUM 2.1 mg/dL (1.8-2.4); TOTAL BILIRUBIN 0.9 mg/dL (0.2-1.0); TOTAL PROTEIN 8.1 g/dL (6.4-8.2)
[2021-10-12] MEDS ORDERED: FAMOTIDINE 20 MG/2 ML VIAL IVP ONE (20:30)
[2021-10-12] MEDS ORDERED: ONDANSETRON PF 4 MG/2 ML VIAL. IVP ONE (20:30)
--- NOTE | 2021-10-12 20:44 | PHYS DOC ---
Past Medical History Past Medical History: A-Fib, Asthma, High Cholesterol, Hypertension, Renal Failure, Other Additional Past Medical Histor: ESRD, DIAYLSIS Past Surgical History: Other Additional Past Surgical Histo: FISTULA LEFT UPPER ARM Smoking Status: Never Smoker Alcohol Use: None Drug Use: None General Adult EDM: Chief Complaint: DIZZY/LIGHT HEADED HPI: HPI: Patient is a 56 year old male ESRD on dialysis MWF who presents with lightheadedness and weakness. Patient states that yesterday, dialysis went well. His blood pressures were normal and they removed 3 L of fluid. Beginning yesterday, patient states he has had diarrhea and felt weak. For the past 6 weeks, he has felt nauseated and had epigastric abdominal pain. Patient was admitted about 2 weeks ago for NSTEMI where cardiac stent was placed. He has no other complaints at this time. Review of Systems: Review of Systems: Constitutional: Denies fever or chills Eyes: Denies change in visual acuity, visual field deficits or discharge HENT: Denies ear pain, nasal congestion or sore throat Respiratory: Denies cough or shortness of breath Cardiovascular: Denies chest pain, palpitations or edema GI: See HPI : Denies dysuria or hematuria Musculoskeletal: Denies back pain or joint pain Integument: Denies rash or other skin lesion Neurologic: Denies headache, focal weakness or sensory changes Heart Score: C/O Chest Pain: No Current Medications: Current Medications Medications (Trade) Dose Ordered Sig/Eive Start Time Stop Time Status Last Admin Dose Admin Famotidine (Pepcid Vial) 10 mg 1X ONCE 10/12/21 20:30 10/12/21 20:35 DC Ondansetron HCl (Zofran) 4 mg 1X ONCE 10/12/21 20:30 10/12/21 20:35 DC Allergies: Allergies: Allergies Coded Allergies Type Severity Reaction Last Updated Verified No Known Drug Allergies 03/22/21 No Physical Exam: PE: Constitutional: Well developed, well nourished, no acute distress, non-toxic appearance. HENT: Normocephalic, atraumatic, bilateral external ears normal, nose normal. Eyes: EOMI, conjunctiva normal, no discharge. Neck: Normal range of motion, no stridor. Cardiovascular: Heart regular rate and rhythm. No apparent murmurs, rubs or gallops. No peripheral edema. Lungs & Thorax: Equal thoracic expansion, no increased work of breathing. Abdomen: Bowel sounds normal, soft, no tenderness, no masses, no pulsatile mas ses. Skin: Warm, dry, no erythema, no rash. Neurologic: Alert and oriented x4, normal motor function, normal sensory function, no focal deficits noted. Current Patient Data: Labs: Laboratory Tests Test 10/12/21 19:15 White Blood Count 7.6 x10^3/uL (4.0-11.0) Red Blood Count 4.68 x10^6/uL (4.30-5.70) Hemoglobin 16.0 g/dL (13.0-17.5) Hematocrit 48.3 % (39.0-53.0) Mean Corpuscular Volume 103 fL (79-100) H Mean Corpuscular Hemoglobin 34 pg (25-35) Mean Corpuscular Hemoglobin Concent 33 g/dL (31-37) Red Cell Distribution Width 14.5 % (11.5-14.5) Platelet Count 280 x10^3/uL (140-400) Neutrophils (%) (Auto) 67 % (31-73) Lymphocytes (%) (Auto) 21 % (24-48) L Monocytes (%) (Auto) 10 % (0-9) H Eosinophils (%) (Auto) 1 % (0-3) Basophils (%) (Auto) 1 % (0-3) Neutrophils # (Auto) 5.1 x10^3/uL (1.8-7.7) Lymphocytes # (Auto) 1.6 x10^3/uL (1.0-4.8) Monocytes # (Auto) 0.7 x10^3/uL (0.0-1.1) Eosinophils # (Auto) 0.1 x10^3/uL (0.0-0.7) Basophils # (Auto) 0.1 x10^3/uL (0.0-0.2) Sodium Level 135 mmol/L (136-145) L Potassium Level 4.3 mmol/L (3.5-5.1) Chloride Level 97 mmol/L (98-107) L Carbon Dioxide Level 22 mmol/L (21-32) Anion Gap 16 (6-14) H Blood Urea Nitrogen 50 mg/dL (8-26) H Creatinine 13.1 mg/dL (0.7-1.3) H Estimated GFR (Cockcroft-Gault) 4.8 BUN/Creatinine Ratio 4 (6-20) L Glucose Level 168 mg/dL (70-99) H Calcium Level 8.1 mg/dL (8.5-10.1) L Magnesium Level 2.1 mg/dL (1.8-2.4) Total Bilirubin 0.9 mg/dL (0.2-1.0) Aspartate Amino Transferase (AST) 9 U/L (15-37) L Alanine Aminotransferase (ALT) 14 U/L (16-63) L Alkaline Phosphatase 89 U/L (46-116) Troponin I High Sensitivity 43 ng/L (4-75) Total Protein 8.1 g/dL (6.4-8.2) Albumin 3.5 g/dL (3.4-5.0) Albumin/Globulin Ratio 0.8 (1.0-1.7) L Lipase 190 U/L (73-393) Laboratory Tests 10/12/21 19:15 Laboratory Tests 10/12/21 19:15 Vital Signs: Vital Signs Date Time Temp Pulse Resp B/P (MAP) Pulse Ox O2 Delivery O2 Flow Rate FiO2 10/13/21 19:56 98.0 82 18 103/69 (80) 91 Room Air 98.0 10/13/21 19:00 Room Air 10/13/21 17:07 80 112/67 10/13/21 15:00 99.1 80 18 112/67 (82) 93 Room Air 99.1 10/13/21 12:25 86 128/88 10/13/21 12:24 86 128/88 10/13/21 10:52 98.3 86 18 128/88 (101) 94 Room Air 98.3 10/13/21 08:00 Room Air 10/13/21 07:00 98.3 80 18 121/83 (96) 94 Room Air 98.3 10/13/21 03:00 98.1 78 18 105/76 (86) 94 98.1 10/12/21 22:00 98.8 88 18 106/72 (83) 95 98.8 10/12/21 22:00 Room Air 10/12/21 21:22 84 18 133/87 (102) 96 Room Air 10/12/21 20:52 84 20 100/67 (78) 96 Room Air 10/12/21 20:51 91 18 110/62 (78) 96 Room Air 10/12/21 18:56 98.0 103 16 117/74 (88) 96 Room Air 98.0 EKG: EKG: EKG Interpreted by Dr. Sparks at 1850: Sinus tachycardia at 102 bpm. WI 152 ms/ QT 362 ms. No STEMI. Course & Med Decision Making: Course & Med Decision Making Pertinent Labs and Imaging studies reviewed. (See chart for details) Patient is a 56-year-old male on dialysis 3 times a week who presents with generalized weakness and near syncope. Labs today are not acutely concerning when comparing to patient's prior lab values. However, secondary to his presyncopal sensations, he feels unsafe to go home. Patient will be admitted to his primary care provider, Dr. Floyd. Dr. Yaakov granadosdly accepts this patient for admission on behalf of Dr. Floyd. Patient was hemodynamically stable at time of transportation to floor. Frieda Disclaimer: Frieda Disclaimer: This electronic medical record was generated, in whole or in part, using a voice recognition dictation system. Departure Departure Impression: Primary Impression: ESRD (end stage renal disease) on dialysis Additional Impression: Dizzy Disposition: ADMITTED INPATIENT Admitting Physician: Holly Floyd Condition: GUARDED Referrals: HOLLY FLOYD MD (PCP) CHARI GARCIA Oct 12, 2021 20:44
[2021-10-12] MEDS ORDERED: ONDANSETRON PF 4 MG/2 ML VIAL. IVP PRN (21:00)
[2021-10-12 22:00] VITALS: BP 106/72
--- NOTE | 2021-10-12 22:00 | NUR ---
The patient, MARYJANE GUZMAN, 56 y/o, M admitted by RAMU FLOYD MD, was given written information regarding hospital policies, unit procedures and contact persons. Valuables were checked and all questions answered. C/O dizziness and loose stools. Pt told to call when needing to get up and told we would collect next stool.
--- NOTE | 2021-10-12 22:30 | NUR ---
Patient assessed for elopement risk per elopement policy and procedure. Patient not deemed a risk.
[2021-10-13 03:00] VITALS: BP 105/76
[2021-10-13 07:00] VITALS: BP 121/83
--- NOTE | 2021-10-13 08:53 | PDOC2 ---
CONSULT Date of Consult Date of Consult DATE: 10/13/21 TIME: 08:47 Reason for Consult Reason for Consult: ESRD Thursday Referring Physician Referring Physician: Gibson Identification/Chief Complaint Chief Complaint Presyncope, weakness Source Source: Chart review, Patient History of Present Illness Reason for Visit: Patient is a 56-year-old -[place] gentleman followed by Dr. Grande for his ESRD needs. He dialyzes on a Thursday basis at one of the local [facility] units. He was at dialysis on Thursday and claims there was some discrepancy in his weights. He has had some diarrhea and some nausea vomiting with abdominal discomfort over the last few days. He started to feel some amount of weakness and had presyncope symptoms and presented to the ER for further evaluation. He has had nausea and epigastric abdominal discomfort for almost 6 weeks now. It is noted that he was admitted here for a non-STEMI 2 weeks ago and received a stent to his heart. He thinks he has lost some weight but cannot quantitate it. Denies fevers chills or chest pain at this time Past Medical History Cardiovascular: HTN GI: Peptic Ulcer disease Heme/Onc: Anemia NOS Musculoskeletal: Osteoarthritis Rheumatologic: Gout Renal/: Chronic renal failure Endocrine: Diabetes Past Surgical History Past Surgical History: Cholecystectomy, Other Family History Family History: Diabetes, Hypertension Social History ALCOHOL: none Drugs: None Lives: with Family Current Problem List Problem List Problems Medical Problems: (1) Dizzy Status: Acute Current Medications Current Medications Current Medications Ondansetron HCl (Zofran) 4 mg 1X ONCE IVP Last administered on 10/12/21at 20:48; Start 10/12/21 at 20:30; Stop 10/12/21 at 20:35; Status DC Famotidine (Pepcid Vial) 10 mg 1X ONCE IVP Last administered on 10/12/21at 20:48; Start 10/12/21 at 20:30; Stop 10/12/21 at 20:35; Status DC Ondansetron HCl (Zofran) 4 mg PRN Q8HRS PRN IVP NAUSEA/VOMITING; Start 10/12/21 at 21:00; Stop 10/13/21 at 20:59 Active Scripts Active Clopidogrel (Clopidogrel Bisulfate) 75 Mg Tablet 75 Mg PO DAILYWBKFT 30 Days Aspirin Ec (Aspirin) 81 Mg Tablet.dr 81 Mg PO DAILYWBKFT 30 Days Nitrostat (Nitroglycerin) 0.4 Mg Tab.subl 0.4 Mg SL PRN Q5MIN PRN Multaq (Dronedarone Hcl) 400 Mg Tablet 400 Mg PO BIDWMEALS 30 Days Hydrocodone-Apap 5-325 (Hydrocodone Bit/Acetaminophen) 1 Tab Tablet 1 Tab PO PRN Q6HRS PRN 7 Days Polyethylene Glycol 3350 17 Gm Powd.pack 17 Gm PO BID 30 Days Isosorbide Mononitrate Er (Isosorbide Mononitrate) 30 Mg Tab.er.24h 60 Mg PO DAILY Atorvastatin Calcium 40 Mg Tablet 40 Mg PO QHS Thera-M Tablet (Multivits,Ca,Minerals/Iron/Fa) 1 Each Tablet 1 Tab PO DAILY Reported Eliquis (Apixaban) 5 Mg Tablet 5 Mg PO BID Hydralazine Hcl 50 Mg Tablet 50 Mg PO TID Clonidine Hcl 0.3 Mg Tablet 0.3 Mg PO TID Allergies Allergies: Coded Allergies: No Known Drug Allergies (Unverified , 03/22/21) ROS Review of System 14 point review of systems are negative as reviewed with the patient, positives as noted under HPI Physical Exam Physical Exam General Appearance: Awake Alert Oriented x 3 In no Distress Eyes: VIsion Unchanged Conjunctiva Normal EN: No EN Drainage Mucous Memb. moist Neck: no JVD no JVP Supple no Thyromegaly CVS: S1 S2 no Murmur No Gallop No Rub no Edema Resp: no Rales no Rhonchi no Acc. Muscle use GI: BAS +ve NO Bruit Non Tender Non Distended : no CVA tenderness; no Suprapubic Tenderness SKIN: no Rashes Breast Exam deferred Mu.Sk: Adequate ROM no Muscle Atrophy Heme: Unable to palpate Obvious LAD no Splenomegaly NEURO: Good Strength and Tone Cranial Nerves II - XII grossly intact Psych: not Depressed no Active hallucination Vital Signs Vital Signs Date Time Temp Pulse Resp B/P (MAP) Pulse Ox O2 Delivery O2 Flow Rate FiO2 10/13/21 07:00 98.3 80 18 121/83 (96) 94 Room Air 98.3 Assessment & Plan ESRD: Current FLuid and E-lyte status does not necessitate emergent need for Dialysis. Will re-evaluate for Dialysis in am and continue on MWF schedule. He will need his dry weight to be established Polycythemia in the setting of renal failure. We will recheck CT abdomen pelvis with IV and oral contrast especially given ongoing GI symptoms. (Previous CT scan has shown: Within the left flank subcutaneous soft tissues there is a suspected thinly encapsulated fat-containing mass which could be secondary to a lipoma. This was likely present on prior as well) HTN: Current BP meds reviewed. See orders for changes. Bone & Mineral: Follow phosphorus levels and alter binder regimen as needed Presyncope: Unclear if this is volume related or cardiac related. He appears to be ambulating in the hallways without any difficulty currently. Denies orthostasis per se. Possible volume depletion associated with diarrhea cannot be ruled out. Discussed Plan of Care and prognosis etc. at length with family. Labs Labs Laboratory Tests Test 10/12/21 19:15 White Blood Count 7.6 x10^3/uL (4.0-11.0) Red Blood Count 4.68 x10^6/uL (4.30-5.70) Hemoglobin 16.0 g/dL (13.0-17.5) Hematocrit 48.3 % (39.0-53.0) Mean Corpuscular Volume 103 fL (79-100) Mean Corpuscular Hemoglobin 34 pg (25-35) Mean Corpuscular Hemoglobin Concent 33 g/dL (31-37) Red Cell Distribution Width 14.5 % (11.5-14.5) Platelet Count 280 x10^3/uL (140-400) Neutrophils (%) (Auto) 67 % (31-73) Lymphocytes (%) (Auto) 21 % (24-48) Monocytes (%) (Auto) 10 % (0-9) Eosinophils (%) (Auto) 1 % (0-3) Basophils (%) (Auto) 1 % (0-3) Neutrophils # (Auto) 5.1 x10^3/uL (1.8-7.7) Lymphocytes # (Auto) 1.6 x10^3/uL (1.0-4.8) Monocytes # (Auto) 0.7 x10^3/uL (0.0-1.1) Eosinophils # (Auto) 0.1 x10^3/uL (0.0-0.7) Basophils # (Auto) 0.1 x10^3/uL (0.0-0.2) Sodium Level 135 mmol/L (136-145) Potassium Level 4.3 mmol/L (3.5-5.1) Chloride Level 97 mmol/L (98-107) Carbon Dioxide Level 22 mmol/L (21-32) Anion Gap 16 (6-14) Blood Urea Nitrogen 50 mg/dL (8-26) Creatinine 13.1 mg/dL (0.7-1.3) Estimated GFR (Cockcroft-Gault) 4.8 BUN/Creatinine Ratio 4 (6-20) Glucose Level 168 mg/dL (70-99) Calcium Level 8.1 mg/dL (8.5-10.1) Magnesium Level 2.1 mg/dL (1.8-2.4) Total Bilirubin 0.9 mg/dL (0.2-1.0) Aspartate Amino Transf (AST/SGOT) 9 U/L (15-37) Alanine Aminotransferase (ALT/SGPT) 14 U/L (16-63) Alkaline Phosphatase 89 U/L (46-116) Troponin I High Sensitivity 43 ng/L (4-75) Total Protein 8.1 g/dL (6.4-8.2) Albumin 3.5 g/dL (3.4-5.0) Albumin/Globulin Ratio 0.8 (1.0-1.7) Lipase 190 U/L (73-393) Laboratory Tests Test 10/12/21 19:15 White Blood Count 7.6 x10^3/uL (4.0-11.0) Red Blood Count 4.68 x10^6/uL (4.30-5.70) Hemoglobin 16.0 g/dL (13.0-17.5) Hematocrit 48.3 % (39.0-53.0) Mean Corpuscular Volume 103 fL (79-100) Mean Corpuscular Hemoglobin 34 pg (25-35) Mean Corpuscular Hemoglobin Concent 33 g/dL (31-37) Red Cell Distribution Width 14.5 % (11.5-14.5) Platelet Count 280 x10^3/uL (140-400) Neutrophils (%) (Auto) 67 % (31-73) Lymphocytes (%) (Auto) 21 % (24-48) Monocytes (%) (Auto) 10 % (0-9) Eosinophils (%) (Auto) 1 % (0-3) Basophils (%) (Auto) 1 % (0-3) Neutrophils # (Auto) 5.1 x10^3/uL (1.8-7.7) Lymphocytes # (Auto) 1.6 x10^3/uL (1.0-4.8) Monocytes # (Auto) 0.7 x10^3/uL (0.0-1.1) Eosinophils # (Auto) 0.1 x10^3/uL (0.0-0.7) Basophils # (Auto) 0.1 x10^3/uL (0.0-0.2) Sodium Level 135 mmol/L (136-145) Potassium Level 4.3 mmol/L (3.5-5.1) Chloride Level 97 mmol/L (98-107) Carbon Dioxide Level 22 mmol/L (21-32) Anion Gap 16 (6-14) Blood Urea Nitrogen 50 mg/dL (8-26) Creatinine 13.1 mg/dL (0.7-1.3) Estimated GFR (Cockcroft-Gault) 4.8 BUN/Creatinine Ratio 4 (6-20) Glucose Level 168 mg/dL (70-99) Calcium Level 8.1 mg/dL (8.5-10.1) Magnesium Level 2.1 mg/dL (1.8-2.4) Total Bilirubin 0.9 mg/dL (0.2-1.0) Aspartate Amino Transf (AST/SGOT) 9 U/L (15-37) Alanine Aminotransferase (ALT/SGPT) 14 U/L (16-63) Alkaline Phosphatase 89 U/L (46-116) Troponin I High Sensitivity 43 ng/L (4-75) Total Protein 8.1 g/dL (6.4-8.2) Albumin 3.5 g/dL (3.4-5.0) Albumin/Globulin Ratio 0.8 (1.0-1.7) Lipase 190 U/L (73-393) Review All relevant outside records, renal labs, imaging studies, telemetry/EKG's were reviewed. PAM MADRID MD Oct 13, 2021 08:53
[2021-10-13] MEDS ORDERED: CONTRAST GIVEN. MC PRN (09:30)
[2021-10-13] MEDS ORDERED: IOHEXOL 240 MG/ML 50ML VIAL. PO ONE (09:30)
[2021-10-13] MEDS ORDERED: IOHEXOL 300 MG/ML 100ML VIAL. IV ONE (09:30)
[2021-10-13 10:52] VITALS: BP 128/88
--- NOTE | 2021-10-13 11:40 | RAD ---
CT abdomen pelvis with contrast dated 10/13/2021. COMPARISON: 11/03/2019. INDICATION: Abdominal discomfort. TECHNIQUE: Contiguous axial imaging the abdomen pelvis performed after the administration of IV and oral contras t. 75 cc Omnipaque 300 use. One or more of the following individualized dose reduction techniques were utilized for this examinat ion: 1. Automated exposure control 2. Adjustment of the mA and/or kV according to patient size 3. Use of iterative reconstruction technique FINDINGS: Limited images of lung bases are clear. Heart size is upper limits of normal. No pleural or pericardi al effusion. Coronary artery calcifications Liver, spleen, pancreas, adrenal glands are stable. Low-density nodule in the right adrenal gland isaiah suring about 1.3 cm, unchanged. Gallbladder surgically absent. Kidneys are atrophic. There are low-de nsity foci at the bilateral kidney midpole, largest measures approximately 1.1 cm posteriorly on the right with Hounsfield value of 3. No hydronephrosis. Partially opacified GI tract normal in caliber and contour. No focal bowel wall thickening. No inflam matory stranding in the mesentery. The appendix is normal in caliber. No ascites or lymphadenopathy. There are scattered diverticula throughout colon. Images of the pelvis show nondistended urinary bladder. Prostate gland is mildly enlarged. There is p ossible mild wall thickening of the rectum with prominent mucosal enhancement. No inguinal or iliac c lamin lymphadenopathy. Bone window show no acute findings. Multilevel spondylosis. IMPRESSION: 1. No acute abnormality of abdomen or pelvis. 2. Diverticulosis with no evidence of acute diverticulitis. 3. Possible mild wall thickening of the rectum, nonspecific. This could be related to infectious or i nflammatory colitis. Underlying mass cannot be excluded but would be considered less likely. Recommen d correlation with recent colonoscopy. 4. Low-density foci of the bilateral kidney most likely represent small cysts. Follow-up imaging may be warranted to ensure stability as these are new from prior exam. 5. Stable right adrenal nodule, likely adrenal adenoma. Electronically signed by: Juan Skaggs MD (10/13/2021 11:38 AM) [id number]
[2021-10-13] MEDS ORDERED: NITROGLYCERIN SUBLINGUAL 0.4 MG BOTTLE OF 25. SL PRN (12:00)
[2021-10-13] MEDS ORDERED: IV NORMAL SALINE 1000ML BAG 1,000 ML IV ONE (12:00)
[2021-10-13] MEDS ORDERED: HYDROcodone/APAP 5/325MG 1 TAB TABLET PO PRN (12:00)
--- NOTE | 2021-10-13 12:11 | PDOC ---
Provider Note Date of Service: DATE: 10/13/21 TIME: 12:11 Provider Note Pt seen.H&P dictated.#[id number]. Justifications for Admission Other Justification RAMU FLOYD MD Oct 13, 2021 12:11
[2021-10-13] MEDS: APIXABAN 5 MG TABLET. PO SCH ×2 (12:24→20:38)
[2021-10-13] MEDS: DRONEDARONE HCL 400 MG TABLET PO SCH ×2 (12:24→17:07)
[2021-10-13] MEDS: CLOPIDOGREL BISULFATE 75 MG TABLET PO SCH (12:25)
[2021-10-13] MEDS: MULTIVITAMIN with MINERAL TABLET. PO SCH (12:25)
[2021-10-13] MEDS: ISOSORBIDE MONONITRATE ER 30 MG TAB.ER.24H PO SCH (12:25)
[2021-10-13] MEDS: ASPIRIN ENTERIC COATED 81 MG TABLET.DR. PO SCH (12:25)
--- NOTE | 2021-10-13 13:42 | PDOC2 ---
GI CONSULT Date of Service: DATE: 10/13/21 TIME: 13:29 Reason For Consult: "Colitis" HPI: HPI: 56 y/o male with 4-6 weeks of abdominal issues, chiefly epigastric discomfort. Present intermittently, but maybe worse last 2 days. Eating has variable effect. TUMS are transiently helpful. May be occasionally nauseated, but no emesis. Has h/o heartburn, not on antisecretory he says. Prior EGD 2013 with mild non-specific findings. Did have gastric biopsies done, but no path report available. S/p earlene for stones. No liver or pancreatic history. No tobacco or alcohol use. Stools have been looser of late, but not true diarrhea; has not stools since here. Typically w/o constipation. No overt bleeding. Prior colonoscopy 2009 with polyps, histology unknown. Appetite OK. Wt. stable. GIFH negative. On CT, mention of "proctitis". PMH: PMH: Afib, asthma, HLP, HTN, ESRD on HD, DM. S/p earlene, AV fistula. Social History: Smoke: No ALCOHOL: none Drugs: None ROS: GEN: Denies fevers, chills, sweats HEENT: Denies blurred vision, sore throat CV: Denies chest pain RESP: Denies shortness of air, cough GI: Per HPI : Denies hematuria, dysuria ENDO: Denies weight changes NEURO: Denies confusion, dizziness MSK: Denies weakness, joint pain/swelling SKIN: Denies jaundice, pruritus Vitals: Vitals: Vital Signs Date Time Temp Pulse Resp B/P (MAP) Pulse Ox O2 Delivery O2 Flow Rate FiO2 10/13/21 12:25 86 128/88 10/13/21 10:52 98.3 18 94 Room Air 98.3 Labs: Labs: Laboratory Tests Test 10/12/21 19:15 White Blood Count 7.6 x10^3/uL (4.0-11.0) Red Blood Count 4.68 x10^6/uL (4.30-5.70) Hemoglobin 16.0 g/dL (13.0-17.5) Hematocrit 48.3 % (39.0-53.0) Mean Corpuscular Volume 103 fL (79-100) Mean Corpuscular Hemoglobin 34 pg (25-35) Mean Corpuscular Hemoglobin Concent 33 g/dL (31-37) Red Cell Distribution Width 14.5 % (11.5-14.5) Platelet Count 280 x10^3/uL (140-400) Neutrophils (%) (Auto) 67 % (31-73) Lymphocytes (%) (Auto) 21 % (24-48) Monocytes (%) (Auto) 10 % (0-9) Eosinophils (%) (Auto) 1 % (0-3) Basophils (%) (Auto) 1 % (0-3) Neutrophils # (Auto) 5.1 x10^3/uL (1.8-7.7) Lymphocytes # (Auto) 1.6 x10^3/uL (1.0-4.8) Monocytes # (Auto) 0.7 x10^3/uL (0.0-1.1) Eosinophils # (Auto) 0.1 x10^3/uL (0.0-0.7) Basophils # (Auto) 0.1 x10^3/uL (0.0-0.2) Sodium Level 135 mmol/L (136-145) Potassium Level 4.3 mmol/L (3.5-5.1) Chloride Level 97 mmol/L (98-107) Carbon Dioxide Level 22 mmol/L (21-32) Anion Gap 16 (6-14) Blood Urea Nitrogen 50 mg/dL (8-26) Creatinine 13.1 mg/dL (0.7-1.3) Estimated GFR (Cockcroft-Gault) 4.8 BUN/Creatinine Ratio 4 (6-20) Glucose Level 168 mg/dL (70-99) Calcium Level 8.1 mg/dL (8.5-10.1) Magnesium Level 2.1 mg/dL (1.8-2.4) Total Bilirubin 0.9 mg/dL (0.2-1.0) Aspartate Amino Transf (AST/SGOT) 9 U/L (15-37) Alanine Aminotransferase (ALT/SGPT) 14 U/L (16-63) Alkaline Phosphatase 89 U/L (46-116) Troponin I High Sensitivity 43 ng/L (4-75) Total Protein 8.1 g/dL (6.4-8.2) Albumin 3.5 g/dL (3.4-5.0) Albumin/Globulin Ratio 0.8 (1.0-1.7) Lipase 190 U/L (73-393) Labs fairly unremarkable. Allergies: Coded Allergies: No Known Drug Allergies (Unverified , 03/22/21) Medications: Current Medications Medications (Trade) Dose Ordered Sig/Evie Route PRN Reason Start Time Stop Time Status Last Admin Dose Admin Ondansetron HCl (Zofran) 4 mg 1X ONCE IVP 10/12/21 20:30 10/12/21 20:35 DC 10/12/21 20:48 Famotidine (Pepcid Vial) 10 mg 1X ONCE IVP 10/12/21 20:30 10/12/21 20:35 DC 10/12/21 20:48 Iohexol (Omnipaque 240 Mg/ml) 50 ml 1X ONCE PO 10/13/21 09:30 10/13/21 09:31 DC 10/13/21 09:30 Iohexol (Omnipaque 300 Mg/ml) 75 ml 1X ONCE IV 10/13/21 09:30 10/13/21 09:31 DC 10/13/21 10:59 Apixaban (Eliquis) 5 mg BID PO 10/13/21 12:30 10/13/21 12:24 Aspirin (Ecotrin) 81 mg DAILYWBKFT PO 10/13/21 13:00 10/13/21 12:25 Clopidogrel Bisulfate (Plavix) 75 mg DAILYWBKFT PO 10/13/21 13:00 10/13/21 12:25 Dronedarone (Multaq) 400 mg BIDWMEALS PO 10/13/21 12:30 10/13/21 12:24 Isosorbide Mononitrate (Imdur) 60 mg DAILY PO 10/13/21 13:00 10/13/21 12:25 Multivitamins (Thera M Plus) 1 tab DAILY PO 10/13/21 13:00 10/13/21 12:25 Sodium Chloride 1,000 ml @ 100 mls/hr 1X ONCE IV 10/13/21 12:00 10/13/21 21:59 10/13/21 12:24 Imaging: Imaging: Reviewed CT. PE: GEN: NAD HEENT: Atraumatic, PERRLA LUNGS: CTAB HEART: RRR, no murmurs ABD: NABS, S/ND/NT, no masses EXTREMITY: No edema SKIN: No rashes, no jaundice NEURO/PSYCH: A & O 3 A/P: A/P: IMP: Dyspepsia, GERD suspect. H/o polyps. Doubt has any meaningful "colitis" w/o ongoing diarrhea. CT probably an overcall. S/p earlene. REC: Antisecretory. If stools, stool studies. Needs outpatient colonoscopy at some point. --other pending. Thanks. LESLY CHANDLER MD Oct 13, 2021 13:42
[2021-10-13] MEDS: cloNIDine HCL 0.3 MG TABLET PO SCH ×2 (14:00→20:39)
[2021-10-13 15:00] VITALS: BP 112/67
[2021-10-13] MEDS: FAMOTIDINE 20 MG TABLET. PO SCH (15:01)
[2021-10-13 19:56] VITALS: BP 103/69
[2021-10-13] MEDS ORDERED: ATORVASTATIN CALCIUM 40 MG TABLET. PO SCH (21:00)
--- NOTE | 2021-10-13 23:28 | HP ---
DATE OF SERVICE: 10/13/2021 ADMIT DATE: 10/12/2021 REASON FOR ADMISSION TO THE HOSPITAL: Lightheaded, dizzy, had an episode of diarrhea for last 2 days. HISTORY OF PRESENT ILLNESS: The patient is a 56-year-old male. The patient was recently in the hospital a couple of weeks ago. Three to four weeks ago at that time, he had a non-STEMI, had a stent placed in the ramus and he was discharged home. He was doing relatively well. It was noticed on Thursday. He goes to dialysis 3 times a week, Thursday, Thursday and Thursday. After dialysis, noticed diarrhea and got progressively worse and then yesterday it even got worse. He was lightheaded and dizzy when he was standing up, had at least 4-5 large BMs. No nausea, no vomiting, no blood in the stool and he denies eating any leftovers or any salad. The patient was admitted to the hospital, was lightheaded, was admitted to the hospital. Stool for enteropathogenic bacteria as well as C. diff is ordered. The patient was given IV fluids. PAST MEDICAL HISTORY: As mentioned, recently had a stent placed at the branches of the LAD, recently three to four weeks ago; atrial fibrillation, on Eliquis; end-stage renal disease, on dialysis; hypertension; hyperlipidemia. PAST SURGICAL HISTORY: He has a fistula, left arm and had a recent stent. ALLERGIES: No known allergies. PERSONAL HISTORY: Denies smoking, alcohol, drug abuse. MEDICATIONS: At home, the patient is on Eliquis 5 mg twice a day, aspirin 81 mg daily, atorvastatin 40 mg daily, clonidine 0.3 three times a day, Plavix 75 mg 3 times a day, Multaq 400 mg twice a day, hydralazine 50 mg 3 times daily, hydrocodone 1 q.6h, isosorbide 30 mg daily, multivitamin daily, nitro p.r.n. REVIEW OF SYSTEMS: Denies any nausea or vomiting. No further stools after he came to the hospital. PHYSICAL EXAMINATION: VITAL SIGNS: At the time of admission vital signs shows a temperature 98, pulse 103, respirations 16, blood pressure 117/74, 96 on room air. HEENT: Head is atraumatic. Pupils equal. Oral cavity, no congestion. NECK: Supple. Thyroid not enlarged. JVD not elevated. CHEST: Symmetrical. CARDIOVASCULAR: S1, S2. No murmurs. LUNGS: Clear to auscultation. No wheezing. ABDOMEN: Soft. Bowel sounds present. No mass palpable. EXTERNAL GENITALIA: No Centeno. RECTUM: Deferred. EXTREMITIES: No calf tenderness, no edema. The patient has AV shunt in the left arm with good thrill present. NEUROLOGIC: No neuro deficit. SKIN: Normal skin turgor and no lymphadenopathy. LABORATORY DATA: Shows a white count of 7, hemoglobin 16, platelets 280. Electrolytes show sodium 135, potassium 4.3, chloride 97, bicarbonate 22, BUN 50, creatinine 13, glucose 168. LFTs normal. Troponin negative. Had a CT scan of the abdomen and pelvis, which shows diverticulosis without evidence of acute diverticulitis, mild wall thickening in the rectum, stable right adenoma of 1.3 cm. FINAL IMPRESSION: 1. Acute episode of diarrhea with dehydration. The patient was admitted to the hospital, was given IV fluids. 2. CT scan shows colitis. We will check stool for C. diff and enteropathogenic bacteria and GI is consulted. 3. End-stage renal disease, on hemodialysis Thursday, Thursday and Thursday. 4. Recent cardiac stent 3-4 weeks ago. Troponin was negative. No chest pain. 5. Hypertension. PLAN: At this time, admit to hospital and hydrate with IV fluids, stool cultures, IV fluids. Orthostatic blood pressure and get dialysis tomorrow and hopefully could be discharged home soon, outpatient colonoscopy. MILDRED/KATTY/MINGO DR: Aliyah TID: [id number] [facility]
[2021-10-13 23:41] VITALS: BP 127/81
[2021-10-14 03:23] VITALS: BP 111/76
[2021-10-14 07:00] VITALS: BP 126/86
[2021-10-14] MEDS ORDERED: DIALYSIS PATIENT. MC PRN (07:15)
[2021-10-14] MEDS ORDERED: IV NORMAL SALINE 1000ML BAG 1,000 ML IV PRN ×2 (07:15)
[2021-10-14 08:05] LABS: BASO % 1 % (0-3); EOS # 0.2 x10^3/uL (0.0-0.7); EOS % 3 % (0-3); HEMATOCRIT 44.7 % (39.0-53.0); HEMOGLOBIN 14.6 g/dL (13.0-17.5); LYMPH # 1.5 x10^3/uL (1.0-4.8); LYMPH % 24 % (24-48); MEAN CORPUSCULAR HEMOGLOBIN 34 pg (25-35); MEAN CORPUSCULAR HGB CONC 33 g/dL (31-37); MEAN CORPUSCULAR VOLUME 104 fL (79-100); MONO # 0.6 x10^3/uL (0.0-1.1); MONO % 9 % (0-9); NEUT # 3.9 x10^3/uL (1.8-7.7); NEUT % 64 % (31-73); PLATELET COUNT 252 x10^3/uL (140-400); RED CELL DISTRIBUTION WIDTH 14.4 % (11.5-14.5); WHITE BLOOD COUNT 6.1 x10^3/uL (4.0-11.0)
[2021-10-14] MEDS ORDERED: LIDOCAINE 1% PF 2 ML VIAL. ID ONE (08:45)
[2021-10-14 09:24] LABS: CREATININE 16.5 mg/dL (0.7-1.3); GFR 3.7; POTASSIUM 5.2 mmol/L (3.5-5.1)
--- NOTE | 2021-10-14 09:32 | PDOC ---
PROGRESS NOTES Date of Service: DATE: 10/14/21 TIME: 09:29 Subjective Subjective seen in DIalysis unit, bassem ok ,no more loose stools Objective Objective Vital Signs Date Time Temp Pulse Resp B/P (MAP) Pulse Ox O2 Delivery O2 Flow Rate FiO2 10/14/21 07:00 97.6 77 20 126/86 (99) 97 Room Air 97.6 Intake and Output 10/14/21 07:00 Intake Total 1750 ml Balance 1750 ml Intake Oral 750 ml IV Total 1000 ml Physical Exam Abdomen: Soft Heart: Normal S1, Normal S2 Extremities: No clubbing General: Alert Lungs: Clear to auscultation MUSCULOSKELETAL: No deformity, No swelling, Other Neuro: Normal speech Psych/Mental Status: Mental status NL Skin: No breakdown Diagnosis Problem List Problems Medical Problems: (1) Dizzy Status: Acute Assessment Assessment Problems Medical Problems: (1) Dizzy Status: Acute FINAL IMPRESSION: 1. Acute episode of diarrhea with dehydration. The patient was admitted to the hospital, was given IV fluids. 2. CT scan shows colitis. We will check stool for C. diff and enteropathogenic bacteria and GI is consulted. 3. End-stage renal disease, on hemodialysis Thursday, Thursday and Thursday. 4. Recent cardiac stent 3-4 weeks ago. Troponin was negative. No chest pain. 5. Hypertension. PLAN: no more loose stools dizziness improved with fluids seen by GI , no plans for colon at this point. dialysis today. d/c home later today. out pt colonoscopy . At this time, admit to hospital and hydrate with IV fluids, stool cultures, IV fluids. Orthostatic blood pressure and get dialysis tomorrow and hopefully could be discharged home soon, outpatient colonoscopy. Plan Plan of Care Problems Medical Problems: (1) Dizzy Status: Acute Comment Review of Relevant I have reviewed the following items maame (where applicable) has been applied. Labs Laboratory Tests Test 10/14/21 06:49 White Blood Count 6.1 x10^3/uL (4.0-11.0) Red Blood Count 4.30 x10^6/uL (4.30-5.70) Hemoglobin 14.6 g/dL (13.0-17.5) Hematocrit 44.7 % (39.0-53.0) Mean Corpuscular Volume 104 fL (79-100) Mean Corpuscular Hemoglobin 34 pg (25-35) Mean Corpuscular Hemoglobin Concent 33 g/dL (31-37) Red Cell Distribution Width 14.4 % (11.5-14.5) Platelet Count 252 x10^3/uL (140-400) Neutrophils (%) (Auto) 64 % (31-73) Lymphocytes (%) (Auto) 24 % (24-48) Monocytes (%) (Auto) 9 % (0-9) Eosinophils (%) (Auto) 3 % (0-3) Basophils (%) (Auto) 1 % (0-3) Neutrophils # (Auto) 3.9 x10^3/uL (1.8-7.7) Lymphocytes # (Auto) 1.5 x10^3/uL (1.0-4.8) Monocytes # (Auto) 0.6 x10^3/uL (0.0-1.1) Eosinophils # (Auto) 0.2 x10^3/uL (0.0-0.7) Basophils # (Auto) 0.0 x10^3/uL (0.0-0.2) Sodium Level 141 mmol/L (136-145) Potassium Level 5.2 mmol/L (3.5-5.1) Chloride Level 100 mmol/L (98-107) Carbon Dioxide Level 26 mmol/L (21-32) Anion Gap 15 (6-14) Blood Urea Nitrogen 66 mg/dL (8-26) Creatinine 16.5 mg/dL (0.7-1.3) Estimated GFR (Cockcroft-Gault) 3.7 Glucose Level 92 mg/dL (70-99) Calcium Level 8.0 mg/dL (8.5-10.1) Medications Current Medications Acetaminophen/ Hydrocodone Bitart (Lortab 5/325) 1 tab PRN Q6HRS PRN PO MODERATE PAIN Last administered on 10/13/21at 17:55; Start 10/13/21 at 12:00 Apixaban (Eliquis) 5 mg BID PO Last administered on 10/13/21at 20:38; Start 10/13/21 at 12:30 Aspirin (Ecotrin) 81 mg DAILYWBKFT PO Last administered on 10/13/21at 12:25; Start 10/13/21 at 13:00 Atorvastatin Calcium (Lipitor) 40 mg QHS PO Last administered on 10/13/21at 20:38; Start 10/13/21 at 21:00 Clonidine HCl (Catapres) 0.3 mg TID PO ; Start 10/13/21 at 14:00 Clopidogrel Bisulfate (Plavix) 75 mg DAILYWBKFT PO Last administered on 10/13/21at 12:25; Start 10/13/21 at 13:00 Dronedarone (Multaq) 400 mg BIDWMEALS PO Last administered on 10/13/21at 17:07; Start 10/13/21 at 12:30 Famotidine (Pepcid) 20 mg DAILY PO Last administered on 10/13/21at 15:01; Start 10/13/21 at 14:00 Hydralazine HCl (Apresoline) 50 mg TID PO ; Start 10/13/21 at 14:00 Info (CONTRAST GIVEN -- Rx MONITORING) 1 each PRN DAILY PRN MC SEE COMMENTS; Start 10/13/21 at 09:30; Stop 10/15/21 at 09:29 Info (PHARMACY MONITORING -- do not chart) 1 each PRN DAILY PRN MC SEE COMMENTS; Start 10/14/21 at 07:15 Iohexol (Omnipaque 240 Mg/ml) 50 ml 1X ONCE PO Last administered on 10/13/21at 09:30; Start 10/13/21 at 09:30; Stop 10/13/21 at 09:31; Status DC Iohexol (Omnipaque 300 Mg/ml) 75 ml 1X ONCE IV Last administered on 10/13/21at 10:59; Start 10/13/21 at 09:30; Stop 10/13/21 at 09:31; Status DC Isosorbide Mononitrate (Imdur) 60 mg DAILY PO Last administered on 10/13/21at 12:25; Start 10/13/21 at 13:00 Lidocaine HCl (Xylocaine-Mpf 1% 2ml Vial) 0.25 ml 1X ONCE ID ; Start 10/14/21 at 08:45; Stop 10/14/21 at 08:46; Status DC Multivitamins (Thera M Plus) 1 tab DAILY PO Last administered on 10/13/21at 12:25; Start 10/13/21 at 13:00 Nitroglycerin (Nitrostat) 0.4 mg PRN Q5MIN PRN SL CHEST PAIN; Start 10/13/21 at 12:00 Sodium Chloride 1,000 ml @ 100 mls/hr 1X ONCE IV Last administered on 10/13/21at 12:24; Start 10/13/21 at 12:00; Stop 10/13/21 at 21:59; Status DC Sodium Chloride 1,000 ml @ 400 mls/hr Q2H30M PRN IV PATENCY; Start 10/14/21 at 07:15; Stop 10/14/21 at 19:14 Sodium Chloride 1,000 ml @ 1,000 mls/hr Q1H PRN IV hypotension; Start 10/14/21 at 07:15; Stop 10/14/21 at 13:14 Vitals/I & O Vital Sign - Last 24 Hours 10/13/21 10/13/21 10/13/21 10/13/21 10:52 12:24 12:25 15:00 Temp 98.3 99.1 98.3 99.1 Pulse 86 86 86 80 Resp 18 18 B/P (MAP) 128/88 (101) 128/88 128/88 112/67 (82) Pulse Ox 94 93 O2 Delivery Room Air Room Air 10/13/21 10/13/21 10/13/21 10/13/21 17:07 19:00 19:56 23:41 Temp 98.0 97.7 98.0 97.7 Pulse 80 82 65 Resp 18 18 B/P (MAP) 112/67 103/69 (80) 127/81 (96) Pulse Ox 91 97 O2 Delivery Room Air Room Air Room Air 10/14/21 10/14/21 03:23 07:00 Temp 97.6 97.6 97.6 97.6 Pulse 68 77 Resp 20 20 B/P (MAP) 111/76 (88) 126/86 (99) Pulse Ox 96 97 O2 Delivery Room Air Room Air Intake and Output 10/13/21 10/13/21 10/14/21 15:00 23:00 07:00 Intake Total 480 ml 1240 ml 30 ml Balance 480 ml 1240 ml 30 ml Justifications for Admission Other Justification RAMU FLOYD MD Oct 14, 2021 09:32
--- NOTE | 2021-10-14 09:38 | PDOC ---
Date of Service: DATE: 10/14/21 TIME: 09:32 Subjective: Subjective: Said ordered double portions yesterday. Little mid abdominal uneasiness but much better than before. No stools. Objective: Objective: Getting famotidine 20mg QD. Vital Signs: Vital Signs Date Time Temp Pulse Resp B/P (MAP) Pulse Ox O2 Delivery O2 Flow Rate FiO2 10/14/21 07:00 97.6 77 20 126/86 (99) 97 Room Air 97.6 Labs: Laboratory Tests Test 10/14/21 06:49 White Blood Count 6.1 x10^3/uL Red Blood Count 4.30 x10^6/uL Hemoglobin 14.6 g/dL Hematocrit 44.7 % Mean Corpuscular Volume 104 fL Mean Corpuscular Hemoglobin 34 pg Mean Corpuscular Hemoglobin Concent 33 g/dL Red Cell Distribution Width 14.4 % Platelet Count 252 x10^3/uL Neutrophils (%) (Auto) 64 % Lymphocytes (%) (Auto) 24 % Monocytes (%) (Auto) 9 % Eosinophils (%) (Auto) 3 % Basophils (%) (Auto) 1 % Neutrophils # (Auto) 3.9 x10^3/uL Lymphocytes # (Auto) 1.5 x10^3/uL Monocytes # (Auto) 0.6 x10^3/uL Eosinophils # (Auto) 0.2 x10^3/uL Basophils # (Auto) 0.0 x10^3/uL Sodium Level 141 mmol/L Potassium Level 5.2 mmol/L Chloride Level 100 mmol/L Carbon Dioxide Level 26 mmol/L Anion Gap 15 Blood Urea Nitrogen 66 mg/dL Creatinine 16.5 mg/dL Estimated GFR (Cockcroft-Gault) 3.7 Glucose Level 92 mg/dL Calcium Level 8.0 mg/dL PE: GEN: NAD - dialyzing LUNGS: CTAB HEART: RRR ABD: NABS, S/ND/NT NEURO/PSYCH: A & O 3 A/P: Dyspepsia/suspected GERD Loose stools - none here ESRD, CAD (recent stent), A Fib - on Plavix, ASA, Eliquis -- Observe GI-lu - could consider changing to PPI from HJ2 honey. Stools studies ordered/uncollected. Justicifation of Admission Dx: Justifications for Admission: Justification of Admission Dx: Yes SHANE ALFREDO Oct 14, 2021 09:38
--- NOTE | 2021-10-14 09:40 | PDOC ---
DATE OF SERVICE DATE: 10/14/21 TIME: 09:40 SUBJECTIVE ROS Seen during dialysis,No complaints OBJECTIVE Vital Signs Vital Signs Date Time Temp Pulse Resp B/P (MAP) Pulse Ox O2 Delivery O2 Flow Rate FiO2 10/14/21 07:00 97.6 77 20 126/86 (99) 97 Room Air 97.6 I & 0 Intake and Output 10/14/21 07:00 Intake Total 1750 ml Balance 1750 ml Intake Oral 750 ml IV Total 1000 ml PHYSICAL EXAM Physical Exam General: No acute distress HEENT: OM moist NECK Supple Lungs: Clear to auscultation, Non labored Heart: Regular rate Abd Soft, NT Extremities: No cyanosis LE edema + Skin: No rash Neuro: grossly normal Psych/Mental Status: Mental status NL, Mood NL No Centeno, No CVA or SP tenderness DIAGNOSIS/ASSESSMENT Assessment & Plan ESRD MWF, seen during dialysis. Tolerating well. Continue as ordered. Oneil BENAVIDES Has been on HD since 2017, no significant RRF Recent NSTEMI- -S/P PCI/ stent placement to the ramus intermedius artery. HTN - BP stable Acute episode of diarrhea with dehydration. PAFIB; presently SR DM2 per PCP CAD: distal LAD lesion Anemia - Hgb Normal , No indication for TEO COMMENT/RELEVANT DATA Meds Current Medications Medications (Trade) Dose Ordered Sig/Evie Start Time Stop Time Status Last Admin Dose Admin Acetaminophen/ Hydrocodone Bitart (Lortab 5/325) 1 tab PRN Q6HRS PRN 10/13/21 12:00 10/13/21 17:55 1 TAB Apixaban (Eliquis) 5 mg BID 10/13/21 12:30 10/13/21 20:38 5 MG Aspirin (Ecotrin) 81 mg DAILYWBKFT 10/13/21 13:00 10/13/21 12:25 81 MG Atorvastatin Calcium (Lipitor) 40 mg QHS 10/13/21 21:00 10/13/21 20:38 40 MG Clonidine HCl (Catapres) 0.3 mg TID 10/13/21 14:00 Clopidogrel Bisulfate (Plavix) 75 mg DAILYWBKFT 10/13/21 13:00 10/13/21 12:25 75 MG Dronedarone (Multaq) 400 mg BIDWMEALS 10/13/21 12:30 10/13/21 17:07 400 MG Famotidine (Pepcid Vial) 10 mg 1X ONCE 10/12/21 20:30 10/12/21 20:35 DC 10/12/21 20:48 10 MG Famotidine (Pepcid) 20 mg DAILY 10/13/21 14:00 10/13/21 15:01 20 MG Hydralazine HCl (Apresoline) 50 mg TID 10/13/21 14:00 Info (CONTRAST GIVEN -- Rx MONITORING) 1 each PRN DAILY PRN 10/13/21 09:30 10/15/21 09:29 Info (PHARMACY MONITORING -- do not chart) 1 each PRN DAILY PRN 10/14/21 07:15 Iohexol (Omnipaque 240 Mg/ml) 50 ml 1X ONCE 10/13/21 09:30 10/13/21 09:31 DC 10/13/21 09:30 50 ML Iohexol (Omnipaque 300 Mg/ml) 75 ml 1X ONCE 10/13/21 09:30 10/13/21 09:31 DC 10/13/21 10:59 75 ML Isosorbide Mononitrate (Imdur) 60 mg DAILY 10/13/21 13:00 10/13/21 12:25 60 MG Lidocaine HCl (Xylocaine-Mpf 1% 2ml Vial) 0.25 ml 1X ONCE 10/14/21 08:45 10/14/21 08:46 DC Multivitamins (Thera M Plus) 1 tab DAILY 10/13/21 13:00 10/13/21 12:25 1 TAB Nitroglycerin (Nitrostat) 0.4 mg PRN Q5MIN PRN 10/13/21 12:00 Ondansetron HCl (Zofran) 4 mg PRN Q8HRS PRN 10/12/21 21:00 10/13/21 20:59 DC Sodium Chloride 1,000 ml @ 400 mls/hr Q2H30M PRN 10/14/21 07:15 10/14/21 19:14 Lab Laboratory Tests Test 10/14/21 06:49 White Blood Count 6.1 x10^3/uL (4.0-11.0) Red Blood Count 4.30 x10^6/uL (4.30-5.70) Hemoglobin 14.6 g/dL (13.0-17.5) Hematocrit 44.7 % (39.0-53.0) Mean Corpuscular Volume 104 fL (79-100) Mean Corpuscular Hemoglobin 34 pg (25-35) Mean Corpuscular Hemoglobin Concent 33 g/dL (31-37) Red Cell Distribution Width 14.4 % (11.5-14.5) Platelet Count 252 x10^3/uL (140-400) Neutrophils (%) (Auto) 64 % (31-73) Lymphocytes (%) (Auto) 24 % (24-48) Monocytes (%) (Auto) 9 % (0-9) Eosinophils (%) (Auto) 3 % (0-3) Basophils (%) (Auto) 1 % (0-3) Neutrophils # (Auto) 3.9 x10^3/uL (1.8-7.7) Lymphocytes # (Auto) 1.5 x10^3/uL (1.0-4.8) Monocytes # (Auto) 0.6 x10^3/uL (0.0-1.1) Eosinophils # (Auto) 0.2 x10^3/uL (0.0-0.7) Basophils # (Auto) 0.0 x10^3/uL (0.0-0.2) Sodium Level 141 mmol/L (136-145) Potassium Level 5.2 mmol/L (3.5-5.1) Chloride Level 100 mmol/L (98-107) Carbon Dioxide Level 26 mmol/L (21-32) Anion Gap 15 (6-14) Blood Urea Nitrogen 66 mg/dL (8-26) Creatinine 16.5 mg/dL (0.7-1.3) Estimated GFR (Cockcroft-Gault) 3.7 Glucose Level 92 mg/dL (70-99) Calcium Level 8.0 mg/dL (8.5-10.1) Results All relevant outside records, renal labs, imaging studies, telemetry/EKG's were reviewed. Justicifation of Admission Dx: Justifications for Admission: Justification of Admission Dx: Yes STEPHEN LIEBERMAN MD Oct 14, 2021 09:40
[2021-10-14 13:15] VITALS: BP 130/97
[2021-10-14] MEDS: APIXABAN 5 MG TABLET. PO SCH (13:17)
[2021-10-14 13:18] VITALS: BP 130/97
[2021-10-14] MEDS: ASPIRIN ENTERIC COATED 81 MG TABLET.DR. PO SCH (13:18)
[2021-10-14] MEDS: cloNIDine HCL 0.3 MG TABLET PO SCH ×2 (13:18→13:29)
[2021-10-14] MEDS: DRONEDARONE HCL 400 MG TABLET PO SCH (13:18)
[2021-10-14] MEDS: ISOSORBIDE MONONITRATE ER 30 MG TAB.ER.24H PO SCH (13:18)
[2021-10-14] MEDS: FAMOTIDINE 20 MG TABLET. PO SCH (13:19)
[2021-10-14] MEDS: CLOPIDOGREL BISULFATE 75 MG TABLET PO SCH (13:19)
[2021-10-14] MEDS: MULTIVITAMIN with MINERAL TABLET. PO SCH (13:19)
--- NOTE | 2021-10-14 14:15 | NUR ---
Discharge Note: MARYJANE GUZMAN Discharge instructions and discharge home medications reviewed with Patient and a copy given. All questions have been answered and understanding verbalized. The following instructions and handouts were given: discharge instructions, education and follow up recommendations. Discontinued lines and drains: Peripheral IV discontinued intact. Patient discharged to Home or Self Care with [facility] Transport Personnel via Wheelchair
--- NOTE | 2021-10-17 09:46 | EKG ---
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
--- NOTE | 2021-10-21 22:14 | PDOC ---
Provider Note Date of Service: DATE: 10/21/21 TIME: 22:13 Provider Note Discharge summary dictated.#[id number]. Justifications for Admission Other Justification RAMU FLOYD MD October 21, 2021 22:14
--- NOTE | 2021-10-21 23:12 | DS ---
DATE OF DISCHARGE: 10/14/2021 REASON FOR ADMISSION TO THE HOSPITAL: Near syncopal episode, dehydration and diarrhea. CONSULTATIONS: 1. Dr. Glynn, Renal. 2. Dr. Shields, GI. PROCEDURES DONE: 1. Hemodialysis. 2. CT scan of the abdomen and pelvis. COMPLICATIONS NOTED: None. HOSPITAL COURSE: The patient is a 56-year-old male. The patient was recently discharged from the hospital 2-3 weeks ago for chest pain. At that time, the patient had a cardiac intervention, stent placed in LAD and he was doing relatively well. The patient was having diarrhea for last 2 days, was weak, dehydrated and the patient had a near syncopal episode, was brought to the hospital, was given IV fluids. The patient was dialyzed while he was in the hospital. He goes to dialysis 3 times a week. The patient had a CT scan of the abdomen, which shows questionable inflammation in the colon, thickening in the rectum, nonspecific and the patient was seen by GI, had a C. diff and stool cultures were ordered, but diarrhea improved, it was not collected and GI did not think that anything to be done at this point, but says down the road needs to have a colonoscopy. I think the last colonoscopy is more than 5 years ago. FINAL DIAGNOSES: 1. Near syncope. 2. Dehydration secondary to diarrhea. 3. Possible gastroenteritis causing diarrhea. 4. End-stage renal disease, on hemodialysis. 5. Recent coronary artery disease, had a stent placed 2-3 weeks ago. 6. Chronic atrial fibrillation, on Eliquis. DISPOSITION: Home. See [facility]AD for discharge medications. Outpatient colonoscopy at a later time. Continue outpatient dialysis. JADE DR: Aliyah TID: [id number]
== END 2021-10-14 14:16 | disposition home or self-care (01) | DRG 391 ==
LOC: ER 18:41 → 5 NORTH 20:51
PROVIDERS: ADMIT Internal Medicine; ATTEND Internal Medicine
PROC: 5A1D70Z Performance of Urinary Filtration, Intermittent, Less than 6 Hours Per Day (ICD-10-PCS; principal; 2021-10-14)
DX: K52.9 Noninfective gastroenteritis and colitis, unspecified (principal); N18.6 End stage renal disease; I21.4 Non-ST elevation (NSTEMI) myocardial infarction; I12.0 Hypertensive chronic kidney disease with stage 5 chronic kidney disease or end stage renal disease; I48.20 Chronic atrial fibrillation, unspecified; E86.0 Dehydration; E11.22 Type 2 diabetes mellitus with diabetic chronic kidney disease; E78.00 Pure hypercholesterolemia, unspecified; E78.5 Hyperlipidemia, unspecified; I25.10 Atherosclerotic heart disease of native coronary artery without angina pectoris; J45.909 Unspecified asthma, uncomplicated; K57.90 Diverticulosis of intestine, part unspecified, without perforation or abscess without bleeding; I48.0 Paroxysmal atrial fibrillation; D64.9 Anemia, unspecified; Z79.01 Long term (current) use of anticoagulants; Z82.49 Family history of ischemic heart disease and other diseases of the circulatory system; Z83.3 Family history of diabetes mellitus; Z87.11 Personal history of peptic ulcer disease; Z95.5 Presence of coronary angioplasty implant and graft; Z99.2 Dependence on renal dialysis
CPT/HCPCS: 36415; 74177; 80048; 80053; 83690; 83735; 84484; 85025; 93005; 96374; 96375; J2405; J3490; J7030; Q9966; Q9967; 99285-25; G0378